=== PATIENT | female | born 1980 | race Caucasian/White ===

== ENCOUNTER 2019-07-17 08:57 | Outpatient (CLI) | payer MEDICAID, SELFPAY ==
--- NOTE | 2019-07-17 08:16 | FL_ITS ---
WS: [id number] ESOPHAGRAM TECHNIQUE: Double contrast examination was performed with thin and thick barium. Upright and LARA imag es were obtained. CLINICAL INFORMATION: DYSPHAGIA COMPARISON: None. FINDINGS: Swallowing: Normal. No evidence of aspiration penetration. No difficulties with barium tablet. Esophagus: Mild to moderate esophageal dysmotility with delayed emptying. Overall decreased contracti lity. No evidence of high-grade stricture or obstructing mass. Gastroesophageal reflux: Present in the supine position to the midesophagus. Fluoroscopy time: 4.1 minutes. FL/FL barium swallow [id number] IMPRESSION: 1. Mild to moderate esophageal dysmotility with delayed emptying and overall d ecreased contractility. 2. Active reflux to the midesophagus in the supine position. 3. No significant hiatal hernia. 4. No evidence of aspiration or penetration.
== END 2019-07-17 08:58 | disposition home or self-care (01) ==
PROVIDERS: Family Provider Family Medicine; PCP Family Medicine; Visit Provider Nurse Practitioner Family
DX: K21.9 Gastro-esophageal reflux disease without esophagitis (principal); R13.10 Dysphagia, unspecified
CPT/HCPCS: 74220

== ENCOUNTER → 2019-07-19 14:31 | Outpatient (BNVA) | payer MEDICAID, SELFPAY | PROVIDERS: Family Provider Family Medicine; PCP Nurse Practitioner Family; Visit Provider Specialist | DX: G43.711 Chronic migraine without aura, intractable, with status migrainosus (principal); F17.210 Nicotine dependence, cigarettes, uncomplicated | CPT/HCPCS: 64615; 99212; J0585 ==

== ENCOUNTER 2019-07-20 17:32 | Emergency (ER) | payer MEDICAID, SELFPAY ==
[2019-07-20 17:34] VITALS: BMI 46.5
--- NOTE | 2019-07-20 17:47 | XRR_ITS ---
PROCEDURE INFORMATION: Exam: XR Lumbosacral Spine, 2 or 3 Views Exam date and time: 07/20/2019 6:13 PM Age: 39 years old Clinical indication: Injury or trauma; Fall; Initial encounter; Blunt trauma (contusions or hematomas) TECHNIQUE: Imaging protocol: XR of the lumbosacral spine, 2 or 3 views. COMPARISON: CR Sacrum and Coccyx [id number] 03/27/2018 7:34 PM FINDINGS: Vertebrae: Normal. No acute fracture. Normal alignment. Soft tissues: Normal. XR/XR lumbar spine 2-3V* [id number] IMPRESSION: Unremarkable radiograph.
--- NOTE | 2019-07-20 17:47 | XRR_ITS ---
PROCEDURE INFORMATION: Exam: XR Sacrum and Coccyx, 2 or More Views Exam date and time: 07/20/2019 6:13 PM Age: 39 years old Clinical indication: Injury or trauma; Fall; Initial encounter; Blunt trauma (contusions or hematomas) TECHNIQUE: Imaging protocol: XR of the sacrum and coccyx, 2 or more views. COMPARISON: CR Sacrum and Coccyx [id number] 03/27/2018 7:34 PM FINDINGS: Bones/joints: Normal. No acute fracture. Soft tissues: Normal. XR/XR sacrum coccyx min 2V [id number] IMPRESSION: No acute findings.
--- NOTE | 2019-07-20 18:25 | ED_ITS ---
HPI - Fall General: Chief Complaint: Fall Stated Complaint: fall/side pain Time Seen by Provider: 07/20/19 17:47 History of Present Illness: HPI Narrative: Patient states that she fell at home twice today going down the stairs once earlier splint was icy then later safstevein complains about pain in her right buttock area now complaint: fall Onset (ago): hour(s) Fall from: standing Fall witnessed: no Place fall occurred: home Loss of consciousness: None Prolonged down time: no Symptoms prior to fall: none Context: tripped/slipped Location of injury: buttocks Associated symptoms-after fall: Denies abdominal pain, chest pain or headache(s) Review of Systems Const: Denies: fever, chills or body aches Eyes: Denies: change in vision or blurry vision ENMT: Denies: throat pain or nasal congestion Card: Denies: chest pain or shortness of breath on exertion Resp: Denies: shortness of breath, productive cough or non-productive cough GI: Denies: abdominal pain, nausea or vomiting Musc: Reports: back pain; Denies: extremity pain Skin/Breast: Denies: rash Neuro: Denies: headache Psych: Denies: anxiety or depression Rick/Lymph: Denies: easy bruising PFSH ED PFSH: Statuses (acute, chronic, etc) shown below reflect problem list status as previously entered and may not be historically accurate Social History Smoking and tobacco status: current every day smoker Physical Exam Const: COMMON NORMALS: no apparent distress, average body habitus and oriented x3 HENMT: COMMON NORMALS: normocephalic HEAD & SCALP: normal to inspection and normocephalic FACE & SINUS: normal facial exam Eye: COMMON NORMALS: conjunctivae normal GENERAL EYE: normal appearance of both eyes CONJUNCTIVA: Yes conjunctivae normal Neck/C-Spine: COMMON NORMALS: no JVD Chest: COMMONS NORMALS: inspection of chest normal Resp: COMMON NORMALS: normal respiratory effort and clear to auscultation bilaterally AUSCULTATION: clear to auscultation bilaterally Cardio: COMMON NORMALS: no JVD, regular rate and regular rhythm RATE: regular rate RHYTHM: regular rhythm GI: COMMON NORMALS: normal to inspection, nondistended, normoactive bowel sounds Back/Pelvis: COMMON NORMALS: thoracic and lumbar spine normal to inspection and no thoracic nor lumbar tenderness LUMBAR SPINE/LOWER BACK: Yes normal to inspection, Yes lumbar ROM normal and No lumbar spinal tenderness PELVIS: Yes other (Pain over the right buttock no bruising swelling or abrasion noted) COCCYX: other (Pain over the right buttock no bruising swelling or abrasion noted) BACK IMAGE (FEMALE): 1. Extremity: COMMON NORMALS: normal to inspection and full ROM Neuro: COMMON NORMALS: oriented x3 Discharge Plan Discharge Patient Disposition: Home, Self-Care Clinical Impression: Contusion of sacrum Qualifiers: Encounter type: initial encounter Qualified Code(s): S30.0XXA - Contusion of lower back and pelvis, initial encounter Condition: Stable Prescriptions: No Action venlafaxine [Effexor XR] 150 mg capsule,extended release 24hr 150 mg PO QAM RF: 0 topiramate [Topamax] 100 mg tablet 100 mg PO QDAY RF: 0 carbamazepine [Tegretol XR] 400 mg tablet extended release 12 hr 400 mg PO BID RF: 0 Bydureon 2 mg/0.65 mL pen injector 2 mg SUBCUT Q7D RF: 0 isosorbide mononitrate 60 mg tablet extended release 24 hr 60 mg PO QAM RF: 0 metoprolol succinate 50 mg tablet extended release 24 hr 50 mg PO BID RF: 0 loratadine 10 mg tablet 10 mg PO QDAY RF: 0 albuterol sulfate 90 mcg/actuation aerosol powdr breath activated 2 inh INHALATION Q6H PRNRF: 0 levothyroxine 75 mcg capsule 75 mcg PO QDAY RF: 0 methocarbamol 750 mg tablet 750 mg PO BID RF: 0 Discharge Orders: Discharge Order (Routine); Ordered 07/20/19 Ordered By: Aashish Hutchinson Referrals: Joseline Thompson MD [Family Provider] - Penny,LI Roberto [Primary Care Provider] - Discharge Diet: Usual diet Discharge Activity: Increase activity as tolerated Patient Instructions: Contusion in Adults (ED) Activity Restrictions/Additional Instructions: Follow-up with medical provider as directed. Return to the ER or your medical provider if condition worsens. Read and understand discharge instructions. 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
[2019-07-20 18:27] VITALS: BP 109/72; PULSE 79; RESP 14; TEMP 36.8; O2SAT 96
== END 2019-07-20 18:28 | disposition home or self-care (01) ==
PROVIDERS: Emergency Provider Nurse Practitioner Family; Family Provider Family Medicine; PCP Nurse Practitioner Family
DX: S30.0XXA Contusion of lower back and pelvis, initial encounter (principal); W00.0XXA Fall on same level due to ice and snow, initial encounter; Y92.009 Unspecified place in unspecified non-institutional (private) residence as the place of occurrence of the external cause; F17.210 Nicotine dependence, cigarettes, uncomplicated
CPT/HCPCS: 72100; 72220; 99281

== ENCOUNTER 2019-09-25 15:15 | Outpatient (CLI) | payer MEDICAID, SELFPAY ==
--- NOTE | 2019-09-25 15:21 | XR_ITS ---
WS: [id number] Left hip, AP and frog leg views, 09/25/2019. Clinical Data: PAIN IN LEFT HIP Comparison: Sacrum and coccyx, 07/20/2019 Findings: No fractures or dislocations are seen. The hip joint is intact. The soft tissues are not remarkable. The adjacent pelvis is normal. XR/XR hip LT 2-3V wo/w pel* [id number] Impression: Negative left hip.
== END 2019-09-25 15:16 | disposition home or self-care (01) ==
LOC: RAD 15:17
PROVIDERS: Family Provider Family Medicine; PCP Nurse Practitioner Family; Visit Provider Family Medicine
DX: M25.552 Pain in left hip (principal)
CPT/HCPCS: 73502

== ENCOUNTER 2019-10-05 17:54 | Emergency (ER) | payer MEDICAID, SELFPAY ==
[2019-10-05 18:23] VITALS: BP 119/79; PULSE 91; RESP 17; TEMP 37; O2SAT 96; BMI 46.0
--- NOTE | 2019-10-05 18:37 | CTR_ITS ---
PROCEDURE INFORMATION: Exam: CT Head Without Contrast Exam date and time: 10/05/2019 6:45 PM Age: 39 years old Clinical indication: Syncope and collapse; Patient HX: Syncope episode last night - backwards fall in bathtub; Additional info: Falls TECHNIQUE: Imaging protocol: Computed tomography of the head without contrast. Total DLP: 761.57 mGy-cm Radiation optimization: All CT scans at this facility use at least one of these dose optimization techniques: automated exposure control; mA and/or kV adjustment per patient size (includes targeted exams where dose is matched to clinical indication); or iterative reconstruction. COMPARISON: CT head wo con* [id number] 03/27/2018 6:00 PM FINDINGS: Brain: No visible evidence for active or acute intracranial pathologic process. Stable benign cavernoma left frontal operculum, averaging 12 mm in diameter, since prior studies dating back to 11/02/2017. Ventricles: Normal. No ventriculomegaly. Bones/joints: Unremarkable. No acute fracture. Sinuses: Visualized sinuses are unremarkable. No fluid levels. Mastoid air cells: Visualized mastoid air cells are well aerated. Soft tissues: Unremarkable. CT/CT head wo con* [id number] IMPRESSION: No visible evidence for active or acute intracranial pathologic process. Radiation Dose CTDIVOL = (mGy): DLP = 761.57 (mGy-cm)
[2019-10-05 18:59] LABS: Basophils # 0.1 10^3/uL (0.0-0.1); Eosinophils # 0.2 10^3/uL (0.0-0.8); Eosinophils % 3.5 %; Hematocrit 43.5 % (37.0-47.0); Hemoglobin 14.2 g/dL (11.5-15.3); Lymphocytes # 1.7 10^3/uL (0.8-4.8); Lymphocytes % 33.7 %; Mean Corpuscular HGB Conc 32.6 g/dL (30.0-36.0); Mean Corpuscular Hemoglobin 30.1 pg (28.0-34.0); Mean Corpuscular Volume 92.4 fL (81-99); Mean Platelet Volume 11.9 fL (7.4-10.4); Monocytes # 0.4 10^3/uL (0.2-0.9); Neutrophils # 2.8 10^3/uL (1.8-7.7); Neutrophils % 54.6 %; Nucleated Red Blood Cells % 0 %; Platelet Count 143 10^3/cmm (130-400); Red Blood Count 4.71 10^6/uL (4.1-5.3); Red Cell Distribution Width 13.2 % (12.1-15.1); White Blood Count 5.2 10^3/uL (4.0-10.0)
--- NOTE | 2019-10-05 19:03 | ECG_ITS ---
Measurements Intervals [place] Rate: 76 P: 18 RI: 175 QRS: 49 QRSD: 97 T: 29 QT: 376 QTc: 425 SINUS RHYTHM NONSPECIFIC T-WAVE ABNORMALITY Compared to ECG 10/29/2018 21:37:20 T-wave abnormality now present Sinus bradycardia no longer present Electronically Signed On 10-06-2019 20:22:13 CDT by Nikolas Ken M.D. [id number]
--- NOTE | 2019-10-05 19:06 | W.ED.FALL ---
HPI - Fall General: Chief Complaint: Fall Stated Complaint: fall Time Seen by Provider: 10/05/19 18:35 Source: patient Mode of arrival: ambulatory Limitations: no limitations History of Present Illness: HPI Narrative: pt states that she has been falling and episodes of incontinence during these episodes; she has hx of seizures but none for 2 years complaint: fall Fall from: standing Fall witnessed: no Place fall occurred: home Loss of consciousness: Unsure Associated symptoms-after fall: Reports chest pain, difficulty walking and headache(s) Review of Systems General: Reports: 10 or more systems reviewed and unremarkable except in HPI and below Const: Denies: fever, chills or body aches Eyes: Denies: change in vision ENMT: Denies: throat pain Card: Reports: chest pain and syncope Resp: Denies: shortness of breath or productive cough : Reports: urinary incontinence; Denies: flank pain Neuro: Reports: headache, difficulty walking and frequent falls PFSH ED PFSH: Social History Smoking and tobacco status: current every day smoker Physical Exam Const: COMMON NORMALS: no apparent distress, oriented x3, no limitations and alert GENERAL APPEARANCE: cooperative and comfortable ORIENTATION/CONSCIOUSNESS: Yes awake, Yes oriented to person, Yes oriented to place and Yes oriented to time HENMT: COMMON NORMALS: normocephalic, head/scalp atraumatic, external ears normal, EAC's normal, TM's normal bilaterally and external nose normal HEAD & SCALP: normal to inspection, normocephalic and atraumatic FACE & SINUS: normal facial exam, sinuses nontender and face symmetric NOSE: external nose normal, nares normal and no nasal discharge EXTERNAL EAR: Yes external ears normal EXTERNAL AUDITORY CANAL: EAC's normal TYMPANIC MEMBRANE: TM's normal bilaterally MOUTH: oral and palatal mucosa normal, lip normal and tongue normal THROAT: posterior oropharynx normal, tonsils normal and uvula midline Eye: COMMON NORMALS: PERRL, EOMs intact bilaterally and conjunctivae normal GENERAL EYE: normal appearance of both eyes and normal light reflex EYELID: eyelids normal CONJUNCTIVA: Yes conjunctivae normal PUPIL: Yes PERRL EOM: Yes EOM abnormal DIRECT OPHTHALMOSCOPY: Yes normal light reflex Neck/C-Spine: COMMON NORMALS: full ROM, no lymphadenopathy, supple, no meningeal signs, no JVD and thyroid normal GENERAL: Yes normal visual inspection THYROID: thyroid normal CERVICAL SPINE: Yes cervical ROM normal and Yes normal cervical lordosis Lymph: LYMPHATIC: no lymphadenopathy noted Chest: COMMONS NORMALS: inspection of chest normal and palpation of chest normal Resp: COMMON NORMALS: normal respiratory effort, no retractions and clear to auscultation bilaterally AUSCULTATION: clear to auscultation bilaterally Cardio: COMMON NORMALS: no JVD, regular rate, regular rhythm, S1 normal heart sound, S2 normal heart sound, no gallops, no clicks, no murmurs, no rub and peripheral pulses 2+ throughout RATE: regular rate RHYTHM: regular rhythm HEART SOUNDS: S1 normal and S2 normal PERIPHERAL PULSES: pulses 2+ throughout GI: COMMON NORMALS: normal to inspection, nondistended, normoactive bowel sounds, soft to palpation, non-tender and no masses PALPATION: Yes soft : COMMON NORMALS: Yes no CVA tenderness and Yes external appearance normal BLADDER/KIDNEY EXAM: Yes no CVA tenderness Back/Pelvis: COMMON NORMALS: no CVA tenderness, thoracic and lumbar spine normal to inspection, no thoracic nor lumbar tenderness and thoraco-lumbar ROM normal Extremity: COMMON NORMALS: normal to inspection, full ROM, normal capillary refill, no joint enlargement, no clubbing, cyanosis or edema, no calf tenderness and no pedal edema GENERAL: Yes normal exam except as noted Neuro: COMMON NORMALS: oriented x3, moves all extremities, no focal motor deficits, no sensory deficits noted and gait normal SENSORIUM/ORIENTATION: Yes alert, Yes oriented to person, Yes oriented to place and Yes oriented to time MENINGEAL SIGNS: Yes no meningeal signs Psych: COMMON NORMALS: mental status grossly normal, thought process normal, cooperative, affect normal, speech normal and activity/motor behavior normal SPEECH: Yes normal speech THOUGHT PROCESS: normal thought process Skin: COMMON NORMALS: no rashes or lesions noted, no wounds and skin turgor normal GENERAL SKIN EXAM: no rashes or lesions noted and turgor normal Course ED course: pt has had numerous syncopal episodes per her history over the past few days; she took a nitro SL prior to her arrival which helped with her ongoing CP with some relief. CT head and further cardiology work up ordered. Denies SOB or CP presently Reevaluation(s): Reevaluation #1: EKG subacute; normal SR. Time: 19:19 Reevaluation #2: Labs show no acute infection; negative for alcohol and UDS is negative. With pt hx of seizures will treat with iv ativan before DC and have her follow up with her neurologist next week for possible medication adjustment. Time: 20:41 Vital Signs: Vital signs: Vital Signs Temperature 98.6 F 10/05/19 18:23 Pulse Rate 84 10/05/19 20:12 Respiratory Rate 17 10/05/19 18:23 Blood Pressure 108/68 10/05/19 20:12 Pulse Oximetry 96 10/05/19 18:23 MDM - Fall Lab Data: Labs: Lab Results 10/05/19 10/05/19 10/05/19 Range/Units 18:45 18:45 18:45 WBC 5.2 (4.0-10.0) 10^3/ uL RBC 4.71 (4.1-5.3) 10^6/u L Hgb 14.2 (11.5-15.3) g/dL Hct 43.5 (37.0-47.0) % MCV 92.4 (81-99) fL MCH 30.1 (28.0-34.0) pg MCHC 32.6 (30.0-36.0) g/dL RDW 13.2 (12.1-15.1) % Plt Count 143 (130-400) 10^3/c mm MPV 11.9 H (7.4-10.4) fL Neut % (Auto) 54.6 % Lymph % (Auto) 33.7 % [place] % (Auto) 7.0 % Eos % (Auto) 3.5 % Baso % (Auto) 1.0 % Neut # (Auto) 2.8 (1.8-7.7) 10^3/u L Lymph # (Auto) 1.7 (0.8-4.8) 10^3/u L [place] # (Auto) 0.4 (0.2-0.9) 10^3/u L Eos # (Auto) 0.2 (0.0-0.8) 10^3/u L Baso # (Auto) 0.1 (0.0-0.1) 10^3/u L Nucleated RBC % (a uto) 0 % Nucleated RBCs # 0.0 /100WBC Sodium 141 (136-145) mmol/L Potassium 4.2 (3.5-5.1) mmol/L Chloride 107 (98-107) mmol/L Carbon Dioxide 23 (22-29) mmol/L Anion Gap 15.2 (5-19) BUN 12 (6-20) mg/dL Creatinine 0.6 (0.5-0.9) mg/dL GFR Calculation 110.2 (90-130) mL/min Glucose 104 (65-115) mg/dL Calculated Osmolal ity 288 (285-295) mOsm/k g Calcium 9.8 (8.5-10.5) mg/dL Total Bilirubin 0.3 (0.15-1.2) mg/dL AST 9 (0-32) U/L ALT 7 (0-33) U/L Alkaline Phosphata se 129 H (35-105) IU/L Troponin T Gen 5 n g/L 8 (0-10) ng/mL Total Protein 7.1 (6.6-8.7) g/dL Albumin 4.5 (3.5-5.2) g/dL Globulin 2.6 (1.3-4.6) g/dL Urine Color (Yellow) Urine Appearance (CLEAR) Urine pH (5-7) Ur Specific Gravit y (1.005-1.030) Urine Protein (Negative) Urine Glucose (UA) (Normal) Urine Ketones (Negative) Urine Blood (Negative) Urine Nitrate (Negative) Urine Bilirubin (NEGATIVE) Urine Urobilinogen (Negative) mg/dL Ur Leukocyte Corinne ase (Negative) Urine Opiates Scre en (Negative) ng/mL Ur Barbiturates Sc reen (Negative) ng/mL Ur Phencyclidine S crn (Negative) ng/mL Ur Amphetamines Sc reen (Negative) ng/mL U Benzodiazepines Scrn (Negative) ng/mL Urine Cocaine Scre en (Negative) ng/mL U Marijuana (THC) Screen (Negative) ng/mL Ethyl Alcohol < 10 (0-10) mg/dL 10/05/19 10/05/19 Range/Units 19:15 19:15 WBC (4.0-10.0) 10^3/ uL RBC (4.1-5.3) 10^6/u L Hgb (11.5-15.3) g/dL Hct (37.0-47.0) % MCV (81-99) fL MCH (28.0-34.0) pg MCHC (30.0-36.0) g/dL RDW (12.1-15.1) % Plt Count (130-400) 10^3/c mm MPV (7.4-10.4) fL Neut % (Auto) % Lymph % (Auto) % [place] % (Auto) % Eos % (Auto) % Baso % (Auto) % Neut # (Auto) (1.8-7.7) 10^3/u L Lymph # (Auto) (0.8-4.8) 10^3/u L [place] # (Auto) (0.2-0.9) 10^3/u L Eos # (Auto) (0.0-0.8) 10^3/u L Baso # (Auto) (0.0-0.1) 10^3/u L Nucleated RBC % (a uto) % Nucleated RBCs # /100WBC Sodium (136-145) mmol/L Potassium (3.5-5.1) mmol/L Chloride (98-107) mmol/L Carbon Dioxide (22-29) mmol/L Anion Gap (5-19) BUN (6-20) mg/dL Creatinine (0.5-0.9) mg/dL GFR Calculation (90-130) mL/min Glucose (65-115) mg/dL Calculated Osmolal ity (285-295) mOsm/k g Calcium (8.5-10.5) mg/dL Total Bilirubin (0.15-1.2) mg/dL AST (0-32) U/L ALT (0-33) U/L Alkaline Phosphata se (35-105) IU/L Troponin T Gen 5 n g/L (0-10) ng/mL Total Protein (6.6-8.7) g/dL Albumin (3.5-5.2) g/dL Globulin (1.3-4.6) g/dL Urine Color Yellow (Yellow) Urine Appearance Clear (CLEAR) Urine pH 5 (5-7) Ur Specific Gravit y 1.015 (1.005-1.030) Urine Protein Neg (Negative) Urine Glucose (UA) Norm (Normal) Urine Ketones Negative (Negative) Urine Blood Neg (Negative) Urine Nitrate Negative (Negative) Urine Bilirubin Neg (NEGATIVE) Urine Urobilinogen Norm (Negative) mg/dL Ur Leukocyte Corinne ase Negative (Negative) Urine Opiates Scre en Negative (Negative) ng/mL Ur Barbiturates Sc reen Negative (Negative) ng/mL Ur Phencyclidine S crn Negative (Negative) ng/mL Ur Amphetamines Sc reen Negative (Negative) ng/mL U Benzodiazepines Scrn Negative (Negative) ng/mL Urine Cocaine Scre en Negative (Negative) ng/mL U Marijuana (THC) Screen Negative (Negative) ng/mL Ethyl Alcohol (0-10) mg/dL Imaging Data^: CT Head: Radiologist's impression: [facility] [address] [place] [address] CT Scan Report Signed Patient: Marry Whatley Unit #: [id number] : 1980 Age/Sex: 39 / F ADM Date: 10/05/19 Loc: ER Room/Bed: Attending Dr: Ordering Provider/Ordering MD: Kayla Boyle NP Date of Service: 10/05/19 Procedure(s): CT head wo con* [id number] Accession Number(s): [id number] Report Number: [id number] PROCEDURE INFORMATION: Exam: CT Head Without Contrast Exam date and time: 10/05/2019 6:45 PM Age: 39 years old Clinical indication: Syncope and collapse; Patient HX: Syncope episode last night - backwards fall in bathtub; Additional info: Falls TECHNIQUE: Imaging protocol: Computed tomography of the head without contrast. Total DLP: 761.57 mGy-cm Radiation optimization: All CT scans at this facility use at least one of these dose optimization techniques: automated exposure control; mA and/or kV adjustment per patient size (includes targeted exams where dose is matched to clinical indication); or iterative reconstruction. COMPARISON: CT head wo con* [id number] 03/27/2018 6:00 PM FINDINGS: Brain: No visible evidence for active or acute intracranial pathologic process. Stable benign cavernoma left frontal operculum, averaging 12 mm in diameter, since prior studies dating back to 11/02/2017. Ventricles: Normal. No ventriculomegaly. Bones/joints: Unremarkable. No acute fracture. Sinuses: Visualized sinuses are unremarkable. No fluid levels. Mastoid air cells: Visualized mastoid air cells are well aerated. Soft tissues: Unremarkable. CT/CT head wo con* [id number] IMPRESSION: No visible evidence for active or acute intracranial pathologic process. Radiation Dose CTDIVOL = (mGy): DLP = 761.57 (mGy-cm) Dictated By: Ronen Nguyễn Signed By: Ronen Nguyễn Signed Date/Time: 10/05/191936 DD/ 33 Discharge Plan Discharge Patient Disposition: Home, Self-Care Clinical Impression: Syncope Condition: Stable Prescriptions: No Action venlafaxine [Effexor XR] 150 mg capsule,extended release 24hr 150 mg PO QAM RF: 0 carbamazepine [Tegretol XR] 400 mg tablet extended release 12 hr 400 mg PO BID RF: 0 Bydureon 2 mg/0.65 mL pen injector 2 mg SUBCUT Q7D RF: 0 isosorbide mononitrate 60 mg tablet extended release 24 hr 60 mg PO QAM RF: 0 metoprolol succinate 50 mg tablet extended release 24 hr 50 mg PO BID RF: 0 loratadine 10 mg tablet 10 mg PO QDAY RF: 0 albuterol sulfate 90 mcg/actuation aerosol powdr breath activated 2 inh INHALATION Q6H PRNRF: 0 levothyroxine 75 mcg capsule 75 mcg PO QDAY RF: 0 methocarbamol 750 mg tablet 750 mg PO BID RF: 0 topiramate [Topamax] 100 mg tablet 100 mg PO QDAY Qty: 30 RF: 4 Referrals: Joseline Thompson MD [Family Provider] - PennyFelisa FNP [Primary Care Provider] - Discharge Diet: Usual diet Discharge Activity: Limit activity as instructed Activity Restrictions/Additional Instructions: please follow up with Dr. Weston to see if your topiramate needs adjusted. If CP returns or worsens or episodes of syncope return; possible that you will need a follow up with cardiology for halter monitor to ensure you are not having an arryhthmia that is causing you to pass out. Please return as needed. No driving until cleared. Coding Level of Care Code ED Paper Mill Manager for Chg Fwd Exam Comprehensive
[2019-10-05 19:17] LABS: Alanine Aminotransferase 7 U/L (0-33); Albumin Level 4.5 g/dL (3.5-5.2); Alkaline Phosphatase 129 IU/L (35-105); Anion Gap 15.2 (5-19); Aspartate Amino Transferase 9 U/L (0-32); Blood Urea Nitrogen 12 mg/dL (6-20); Calcium 9.8 mg/dL (8.5-10.5); Carbon Dioxide 23 mmol/L (22-29); Chloride 107 mmol/L (98-107); Globulin 2.6 g/dL (1.3-4.6); Glomerular Filtration Rate 110.2 mL/min (90-130); Glucose 104 mg/dL (65-115); Osmolality Calculated 288 mOsm/kg (285-295); Potassium 4.2 mmol/L (3.5-5.1); Sodium 141 mmol/L (136-145); Total Bilirubin 0.3 mg/dL (0.15-1.2); Total Protein 7.1 g/dL (6.6-8.7)
[2019-10-05 19:21] LABS: Alcohol Level < 10 mg/dL (0-10)
[2019-10-05 19:24] LABS: Add Urine Microscopic? NO
[2019-10-05] MEDS: sodium chloride 0.9% 500 ML IV (19:28)
[2019-10-05 19:32] LABS: Bilirubin Urine Neg (NEGATIVE); Blood Urine Neg (Negative); Glucose Urine UA Norm (Normal); Ketones Urine Negative (Negative); Leukocyte Esterase Urine Negative (Negative); Nitrate Urine Negative (Negative); Protein Urine Neg (Negative); Specific Gravity, Urine 1.015 (1.005-1.030); Urine Appearance Clear (CLEAR); Urine Color Yellow (Yellow); Urobilinogen Urine Norm (Negative); pH Urine 5 (5-7)
[2019-10-05 19:33] LABS: Troponin T (5th) Once 8 ng/mL (0-10)
[2019-10-05 19:37] LABS: Amphetamines Screen Urine Negative (Negative); Barbiturates Screen Urine Negative (Negative); Benzodiazepines Screen Urine Negative (Negative); Cocaine Screen Urine Negative (Negative); Opiate Screen Urine Negative (Negative); PCP Screen Urine Negative (Negative); THC Screen Urine Negative (Negative)
[2019-10-05 20:00] VITALS: BP 102/62; PULSE 76
[2019-10-05 20:11] VITALS: BP 104/71; PULSE 82
[2019-10-05 20:12] VITALS: BP 108/68; PULSE 84
[2019-10-05] MEDS: LORazepam 2 mg/mL INJ 1 mL IVP (20:51)
[2019-10-05] MEDS: HYDROcodone-acetaminophen 5-325 mg Tablet 2 TAB PO (21:13)
[2019-10-05 21:17] VITALS: BP 108/66; PULSE 80; RESP 16; O2SAT 98
--- NOTE | 2019-10-05 21:45 | PC.NURSE ---
After patient left, found 2 hydrocodones that i had given to patient to take home on the floor and returned them to [facility].
--- NOTE | 2019-10-08 10:40 | DCPLANNER ---
application services manager had message to schedule a follow up appointment for patient with Dr. Weston. application services manager called the office of Dr. Weston, spoke with María Elena. A follow up appointment is scheduled for October at 3:[address] Weston. Clinic will contact patient with appointment information.
--- NOTE | 2019-12-20 15:20 | DCPLANNER ---
Patient did attend appointment scheduled for 10.25.[address] Weston.
== END 2019-10-05 21:19 | disposition home or self-care (01) ==
PROVIDERS: Emergency Provider Nurse Practitioner Family; Family Provider Family Medicine; PCP Nurse Practitioner Family
DX: R55 Syncope and collapse (principal); F17.200 Nicotine dependence, unspecified, uncomplicated; G43.711 Chronic migraine without aura, intractable, with status migrainosus
CPT/HCPCS: 12345; 70450; 80053; 80306; 80307; 81003; 84484; 85025; 93005; 96360; 96361; 96374; 99284; A9270; J2060; J7040

== ENCOUNTER 2019-10-17 23:04 | Emergency (ER) | payer MEDICAID, SELFPAY ==
[2019-10-17 23:10] VITALS: BP 132/73; PULSE 83; RESP 18; TEMP 36.6; O2SAT 94; BMI 45.9
--- NOTE | 2019-10-17 23:13 | ED_ITS ---
HPI - General Adult General: Chief complaint: Chest Pain Stated complaint: cp, left side back pain Time Seen by Provider: 10/17/19 23:08 Source: patient Mode of arrival: ambulatory Limitations: no limitations History of Present Illness: HPI narrative: Patient comes in tonight for concerns of having pain in her back with sudden onset of left arm, left leg, and left side face numbness. Patient reports then having some chest pain which she took nitro for. At this time patient reports continued back pain but otherwise no other abnormality. Patient reports resolution of numbness in the face and leg but continues to have some left arm numbness. Patient reports that earlier today she was helping her sister move something and she stepped in a hole feeling sudden pop in her back and then started having the discomfort she has described. Patient appears well. Patient appears in no pain at rest. Associated symptoms: Reports chest pain Review of Systems General: Reports: 10 or more systems reviewed and unremarkable except in HPI and below Card: Reports: chest pain Musc: Reports: back pain Neuro: Reports: numbness in extremities PFSH ED PFSH: Social History Smoking and tobacco status: current every day smoker Physical Exam Const: COMMON NORMALS: no apparent distress and oriented x3 GENERAL APPEARANCE: cooperative HENMT: COMMON NORMALS: normocephalic, TM's normal bilaterally and external nose normal HEAD & SCALP: normal to inspection and normocephalic NOSE: external nose normal TYMPANIC MEMBRANE: TM's normal bilaterally MOUTH: oral and palatal mucosa normal THROAT: posterior oropharynx normal Eye: GENERAL EYE: normal appearance of both eyes Neck/C-Spine: COMMON NORMALS: full ROM Lymph: LYMPHATIC: no lymphadenopathy noted Chest: COMMONS NORMALS: inspection of chest normal Resp: COMMON NORMALS: normal respiratory effort EFFORT & INSPECTION: Yes able to speak in complete sentences Cardio: COMMON NORMALS: regular rate and regular rhythm RATE: regular rate RHYTHM: regular rhythm GI: COMMON NORMALS: non-tender : COMMON NORMALS: Yes no CVA tenderness BLADDER/KIDNEY EXAM: Yes no CVA tenderness Back/Pelvis: COMMON NORMALS: no CVA tenderness and thoracic and lumbar spine normal to inspection Extremity: COMMON NORMALS: normal to inspection Neuro: COMMON NORMALS: oriented x3 and moves all extremities Psych: COMMON NORMALS: mental status grossly normal and cooperative Skin: COMMON NORMALS: no rashes or lesions noted GENERAL SKIN EXAM: no rashes or lesions noted Course Vital Signs: Vital signs: Vital Signs Temperature 97.8 F 10/17/19 23:10 Pulse Rate 77 10/18/19 00:08 Respiratory Rate 18 10/18/19 00:08 Blood Pressure 107/83 10/18/19 00:08 Pulse Oximetry 97 10/18/19 00:08 MDM - General Adult MDM Narrative: Medical decision making narrative: Patient comes in today with complaints of back pain then started having some chest pain and some numbness and tingling in her extremities. Patient appears well. Exam notes no focal neural deficits, low back has some tenderness on palpation but no vertebral tenderness. Vital signs are normal. Abdomen is soft nontender. Skin is warm dry and color is pink. EKG was sinus rhythm and no changes from previous exams. Laboratory values were normal. Chest x-ray was normal. Reviewed exam with patient feel the patient probably has some musculoskeletal strain that has caused patient anxiety and distress. Patient was medicated with 30 mg of Toradol and 1 mg Ativan. Patient was recommended to go home and rest and follow-up with primary care for other medications if she needs something else for pain. Differential diagnosis includes but not limited to muscle strain, arrhythmia, intervertebral disc disease, facet arthropathy, acute anxiety, and substance abuse. Lab Data: Labs: Lab Results 10/17/19 10/17/19 10/17/19 Range/Units 23:40 23:40 23:40 WBC 6.2 (4.0-10.0) 10^3/ uL RBC 4.27 (4.1-5.3) 10^6/u L Hgb 13.0 (11.5-15.3) g/dL Hct 39.9 (37.0-47.0) % MCV 93.4 (81-99) fL MCH 30.4 (28.0-34.0) pg MCHC 32.6 (30.0-36.0) g/dL RDW 13.2 (12.1-15.1) % Plt Count 116 L (130-400) 10^3/c mm MPV 12.2 H (7.4-10.4) fL Neut % (Auto) 61.9 % Lymph % (Auto) 28.6 % [place] % (Auto) 6.2 % Eos % (Auto) 2.4 % Baso % (Auto) 0.7 % Neut # (Auto) 3.8 (1.8-7.7) 10^3/u L Lymph # (Auto) 1.8 (0.8-4.8) 10^3/u L [place] # (Auto) 0.4 (0.2-0.9) 10^3/u L Eos # (Auto) 0.2 (0.0-0.8) 10^3/u L Baso # (Auto) 0.0 (0.0-0.1) 10^3/u L Nucleated RBC % (a uto) 0 % Nucleated RBCs # 0.0 /100WBC Sodium 141 (136-145) mmol/L Potassium 3.5 (3.5-5.1) mmol/L Chloride 104 (98-107) mmol/L Carbon Dioxide 26 (22-29) mmol/L Anion Gap 14.5 (5-19) BUN 13 (6-20) mg/dL Creatinine 0.7 (0.5-0.9) mg/dL GFR Calculation 92.2 (90-130) mL/min Glucose 106 (65-115) mg/dL Calculated Osmolal ity 289 (285-295) mOsm/k g Calcium 9.4 (8.5-10.5) mg/dL Total Bilirubin 0.2 (0.15-1.2) mg/dL AST 12 (0-32) U/L ALT 10 (0-33) U/L Alkaline Phosphata se 113 H (35-105) IU/L Total Protein 6.3 L (6.6-8.7) g/dL Albumin 4.5 (3.5-5.2) g/dL Globulin 1.8 (1.3-4.6) g/dL Urine Color Yellow (Yellow) Urine Appearance Clear (CLEAR) Urine pH 5 (5-7) Ur Specific Gravit y 1.020 (1.005-1.030) Urine Protein Neg (Negative) Urine Glucose (UA) Norm (Normal) Urine Ketones Negative (Negative) Urine Blood Neg (Negative) Urine Nitrate Negative (Negative) Urine Bilirubin Neg (NEGATIVE) Urine Urobilinogen 1 H (Negative) mg/dL Ur Leukocyte Corinne ase Negative (Negative) Urine Opiates Scre en (Negative) ng/mL Ur Barbiturates Sc reen (Negative) ng/mL Ur Phencyclidine S crn (Negative) ng/mL Ur Amphetamines Sc reen (Negative) ng/mL U Benzodiazepines Scrn (Negative) ng/mL Urine Cocaine Scre en (Negative) ng/mL U Marijuana (THC) Screen (Negative) ng/mL 10/17/19 Range/Units 23:40 WBC (4.0-10.0) 10^3/ uL RBC (4.1-5.3) 10^6/u L Hgb (11.5-15.3) g/dL Hct (37.0-47.0) % MCV (81-99) fL MCH (28.0-34.0) pg MCHC (30.0-36.0) g/dL RDW (12.1-15.1) % Plt Count (130-400) 10^3/c mm MPV (7.4-10.4) fL Neut % (Auto) % Lymph % (Auto) % [place] % (Auto) % Eos % (Auto) % Baso % (Auto) % Neut # (Auto) (1.8-7.7) 10^3/u L Lymph # (Auto) (0.8-4.8) 10^3/u L [place] # (Auto) (0.2-0.9) 10^3/u L Eos # (Auto) (0.0-0.8) 10^3/u L Baso # (Auto) (0.0-0.1) 10^3/u L Nucleated RBC % (a uto) % Nucleated RBCs # /100WBC Sodium (136-145) mmol/L Potassium (3.5-5.1) mmol/L Chloride (98-107) mmol/L Carbon Dioxide (22-29) mmol/L Anion Gap (5-19) BUN (6-20) mg/dL Creatinine (0.5-0.9) mg/dL GFR Calculation (90-130) mL/min Glucose (65-115) mg/dL Calculated Osmolal ity (285-295) mOsm/k g Calcium (8.5-10.5) mg/dL Total Bilirubin (0.15-1.2) mg/dL AST (0-32) U/L ALT (0-33) U/L Alkaline Phosphata se (35-105) IU/L Total Protein (6.6-8.7) g/dL Albumin (3.5-5.2) g/dL Globulin (1.3-4.6) g/dL Urine Color (Yellow) Urine Appearance (CLEAR) Urine pH (5-7) Ur Specific Gravit y (1.005-1.030) Urine Protein (Negative) Urine Glucose (UA) (Normal) Urine Ketones (Negative) Urine Blood (Negative) Urine Nitrate (Negative) Urine Bilirubin (NEGATIVE) Urine Urobilinogen (Negative) mg/dL Ur Leukocyte Corinne ase (Negative) Urine Opiates Scre en Negative (Negative) ng/mL Ur Barbiturates Sc reen Negative (Negative) ng/mL Ur Phencyclidine S crn Positive H (Negative) ng/mL Ur Amphetamines Sc reen Negative (Negative) ng/mL U Benzodiazepines Scrn Negative (Negative) ng/mL Urine Cocaine Scre en Negative (Negative) ng/mL U Marijuana (THC) Screen Negative (Negative) ng/mL EKG Data^: EKG 1: Attestation: I personally reviewed and interpreted this EKG as follows: (2335, sinus rhythm, regular rate at 71 bpm, no ST elevation, no ectopy, no change from prior EKG) Discharge Plan Discharge Patient Disposition: Home, Self-Care Clinical Impression: Anxiety Back pain Qualifiers: Back pain location: low back pain Chronicity: acute Back pain laterality: left Sciatica presence: without sciatica Qualified Code(s): M54.5 - Low back pain Condition: Stable Prescriptions: No Action venlafaxine [Effexor XR] 150 mg capsule,extended release 24hr 150 mg PO QAM RF: 0 carbamazepine [Tegretol XR] 400 mg tablet extended release 12 hr 400 mg PO BID RF: 0 Bydureon 2 mg/0.65 mL pen injector 2 mg SUBCUT Q7D RF: 0 isosorbide mononitrate 60 mg tablet extended release 24 hr 60 mg PO QAM RF: 0 metoprolol succinate 50 mg tablet extended release 24 hr 50 mg PO BID RF: 0 loratadine 10 mg tablet 10 mg PO QDAY RF: 0 albuterol sulfate 90 mcg/actuation aerosol powdr breath activated 2 inh INHALATION Q6H PRNRF: 0 levothyroxine 75 mcg capsule 75 mcg PO QDAY RF: 0 methocarbamol 750 mg tablet 750 mg PO BID RF: 0 topiramate [Topamax] 100 mg tablet 100 mg PO QDAY Qty: 30 RF: 4 Referrals: Joseline Thompson MD [Family Provider] - PennyFelisa FNP [Primary Care Provider] - Discharge Diet: Usual diet Discharge Activity: Increase activity as tolerated Patient Instructions: Acute Low Back Pain (ED) Activity Restrictions/Additional Instructions: Drink plenty of fluids Activity as tolerated Gentle stretching and range of motion exercise Follow-up with primary care in one week Return to ER for worsening symptoms or new concerns Coding Level of Care Code ED Composing Machine Operator for Stewartg Fwd Exam Comprehensive
--- NOTE | 2019-10-17 23:14 | ECG_ITS ---
Measurements Intervals [place] Rate: 71 P: 20 SD: 179 QRS: 38 QRSD: 108 T: 40 QT: 390 QTc: 425 SINUS RHYTHM NONSPECIFIC T-WAVE ABNORMALITY Compared to ECG 10/05/2019 19:20:48 No significant changes Electronically Signed On 10-18-2019 11:06:21 CDT by Kimmy Whitman M.D. [email or web address]
--- NOTE | 2019-10-17 23:15 | PC.NURSE ---
Patient states her chest started hurting centrally around 2130 tonight while she was laying down and her left arm, left side of face, and left leg felt tingly. Patient states that is just her arm tingling now. Patient took two nitro at home before coming in to the ED. Patient states she stepping a hole earlier today and felt a pop in her back.
[2019-10-17 23:19] VITALS: BP 115/70; PULSE 73; RESP 15; O2SAT 95
--- NOTE | 2019-10-17 23:21 | XR_ITS ---
WS: [id number] PORTABLE CHEST HISTORY: chf, cp COMPARISON: 03/25/2019 Lungs are clear and well expanded. No pleural effusion or pneumothorax. Cardiac size: Normal. Mediastinum/Aorta: Normal mediastinum. No osseous abnormality seen. XR/XR chest 1V portable [id number] IMPRESSION: Unremarkable portable chest.
[2019-10-17 23:50] LABS: Add Urine Microscopic? NO
[2019-10-17 23:53] LABS: Bilirubin Urine Neg (NEGATIVE); Blood Urine Neg (Negative); Glucose Urine UA Norm (Normal); Ketones Urine Negative (Negative); Nitrate Urine Negative (Negative); Protein Urine Neg (Negative); Urine Appearance Clear (CLEAR); Urine Color Yellow (Yellow); Urobilinogen Urine 1 mg/dL (Negative); pH Urine 5 (5-7)
[2019-10-17 23:54] LABS: Leukocyte Esterase Urine Negative (Negative)
[2019-10-17 23:55] LABS: Basophils % 0.7 %; Eosinophils # 0.2 10^3/uL (0.0-0.8); Eosinophils % 2.4 %; Hematocrit 39.9 % (37.0-47.0); Lymphocytes # 1.8 10^3/uL (0.8-4.8); Lymphocytes % 28.6 %; Mean Corpuscular HGB Conc 32.6 g/dL (30.0-36.0); Mean Corpuscular Hemoglobin 30.4 pg (28.0-34.0); Mean Corpuscular Volume 93.4 fL (81-99); Mean Platelet Volume 12.2 fL (7.4-10.4); Monocytes # 0.4 10^3/uL (0.2-0.9); Monocytes % 6.2 %; Neutrophils # 3.8 10^3/uL (1.8-7.7); Neutrophils % 61.9 %; Nucleated Red Blood Cells % 0 %; Platelet Count 116 10^3/cmm (130-400); Red Blood Count 4.27 10^6/uL (4.1-5.3); Red Cell Distribution Width 13.2 % (12.1-15.1); White Blood Count 6.2 10^3/uL (4.0-10.0)
[2019-10-18 00:02] LABS: Amphetamines Screen Urine Negative (Negative); Barbiturates Screen Urine Negative (Negative); Benzodiazepines Screen Urine Negative (Negative); Cocaine Screen Urine Negative (Negative); Opiate Screen Urine Negative (Negative); PCP Screen Urine Positive (Negative); THC Screen Urine Negative (Negative)
[2019-10-18 00:06] LABS: Alanine Aminotransferase 10 U/L (0-33); Albumin Level 4.5 g/dL (3.5-5.2); Alkaline Phosphatase 113 IU/L (35-105); Anion Gap 14.5 (5-19); Aspartate Amino Transferase 12 U/L (0-32); Blood Urea Nitrogen 13 mg/dL (6-20); Calcium 9.4 mg/dL (8.5-10.5); Carbon Dioxide 26 mmol/L (22-29); Chloride 104 mmol/L (98-107); Globulin 1.8 g/dL (1.3-4.6); Glomerular Filtration Rate 92.2 mL/min (90-130); Glucose 106 mg/dL (65-115); Osmolality Calculated 289 mOsm/kg (285-295); Potassium 3.5 mmol/L (3.5-5.1); Sodium 141 mmol/L (136-145); Total Bilirubin 0.2 mg/dL (0.15-1.2); Total Protein 6.3 g/dL (6.6-8.7)
[2019-10-18 00:08] VITALS: BP 107/83; PULSE 77; RESP 18; O2SAT 97
[2019-10-18] MEDS: ketorolac 30 mg/mL INJ IM (00:18)
[2019-10-18] MEDS: LORazepam 1 mg Tablet PO (00:19)
[2019-10-18 00:37] VITALS: BP 126/79; PULSE 74; RESP 17; O2SAT 98
== END 2019-10-18 00:38 | disposition home or self-care (01) ==
PROVIDERS: Emergency Provider Nurse Practitioner Family; Family Provider Family Medicine; PCP Nurse Practitioner Family
DX: F41.9 Anxiety disorder, unspecified (principal); M54.5 Low back pain; F17.210 Nicotine dependence, cigarettes, uncomplicated
CPT/HCPCS: 12345; 36415; 71045; 80053; 80306; 81003; 85025; 93005; 96372; 99282; J1885

== ENCOUNTER → 2019-10-25 15:03 | Outpatient (BNVA) | payer MEDICAID, SELFPAY | PROVIDERS: Family Provider Family Medicine; PCP Nurse Practitioner Family; Visit Provider Specialist | DX: G43.711 Chronic migraine without aura, intractable, with status migrainosus (principal); R55 Syncope and collapse | CPT/HCPCS: 64615; 99213; J0585 ==

== ENCOUNTER → 2020-01-17 14:12 | Outpatient (BNVA) | payer MEDICAID, SELFPAY | PROVIDERS: Family Provider Family Medicine; PCP Nurse Practitioner Family; Visit Provider Specialist | DX: G43.711 Chronic migraine without aura, intractable, with status migrainosus (principal); F17.210 Nicotine dependence, cigarettes, uncomplicated | CPT/HCPCS: 64615; J0585 ==

== ENCOUNTER 2020-01-24 16:28 | Emergency (ER) | payer MEDICAID, SELFPAY ==
[2020-01-24 16:52] VITALS: BP 96/63; PULSE 77; RESP 14; TEMP 36; O2SAT 95; BMI 43.7
--- NOTE | 2020-01-24 17:53 | XRR_ITS ---
PROCEDURE INFORMATION: Exam: XR Left Ankle Exam date and time: 01/24/2020 6:28 PM Age: 39 years old Clinical indication: Injury or trauma; Injury history: Twisted ankle; Initial encounter; Sprain or strain; Foot; Left; Injury date: 01/23/20; Additional info: Pain/trauma TECHNIQUE: Imaging protocol: XR Left ankle. Views: 3 or more views. COMPARISON: CR Ankle 3 views, LEFT* [id number] 12/02/2018 4:13 AM FINDINGS: Bones/joints: Medial and lateral malleoli are normal. Ankle mortise is symmetrical. No fracture. Hindfoot is unremarkable. Tibiotalar joint and the subtalar joint appears normal. Small corticated ossific density adjacent to the medial malleolus likely related to prior trauma. Previously noted Soft tissues: Normal. XR/XR ankle LT min 3V* [id number] IMPRESSION: No acute process. No fracture.
--- NOTE | 2020-01-24 17:53 | XRR_ITS ---
PROCEDURE INFORMATION: Exam: XR Left Foot Complete Exam date and time: 01/24/2020 6:30 PM Age: 39 years old Clinical indication: Injury or trauma; Injury history: Twisted ankle; Initial encounter; Sprain or strain; Foot; Left; Injury date: 01/23/20; Additional info: Pain/trauma TECHNIQUE: Imaging protocol: XR Left foot. Views: 3 or more views. COMPARISON: CR Foot 3 views, LEFT* [id number] 12/31/2014 6:36 PM FINDINGS: Bones/joints: Hindfoot -midfoot and midfoot-forefoot articulations normal. Metatarsals and phalanges without an acute process. Subtalar and tibiotalar joint normal. Mild degenerative changes at the first metatarsal phalangeal joint. Soft tissues: Normal. XR/XR foot LT min 3V* [id number] IMPRESSION: Unremarkable foot .
--- NOTE | 2020-01-24 18:02 | W.ED.EXTPRO ---
HPI - Extremity Problem General: Chief complaint: Extremity Problem,Nontraumatic Stated complaint: L LEG & FOOT SWELLING Time Seen by Provider: 01/24/20 17:47 History of Present Illness: HPI Narrative: Patient complains about left foot pain says she has a history of ankle surgery and she felt some popping there the other day now it hurts Complaint: extremity pain and joint pain Onset (ago): day(s) Pain Consistency: constant Location: left and lower extremity Severity scale (1-10): 5 Quality: aching Radiation: proximal Relieving factors: rest Exacerbating factors: weight bearing Associated symptoms: Reports no associated symptoms; Deny chest pain, fever(s) or rash Review of Systems Const: Denies: fever(s), chills or body aches Eyes: Denies: change in vision or blurry vision ENMT: Denies: throat pain or nasal congestion Card: Denies: chest pain or dyspnea on exertion Resp: Denies: dyspnea, productive cough or non-productive cough GI: Denies: abdominal pain, nausea or vomiting Musc: Reports: extremity pain (Left foot and ankle with pain radiating up to mid liao area said she felt a pop when she is walking other day related to the past surgery) Skin/Breast: Denies: rash Neuro: Denies: headache(s) Psych: Denies: anxiety or depression Rick/Lymph: Denies: easy bruising PFSH ED PFSH: Social History Smoking and tobacco status: current every day smoker History of recent travel: No Physical Exam Const: COMMON NORMALS: no acute distress, average body habitus and patient oriented x3 HENMT: COMMON NORMALS: normocephalic HEAD & SCALP: normal to inspection and normocephalic FACE & SINUS: normal facial exam Eye: COMMON NORMALS: conjunctivae normal GENERAL EYE: appearance normal, both eyes and all related structures CONJUNCTIVA: Yes conjunctivae normal Neck/C-Spine: COMMON NORMALS: no JVD Chest: COMMONS NORMALS: normal inspection of the chest Resp: COMMON NORMALS: normal respiratory effort and clear to auscultation bilaterally AUSCULTATION: clear to auscultation bilaterally Cardio: COMMON NORMALS: no JVD, regular rate and regular rhythm RATE: regular rate RHYTHM: regular rhythm GI: COMMON NORMALS: Normal to inspection, nondistended, normoactive bowel sounds present Extremity: COMMON NORMALS: normal to inspection NARRATIVE EXTREMITY EXAM: Pain with palpation to midfoot left foot and left ankle area to the medial aspect no swelling noted patient will not move due to pain neurovascular status intact Neuro: COMMON NORMALS: patient oriented x3 Course Vital Signs: Vital signs: Vital Signs Temperature 96.8 F L 01/24/20 16:52 Pulse Rate 77 01/24/20 16:52 Respiratory Rate 14 01/24/20 16:52 Blood Pressure 96/63 01/24/20 16:52 Pulse Oximetry 95 01/24/20 16:52 Discharge Plan Discharge Condition: Good Prescriptions: No Action Bydureon 2 mg/0.65 mL pen injector 2 mg SUBCUT Q7D RF: 0 isosorbide mononitrate 60 mg tablet extended release 24 hr 60 mg PO QAM RF: 0 metoprolol succinate 50 mg tablet extended release 24 hr 50 mg PO BID RF: 0 loratadine 10 mg tablet 10 mg PO QDAY RF: 0 albuterol sulfate 90 mcg/actuation aerosol powdr breath activated 2 inh INHALATION Q6H PRNRF: 0 levothyroxine 75 mcg capsule 75 mcg PO QDAY RF: 0 methocarbamol 750 mg tablet 750 mg PO BID RF: 0 topiramate [Topamax] 100 mg tablet 100 mg PO QDAY Qty: 30 RF: 4 venlafaxine [Effexor XR] 150 mg capsule,extended release 24hr 150 mg PO QAM Qty: 30 RF: 5 carbamazepine [Tegretol XR] 400 mg tablet extended release 12 hr 400 mg PO BID Qty: 60 RF: 4 Coding Level of Care Code ED Assistant Food Service 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
== END 2020-01-24 18:40 | disposition home or self-care (01) ==
PROVIDERS: Emergency Provider Nurse Practitioner Family; PCP Nurse Practitioner Family
DX: M79.89 Other specified soft tissue disorders (principal); F17.210 Nicotine dependence, cigarettes, uncomplicated
CPT/HCPCS: 12345; 73610; 73630; 99282

== ENCOUNTER 2020-01-25 13:17 | Outpatient (CLI) | payer MEDICAID, SELFPAY ==
--- NOTE | 2020-01-25 13:21 | MR_ITS ---
WS: [id number] MRI BRAIN WITH HIGH-RESOLUTION IMAGING THROUGH THE INTERNAL AUDITORY CANALS WITHOUT AND WITH CONTRAST HISTORY: MIX CNDCT/SNRL HEAR LOSS,UNI R EAR, COMPARISON: 07/19/2016 TECHNIQUE: Multiplanar, multisequence imaging is performed through the brain. Additional 3 mm imaging performed in multiple planes through the internal auditory canal. Postcontrast imaging with 17 ml's of Prohance. No acute intracranial hemorrhage, midline shift, edema or mass effect. Mixed signal intensity in the posterior LEFT frontal subcortical white matter with hemosiderin measur es 10 mm. Consistent with a vascular malformation which has been previously described. There is an ad ditional area of hemosiderin and minimal signal abnormality in the posterior LEFT parietal region whi ch may be a smaller cavernous malformation. These areas have been previously identified with no incre ase in size or acute hemorrhage. No significant atrophy. No midline shift. Ventricles and extra-axial spaces are normal. No inferior displacement of cerebellar tonsils. Clivus and pituitary gland are normal. Internal and external auditory canals: Unremarkable. Cranial nerves VII and VIII complexes: Unremarkable. No enhancement or mass. Cerebellopontine angles: Normal. Paranasal sinuses: Normal. Mastoid air cells: Normal. Calvarium and scalp: Normal. Visualized [place] of [place] and dural venous sinuses demonstrate no abnormality. MR/MR iac's wo/w con* [id number] IMPRESSION: Normal MRI IACs. 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 Possibl e smaller additional posterior RIGHT parietal venous malformation. No acute hem orrhage or interval change.
== END 2020-01-25 13:18 | disposition home or self-care (01) ==
LOC: RADSHAW 13:20
PROVIDERS: PCP Nurse Practitioner Family; Visit Provider Specialist
DX: H90.71 Mixed conductive and sensorineural hearing loss, unilateral, right ear, with unrestricted hearing on the contralateral side (principal)
CPT/HCPCS: 70553; A9579

== ENCOUNTER → 2020-01-31 11:56 | Outpatient (BNVA) | payer MEDICAID, SELFPAY | PROVIDERS: PCP Nurse Practitioner Family; Visit Provider Podiatrist Foot & Ankle Surgery | DX: M25.572 Pain in left ankle and joints of left foot (principal) | CPT/HCPCS: 73630 ==

== ENCOUNTER → 2020-03-17 11:32 | Outpatient (BNVA) | payer MEDICAID, SELFPAY | PROVIDERS: PCP Nurse Practitioner Family; Visit Provider Podiatrist Foot & Ankle Surgery | DX: M79.672 Pain in left foot (principal) | CPT/HCPCS: 73630 ==

== ENCOUNTER 2020-03-21 20:00 | Outpatient (CLI) | payer MEDICAID, SELFPAY | END 2020-03-21 20:01 | disposition home or self-care (01) | LOC: SLEEP 03-24 09:25 | PROVIDERS: PCP Nurse Practitioner Family; Visit Provider Family Medicine | DX: G47.33 Obstructive sleep apnea (adult) (pediatric) (principal) | CPT/HCPCS: 95810 ==

== ENCOUNTER 2020-04-07 20:00 | Outpatient (CLI) | payer MEDICAID, SELFPAY | END 2020-04-07 20:01 | disposition home or self-care (01) | LOC: SLEEP 04-08 08:54 | PROVIDERS: PCP Nurse Practitioner Family; Visit Provider Family Medicine | DX: G47.33 Obstructive sleep apnea (adult) (pediatric) (principal) | CPT/HCPCS: 95811 ==

== ENCOUNTER → 2020-04-10 13:09 | Outpatient (BNVA) | payer MEDICAID, SELFPAY | PROVIDERS: PCP Nurse Practitioner Family; Visit Provider Specialist | DX: G43.711 Chronic migraine without aura, intractable, with status migrainosus (principal); F44.5 Conversion disorder with seizures or convulsions; F17.210 Nicotine dependence, cigarettes, uncomplicated | CPT/HCPCS: 64615; J0585 ==

== ENCOUNTER 2020-04-17 13:14 | Emergency (ER) | payer MEDICAID, SELFPAY ==
[2020-04-17 13:22] VITALS: BP 94/57; PULSE 72; RESP 16; TEMP 36.8; O2SAT 95; BMI 43.4
[2020-04-17 13:34] VITALS: O2SAT 95
[2020-04-17 13:38] LABS: Basophils % 0.5 %; Eosinophils # 0.3 10^3/uL (0.0-0.8); Eosinophils % 4.1 %; Hematocrit 38.8 % (37.0-47.0); Hemoglobin 12.3 g/dL (11.5-15.3); Lymphocytes # 1.6 10^3/uL (0.8-4.8); Lymphocytes % 26.5 %; Mean Corpuscular HGB Conc 31.7 g/dL (30.0-36.0); Mean Corpuscular Hemoglobin 30.6 pg (28.0-34.0); Mean Corpuscular Volume 96.5 fL (81-99); Mean Platelet Volume 12.1 fL (7.4-10.4); Monocytes # 0.4 10^3/uL (0.2-0.9); Monocytes % 6.1 %; Neutrophils % 62.6 %; Nucleated Red Blood Cells % 0 %; Platelet Count 113 10^3/cmm (130-400); Red Blood Count 4.02 10^6/uL (4.1-5.3); Red Cell Distribution Width 13.2 % (12.1-15.1); White Blood Count 6.1 10^3/uL (4.0-10.0)
--- NOTE | 2020-04-17 13:49 | ED_ITS ---
HPI - Female Genitourinary General: Chief complaint: Urogenital-Female Stated complaint: ABDOMINAL PAIN/ HEMATURIA Time Seen by Provider: 04/17/20 13:18 History of Present Illness: HPI Narrative: 40-year-old female comes in complaining of rectal bleeding is been going on for last 3 days continuously now she feels like she started to have hematuria as well. She is previously had a hysterectomy. She previously had a colonoscopy in 2017 for rectal bleeding she states that was done at [facility] in [place] with Dr. Morley. There is no definitive findings she denies any history of ulcerative colitis or Crohn's Onset (ago): day(s) (3) Location of symptoms: other (Rectum) Severity: moderate Quality of pain: cramping Consistency: constant and progressively worsening Exacerbating factors: none Relieving factors: none Associated symptoms: Reports abdominal pain; Deny short of breath, fevers/chills, headache(s), nausea, rash, seizures, syncope, vaginal discharge or weakness Treatment prior to arrival: none Review of Systems Const: Denies: fever(s), chills, body aches, change in appetite, fatigue or malaise ENMT: Denies: throat pain, ear or mastoid pain, nasal discharge or nasal congestion Card: Denies: syncope Resp: Denies: dyspnea, productive cough or non-productive cough GI: Reports: abdominal pain; Denies: nausea : Denies: vaginal discharge Skin/Breast: Denies: rash or pruritus Neuro: Denies: headache(s) PFSH ED PFSH: Medical History Functional neurological symptom disorder with attacks or seizures Social History Smoking and tobacco status: current every day smoker History of recent travel: No Physical Exam Const: COMMON NORMALS: no acute distress GENERAL APPEARANCE: cooperative and comfortable ORIENTATION/CONSCIOUSNESS: Yes awake, Yes oriented to person, Yes oriented to place and Yes oriented to time HENMT: COMMON NORMALS: normocephalic, atraumatic and hearing grossly normal bilaterally HEAD & SCALP: normocephalic and atraumatic Neck/C-Spine: COMMON NORMALS: no JVD Resp: COMMON NORMALS: normal respiratory effort, No retractions, No use of accessory muscles and clear to auscultation bilaterally AUSCULTATION: clear to auscultation bilaterally Cardio: COMMON NORMALS: no JVD, regular rate, regular rhythm and No murmurs present (Cardio) RATE: regular rate RHYTHM: regular rhythm GI: COMMON NORMALS: Soft to palpation and No hepatosplenomegaly present AUSCULTATION: Yes normoactive bowel sounds PALPATION: Yes Soft to palpation, No Tenderness to palpation present (GI), No Guarding due to palpation present (GI) and Yes No hepatosplenomegaly present OTHER: Irritated hemorrhoids nonthrombosed scant amount of bleeding Extremity: COMMON NORMALS: normal to inspection, capillary refill normal, no clubbing, cyanosis or edema, no calf tenderness and no pedal edema Neuro: SENSORIUM/ORIENTATION: Yes oriented to person, Yes oriented to place and Yes oriented to time Skin: COMMON NORMALS: no rashes or lesions noted GENERAL SKIN EXAM: no rashes or lesions noted Course Vital Signs: Vital signs: Vital Signs Temperature 98.2 F 04/17/20 13:22 Pulse Rate 71 04/17/20 15:02 Respiratory Rate 18 04/17/20 15:02 Blood Pressure 99/65 04/17/20 15:02 Pulse Oximetry 96 04/17/20 15:02 MDM - Female MDM Narrative: Medical decision making narrative: Hemoglobin stable no significant red blood cells in the urine she does have some small bleeding from a irritated hemorrhoid but no blood in the stool on rectal exam. Will discharge home use topical Anusol HC asked her to follow-up with her primary care doctor early next week for repeat hemoglobin if he has worsening symptoms return. Lab Data: Labs: Lab Results 04/17/20 04/17/20 04/17/20 Range/Units 13:31 13:31 13:31 WBC 6.1 (4.0-10.0) 10^3/ uL RBC 4.02 L (4.1-5.3) 10^6/u L Hgb 12.3 (11.5-15.3) g/dL Hct 38.8 (37.0-47.0) % MCV 96.5 (81-99) fL MCH 30.6 (28.0-34.0) pg MCHC 31.7 (30.0-36.0) g/dL RDW 13.2 (12.1-15.1) % Plt Count 113 L (130-400) 10^3/c mm MPV 12.1 H (7.4-10.4) fL Neut % (Auto) 62.6 % Lymph % (Auto) 26.5 % [place] % (Auto) 6.1 % Eos % (Auto) 4.1 % Baso % (Auto) 0.5 % Neut # (Auto) 3.80 (1.8-7.7) 10^3/u L Lymph # (Auto) 1.6 (0.8-4.8) 10^3/u L [place] # (Auto) 0.4 (0.2-0.9) 10^3/u L Eos # (Auto) 0.3 (0.0-0.8) 10^3/u L Baso # (Auto) 0.0 (0.0-0.1) 10^3/u L Nucleated RBC % (a uto) 0 % Nucleated RBCs # 0.0 /100WBC PT 13.00 (12.1-14.9) SECO NDS INR 0.95 (0.8-1.2) APTT 31.2 (23.9-36.7) SECO NDS Sodium 136 (136-145) mmol/L Potassium 4.2 (3.5-5.1) mmol/L Chloride 101 (98-107) mmol/L Carbon Dioxide 25 (22-29) mmol/L Anion Gap 14.2 (5-19) BUN 13 (6-20) mg/dL Creatinine 0.6 (0.5-0.9) mg/dL GFR Calculation 109.6 (90-130) mL/min Glucose 105 (65-115) mg/dL Calculated Osmolal ity 282 L (285-295) mOsm/k g Calcium 8.7 (8.5-10.5) mg/dL Total Bilirubin 0.2 (0.15-1.2) mg/dL AST 42 H (0-32) U/L ALT 131 H (0-33) U/L Alkaline Phosphata se 197 H (35-105) IU/L Total Protein 5.7 L (6.6-8.7) g/dL Albumin 4.2 (3.5-5.2) g/dL Globulin 1.5 (1.3-4.6) g/dL Urine Color (Yellow) Urine Appearance (CLEAR) Urine pH (5-7) Ur Specific Gravit y (1.005-1.030) Urine Protein (Negative) Urine Glucose (UA) (Normal) Urine Ketones (Negative) Urine Blood (Negative) Urine Nitrate (Negative) Urine Bilirubin (Negative) Urine Urobilinogen (Negative) mg/dL Ur Leukocyte Corinne ase (Negative) Urine RBC (0-2) /hpf Urine WBC (0-5) /hpf Ur Squamous Epith Cells (0-5) /hpf Amorphous Sediment Urine Bacteria (NONE) /hpf 04/17/20 Range/Units 14:22 WBC (4.0-10.0) 10^3/ uL RBC (4.1-5.3) 10^6/u L Hgb (11.5-15.3) g/dL Hct (37.0-47.0) % MCV (81-99) fL MCH (28.0-34.0) pg MCHC (30.0-36.0) g/dL RDW (12.1-15.1) % Plt Count (130-400) 10^3/c mm MPV (7.4-10.4) fL Neut % (Auto) % Lymph % (Auto) % [place] % (Auto) % Eos % (Auto) % Baso % (Auto) % Neut # (Auto) (1.8-7.7) 10^3/u L Lymph # (Auto) (0.8-4.8) 10^3/u L [place] # (Auto) (0.2-0.9) 10^3/u L Eos # (Auto) (0.0-0.8) 10^3/u L Baso # (Auto) (0.0-0.1) 10^3/u L Nucleated RBC % (a uto) % Nucleated RBCs # /100WBC PT (12.1-14.9) SECO NDS INR (0.8-1.2) APTT (23.9-36.7) SECO NDS Sodium (136-145) mmol/L Potassium (3.5-5.1) mmol/L Chloride (98-107) mmol/L Carbon Dioxide (22-29) mmol/L Anion Gap (5-19) BUN (6-20) mg/dL Creatinine (0.5-0.9) mg/dL GFR Calculation (90-130) mL/min Glucose (65-115) mg/dL Calculated Osmolal ity (285-295) mOsm/k g Calcium (8.5-10.5) mg/dL Total Bilirubin (0.15-1.2) mg/dL AST (0-32) U/L ALT (0-33) U/L Alkaline Phosphata se (35-105) IU/L Total Protein (6.6-8.7) g/dL Albumin (3.5-5.2) g/dL Globulin (1.3-4.6) g/dL Urine Color Yellow (Yellow) Urine Appearance Clear (CLEAR) Urine pH 5.0 (5-7) Ur Specific Gravit y 1.020 (1.005-1.030) Urine Protein Neg (Negative) Urine Glucose (UA) Norm (Normal) Urine Ketones Negative (Negative) Urine Blood 2+ H (Negative) Urine Nitrate Negative (Negative) Urine Bilirubin Neg (Negative) Urine Urobilinogen Norm (Negative) mg/dL Ur Leukocyte Corinne ase Negative (Negative) Urine RBC 0-4 H (0-2) /hpf Urine WBC None (0-5) /hpf Ur Squamous Epith Cells 0-4 H (0-5) /hpf Amorphous Sediment Not Reportable Urine Bacteria Trace (NONE) /hpf Discharge Plan Discharge Patient Disposition: Home Clinical Impression: Bleeding hemorrhoids Condition: Stable Prescriptions: New Anusol-HC 2.5 % cream with perineal applicator 1 applic MO Q6H 7 Days Qty: 30 RF: 0 Ducodyl (bisacodyl) 5 mg tablet,delayed release (DR/EC) 5 mg PO BID Qty: 60 RF: 0 No Action Bydureon 2 mg/0.65 mL pen injector 2 mg SUBCUT Q7D RF: 0 isosorbide mononitrate 60 mg tablet extended release 24 hr 120 mg PO QAM RF: 0 metoprolol succinate 50 mg tablet extended release 24 hr 50 mg PO BID RF: 0 loratadine 10 mg tablet 10 mg PO DAILY RF: 0 albuterol sulfate 90 mcg/actuation aerosol powdr breath activated 2 inh INHALATION Q6H PRN (Reason: Shortness Of Breath) RF: 0 levothyroxine 75 mcg capsule 75 mcg PO DAILY RF: 0 methocarbamol 750 mg tablet 750 mg PO BID RF: 0 diclofenac sodium [Voltaren] 1 % gel 2 gm TOPICAL QID Qty: 100 RF: 0 venlafaxine [Effexor XR] 150 mg capsule,extended release 24hr 150 mg PO QAM Qty: 30 RF: 5 carbamazepine 400 mg tablet extended release 12 hr See Rx Instructions .ROUTE .COMPLEX Qty: 60 RF: 0 Lasix 40 mg Tablet 40 mg PO DAILY RF: 0 pantoprazole 40 mg Tablet,Delayed Release (Dr/Ec) 40 mg PO BID RF: 0 buspirone 10 mg Tablet 10 mg PO TID RF: 0 Abilify 2 mg Tablet 2 mg PO BEDTIME RF: 0 Suboxone 8-2 mg Film 1 film BUCCAL DAILY RF: 0 potassium chloride 20 mEq Tablet Extended Release 40 meq PO BID RF: 0 Topamax 100 mg tablet 100 mg PO DAILY RF: 0 Discharge Orders: Discharge Order (Routine); Ordered 04/17/20 Ordered By: Santy Edwards Referrals: Felisa Penny FNP [Primary Care Provider] - Discharge Date/Time: 04/17/20 15:02 Coding Level of Care Code ED 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
[2020-04-17 13:50] LABS: INR 0.95 (0.8-1.2)
[2020-04-17 13:51] LABS: Partial Thromboplastin Time 31.2 SECONDS (23.9-36.7)
[2020-04-17 14:02] LABS: Alanine Aminotransferase 131 U/L (0-33); Albumin Level 4.2 g/dL (3.5-5.2); Alkaline Phosphatase 197 IU/L (35-105); Anion Gap 14.2 (5-19); Aspartate Amino Transferase 42 U/L (0-32); Blood Urea Nitrogen 13 mg/dL (6-20); Calcium 8.7 mg/dL (8.5-10.5); Carbon Dioxide 25 mmol/L (22-29); Chloride 101 mmol/L (98-107); Globulin 1.5 g/dL (1.3-4.6); Glomerular Filtration Rate 109.6 mL/min (90-130); Glucose 105 mg/dL (65-115); Osmolality Calculated 282 mOsm/kg (285-295); Potassium 4.2 mmol/L (3.5-5.1); Sodium 136 mmol/L (136-145); Total Bilirubin 0.2 mg/dL (0.15-1.2); Total Protein 5.7 g/dL (6.6-8.7)
[2020-04-17 14:34] LABS: Bilirubin Urine Neg (Negative); Glucose Urine UA Norm (Normal); Ketones Urine Negative (Negative); Leukocyte Esterase Urine Negative (Negative); Nitrate Urine Negative (Negative); Protein Urine Neg (Negative); Urine Appearance Clear (CLEAR); Urine Color Yellow (Yellow); Urobilinogen Urine Norm (Negative)
--- NOTE | 2020-04-17 14:43 | PC.NURSE ---
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
[2020-04-17 15:02] VITALS: BP 99/65; PULSE 71; RESP 18; O2SAT 96
[2020-04-17 15:22] LABS: Add Urine Microscopic? YES; Blood Urine 2+ (Negative)
[2020-04-17 15:24] LABS: RBC Urine 0-4 /hpf (0-2)
[2020-04-17 15:25] LABS: Add Urine Culture? No; Bacteria Urine TRACE /hpf; Squamous Epithelial Cell Urine 0-4 /hpf (0-5)
== END 2020-04-17 15:02 | disposition home or self-care (01) ==
PROVIDERS: Emergency Provider Family Medicine; PCP Nurse Practitioner Family
DX: K64.9 Unspecified hemorrhoids (principal); F17.210 Nicotine dependence, cigarettes, uncomplicated
CPT/HCPCS: 12345; 80053; 81001; 85025; 85610; 85730; 99283

== ENCOUNTER 2020-06-11 08:51 | Emergency (ER) | payer MEDICAID, SELFPAY ==
[2020-06-11] VITALS (8 sets, daily range): BP systolic 90–104; BP diastolic 47–79; PULSE 56–79; RESP 16–20; TEMP 36.4–36.6; O2SAT 95–98; BMI 41.0
[2020-06-11 09:10] LABS: Glucose Point of Care 95 mg/dL (70-110)
--- NOTE | 2020-06-11 09:11 | W.ED.WEAKNES ---
HPI - Weakness General: Chief complaint: Weakness Stated complaint: HYPOGLYCEMIA, HYPOTENSION Time Seen by Provider: 06/11/20 08:58 Source: patient Mode of arrival: ambulatory Limitations: no limitations History of Present Illness: HPI Narrative: 40-year-old female states this morning her blood sugar was in the 90s and her blood pressure was in the 90s as well and felt lightheaded. Patient called EMS. He has history of diabetes and has been taking her diabetic medication. She denies any vomiting or diarrhea. She denies any fever. She denies any pain anywhere. States she just feels weak.. Associated symptoms: Denies chest pain, chills, dysuria, easy bruising, fever(s), headache(s), nausea or vomiting Review of Systems Const: Denies: fever(s), chills, body aches or change in appetite Eyes: Denies: blurry vision or eye discomfort ENMT: Denies: throat pain or dental pain Card: Denies: chest pain Resp: Denies: dyspnea GI: Denies: abdominal pain, nausea, vomiting or diarrhea : Denies: dysuria Musc: Denies: neck pain or back pain Skin/Breast: Denies: rash Neuro: Denies: headache(s) Psych: Denies: depression Rick/Lymph: Denies: easy bruising All/Imm: Denies: urticaria PFS ED PFSH: Medical History (Updated 06/11/20 @ 13:10 by Red Moyer MD) Functional neurological symptom disorder with attacks or seizures Social History Smoking and tobacco status: current every day smoker History of recent travel: No Physical Exam Const: COMMON NORMALS: no acute distress, patient oriented x3 and healthy appearing HENMT: COMMON NORMALS: normocephalic and atraumatic HEAD & SCALP: normocephalic and atraumatic Eye: COMMON NORMALS: Equal, round and reactive pupils present and EOMs intact bilaterally PUPIL: Yes Equal, round and reactive pupils present Neck/C-Spine: COMMON NORMALS: full ROM and supple Chest: COMMONS NORMALS: normal inspection of the chest and normal palpation of entire chest wall Resp: COMMON NORMALS: normal respiratory effort, No retractions, No use of accessory muscles and clear to auscultation bilaterally AUSCULTATION: clear to auscultation bilaterally Cardio: COMMON NORMALS: regular rate, regular rhythm and No murmurs present (Cardio) RATE: regular rate RHYTHM: regular rhythm GI: COMMON NORMALS: Normal to inspection, nondistended, normoactive bowel sounds present, Soft to palpation, non-tender and no masses PALPATION: Yes Soft to palpation Extremity: COMMON NORMALS: normal to inspection and full ROM Neuro: COMMON NORMALS: patient oriented x3, moves all extremities and no focal motor deficits Psych: COMMON NORMALS: mental status grossly normal, Normal thought process present and cooperative THOUGHT PROCESS: Normal thought process present Skin: COMMON NORMALS: no rashes or lesions noted and no wounds GENERAL SKIN EXAM: no rashes or lesions noted Course Vital Signs: Vital signs: Vital Signs Temperature 97.9 F 06/11/20 13:45 Pulse Rate 73 06/11/20 13:45 Respiratory Rate 18 06/11/20 13:45 Blood Pressure 103/79 06/11/20 13:45 Pulse Oximetry 98 06/11/20 13:45 MDM - Weakness MDM Narrative: Medical decision making narrative: Patient presents here with generalized weakness along with a low blood pressure. I believe she is taken too much of her pain medication. After Narcan she was much more alert and blood pressure improved. Her lab work and imaging here is all normal. She has no signs of sepsis. Patient is stable for discharge and is to follow-up with PCP and return if worsening. Lab Data: Labs: Lab Results 06/11/20 06/11/20 06/11/20 Range/Units 09:06 09:19 09:19 WBC 5.5 (4.0-10.0) 10^3/ uL RBC 4.30 (4.1-5.3) 10^6/u L Hgb 13.2 (11.5-15.3) g/dL Hct 39.8 (37.0-47.0) % MCV 92.6 (81-99) fL MCH 30.7 (28.0-34.0) pg MCHC 33.2 (30.0-36.0) g/dL RDW 12.8 (12.1-15.1) % Plt Count 111 L (130-400) 10^3/c mm MPV 11.6 H (7.4-10.4) fL Neut % (Auto) 62.5 % Lymph % (Auto) 23.2 % Storey % (Auto) 7.6 % Eos % (Auto) 6.0 % Baso % (Auto) 0.7 % Neut # (Auto) 3.45 (1.8-7.7) 10^3/u L Lymph # (Auto) 1.3 (0.8-4.8) 10^3/u L Storey # (Auto) 0.4 (0.2-0.9) 10^3/u L Eos # (Auto) 0.3 (0.0-0.8) 10^3/u L Baso # (Auto) 0.0 (0.0-0.1) 10^3/u L Nucleated RBC % (a uto) 0 % Nucleated RBCs # 0.0 /100WBC Sodium 138 (136-145) mmol/L Potassium 3.5 (3.5-5.1) mmol/L Chloride 103 (98-107) mmol/L Carbon Dioxide 28 (22-29) mmol/L Anion Gap 10.5 (5-19) BUN 12 (6-20) mg/dL Creatinine 0.7 (0.5-0.9) mg/dL GFR Calculation 91.8 (90-130) mL/min Glucose 84 (65-115) mg/dL POC Glucose 95 (70-110) mg/dL Calculated Osmolal ity 285 (285-295) mOsm/k g Lactate (0.5-2.2) mmol/L Calcium 8.7 (8.5-10.5) mg/dL Total Bilirubin 0.3 (0.15-1.2) mg/dL AST 7 (0-32) U/L ALT 6 (0-33) U/L Alkaline Phosphata se 121 H (35-105) IU/L Total Protein 5.7 L (6.6-8.7) g/dL Albumin 3.9 (3.5-5.2) g/dL Globulin 1.8 (1.3-4.6) g/dL TSH (0.27-4.20) uIU/ mL Urine Color (Yellow) Urine Appearance (CLEAR) Urine pH (5-7) Ur Specific Gravit y (1.005-1.030) Urine Protein (Negative) Urine Glucose (UA) (Normal) Urine Ketones (Negative) Urine Blood (Negative) Urine Nitrate (Negative) Urine Bilirubin (Negative) Urine Urobilinogen (Negative) mg/dL Ur Leukocyte Corinne ase (Negative) 06/11/20 06/11/20 06/11/20 Range/Units 09:19 09:28 09:50 WBC (4.0-10.0) 10^3/ uL RBC (4.1-5.3) 10^6/u L Hgb (11.5-15.3) g/dL Hct (37.0-47.0) % MCV (81-99) fL MCH (28.0-34.0) pg MCHC (30.0-36.0) g/dL RDW (12.1-15.1) % Plt Count (130-400) 10^3/c mm MPV (7.4-10.4) fL Neut % (Auto) % Lymph % (Auto) % Storey % (Auto) % Eos % (Auto) % Baso % (Auto) % Neut # (Auto) (1.8-7.7) 10^3/u L Lymph # (Auto) (0.8-4.8) 10^3/u L Storey # (Auto) (0.2-0.9) 10^3/u L Eos # (Auto) (0.0-0.8) 10^3/u L Baso # (Auto) (0.0-0.1) 10^3/u L Nucleated RBC % (a uto) % Nucleated RBCs # /100WBC Sodium (136-145) mmol/L Potassium (3.5-5.1) mmol/L Chloride (98-107) mmol/L Carbon Dioxide (22-29) mmol/L Anion Gap (5-19) BUN (6-20) mg/dL Creatinine (0.5-0.9) mg/dL GFR Calculation (90-130) mL/min Glucose (65-115) mg/dL POC Glucose 105 (70-110) mg/dL Calculated Osmolal ity (285-295) mOsm/k g Lactate 0.7 (0.5-2.2) mmol/L Calcium (8.5-10.5) mg/dL Total Bilirubin (0.15-1.2) mg/dL AST (0-32) U/L ALT (0-33) U/L Alkaline Phosphata se (35-105) IU/L Total Protein (6.6-8.7) g/dL Albumin (3.5-5.2) g/dL Globulin (1.3-4.6) g/dL TSH 0.76 (0.27-4.20) uIU/ mL Urine Color (Yellow) Urine Appearance (CLEAR) Urine pH (5-7) Ur Specific Gravit y (1.005-1.030) Urine Protein (Negative) Urine Glucose (UA) (Normal) Urine Ketones (Negative) Urine Blood (Negative) Urine Nitrate (Negative) Urine Bilirubin (Negative) Urine Urobilinogen (Negative) mg/dL Ur Leukocyte Corinne ase (Negative) 06/11/20 06/11/20 Range/Units 10:00 10:23 WBC (4.0-10.0) 10^3/ uL RBC (4.1-5.3) 10^6/u L Hgb (11.5-15.3) g/dL Hct (37.0-47.0) % MCV (81-99) fL MCH (28.0-34.0) pg MCHC (30.0-36.0) g/dL RDW (12.1-15.1) % Plt Count (130-400) 10^3/c mm MPV (7.4-10.4) fL Neut % (Auto) % Lymph % (Auto) % Storey % (Auto) % Eos % (Auto) % Baso % (Auto) % Neut # (Auto) (1.8-7.7) 10^3/u L Lymph # (Auto) (0.8-4.8) 10^3/u L Storey # (Auto) (0.2-0.9) 10^3/u L Eos # (Auto) (0.0-0.8) 10^3/u L Baso # (Auto) (0.0-0.1) 10^3/u L Nucleated RBC % (a uto) % Nucleated RBCs # /100WBC Sodium (136-145) mmol/L Potassium (3.5-5.1) mmol/L Chloride (98-107) mmol/L Carbon Dioxide (22-29) mmol/L Anion Gap (5-19) BUN (6-20) mg/dL Creatinine (0.5-0.9) mg/dL GFR Calculation (90-130) mL/min Glucose (65-115) mg/dL POC Glucose 105 (70-110) mg/dL Calculated Osmolal ity (285-295) mOsm/k g Lactate (0.5-2.2) mmol/L Calcium (8.5-10.5) mg/dL Total Bilirubin (0.15-1.2) mg/dL AST (0-32) U/L ALT (0-33) U/L Alkaline Phosphata se (35-105) IU/L Total Protein (6.6-8.7) g/dL Albumin (3.5-5.2) g/dL Globulin (1.3-4.6) g/dL TSH (0.27-4.20) uIU/ mL Urine Color Dark yellow (Yellow) Urine Appearance Clear (CLEAR) Urine pH 5 (5-7) Ur Specific Gravit y 1.025 (1.005-1.030) Urine Protein Neg (Negative) Urine Glucose (UA) Norm (Normal) Urine Ketones 1+ H (Negative) Urine Blood Neg (Negative) Urine Nitrate Negative (Negative) Urine Bilirubin 1+ H (Negative) Urine Urobilinogen 4 H (Negative) mg/dL Ur Leukocyte Corinne ase Negative (Negative) Imaging Data^: CXR: Radiologist's impression: [address] [address] XRay Report Signed Patient: Marry Whatley Unit #: [id number] : 1980 Age/Sex: 40 / F ADM Date: 06/11/20 Loc: ER Room/Bed: Attending Dr: Ordering Provider/Ordering MD: Red Moyer MD Date of Service: 06/11/20 Procedure(s): XR chest 1V portable [id number] Accession Number(s): [id number] Report Number: [id number] WS: [id number] XR chest 1V portable [id number] REASON FOR EXAM: weakness FINDINGS: The chest is unchanged compared to previous examination of 10/17/2019. The heart and mediastinum are within normal limits. No active pulmonary parenchymal or pleural disease is noted. Calcified granulomatous changes are noted in both hemithoraces. No significant abnormality of the bony thorax. XR/XR chest 1V portable [id number] IMPRESSION: No acute chest abnormality. CT Head: Radiologist's impression: [address] [place] [address] CT Scan Report Signed Patient: Marry Whatley Unit #: [id number] : 1980 Age/Sex: 40 / F ADM Date: 06/11/20 Loc: ER Room/Bed: Attending Dr: Ordering Provider/Ordering MD: Red Moyer MD Date of Service: 06/11/20 Procedure(s): CT head wo con* [id number] Accession Number(s): [id number] Report Number: [id number] WS: [id number] CT HEAD NONCONTRAST HISTORY: weakness TECHNIQUE: Contiguous axial imaging performed through the brain in 2.5 mm imaging. Bone and soft tissue windows. Sagittal and coronal reformats reviewed. All CT scans at [facility] use at least one of these dose optimization techniques: automated exposure control; mA and/or kV adjustment per patient size (includes targeted exams where dose is matched to clinical indication); or iterative reconstruction. DLP: 776.74 mGy.cm COMPARISON: 10/05/2019 No acute intracranial hemorrhage, midline shift or mass effect. No significant atrophy. Hyperdense nodule measuring 12 mm in the posterior LEFT frontal lobe, just anterior to the sylvian fissure. This hyperdense nodule has been present on multiple prior exa minations consistent with a cavernous malformation. No acute hemorrhage or blood product. Ventricles: Normal size with no hydrocephalus. Paranasal sinuses: As visualized are clear. Mastoid air cells: Well pneumatized. Calvarium and scalp: Skull is intact with no soft tissue edema or swelling. CT/CT head wo con* [id number] IMPRESSION: 1. Stable noncontrast head CT with no acute hemorrhage. 2. Stable LEFT frontal hyperdense 12 mm nodule consistent with stable venous malformation. EKG Data^: EKG 1: Attestation: I personally reviewed and interpreted this EKG as follows: EKG interpretation date: 06/11/20 EKG interpretation time: 09:09 Interpretation: nsr hr [address] or t wave abnormalities qrs 122 qtc 422 Discharge Plan Discharge Patient Disposition: Home Clinical Impression: Hypoglycemia, Hypotension Condition: Stable Prescriptions: New ondansetron 4 mg tablet,disintegrating 4 mg PO Q6H PRN (Reason: nausea and vomiting) Qty: 14 RF: 0 No Action Bydureon 2 mg/0.65 mL pen injector 2 mg SUBCUT Q7D@06 RF: 0 isosorbide mononitrate 60 mg tablet extended release 24 hr 120 mg PO QAM@599 RF: 0 metoprolol succinate 50 mg tablet extended release 24 hr 50 mg PO BID@599,2199 RF: 0 loratadine 10 mg tablet 10 mg PO DAILY@599 RF: 0 albuterol sulfate 90 mcg/actuation aerosol powdr breath activated 2 inh INHALATION Q6H PRN (Reason: Shortness Of Breath) RF: 0 levothyroxine 75 mcg capsule 75 mcg PO DAILY@599 RF: 0 methocarbamol 750 mg tablet 750 mg PO BID@599,2199 RF: 0 furosemide [Lasix] 40 mg Tablet 40 mg PO DAILY@599 RF: 0 pantoprazole 40 mg Tablet,Delayed Release (Dr/Ec) 40 mg PO BID@599,2199 RF: 0 buspirone 10 mg Tablet 10 mg PO TID@ RF: 0 aripiprazole [Abilify] 2 mg Tablet 2 mg PO BEDTIME@2199 RF: 0 buprenorphine-naloxone [Suboxone] 8-2 mg Film 1 film BUCCAL DAILY@599 RF: 0 potassium chloride 20 mEq Tablet Extended Release 40 meq PO BID@599,2199 RF: 0 topiramate [Topamax] 100 mg tablet 100 mg PO DAILY@599 RF: 0 venlafaxine 75 mg capsule,extended release 24hr 75 mg PO DAILY@599 RF: 0 Effexor XR 150 mg capsule,extended release 24hr 150 mg PO QAM@599 RF: 0 carbamazepine 400 mg tablet extended release 12 hr 400 mg PO BID@ RF: 0 omeprazole 40 mg capsule,delayed release(DR/EC) 40 mg PO DAILY@599 RF: 0 acetaminophen 500 mg tablet 500 mg PO BID@599,2199 RF: 0 azelastine 137 mcg (0.1 %) aerosol,spray 2 spray INTRANASAL BID@0600,2200 RF: 0 fluticasone propionate 50 mcg/actuation spray,suspension 2 spray INTRANASAL BID@0600,2200 RF: 0 Linzess 145 mcg capsule 145 mcg PO DAILY@0600 RF: 0 Discharge Orders: Discharge ED (Routine); Ordered 06/11/20 Ordered By: Red Moyer Referrals: Penny,LYNDSEY RobertoP [Primary Care Provider] - 1-3 days Discharge Diet: Advance as tolerated Discharge Activity: Resume usual activity Patient Instructions: Weakness (ED) Coding Level of Care Code ED Director Of Event Management for Chg Fwd Exam Comprehensive
[2020-06-11] MEDS: sodium chloride 0.9% 1,000 ML 999 ML IV ×2 (09:14→11:29)
[2020-06-11 09:29] LABS: Basophils % 0.7 %; Eosinophils # 0.3 10^3/uL (0.0-0.8); Hematocrit 39.8 % (37.0-47.0); Hemoglobin 13.2 g/dL (11.5-15.3); Lymphocytes # 1.3 10^3/uL (0.8-4.8); Lymphocytes % 23.2 %; Mean Corpuscular HGB Conc 33.2 g/dL (30.0-36.0); Mean Corpuscular Hemoglobin 30.7 pg (28.0-34.0); Mean Corpuscular Volume 92.6 fL (81-99); Mean Platelet Volume 11.6 fL (7.4-10.4); Monocytes # 0.4 10^3/uL (0.2-0.9); Monocytes % 7.6 %; Neutrophils # 3.45 10^3/uL (1.8-7.7); Neutrophils % 62.5 %; Nucleated Red Blood Cells % 0 %; Platelet Count 111 10^3/cmm (130-400); Red Cell Distribution Width 12.8 % (12.1-15.1); White Blood Count 5.5 10^3/uL (4.0-10.0)
[2020-06-11 09:49] LABS: Alanine Aminotransferase 6 U/L (0-33); Albumin Level 3.9 g/dL (3.5-5.2); Alkaline Phosphatase 121 IU/L (35-105); Anion Gap 10.5 (5-19); Aspartate Amino Transferase 7 U/L (0-32); Blood Urea Nitrogen 12 mg/dL (6-20); Calcium 8.7 mg/dL (8.5-10.5); Carbon Dioxide 28 mmol/L (22-29); Chloride 103 mmol/L (98-107); Globulin 1.8 g/dL (1.3-4.6); Glomerular Filtration Rate 91.8 mL/min (90-130); Glucose 84 mg/dL (65-115); Osmolality Calculated 285 mOsm/kg (285-295); Potassium 3.5 mmol/L (3.5-5.1); Sodium 138 mmol/L (136-145); Total Bilirubin 0.3 mg/dL (0.15-1.2); Total Protein 5.7 g/dL (6.6-8.7)
[2020-06-11 09:51] LABS: Glucose Point of Care 105 mg/dL (70-110)
[2020-06-11 10:12] LABS: Slide Review Slide Review Perform
[2020-06-11 10:24] LABS: Add Urine Microscopic? NO
[2020-06-11 10:25] LABS: Lactate (Lactic Acid level) 0.7 mmol/L (0.5-2.2)
[2020-06-11 10:26] LABS: Glucose Point of Care 105 mg/dL (70-110)
[2020-06-11 10:45] LABS: Bilirubin Urine 1+ (Negative); Blood Urine Neg (Negative); Glucose Urine UA Norm (Normal); Ketones Urine 1+ (Negative); Leukocyte Esterase Urine Negative (Negative); Nitrate Urine Negative (Negative); Protein Urine Neg (Negative); Specific Gravity, Urine 1.025 (1.005-1.030); Urine Appearance Clear (CLEAR); Urine Color Dark Yellow (Yellow); Urobilinogen Urine 4 mg/dL (Negative); pH Urine 5 (5-7)
--- NOTE | 2020-06-11 11:01 | XR_ITS ---
WS: [id number] XR chest 1V portable [id number] REASON FOR EXAM: weakness FINDINGS: The chest is unchanged compared to previous examination of 10/17/2019. The heart and mediastinum are within normal limits. No active pulmonary parenchymal or pleural disease is noted. Calcified granulomatous changes are note d in both hemithoraces. No significant abnormality of the bony thorax. XR/XR chest 1V portable [id number] IMPRESSION: No acute chest abnormality.
--- NOTE | 2020-06-11 11:01 | ECG_ITS ---
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 Measurements Intervals Dexter Rate: 60 P: 51 IL: 187 QRS: 79 QRSD: 122 T: 84 QT: 422 QTc: 423 Interpretive Statements SINUS RHYTHM MODERATE INTRAVENTRICULAR CONDUCTION DELAY [110+ ms QRS DURATION] NONSPECIFIC T-WAVE ABNORMALITY Compared to ECG 10/17/2019 23:33:49 Intraventricular conduction delay now present T-wave abnormality still present Electronically Signed On 06-11-2020 19:40:43 [employer]OOK [employer]A by Hermelinda Alcantar M.D. [id number] f
--- NOTE | 2020-06-11 11:05 | CT_ITS ---
WS: [id number] CT HEAD NONCONTRAST HISTORY: weakness TECHNIQUE: Contiguous axial imaging performed through the brain in 2.5 mm imaging. Bone and soft tiss ue windows. Sagittal and coronal reformats reviewed. All CT scans at [facility] use at ast one of these dose optimization techniques: automated exposure control; mA and/or kV adjustment pe r patient size (includes targeted exams where dose is matched to clinical indication); or iterative r econstruction. DLP: 776.74 mGy.cm COMPARISON: 10/05/2019 No acute intracranial hemorrhage, midline shift or mass effect. No significant atrophy. Hyperdense nodule measuring 12 mm in the posterior LEFT frontal lobe, just an terior to the sylvian fissure. This hyperdense nodule has been present on multiple prior examinations consistent with a cavernous malformation. No acute hemorrhage or blood product. Ventricles: Normal size with no hydrocephalus. Paranasal sinuses: As visualized are clear. Mastoid air cells: Well pneumatized. Calvarium and scalp: Skull is intact with no soft tissue edema or swelling. CT/CT head wo con* [id number] IMPRESSION: 1. Stable noncontrast head CT with no acute hemorrhage. 2. Stable LEFT frontal hyperdense 12 mm nodule consistent with stable venous m alformation.
[2020-06-11] MEDS: naloxone 0.4 mg/ml SDV IVP (12:45)
[2020-06-11 13:59] LABS: Thyroid Stimulating Hormone 0.76 uIU/mL (0.27-4.20)
== END 2020-06-11 14:05 | disposition home or self-care (01) ==
PROVIDERS: Emergency Provider Emergency Medicine; PCP Nurse Practitioner Family
DX: E16.2 Hypoglycemia, unspecified (principal); I95.9 Hypotension, unspecified; F17.210 Nicotine dependence, cigarettes, uncomplicated
CPT/HCPCS: 12345; 36416; 70450; 71045; 80053; 81003; 82962; 83605; 84443; 85025; 93005; 96361; 96374; 96375; 99283; J2310; J7030

== ENCOUNTER → 2020-07-10 13:23 | Outpatient (BNVA) | payer MEDICAID, SELFPAY | PROVIDERS: PCP Nurse Practitioner Family; Visit Provider Specialist | DX: G43.711 Chronic migraine without aura, intractable, with status migrainosus (principal); F44.5 Conversion disorder with seizures or convulsions; F17.210 Nicotine dependence, cigarettes, uncomplicated | CPT/HCPCS: 64615; 99212; J0585 ==

== ENCOUNTER → 2020-09-29 13:57 | Outpatient (BNVA) | payer MEDICAID, SELFPAY | PROVIDERS: PCP Nurse Practitioner Family; Referring Provider Nurse Practitioner Family; Visit Provider Orthopaedic Surgery | DX: M25.569 Pain in unspecified knee (principal); M22.41 Chondromalacia patellae, right knee | CPT/HCPCS: 73560; 73565 ==

== ENCOUNTER → 2020-10-02 11:07 | Outpatient (BNVA) | payer MEDICAID, SELFPAY | PROVIDERS: PCP Nurse Practitioner Family; Visit Provider Specialist | DX: G43.709 Chronic migraine without aura, not intractable, without status migrainosus (principal); F44.5 Conversion disorder with seizures or convulsions; F17.210 Nicotine dependence, cigarettes, uncomplicated | CPT/HCPCS: 64615; J0585 ==

== ENCOUNTER → 2021-02-05 10:16 | Outpatient (BNVA) | payer MEDICAID, SELFPAY | PROVIDERS: PCP Nurse Practitioner Family; Visit Provider Specialist | DX: G43.711 Chronic migraine without aura, intractable, with status migrainosus (principal); F44.5 Conversion disorder with seizures or convulsions; F17.200 Nicotine dependence, unspecified, uncomplicated | CPT/HCPCS: 64615; J0585 ==

== ENCOUNTER 2021-02-05 11:18 | Outpatient (CLI) | payer MEDICAID, SELFPAY ==
--- NOTE | 2021-02-05 11:25 | XRR_ITS ---
PROCEDURE INFORMATION: Exam: XR Chest Exam date and time: 02/05/2021 11:25 AM Age: 40 years old Clinical indication: Other: Abnormal weight loss, anorexia; Patient HX: PT states she bruises easily. Goes to bed with no bruising wakes up covered in bruises and has no idea how they are happening. PT states she is also experiencing weight loss for unknown reason. HX of cervical and ovarian cancer; Additional info: Abnormal weight loss/anorexia TECHNIQUE: Imaging protocol: XR of the chest. Views: 2 views. COMPARISON: CR XR chest 1V portable [id number] 06/11/2020 11:07 AM FINDINGS: Lungs: Unremarkable. No consolidation. Pleural spaces: Unremarkable. No pleural effusion. No pneumothorax. Heart/Mediastinum: Unremarkable. No cardiomegaly. Bones/joints: Unremarkable. XR/XR chest 2V* [id number] IMPRESSION: No acute findings.
== END 2021-02-05 11:19 | disposition home or self-care (01) ==
LOC: RAD 11:22
PROVIDERS: PCP Nurse Practitioner Family; Visit Provider Nurse Practitioner Family
DX: R63.4 Abnormal weight loss (principal); R63.0 Anorexia; R23.8 Other skin changes
CPT/HCPCS: 71046; 81003; 87086; 88112

== ENCOUNTER 2021-02-20 08:43 | Outpatient (CLI) | payer MEDICAID, SELFPAY ==
--- NOTE | 2021-02-20 08:45 | CT_ITS ---
WS: [id number] CT ABDOMEN PELVIS TECHNIQUE: Noncontrast CT of the abdomen and contrast-enhanced CT of the abdomen and pelvis with candi nal and sagittal reformatted images. CLINICAL INFORMATION: GROSS HEMATURIA COMPARISON: CT 3 27,017 DLP: 3257.[address] scans at [facility] use at least one of these dose optimization techniques: automat ed exposure control; mA and/or kV adjustment per patient size (includes targeted exams where dose is matched to clinical indication); or iterative reconstruction. FINDINGS: Prior hysterectomy. No hydronephrosis in either kidney. No obstructing renal or ureteral calculi. Nor mal adrenal glands. Normal renal parenchymal enhancement. Tiny left adrenal adenoma measuring 7 mm. N ormal emptying on the delayed images. Normal bladder filling. Lung bases are well aerated. Mild hepatomegaly. Normal portal vein and splenic vein. Normal gallbladd er. Mild splenomegaly measuring 13.0 cm. Normal GE junction. Normal pancreatic parenchymal enhancement. Normal caliber abdominal aorta. No abdominal lymphadenopat hy. Normal sigmoid colon. A few diverticuli. No evidence of small or large bowel obstruction. Disc sp ann marie narrowing L5-S1. CT/CT abdomen pelvis wo/w [id number] IMPRESSION: 1. No hydronephrosis in either kidney. No obstructing renal or ureteral calcul i. 2. Normal bilateral renal parenchymal enhancement. Normal excretion on the del ayed images. No ureteral filling defects. 3. Bladder is decompressed. 4. Mild hepatomegaly and mild splenomegaly. 5. Tiny left adrenal adenoma measuring 7 mm. 6. No other significant findings.
[2021-02-20] MEDS: iohexol 300 mg/mL 100 mL Btl IV (09:31)
== END 2021-02-20 08:44 | disposition home or self-care (01) ==
LOC: RAD 08:45
PROVIDERS: PCP Nurse Practitioner Family; Visit Provider Urology
DX: R31.0 Gross hematuria (principal); R16.0 Hepatomegaly, not elsewhere classified; R16.1 Splenomegaly, not elsewhere classified; D35.02 Benign neoplasm of left adrenal gland
CPT/HCPCS: 74178; 81003

== ENCOUNTER 2021-03-21 16:40 | Emergency (ER) | payer MEDICAID, SELFPAY ==
[2021-03-21 17:03] VITALS: BP 103/68; PULSE 83; RESP 16; TEMP 37; O2SAT 98; BMI 38.2
--- NOTE | 2021-03-21 17:19 | ED_ITS ---
Documented by User: Omer Parisi MD 03/22/21 07:32 HPI - Headache General: Chief Complaint: Headache Stated Complaint: H/A Time Seen by Provider: 03/21/21 17:18 History of Present Illness: HPI Narrative: Ms. Whatley is a 41-year-old lady with significant past medical history of migraines who presents emerged department due to headache. She has a longstanding history of migraine headaches and follows with neurology. She currently has been fairly well controlled with Botox injections however she missed a few months when [place] was [place]. She most recently had Botox on 02/05 which controlled her headache until 3 days ago. She describes subacute onset of feeling like [her] head is going to explode. She has associated photo and phono sensitivity. She has associated nausea and generalized malaise. Overall the course of symptoms has persisted despite medications. The intensity is severe. She denies new focal neurologic deficits. What is different and atypical about this headache is that she typically gets relief by [id number] medications when she is not in this case. Additionally she has neck pain associated with this. No history of trauma. No other new changes in health including denying infectious symptoms, no other specific exacerbating or alleviating factors identified. Further complicating history patient ordered reports history of arteriovenous malformations. Review of Systems General: Reports: 10 or more systems reviewed and unremarkable except in HPI and below PFSH ED PFSH: Medical History Functional neurological symptom disorder with attacks or seizures Gross hematuria Stress incontinence Urinary hesitancy Surgical History History of hysterectomy Social History Alcohol intake: never Marital status: Current occupational status: unemployed and disabled History of recent travel: No Physical Exam Narrative: EXAM NARRATIVE: GENERAL/CONSTITUTIONAL -uncomfortable-appearing. Distress due to pain Eyes - PERRL, no conjunctival injection ENMT - Atraumatic external nose and ears. NECK - trachea midline CARDIOVASCULAR - regular rate and rhythm. Peripheral pulses 2+ and equal RESPIRATORY -clear to auscultation bilaterally. No retractions or accessory muscle use. ABDOMEN/GI - Nontender/Nondistended. No tenderness to percussion or evidence of peritonitis MSK - Extremities without obvious deformity or tenderness to palpation SKIN - Warm, Dry NEURO - alert and appropriately oriented. Moves all extremities equally. Course ED course: - Patient was seen and evaluated by me at bedside - Patient placed on cardiac monitors, IV access obtained - Initial evaluation notable for uncomfortable appearance, nontoxic. - Migraine cocktail ordered - Laboratory studies and imaging ordered. Imaging warranted given change in characteristic of headache. - Patient care handed off to Dr. Moyer pending reevaluation of patient and completion of studies. Plan to discharge if improved and negative head CT. Vital Signs: Vital signs: Vital Signs Temperature 98.6 F 03/21/21 19:51 Pulse Rate 68 03/21/21 19:51 Respiratory Rate 16 03/21/21 19:51 Blood Pressure 104/63 03/21/21 19:51 Pulse Oximetry 98 03/21/21 19:51 MDM - Headache Medical Records: Attestation: I reviewed the patient's medical records. Lab Data: Attestation: I reviewed the patient's lab results. Labs: Lab Results 03/21/21 03/21/21 03/21/21 Range/Units 17:42 17:42 17:42 WBC 6.1 (4.0-10.0) 10^3/ uL RBC 4.47 (4.1-5.3) 10^6/u L Hgb 13.2 (11.5-15.3) g/dL Hct 40.5 (37.0-47.0) % MCV 90.6 (81-99) fl MCH 29.5 (28.0-34.0) pg MCHC 32.6 (30.0-36.0) g/dL RDW 13.2 (12.1-15.1) % Plt Count 121 L (130-400) 10^3/c mm MPV 12.7 H (7.4-10.4) fL Neut % (Auto) 60.3 % Lymph % (Auto) 28.9 % Thurston % (Auto) 5.7 % Eos % (Auto) 4.4 % Baso % (Auto) 0.5 % Neut # (Auto) 3.69 (1.8-7.7) 10^3/u L Lymph # (Auto) 1.8 (0.8-4.8) 10^3/u L Thurston # (Auto) 0.4 (0.2-0.9) 10^3/u L Eos # (Auto) 0.3 (0.0-0.8) 10^3/u L Baso # (Auto) 0.0 (0.0-0.1) 10^3/u L Nucleated RBC % (a uto) 0 % Nucleated RBCs # 0.0 /100WBC Sodium 142 (136-145) mmol/L Potassium 3.5 (3.5-5.1) mmol/L Chloride 107 (98-107) mmol/L Carbon Dioxide 24 (22-29) mmol/L Anion Gap 14.5 (5-19) BUN 10 (6-20) mg/dL Creatinine 0.5 (0.5-0.9) mg/dL GFR Calculation 134.7 H (90-130) mL/min Glucose 81 (65-115) mg/dL Calculated Osmolal ity 292 (285-295) mOsm/k g Calcium 9.1 (8.5-10.5) mg/dL Total Bilirubin 0.2 (0.15-1.2) mg/dL AST 9 (0-32) U/L ALT 10 (0-33) U/L Alkaline Phosphata se 93 (35-105) IU/L Total Protein 6.1 L (6.6-8.7) g/dL Albumin 4.2 (3.5-5.2) g/dL Globulin 1.9 (1.3-4.6) g/dL HCG, Qual Negative (Negative) Discharge Plan Discharge Patient Disposition: Home Clinical Impression: Migraine Qualifiers: Migraine type: unspecified Status migrainosus presence: without status migrainosus Intractability: not intractable Qualified Code(s): G43.909 - Migraine, unspecified, not intractable, without status migrainosus Condition: Stable Prescriptions: No Action Bydureon 2 mg/0.65 mL pen injector 2 mg SUBCUT Q7D@0600 RF: 0 isosorbide mononitrate 60 mg tablet extended release 24 hr 120 mg PO QAM@0600 RF: 0 metoprolol succinate 50 mg tablet extended release 24 hr 50 mg PO BID@0600,2200 RF: 0 loratadine 10 mg tablet 10 mg PO DAILY@0600 RF: 0 albuterol sulfate 90 mcg/actuation aerosol powdr breath activated 2 inh INHALATION Q6H PRN (Reason: Shortness Of Breath) RF: 0 levothyroxine 75 mcg capsule 75 mcg PO DAILY@0600 RF: 0 methocarbamol 750 mg tablet 750 mg PO BID@599,2199 RF: 0 tamsulosin 0.4 mg capsule 0.4 mg PO QDAY Qty: 30 RF: 12 cefuroxime axetil 500 mg tablet 500 mg PO BID 7 Days Qty: 14 RF: 0 topiramate 100 mg tablet See Rx Instructions .ROUTE .COMPLEX Qty: 30 RF: 0 carbamazepine 400 mg tablet extended release 12 hr See Rx Instructions .ROUTE .COMPLEX Qty: 60 RF: 0 venlafaxine 150 mg capsule,extended release 24hr See Rx Instructions .ROUTE .COMPLEX Qty: 30 RF: 0 furosemide [Lasix] 40 mg Tablet 40 mg PO DAILY@06 RF: 0 pantoprazole 40 mg Tablet,Delayed Release (Dr/Ec) 40 mg PO BID@599,2199 RF: 0 buspirone 10 mg Tablet 10 mg PO TID@,, RF: 0 aripiprazole [Abilify] 2 mg Tablet 2 mg PO BEDTIME@2199 RF: 0 buprenorphine-naloxone [Suboxone] 8-2 mg Film 1 film BUCCAL DAILY@599 RF: 0 potassium chloride 20 mEq Tablet Extended Release 40 meq PO BID@599,2199 RF: 0 ondansetron 4 mg tablet,disintegrating 4 mg PO Q6H PRN (Reason: nausea and vomiting) Qty: 14 RF: 0 venlafaxine 75 mg capsule,extended release 24hr 75 mg PO DAILY@06 RF: 0 omeprazole 40 mg capsule,delayed release(DR/EC) 40 mg PO DAILY@06 RF: 0 acetaminophen 500 mg tablet 500 mg PO BID@599,2199 RF: 0 azelastine 137 mcg (0.1 %) aerosol,spray 2 spray INTRANASAL BID@599,2199 RF: 0 fluticasone propionate 50 mcg/actuation spray,suspension 2 spray INTRANASAL BID@599,2199 RF: 0 Linzess 145 mcg capsule 145 mcg PO DAILY@0600 RF: 0 Discharge Orders: Discharge ED (Routine); Ordered 03/21/21 Ordered By: Red Moyer Referrals: Felisa Penny FNP [Primary Care Provider] - 1-3 days Discharge Diet: Advance as tolerated Discharge Activity: Resume usual activity Patient Instructions: Migraine Headache (ED) Coding Level of Care Code ED [facility] for [facility] Documented by User: Red Moyer MD 03/21/21 19:33 HPI - Headache General: Chief Complaint: Headache Stated Complaint: H/A Time Seen by Provider: 03/21/21 17:18 PFS ED PFSH: Medical History Functional neurological symptom disorder with attacks or seizures Gross hematuria Stress incontinence Urinary hesitancy Surgical History History of hysterectomy Social History Alcohol intake: never Marital status: Current occupational status: unemployed and disabled History of recent travel: No Course Vital Signs: Vital signs: Vital Signs Temperature 98.6 F 03/21/21 19:51 Pulse Rate 68 03/21/21 19:51 Respiratory Rate 16 03/21/21 19:51 Blood Pressure 104/63 03/21/21 19:51 Pulse Oximetry 98 03/21/21 19:51 MDM - Headache MDM Narrative: Medical decision making narrative: Patient presents here with headache is likely migraine headache. When spoke to her discharge and her headaches resolved and she states she feels much improved. CT scan of her head showed no acute abnormalities. Blood work here is all normal as well. She is to follow-up with PCP and return if worsening. Lab Data: Labs: Lab Results 03/21/21 03/21/21 03/21/21 Range/Units 17:42 17:42 17:42 WBC 6.1 (4.0-10.0) 10^3/ uL RBC 4.47 (4.1-5.3) 10^6/u L Hgb 13.2 (11.5-15.3) g/dL Hct 40.5 (37.0-47.0) % MCV 90.6 (81-99) fl MCH 29.5 (28.0-34.0) pg MCHC 32.6 (30.0-36.0) g/dL RDW 13.2 (12.1-15.1) % Plt Count 121 L (130-400) 10^3/c mm MPV 12.7 H (7.4-10.4) fL Neut % (Auto) 60.3 % Lymph % (Auto) 28.9 % Thurston % (Auto) 5.7 % Eos % (Auto) 4.4 % Baso % (Auto) 0.5 % Neut # (Auto) 3.69 (1.8-7.7) 10^3/u L Lymph # (Auto) 1.8 (0.8-4.8) 10^3/u L Thurston # (Auto) 0.4 (0.2-0.9) 10^3/u L Eos # (Auto) 0.3 (0.0-0.8) 10^3/u L Baso # (Auto) 0.0 (0.0-0.1) 10^3/u L Nucleated RBC % (a uto) 0 % Nucleated RBCs # 0.0 /100WBC Sodium 142 (136-145) mmol/L Potassium 3.5 (3.5-5.1) mmol/L Chloride 107 (98-107) mmol/L Carbon Dioxide 24 (22-29) mmol/L Anion Gap 14.5 (5-19) BUN 10 (6-20) mg/dL Creatinine 0.5 (0.5-0.9) mg/dL GFR Calculation 134.7 H (90-130) mL/min Glucose 81 (65-115) mg/dL Calculated Osmolal ity 292 (285-295) mOsm/k g Calcium 9.1 (8.5-10.5) mg/dL Total Bilirubin 0.2 (0.15-1.2) mg/dL AST 9 (0-32) U/L ALT 10 (0-33) U/L Alkaline Phosphata se 93 (35-105) IU/L Total Protein 6.1 L (6.6-8.7) g/dL Albumin 4.2 (3.5-5.2) g/dL Globulin 1.9 (1.3-4.6) g/dL HCG, Qual Negative (Negative) Imaging Data^: CXR: Attestation: I personally reviewed and interpreted this imaging study as follows: My impression: no acute abnormality CT Head: Attestation: I personally reviewed and interpreted this imaging study as follows: Radiologist's impression: [address] [address] [address] Scan Report Signed Patient: Marry Whatley Unit #: [id number] : 1980 Age/Sex: 41 / F ADM Date: 03/21/21 Loc: ER Room/Bed: Attending Dr: Ordering Provider/Ordering MD: Oemr Parisi MD Date of Service: 03/21/21 Procedure(s): CT head wo con* [id number] Accession Number(s): [id number] Report Number: [id number] PROCEDURE INFORMATION: Exam: CT Head Without Contrast Exam date and time: 03/21/2021 5:33 PM Age: 41 years old Clinical indication: Pain; Headache; Aura effect not specified; Does not respond to medication; Severity not specified; Patient HX: HX of migraines C/O MORELAND that's different; Additional info: Headache different from baseline TECHNIQUE: Imaging protocol: Computed tomography of the head without contrast. Radiation optimization: All CT scans at this facility use at least one of these dose optimization techniques: automated exposure control; mA and/or kV adjustment per patient size (includes targeted exams where dose is matched to clinical indication); or iterative reconstruction. COMPARISON: CT head wo con* [id number] 06/11/2020 11:16 AM RADIATION DOSE METRICS: Total DLP (mGy-cm): 827.21 FINDINGS: Brain: Small 11 mm hyperdense focus is again seen in the anterolateral left frontal lobe which appear stable and is likely benign (cavernoma). No hemorrhage or evidence of acute infarction is seen. Cerebral ventricles: No ventriculomegaly. Paranasal sinuses: Visualized sinuses are unremarkable. No fluid levels. Mastoid air cells: Visualized mastoid air cells are well aerated. Bones/joints: Unremarkable. No acute fracture. Soft tissues: Unremarkable. CT/CT head wo con* [id number] IMPRESSION: No acute intracranial abnormality. Stable left frontal lobe hyperdense lesion which is likely a cavernoma. Is Radiation Dose CTDIVOL = (mGy): DLP = 827.21 (mGy-cm) Dictated By: Jeff White MD Signed By: Jeff White MD Signed Date/Time: 03/21/211924 DD/ 23 Discharge Plan Discharge Patient Disposition: Home Clinical Impression: Migraine Qualifiers: Migraine type: unspecified Status migrainosus presence: without status migrainosus Intractability: not intractable Qualified Code(s): G43.909 - Migraine, unspecified, not intractable, without status migrainosus Condition: Stable Prescriptions: No Action Bydureon 2 mg/0.65 mL pen injector 2 mg SUBCUT Q7D@0600 RF: 0 isosorbide mononitrate 60 mg tablet extended release 24 hr 120 mg PO QAM@06 RF: 0 metoprolol succinate 50 mg tablet extended release 24 hr 50 mg PO BID@599,2199 RF: 0 loratadine 10 mg tablet 10 mg PO DAILY@06 RF: 0 albuterol sulfate 90 mcg/actuation aerosol powdr breath activated 2 inh INHALATION Q6H PRN (Reason: Shortness Of Breath) RF: 0 levothyroxine 75 mcg capsule 75 mcg PO DAILY@0600 RF: 0 methocarbamol 750 mg tablet 750 mg PO BID@00,2199 RF: 0 tamsulosin 0.4 mg capsule 0.4 mg PO QDAY Qty: 30 RF: 12 cefuroxime axetil 500 mg tablet 500 mg PO BID 7 Days Qty: 14 RF: 0 topiramate 100 mg tablet See Rx Instructions .ROUTE .COMPLEX Qty: 30 RF: 0 carbamazepine 400 mg tablet extended release 12 hr See Rx Instructions .ROUTE .COMPLEX Qty: 60 RF: 0 venlafaxine 150 mg capsule,extended release 24hr See Rx Instructions .ROUTE .COMPLEX Qty: 30 RF: 0 furosemide [Lasix] 40 mg Tablet 40 mg PO DAILY@0600 RF: 0 pantoprazole 40 mg Tablet,Delayed Release (Dr/Ec) 40 mg PO BID@00,2200 RF: 0 buspirone 10 mg Tablet 10 mg PO TID@06,, RF: 0 aripiprazole [Abilify] 2 mg Tablet 2 mg PO BEDTIME@2199 RF: 0 buprenorphine-naloxone [Suboxone] 8-2 mg Film 1 film BUCCAL DAILY@06 RF: 0 potassium chloride 20 mEq Tablet Extended Release 40 meq PO BID@599,2199 RF: 0 ondansetron 4 mg tablet,disintegrating 4 mg PO Q6H PRN (Reason: nausea and vomiting) Qty: 14 RF: 0 venlafaxine 75 mg capsule,extended release 24hr 75 mg PO DAILY@06 RF: 0 omeprazole 40 mg capsule,delayed release(DR/EC) 40 mg PO DAILY@06 RF: 0 acetaminophen 500 mg tablet 500 mg PO BID@599,2199 RF: 0 azelastine 137 mcg (0.1 %) aerosol,spray 2 spray INTRANASAL BID@599,2199 RF: 0 fluticasone propionate 50 mcg/actuation spray,suspension 2 spray INTRANASAL BID@599,2199 RF: 0 Linzess 145 mcg capsule 145 mcg PO DAILY@0600 RF: 0 Discharge Orders: Discharge ED (Routine); Ordered 03/21/21 Ordered By: Red Moyer Referrals: Zohaib,Felisa, [facility] [facility] SETTER [Primary Care Provider] - 1-3 days Discharge Diet: Advance as tolerated Discharge Activity: Resume usual activity Patient Instructions: Migraine Headache (ED) Coding Level of Care Code ED [facility] for Anju Stinson
--- NOTE | 2021-03-21 17:33 | CTR_ITS ---
PROCEDURE INFORMATION: Exam: CT Head Without Contrast Exam date and time: 03/21/2021 5:33 PM Age: 41 years old Clinical indication: Pain; Headache; Aura effect not specified; Does not respond to medication; Severity not specified; Patient HX: HX of migraines C/O MORELAND that's different; Additional info: Headache different from baseline TECHNIQUE: Imaging protocol: Computed tomography of the head without contrast. Radiation optimization: All CT scans at this facility use at least one of these dose optimization techniques: automated exposure control; mA and/or kV adjustment per patient size (includes targeted exams where dose is matched to clinical indication); or iterative reconstruction. COMPARISON: CT head wo con* [id number] 06/11/2020 11:16 AM RADIATION DOSE METRICS: Total DLP (mGy-cm): 827.21 FINDINGS: Brain: Small 11 mm hyperdense focus is again seen in the anterolateral left frontal lobe which appear stable and is likely benign (cavernoma). No hemorrhage or evidence of acute infarction is seen. Cerebral ventricles: No ventriculomegaly. Paranasal sinuses: Visualized sinuses are unremarkable. No fluid levels. Mastoid air cells: Visualized mastoid air cells are well aerated. Bones/joints: Unremarkable. No acute fracture. Soft tissues: Unremarkable. CT/CT head wo con* [id number] IMPRESSION: No acute intracranial abnormality. Stable left frontal lobe hyperdense lesion which is likely a cavernoma. Is Radiation Dose CTDIVOL = (mGy): DLP = 827.21 (mGy-cm)
[2021-03-21 17:52] VITALS: BP 92/54; PULSE 77; RESP 18; O2SAT 97
[2021-03-21] MEDS: acetaminophen 500 mg Tablet 1000 MG PO (17:54)
[2021-03-21] MEDS: metoclopramide 5 mg/mL SDV 2 mL 10 MG IVP (17:54)
[2021-03-21] MEDS: magnesium sulfate premix 2 GM/50 ML PIGGYBACK IV (17:54)
[2021-03-21] MEDS: diphenhydrAMINE 50 mg/mL SDV 1mL 25 MG IVP (17:55)
[2021-03-21] MEDS: sodium chloride 0.9% 1,000 ML 999 ML IV (17:55)
[2021-03-21 17:56] LABS: Basophils % 0.5 %; Eosinophils # 0.3 10^3/uL (0.0-0.8); Eosinophils % 4.4 %; Hematocrit 40.5 % (37.0-47.0); Hemoglobin 13.2 g/dL (11.5-15.3); Lymphocytes # 1.8 10^3/uL (0.8-4.8); Lymphocytes % 28.9 %; Mean Corpuscular HGB Conc 32.6 g/dL (30.0-36.0); Mean Corpuscular Hemoglobin 29.5 pg (28.0-34.0); Mean Corpuscular Volume 90.6 fl (81-99); Mean Platelet Volume 12.7 fL (7.4-10.4); Monocytes # 0.4 10^3/uL (0.2-0.9); Monocytes % 5.7 %; Neutrophils # 3.69 10^3/uL (1.8-7.7); Neutrophils % 60.3 %; Nucleated Red Blood Cells % 0 %; Platelet Count 121 10^3/cmm (130-400); Red Blood Count 4.47 10^6/uL (4.1-5.3); Red Cell Distribution Width 13.2 % (12.1-15.1); White Blood Count 6.1 10^3/uL (4.0-10.0)
[2021-03-21 18:05] VITALS: BP 83/51; RESP 17; O2SAT 96
[2021-03-21 18:12] LABS: HCG, Serum Qual Negative (Negative)
[2021-03-21 18:20] LABS: Alanine Aminotransferase 10 U/L (0-33); Albumin Level 4.2 g/dL (3.5-5.2); Alkaline Phosphatase 93 IU/L (35-105); Anion Gap 14.5 (5-19); Aspartate Amino Transferase 9 U/L (0-32); Blood Urea Nitrogen 10 mg/dL (6-20); Calcium 9.1 mg/dL (8.5-10.5); Carbon Dioxide 24 mmol/L (22-29); Chloride 107 mmol/L (98-107); Globulin 1.9 g/dL (1.3-4.6); Glomerular Filtration Rate 134.7 mL/min (90-130); Glucose 81 mg/dL (65-115); Osmolality Calculated 292 mOsm/kg (285-295); Potassium 3.5 mmol/L (3.5-5.1); Sodium 142 mmol/L (136-145); Total Bilirubin 0.2 mg/dL (0.15-1.2); Total Protein 6.1 g/dL (6.6-8.7)
--- NOTE | 2021-03-21 18:33 | PC.NURSE ---
Lights off , partner at bedside
[2021-03-21 18:34] VITALS: BP 83/51; PULSE 68; RESP 17; O2SAT 96
--- NOTE | 2021-03-21 18:35 | PC.NURSE ---
Fluids infusing , lights off
[2021-03-21 19:28] VITALS: BP 104/63; PULSE 68; RESP 16; O2SAT 98
[2021-03-21 19:51] VITALS: BP 104/63; PULSE 68; RESP 16; TEMP 37; O2SAT 98
== END 2021-03-21 19:51 | disposition home or self-care (01) ==
PROVIDERS: Emergency Medicine; Emergency Provider Emergency Medicine; PCP Nurse Practitioner Family
DX: G43.909 Migraine, unspecified, not intractable, without status migrainosus (principal)
CPT/HCPCS: 70450; 80053; 84703; 85025; 96365; 96375; 99284; J1200; J2765; J3475; J7030

== ENCOUNTER → 2021-04-30 10:07 | Outpatient (BNVA) | payer MEDICAID, SELFPAY | PROVIDERS: PCP Nurse Practitioner Family; Visit Provider Specialist | DX: G43.711 Chronic migraine without aura, intractable, with status migrainosus (principal); F44.5 Conversion disorder with seizures or convulsions; F17.200 Nicotine dependence, unspecified, uncomplicated | CPT/HCPCS: 64615; J0585 ==

== ENCOUNTER 2021-05-14 15:43 | Emergency (ER) | payer MEDICAID, SELFPAY ==
[2021-05-14 16:02] VITALS: BP 102/71; PULSE 68; RESP 16; TEMP 36.9; O2SAT 96; BMI 31.3
--- NOTE | 2021-05-14 17:03 | CTR_ITS ---
PROCEDURE INFORMATION: Exam: CT Head Without Contrast Exam date and time: 05/14/2021 5:03 PM Age: 41 years old Clinical indication: Numbness / parasthesia and other: Fatigue; Left; Additional info: Seizure TECHNIQUE: Imaging protocol: Computed tomography of the head without contrast. Radiation optimization: All CT scans at this facility use at least one of these dose optimization techniques: automated exposure control; mA and/or kV adjustment per patient size (includes targeted exams where dose is matched to clinical indication); or iterative reconstruction. COMPARISON: CT head wo con* [id number] 03/21/2021 6:48 PM, 06/11/2020, 10/05/2019 RADIATION DOSE METRICS: Total DLP (mGy-cm): 866.54 FINDINGS: Brain: Series 2, image 23 demonstrates a left frontal hyperdense mass measuring 11 mm. No surrounding edema. No mass effect. No change from multiple previous scans dating to 10/05/2019. No acute hemorrhage. No infarct. No extra-axial collection. Cerebral ventricles: There is no hydrocephalus. Paranasal sinuses: Visualized sinuses are unremarkable. No fluid levels. Mastoid air cells: Visualized mastoid air cells are well aerated. Bones/joints: Unremarkable. No acute fracture. Soft tissues: Unremarkable. CT/CT head wo con* [id number] IMPRESSION: 1. Stable 11 mm left frontal hyperdense mass unchanged from earliest available examination dated 10/05/2019 . This is most consistent with a benign cavernous malformation. 2. No acute intracranial lesion or injury and no change from prior scan Radiation Dose CTDIVOL = (mGy): DLP = 866.54 (mGy-cm)
== END 2021-05-14 19:07 | disposition left against medical advice (07) ==
PROVIDERS: Emergency Provider Emergency Medicine; PCP Nurse Practitioner Family
DX: Z53.21 Procedure and treatment not carried out due to patient leaving prior to being seen by health care provider (principal)
CPT/HCPCS: 70450

== ENCOUNTER 2021-06-22 16:31 | Emergency (ER) | payer MEDICAID, SELFPAY ==
--- NOTE | 2021-06-22 16:33 | XRR_ITS ---
PROCEDURE INFORMATION: Exam: XR Chest Exam date and time: 06/22/2021 4:33 PM Age: 41 years old Clinical indication: Pain; Angina pectoris; Additional info: Chest pain TECHNIQUE: Imaging protocol: XR of the chest. Views: 1 view. COMPARISON: CR XR chest 2V* [id number] 02/05/2021 11:33 AM FINDINGS: Lungs: Unremarkable. No consolidation. Pleural spaces: Unremarkable. No pleural effusion. No pneumothorax. Heart/Mediastinum: Unremarkable. No cardiomegaly. Bones/joints: Unremarkable. XR/XR chest 1V portable [id number] IMPRESSION: No acute findings.
[2021-06-22 16:52] VITALS: BP 102/63; PULSE 88; RESP 18; TEMP 37.2; O2SAT 97; BMI 40.0
--- NOTE | 2021-06-22 22:34 | ECG_ITS ---
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
== END 2021-06-22 17:49 | disposition left against medical advice (07) ==
LOC: ER 17:53
PROVIDERS: Emergency Provider Family Medicine; PCP Nurse Practitioner Family
DX: Z53.21 Procedure and treatment not carried out due to patient leaving prior to being seen by health care provider (principal); K02.9 Dental caries, unspecified; K06.1 Gingival enlargement; F17.210 Nicotine dependence, cigarettes, uncomplicated
CPT/HCPCS: 71045; 93005; 99283

== ENCOUNTER 2021-07-07 21:08 | Emergency (ER) | payer MEDICAID, SELFPAY ==
[2021-07-07 21:21] VITALS: BP 127/73; PULSE 89; RESP 16; TEMP 37; O2SAT 98
[2021-07-07 22:37] LABS: HCG Qualitative Urine. Negative (Negative)
[2021-07-07 23:16] LABS: Bilirubin Urine Neg (Negative); Blood Urine Neg (Negative); Glucose Urine UA Norm (Normal); Ketones Urine 1+ (Negative); Nitrate Urine Negative (Negative); Protein Urine 1+ (Negative); Specific Gravity, Urine 1.025 (1.005-1.030); Urine Appearance Clear (CLEAR); Urine Color Yellow (Yellow); Urobilinogen Urine 1 mg/dL (Negative); pH Urine 5 (5-7)
[2021-07-07 23:17] LABS: Leukocyte Esterase Urine Negative (Negative)
[2021-07-07 23:19] LABS: Add Urine Microscopic? YES
[2021-07-07 23:20] LABS: Calcium Oxalate Crystals Urine 2 /hpf; Mucus Urine 1+ /hpf; RBC Urine 0-4 /hpf (0-2); Squamous Epithelial Cell Urine RARE /hpf (0-5); WBC Urine 0-4 /hpf (0-5)
--- NOTE | 2021-07-08 01:01 | W.ED.ABDPA2 ---
HPI - Abdominal Pain General: Chief Complaint: Abdominal Pain Stated Complaint: lower ABD PAIN Time Seen by Provider: 07/08/21 01:01 History of Present Illness: HPI narrative: Ms. Whatley is a 41-year-old lady with history of urinary symptoms who presents to the emergency department due to abdominal pain. Symptom onset was subacute approximately 2 days ago. She endorses left lower quadrant pain that radiates towards the groin. Initially this started out as moderate however is now become severe. She describes it as sharp and worse with movement. Additionally she has had difficulty urinating. She denies signs of systemic illness. Has not had similar episodes in the past. No other specific changes in health, exacerbating, relieving factors identified. Review of Systems General: Reports: 10 or more systems reviewed and unremarkable except in HPI and below PFSH ED PFSH: Medical History Functional neurological symptom disorder with attacks or seizures Gross hematuria Stress incontinence Urinary hesitancy Surgical History History of hysterectomy Social History Smoking and tobacco status: current every day smoker Alcohol intake: never Marital status: Current occupational status: unemployed and disabled History of recent travel: No Physical Exam Narrative: EXAM NARRATIVE: GENERAL/CONSTITUTIONAL -mildly ill-appearing. Distress due to pain. Eyes - PERRL, no conjunctival injection ENMT - Atraumatic external nose and ears. Moist mucous membranes NECK - supple. trachea midline CARDIOVASCULAR - regular rate and rhythm. Normal peripheral perfusion RESPIRATORY -clear to auscultation bilaterally. ABDOMEN/GI -left-sided abdominal tenderness palpation. No evidence of remote peritonitis. MSK - Extremities without obvious deformity or tenderness to palpation SKIN - Warm, Dry NEURO - alert and appropriately oriented. Moves all extremities equally. Course ED course: - Patient was seen and evaluated by me at bedside - Patient placed on cardiac monitors, IV access obtained - Initial evaluation notable for exam as above -Symptom treatment ordered - Labs notable for no leukocytosis. Metabolic panel without acute derangement. Urinalysis without evidence of urinary tract infection. - Imaging notable for diverticulitis versus colitis versus epiploic appendagitis - Upon serial reexamination after treatment the patient was improved. She was able to tolerate p.o. intake - Based on patient history, evaluation, labs, and imaging as interpreted the most likely cause of the patient's condition is likely diverticulitis or colitis - The results of ED evaluation were discussed with the patient including prescriptions and/or symptomatic cares (if applicable) including appropriate and responsible use, followup plan, and return precautions. The patient verbalized understanding and felt safe for discharge. - Patient discharged in satisfactory condition. Vital Signs: Vital signs: Vital Signs Temperature 98.6 F 07/07/21 21:21 Pulse Rate 71 07/08/21 04:59 Respiratory Rate 16 07/08/21 04:59 Blood Pressure 131/89 07/08/21 04:59 Pulse Oximetry 97 07/08/21 04:59 MDM - Abdominal Pain MDM Narrative: Medical decision making narrative: 41-year-old lady who presents to the emergency department due to urinary symptoms and abdominal pain. Uncomfortable and tender abdominal exam. Found to have likely colitis or diverticulitis which will be treated outpatient as the patient tolerates p.o. intake and appears clinically improved. Satisfactory for discharge. Medical Records: Attestation: I reviewed the patient's medical records. Lab Data: Attestation: I reviewed the patient's lab results. Labs: Lab Results 07/07/21 07/07/21 07/08/21 22:15 22:15 01:50 WBC 6.2 10^3/uL 10^3/ uL (4.0-10.0) RBC 4.17 10^6/uL 10^6 /uL (4.1-5.3) Hgb 12.7 g/dL g/dL (11.5-15.3) Hct 38.2 % % (37.0-47.0) MCV 91.6 fl fl (81-99) MCH 30.5 pg pg (28.0-34.0) MCHC 33.2 g/dL g/dL (30.0-36.0) RDW 13.7 % % (12.1-15.1) Plt Count 141 10^3/cmm 10^3 /cmm (130-400) MPV 11.3 fL H fL (7.4-10.4) Neut % (Auto) 58.4 % % Lymph % (Auto) 30.0 % % [place] % (Auto) 6.1 % % Eos % (Auto) 4.7 % % Baso % (Auto) 0.6 % % Neut # (Auto) 3.61 10^3/uL 10^3 /uL (1.8-7.7) Lymph # (Auto) 1.9 10^3/uL 10^3/ uL (0.8-4.8) [place] # (Auto) 0.4 10^3/uL 10^3/ uL (0.2-0.9) Eos # (Auto) 0.3 10^3/uL 10^3/ uL (0.0-0.8) Baso # (Auto) 0.0 10^3/uL 10^3/ uL (0.0-0.1) Nucleated RBC % (a uto) 0 % % Nucleated RBCs # 0.0 /100WBC /100W BC Sodium Potassium Chloride Carbon Dioxide Anion Gap BUN Creatinine GFR Calculation Glucose Calculated Osmolal ity Calcium Total Bilirubin AST ALT Alkaline Phosphata se Total Protein Albumin Globulin Lipase HCG, Qual Negative (Negative) Urine Color Yellow (Yellow) Urine Appearance Clear (CLEAR) Urine pH 5 (5-7) Ur Specific Gravit y 1.025 (1.005-1.030) Urine Protein 1+ H (Negative) Urine Glucose (UA) Norm (Normal) Urine Ketones 1+ H (Negative) Urine Blood Neg (Negative) Urine Nitrate Negative (Negative) Urine Bilirubin Neg (Negative) Urine Urobilinogen 1 mg/dL H mg/dL (Negative) Ur Leukocyte Corinne ase Negative (Negative) Urine RBC 0-4 /hpf H /hpf (0-2) Urine WBC 0-4 /hpf H /hpf (0-5) Ur Squamous Epith Cells Rare /hpf /hpf (0-5) Calcium Oxalate Cr ystal 2 /hpf /hpf Amorphous Sediment Not Reportable Urine Bacteria None /hpf /hpf (NONE) Urine Mucus 1+ /hpf /hpf 07/08/21 01:50 WBC RBC Hgb Hct MCV MCH MCHC RDW Plt Count MPV Neut % (Auto) Lymph % (Auto) [place] % (Auto) Eos % (Auto) Baso % (Auto) Neut # (Auto) Lymph # (Auto) [place] # (Auto) Eos # (Auto) Baso # (Auto) Nucleated RBC % (a uto) Nucleated RBCs # Sodium 143 mmol/L mmol/L (136-145) Potassium 4.0 mmol/L mmol/L (3.5-5.1) Chloride 107 mmol/L mmol/L (98-107) Carbon Dioxide 27 mmol/L mmol/L (22-29) Anion Gap 13.0 (5-19) BUN 10 mg/dL mg/dL (6-20) Creatinine 0.5 mg/dL mg/dL (0.5-0.9) GFR Calculation 134.7 mL/min H mL /min (90-130) Glucose 92 mg/dL mg/dL (65-115) Calculated Osmolal ity 295 mOsm/kg mOsm/ kg (285-295) Calcium 8.5 mg/dL mg/dL (8.5-10.5) Total Bilirubin 0.2 mg/dL mg/dL (0.15-1.2) AST 9 U/L U/L (0-32) ALT 8 U/L U/L (0-33) Alkaline Phosphata se 101 IU/L IU/L (35-105) Total Protein 5.6 g/dL L g/dL (6.6-8.7) Albumin 4.0 g/dL g/dL (3.5-5.2) Globulin 1.6 g/dL g/dL (1.3-4.6) Lipase 28 U/L U/L (13-60) HCG, Qual Urine Color Urine Appearance Urine pH Ur Specific Gravit y Urine Protein Urine Glucose (UA) Urine Ketones Urine Blood Urine Nitrate Urine Bilirubin Urine Urobilinogen Ur Leukocyte Corinne ase Urine RBC Urine WBC Ur Squamous Epith Cells Calcium Oxalate Cr ystal Amorphous Sediment Urine Bacteria Urine Mucus Discharge Plan Discharge Patient Disposition: Home Clinical Impression: Diverticulitis, Abdominal pain Condition: Stable Prescriptions: New Flagyl 500 mg tablet 500 mg PO TID 10 Days Qty: 30 RF: 0 Cipro 500 mg tablet 500 mg PO BID 10 Days Qty: 20 RF: 0 ondansetron 4 mg tablet,disintegrating 4 mg PO Q8H PRN (Reason: nausea and vomiting) 5 Days Qty: 15 RF: 0 oxycodone 5 mg tablet 5 mg PO Q4H PRN (Reason: pain) Qty: 10 RF: 0 No Action Bydureon 2 mg/0.65 mL pen injector 2 mg SUBCUT Q7D@0600 RF: 0 isosorbide mononitrate 60 mg tablet extended release 24 hr 120 mg PO QAM@0600 RF: 0 metoprolol succinate 50 mg tablet extended release 24 hr 50 mg PO BID@00,2199 RF: 0 loratadine 10 mg tablet 10 mg PO DAILY@0600 RF: 0 albuterol sulfate 90 mcg/actuation aerosol powdr breath activated 2 inh INHALATION Q6H PRN (Reason: Shortness Of Breath) RF: 0 levothyroxine 75 mcg capsule 75 mcg PO DAILY@06 RF: 0 methocarbamol 750 mg tablet 750 mg PO BID@00,2199 RF: 0 Byetta 5 mcg/dose (250 mcg/mL) 1.2 mL pen injector 5 mcg SUBCUT BID RF: 0 tamsulosin 0.4 mg capsule 0.4 mg PO QDAY Qty: 30 RF: 12 cefuroxime axetil 500 mg tablet 500 mg PO BID 7 Days Qty: 14 RF: 0 carbamazepine 400 mg tablet extended release 12 hr See Rx Instructions .ROUTE .COMPLEX Qty: 60 RF: 0 topiramate 100 mg tablet See Rx Instructions .ROUTE .COMPLEX Qty: 30 RF: 0 venlafaxine 150 mg capsule,extended release 24hr See Rx Instructions .ROUTE .COMPLEX Qty: 30 RF: 0 furosemide [Lasix] 40 mg Tablet 40 mg PO DAILY@0600 RF: 0 pantoprazole 40 mg Tablet,Delayed Release (Dr/Ec) 40 mg PO BID@599,2199 RF: 0 buspirone 10 mg Tablet 10 mg PO TID@06,12,22 RF: 0 aripiprazole [Abilify] 2 mg Tablet 2 mg PO BEDTIME@2199 RF: 0 buprenorphine-naloxone [Suboxone] 8-2 mg Film 1 film BUCCAL DAILY@06 RF: 0 potassium chloride 20 mEq Tablet Extended Release 40 meq PO BID@00,2199 RF: 0 ondansetron 4 mg tablet,disintegrating 4 mg PO Q6H PRN (Reason: nausea and vomiting) Qty: 14 RF: 0 venlafaxine 75 mg capsule,extended release 24hr 75 mg PO DAILY@0600 RF: 0 omeprazole 40 mg capsule,delayed release(DR/EC) 40 mg PO DAILY@0600 RF: 0 acetaminophen 500 mg tablet 500 mg PO BID@00,2199 RF: 0 azelastine 137 mcg (0.1 %) aerosol,spray 2 spray INTRANASAL BID@0600,2200 RF: 0 fluticasone propionate 50 mcg/actuation spray,suspension 2 spray INTRANASAL BID@0600,2200 RF: 0 Linzess 145 mcg capsule 145 mcg PO DAILY@0600 RF: 0 Discharge Orders: Discharge ED (Routine); Ordered 07/08/21 Ordered By: Omer Parisi Referrals: Felisa Penny FNP [Primary Care Provider] - Discharge Diet: Advance as tolerated and Clear Liquid Discharge Activity: Increase activity as tolerated Patient Instructions: Diverticulitis (ED), Diverticulitis Diet (ED), Abdominal Pain (ED), Opioid Safety Activity Restrictions/Additional Instructions: Thank you for visiting the emergency department. You were seen and evaluated for abdominal pain. You were found to have either localized inflammation of the mesenteric fat or diverticulitis with extension of inflammation of the colon. This will be treated with antibiotics, pain control, and antinausea medication. Please follow-up with your primary care provider. Return to the emergency department for worsening symptoms, inability to tolerate oral intake, uncontrolled pain, or anything else that you are concerned about and feel needs emergency department evaluation. Coding Level of Care Code ED Hand Collator for Anju Stinson
--- NOTE | 2021-07-08 01:30 | CTR_ITS ---
PROCEDURE INFORMATION: Exam: CT Abdomen And Pelvis With Contrast Exam date and time: 07/08/2021 1:30 AM Age: 41 years old Clinical indication: Abdominal pain; Localized; Left lower quadrant (llq); Prior surgery; Surgery type: Hysterectomy; Patient HX: Llq pain with nausea. History of cervical/ovarian cancer. ; Additional info: Llq abdominal pain TECHNIQUE: Imaging protocol: Computed tomography of the abdomen and pelvis with contrast. Radiation optimization: All CT scans at this facility use at least one of these dose optimization techniques: automated exposure control; mA and/or kV adjustment per patient size (includes targeted exams where dose is matched to clinical indication); or iterative reconstruction. Contrast material: OMNI 300; Contrast volume: 95 ml; Contrast route: INTRAVENOUS (IV); COMPARISON: CT abdomen pelvis wo/w [id number] 02/20/2021 9:26 AM RADIATION DOSE METRICS: Total DLP (mGy-cm): 1708.95 FINDINGS: Liver: Liver is enlarged, measuring 20.2 cm. Gallbladder and bile ducts: Normal. No calcified stones. No ductal dilation. Pancreas: Normal. No ductal dilation. Spleen: Normal. No splenomegaly. Adrenal glands: There is a 1.6 cm adenoma in the left adrenal gland. Kidneys and ureters: Normal. No hydronephrosis. Stomach and bowel: There is focal inflammatory stranding and mesenteric irregularity along the sigmoid colon, series 2 images 69 through 74 and series 602 images 26 through 33, which may be epiploic appendagitis or possible inflammation relating to a diverticulum. There is also moderate colonic wall thickening in this region. Appendix: The appendix is normal. Intraperitoneal space: There is a small amount of free fluid in the pelvis. Vasculature: Unremarkable. No abdominal aortic aneurysm. Lymph nodes: Unremarkable. No enlarged lymph nodes. Urinary bladder: Unremarkable as visualized. Reproductive: The patient has had a hysterectomy. Bones/joints: Unremarkable. No acute fracture. Soft tissues: Unremarkable. CT/CT abdomen pelvis w con* [id number] IMPRESSION: Possible epiploic appendagitis versus diverticulitis along the sigmoid colon with inflammation and irregularity of the fatty mesentery and associated colonic wall thickening and pelvic fluid. Hepatomegaly. Left adrenal adenoma. Status post hysterectomy.
[2021-07-08 01:57] VITALS: RESP 18
[2021-07-08] MEDS: sodium chloride 0.9% 1,000 ML 999 ML IV (01:57)
[2021-07-08] MEDS: morphine 4 mg/mL SDV 1 mL IVP ×2 (01:57→04:26)
[2021-07-08] MEDS: ondansetron 2 mg/ML SDV 2 mL 4 MG IVP (01:57)
[2021-07-08 02:06] LABS: Basophils % 0.6 %; Eosinophils # 0.3 10^3/uL (0.0-0.8); Eosinophils % 4.7 %; Hematocrit 38.2 % (37.0-47.0); Hemoglobin 12.7 g/dL (11.5-15.3); Lymphocytes # 1.9 10^3/uL (0.8-4.8); Mean Corpuscular HGB Conc 33.2 g/dL (30.0-36.0); Mean Corpuscular Hemoglobin 30.5 pg (28.0-34.0); Mean Corpuscular Volume 91.6 fl (81-99); Mean Platelet Volume 11.3 fL (7.4-10.4); Monocytes # 0.4 10^3/uL (0.2-0.9); Monocytes % 6.1 %; Neutrophils # 3.61 10^3/uL (1.8-7.7); Neutrophils % 58.4 %; Nucleated Red Blood Cells % 0 %; Platelet Count 141 10^3/cmm (130-400); Red Blood Count 4.17 10^6/uL (4.1-5.3); Red Cell Distribution Width 13.7 % (12.1-15.1); White Blood Count 6.2 10^3/uL (4.0-10.0)
[2021-07-08] MEDS: iohexol 300 mg/mL 100 mL Btl IV (02:22)
[2021-07-08 02:28] LABS: Alanine Aminotransferase 8 U/L (0-33); Alkaline Phosphatase 101 IU/L (35-105); Aspartate Amino Transferase 9 U/L (0-32); Blood Urea Nitrogen 10 mg/dL (6-20); Calcium 8.5 mg/dL (8.5-10.5); Carbon Dioxide 27 mmol/L (22-29); Chloride 107 mmol/L (98-107); Globulin 1.6 g/dL (1.3-4.6); Glomerular Filtration Rate 134.7 mL/min (90-130); Glucose 92 mg/dL (65-115); Lipase 28 U/L (13-60); Osmolality Calculated 295 mOsm/kg (285-295); Sodium 143 mmol/L (136-145); Total Bilirubin 0.2 mg/dL (0.15-1.2); Total Protein 5.6 g/dL (6.6-8.7)
[2021-07-08 02:56] VITALS: BP 129/73; PULSE 66; RESP 16; O2SAT 95
[2021-07-08 04:26] VITALS: RESP 16
[2021-07-08 04:59] VITALS: BP 131/89; PULSE 71; RESP 16; O2SAT 97
== END 2021-07-08 05:00 | disposition home or self-care (01) ==
PROVIDERS: Emergency Provider Emergency Medicine; PCP Nurse Practitioner Family
DX: K57.92 Diverticulitis of intestine, part unspecified, without perforation or abscess without bleeding (principal)
CPT/HCPCS: 74177; 80053; 81001; 81025; 83690; 85025; 96361; 96374; 96375; 96376; 99284; J2270; J2405; J7030; Q9967

== ENCOUNTER → 2021-07-23 10:36 | Outpatient (BNVA) | payer MEDICAID, SELFPAY | PROVIDERS: PCP Nurse Practitioner Family; Visit Provider Specialist | DX: G43.711 Chronic migraine without aura, intractable, with status migrainosus (principal) | CPT/HCPCS: 64615; J0585 ==

== ENCOUNTER → 2021-08-04 13:48 | Outpatient (BNVA) | payer MEDICAID, SELFPAY | PROVIDERS: PCP Nurse Practitioner Family; Visit Provider Urology | DX: N39.3 Stress incontinence (female) (male) (principal); R39.11 Hesitancy of micturition; R31.0 Gross hematuria | CPT/HCPCS: 81003 ==

== ENCOUNTER → 2021-10-29 13:02 | Outpatient (BNVA) | payer MEDICAID, SELFPAY | PROVIDERS: PCP Nurse Practitioner Family; Visit Provider Specialist | DX: G43.711 Chronic migraine without aura, intractable, with status migrainosus (principal); D18.09 Hemangioma of other sites; F44.5 Conversion disorder with seizures or convulsions | CPT/HCPCS: 64615; 99214; J0585 ==

== ENCOUNTER → 2021-12-24 17:26 | Outpatient (BNVA) | payer MEDICAID, SELFPAY | PROVIDERS: PCP Nurse Practitioner Family; Visit Provider Registered Nurse Neonatal Intensive Care | DX: M25.571 Pain in right ankle and joints of right foot (principal); S99.911A Unspecified injury of right ankle, initial encounter; X58.XXXA Exposure to other specified factors, initial encounter | CPT/HCPCS: 73610 ==

== ENCOUNTER → 2021-12-28 09:44 | Outpatient (BNVA) | payer MEDICAID, SELFPAY | PROVIDERS: PCP Nurse Practitioner Family; Visit Provider Podiatrist Foot & Ankle Surgery | DX: M76.71 Peroneal tendinitis, right leg (principal); S93.491A Sprain of other ligament of right ankle, initial encounter; W13.4XXA Fall from, out of or through window, initial encounter | CPT/HCPCS: 99213 ==

== ENCOUNTER 2021-12-28 10:40 | Outpatient (CLI) | payer MEDICAID, SELFPAY | END 2021-12-28 10:41 | disposition home or self-care (01) | LOC: SPT 10:40 | PROVIDERS: PCP Nurse Practitioner Family; Visit Provider Podiatrist Foot & Ankle Surgery | DX: Z46.89 Encounter for fitting and adjustment of other specified devices (principal); S93.401D Sprain of unspecified ligament of right ankle, subsequent encounter; X58.XXXD Exposure to other specified factors, subsequent encounter | CPT/HCPCS: 97760; L1902 ==

== ENCOUNTER → 2022-01-21 13:43 | Outpatient (BNVA) | payer MEDICAID, SELFPAY | PROVIDERS: PCP Nurse Practitioner Family; Visit Provider Specialist | DX: G43.711 Chronic migraine without aura, intractable, with status migrainosus (principal) | CPT/HCPCS: 64615; J0585 ==

== ENCOUNTER → 2022-01-26 14:31 | Outpatient (BNVA) | payer MEDICAID, SELFPAY | PROVIDERS: PCP Nurse Practitioner Family; Visit Provider Podiatrist Foot & Ankle Surgery | DX: M25.571 Pain in right ankle and joints of right foot (principal); M76.71 Peroneal tendinitis, right leg; S93.401A Sprain of unspecified ligament of right ankle, initial encounter; X58.XXXA Exposure to other specified factors, initial encounter | CPT/HCPCS: 99213; 99214 ==

== ENCOUNTER 2022-02-01 23:25 | Emergency (ER) | payer MEDICAID, SELFPAY ==
[2022-02-01 23:38] VITALS: BP 128/90; PULSE 100; RESP 18; TEMP 36.6; O2SAT 99; BMI 39.1
--- NOTE | 2022-02-01 23:46 | W.ED.GENADLT ---
HPI - General Adult General: Chief complaint: General Medical Stated complaint: pain/packing coming out post nasal surgery Time Seen by Provider: 02/01/22 23:46 History of Present Illness: 41-year-old female comes in today for complaints of sinus pain and discomfort and movement of nasal packing from surgery. Patient had her nasal passages dilated due to chronic allergic rhinitis. Patient reports pain has been unbearable today. Patient denies any fever, bleeding, or other abnormalities. Associated symptoms: Deny chest pain Review of Systems General: Reports: 10 or more systems reviewed and unremarkable except in HPI and below ENMT: Reports: nasal congestion and other (Dislodgment of nasal tampon) Card: Denies: chest pain PFS ED PFSH: Medical History Functional neurological symptom disorder with attacks or seizures Gross hematuria Stress incontinence Urinary hesitancy Surgical History History of hysterectomy Social History Smoking and tobacco status: current every day smoker Alcohol intake: never Marital status: Current occupational status: unemployed and disabled History of recent travel: No Physical Exam Const: COMMON NORMALS: no acute distress HENMT: COMMON NORMALS: normocephalic HEAD & SCALP: normocephalic NOSE: Abnormal external nose present (Nasal bridge swelling no redness or warmth) nasal tenderness and Other nasal findings present (Nasal stent remains intact in left nare, nasal tampon is out) Neck/C-Spine: COMMON NORMALS: full ROM Resp: COMMON NORMALS: normal respiratory effort and clear to auscultation bilaterally AUSCULTATION: clear to auscultation bilaterally Cardio: COMMON NORMALS: regular rate RATE: regular rate Extremity: COMMON NORMALS: normal to inspection Skin: COMMON NORMALS: no rashes or lesions noted GENERAL SKIN EXAM: no rashes or lesions noted Course Vital Signs: Vital signs: Vital Signs Temperature 97.9 F 02/01/22 23:38 Pulse Rate 100 02/01/22 23:38 Respiratory Rate 18 02/01/22 23:38 Blood Pressure 128/90 02/01/22 23:38 Pulse Oximetry 99 02/01/22 23:38 Oxygen Delivery Me thod 02/01/22 23:38 MDM - General Adult Medical Decision Making 41-year-old female comes in today with nasal pain and discomfort. Patient reports that one of her tampons from her nasal surgery has come out. Patient also reports that the other 1 seems to be loose. On exam we note a nasal stent in place of the left nares with no other packing. The nasal packing is intact to the lower right naris. Vital signs are normal. Differential diagnosis includes but not limited to postop pain, dislodgment of nasal packing, malingering. Patient was given Toradol and morphine for her pain and discomfort. Patient was recommended to follow-up with her surgeon in the morning for further treatment and evaluation. No bleeding or signs of serious illness was noted. Discharge Plan Discharge Patient Disposition: Home Clinical Impression: Post-op pain Condition: Stable Prescriptions: New diclofenac potassium 50 mg tablet 50 mg PO Q8H PRN (Reason: pain) Qty: 10 0RF No Action Bydureon 2 mg/0.65 mL pen injector 2 mg SUBCUT Q7D@0600 Rx Instructions: (on wednesdays) isosorbide mononitrate 60 mg tablet extended release 24 hr 120 mg PO QAM@0600 metoprolol succinate 50 mg tablet extended release 24 hr 50 mg PO BID@0600,2200 loratadine 10 mg tablet 10 mg PO DAILY@0600 albuterol sulfate 90 mcg/actuation aerosol powdr breath activated 2 inh INHALATION Q6H PRN (Reason: Shortness Of Breath) levothyroxine 75 mcg capsule 75 mcg PO DAILY@0600 methocarbamol 750 mg tablet 750 mg PO BID@0600,2200 tamsulosin 0.4 mg capsule 0.4 mg PO QDAY Qty: 30 12RF docusate sodium 50 mg capsule 50 mg PO DAILY PRN sumatriptan succinate [Imitrex] 100 mg tablet See Rx Instructions PO .COMPLEX Qty: 10 2RF Rx Instructions: Take 1 stat as needed headache up to twice in an hour, maximum 2 (DME) ASO to right ankle See Rx Instructions .Route .MEDSUPPLY Qty: 1 0RF Rx Instructions: As directed venlafaxine 150 mg capsule,extended release 24hr See Rx Instructions .ROUTE .COMPLEX Qty: 30 0RF Dose Instruction: TAKE ONE CAPSULE BY MOUTH EVERY MORNING. Rx Instructions: TAKE ONE CAPSULE BY MOUTH EVERY MORNING. topiramate 100 mg tablet See Rx Instructions .ROUTE .COMPLEX Qty: 30 0RF Dose Instruction: TAKE 1 TABLET BY MOUTH DAILY AT 6 AM Rx Instructions: TAKE 1 TABLET BY MOUTH DAILY AT 6 AM carbamazepine 400 mg tablet extended release 12 hr See Rx Instructions .ROUTE .COMPLEX Qty: 60 0RF Dose Instruction: TAKE 1 TABLET BY MOUTH TWICE DAILY AT 6 AM AND AT 10 PM Rx Instructions: TAKE 1 TABLET BY MOUTH TWICE DAILY AT 6 AM AND AT 10 PM furosemide [Lasix] 40 mg Tablet 40 mg PO DAILY@0600 pantoprazole 40 mg Tablet,Delayed Release (Dr/Ec) 40 mg PO BID@0600,2200 buspirone 10 mg Tablet 10 mg PO TID@,, aripiprazole [Abilify] 2 mg Tablet 2 mg PO BEDTIME@220 buprenorphine-naloxone [Suboxone] 8-2 mg Film 1 film BUCCAL DAILY@0600 potassium chloride 20 mEq Tablet Extended Release 40 meq PO BID@0600,2200 ondansetron 4 mg tablet,disintegrating 4 mg PO Q6H PRN (Reason: nausea and vomiting) Qty: 14 0RF omeprazole 40 mg capsule,delayed release(DR/EC) 40 mg PO DAILY@0600 acetaminophen 500 mg tablet 500 mg PO BID@0600,2200 azelastine 137 mcg (0.1 %) aerosol,spray 2 spray INTRANASAL BID@0600,2200 fluticasone propionate 50 mcg/actuation spray,suspension 2 spray INTRANASAL BID@0600,2200 Linzess 145 mcg capsule 145 mcg PO DAILY@0600 Discharge Orders: Discharge ED (Routine); Ordered 02/01/22 Ordered By: Nato Mendoza Referrals: Felisa Penny FNP [Primary Care Provider] - Discharge Diet: Usual diet Discharge Activity: Increase activity as tolerated Patient Instructions: Post Operative Pain Activity Restrictions/Additional Instructions: Drink plenty of fluids. Continue with acetaminophen to control pain. Use diclofenac for severe pain. Follow-up with surgeon in the morning for further evaluation and treatment. Return to ER for new concerns, or worsening symptoms such as elevated temperature greater than 100.4, or bleeding from nose. Coding Level of Care Code ED Vice President Of Tal[employer]quisition for Anju Stinson
[2022-02-02] MEDS: ketorolac 30 mg/mL INJ IM
[2022-02-02 00:02] VITALS: RESP 20
[2022-02-02] MEDS: morphine 4 mg/mL SDV 1 mL IM (00:02)
[2022-02-02 00:07] VITALS: BP 113/85; PULSE 91; RESP 18; O2SAT 99
== END 2022-02-02 00:08 | disposition home or self-care (01) ==
PROVIDERS: Emergency Provider Nurse Practitioner Family; PCP Nurse Practitioner Family
DX: G89.18 Other acute postprocedural pain (principal); F17.210 Nicotine dependence, cigarettes, uncomplicated
CPT/HCPCS: 96372; 99284; J1885; J2270

== ENCOUNTER → 2022-02-09 13:40 | Outpatient (BNVA) | payer MEDICAID, SELFPAY | PROVIDERS: PCP Nurse Practitioner Family; Visit Provider Orthopaedic Surgery | DX: M25.561 Pain in right knee (principal); M17.11 Unilateral primary osteoarthritis, right knee | CPT/HCPCS: 73560; 73565; 99203 ==

== ENCOUNTER → 2022-04-15 13:29 | Outpatient (BNVA) | payer MEDICAID, SELFPAY | PROVIDERS: PCP Family Medicine; Visit Provider Specialist | DX: G43.711 Chronic migraine without aura, intractable, with status migrainosus (principal) | CPT/HCPCS: 64615; J0585 ==

== ENCOUNTER 2022-05-13 14:50 | Outpatient (CLI) | payer MEDICAID, SELFPAY | END 2022-05-13 14:51 | disposition home or self-care (01) | LOC: SPT 14:51 | PROVIDERS: PCP Family Medicine; Visit Provider Podiatrist Foot & Ankle Surgery | DX: Z46.89 Encounter for fitting and adjustment of other specified devices (principal); M25.371 Other instability, right ankle; M25.372 Other instability, left ankle | CPT/HCPCS: 97760; 99213; L1902 ==

== ENCOUNTER → 2022-07-08 11:04 | Outpatient (BNVA) | payer MEDICAID, SELFPAY | PROVIDERS: PCP Family Medicine; Visit Provider Specialist | DX: G43.711 Chronic migraine without aura, intractable, with status migrainosus (principal) | CPT/HCPCS: 64615; J0585 ==

== ENCOUNTER 2022-08-05 20:35 | Emergency (ER) | payer MEDICAID, SELFPAY ==
[2022-08-05 21:00] VITALS: BP 125/85; PULSE 104; RESP 20; TEMP 36.4; O2SAT 96; BMI 38.7
[2022-08-05 21:18] LABS: Basophils # 0.1 10^3/uL (0.0-0.1); Eosinophils # 0.3 10^3/uL (0.0-0.8); Eosinophils % 4.3 %; Hematocrit 45.1 % (37.0-47.0); Hemoglobin 14.9 g/dL (11.5-15.3); Lymphocytes # 2.1 10^3/uL (0.8-4.8); Mean Corpuscular Hemoglobin 29.9 pg (28.0-34.0); Mean Corpuscular Volume 90.4 fl (81-99); Mean Platelet Volume 11.2 fL (7.4-10.4); Monocytes # 0.4 10^3/uL (0.2-0.9); Monocytes % 5.5 %; Neutrophils # 4.66 10^3/uL (1.8-7.7); Neutrophils % 60.9 %; Nucleated Red Blood Cells % 0 %; Platelet Count 171 10^3/cmm (130-400); Red Blood Count 4.99 10^6/uL (4.1-5.3); Red Cell Distribution Width 13.2 % (12.1-15.1); White Blood Count 7.7 10^3/uL (4.0-10.0)
[2022-08-05 21:35] LABS: HCG, Serum Qual Negative (Negative)
--- NOTE | 2022-08-05 21:38 | ED_ITS ---
HPI - Nausea/Vomiting/Diarrhea General: Chief complaint: Abdominal Pain Stated complaint: abd pain Time Seen by Provider: 08/05/22 21:31 Source: patient Mode of arrival: ambulatory Limitations: no limitations History of Present Illness: Patient is a 42-year-old female presents to ED today with a complaint of abdominal pain, nausea, and vomiting, diarrhea. Patient states she was given a Trulicity injection on Tuesday and began developing symptoms that evening. She has been on Trulicity for 8 years and never had this reaction. Patient's blood glucose has been running normal. Patient is not having any blood in her emesis. She is not having any urinary complaints. No fevers. MD elicited complaint: nausea, vomiting and abdominal pain Onset (ago): day(s) Description of diarrhea: watery Associated nausea: Yes Associated abdominal pain: Yes Location of pain: Diffuse Pain consistency: constant Severity: mild Quality: cramping Exacerbating factors: eating Relieving factors: none Associated symtoms: Reports nausea; Denies chest pain, dizziness, dysuria, fatigue, headache(s) or malaise Review of Systems Const: Denies: fever(s), chills, body aches, fatigue or malaise Card: Denies: chest pain Resp: Denies: dyspnea GI: Reports: abdominal pain, nausea and vomiting; Denies: hematemesis or change in bowel habits : Denies: flank pain, dysuria or hematuria Musc: Denies: neck pain, back pain, extremity pain or joint pain Skin/Breast: Denies: rash Neuro: Denies: headache(s) or dizziness PFS ED PFSH: Medical History Functional neurological symptom disorder with attacks or seizures Gross hematuria Stress incontinence Urinary hesitancy Surgical History History of hysterectomy Social History Smoking and tobacco status: current every day smoker Alcohol intake: never Marital status: Current occupational status: unemployed and disabled History of recent travel: No Physical Exam Const: COMMON NORMALS: no acute distress, patient oriented x3, no limitations, alert and well nourished GENERAL APPEARANCE: cooperative NUTRITIONAL APPEARANCE: overweight ORIENTATION/CONSCIOUSNESS: Yes awake, Yes oriented to person, Yes oriented to place and Yes oriented to time HENMT: COMMON NORMALS: normocephalic and atraumatic HEAD & SCALP: normal to inspection, normocephalic and atraumatic Resp: COMMON NORMALS: normal respiratory effort and clear to auscultation bilaterally AUSCULTATION: clear to auscultation bilaterally Cardio: COMMON NORMALS: regular rate and regular rhythm RATE: regular rate RHYTHM: regular rhythm GI: COMMON NORMALS: Normal to inspection, nondistended, normoactive bowel sounds present, Soft to palpation, No hepatosplenomegaly present and no masses INSPECTION: Yes normal to inspection AUSCULTATION: Yes normoactive bowel sounds PALPATION: Yes Soft to palpation, Yes Tenderness to palpation present (GI) (mild to epigastric, LUQ, LLQ; non-surgical exam ), No Guarding due to palpation present (GI), No Rigid due to palpation and Yes No hepatosplenomegaly present : COMMON NORMALS: Yes no CVA tenderness BLADDER/KIDNEY EXAM: Yes no CVA tenderness Back/Pelvis: COMMON NORMALS: no CVA tenderness Extremity: COMMON NORMALS: normal to inspection GENERAL: Yes normal exam except as noted Neuro: THUY COMA SCALE: document GCS findings Thuy coma scale eye opening: Spontaneous Thuy coma scale verbal response: Orientated Wittman coma scale motor response: Obey commands Wittman coma scale total score: 15 COMMON NORMALS: patient oriented x3, moves all extremities, no focal motor deficits, no sensory deficits noted and gait normal SENSORIUM/ORIENTATION: Yes alert, Yes oriented to person, Yes oriented to place and Yes oriented to time Skin: COMMON NORMALS: no rashes or lesions noted GENERAL SKIN EXAM: no rashes or lesions noted Course Vital Signs: Vital signs: Vital Signs Temperature 97.6 F 08/05/22 21:00 Pulse Rate 104 H 08/05/22 21:00 Respiratory Rate 20 H 08/05/22 21:00 Blood Pressure 125/85 08/05/22 21:00 Pulse Oximetry 96 08/05/22 21:00 Oxygen Delivery Me thod 08/05/22 21:00 MDM - Nausea/Vomiting/Diarrhea Medical Decision Making Patient clinically appears in no acute distress. Her vital signs are stable. Blood work is unremarkable. Patient was given p.o. Zofran and states her symptoms vastly improved. She was able to hold down food and drink here. She is requesting a prescription to go home with. Abdomen is soft and nontender and nonsurgical. CT imaging not indicated. Strict return ED precautions given. Lab Data 08/05/22 21:07 08/05/22 21:07 Laboratory Results WBC 7.7 10^3/uL (4.0-10.0) 08/05/22 21:07 RBC 4.99 10^6/uL (4.1-5.3) 08/05/22 21:07 Hgb 14.9 g/dL (11.5-15.3) 08/05/22 21:07 Hct 45.1 % (37.0-47.0) 08/05/22 21:07 MCV 90.4 fl (81-99) 08/05/22 21:07 MCH 29.9 pg (28.0-34.0) 08/05/22 21:07 MCHC 33.0 g/dL (30.0-36.0) 08/05/22 21:07 RDW 13.2 % (12.1-15.1) 08/05/22 21:07 Plt Count 171 10^3/cmm (130-400) 08/05/22 21:07 MPV 11.2 fL (7.4-10.4) H 08/05/22 21:07 Neut % (Auto) 60.9 % 08/05/22 21:07 Lymph % (Auto) 28.0 % 08/05/22 21:07 [place] % (Auto) 5.5 % 08/05/22 21:07 Eos % (Auto) 4.3 % 08/05/22 21:07 Baso % (Auto) 1.0 % 08/05/22 21:07 Neut # (Auto) 4.66 10^3/uL (1.8-7.7) 08/05/22 21:07 Lymph # (Auto) 2.1 10^3/uL (0.8-4.8) 08/05/22 21:07 [place] # (Auto) 0.4 10^3/uL (0.2-0.9) 08/05/22 21:07 Eos # (Auto) 0.3 10^3/uL (0.0-0.8) 08/05/22 21:07 Baso # (Auto) 0.1 10^3/uL (0.0-0.1) 08/05/22 21:07 Nucleated RBC % (auto) 0 % 08/05/22 21:07 Nucleated RBCs # 0.0 /100WBC 08/05/22 21:07 Sodium 140 mmol/L (136-145) 08/05/22 21:07 Potassium 3.8 mmol/L (3.5-5.1) 08/05/22 21:07 Chloride 99 mmol/L (98-107) 08/05/22 21:07 Carbon Dioxide 29 mmol/L (22-29) 08/05/22 21:07 Anion Gap 15.8 (5-19) 08/05/22 21:07 BUN 9 mg/dL (6-20) 08/05/22 21:07 Creatinine 0.6 mg/dL (0.5-0.9) 08/05/22 21:07 GFR Calculation 108.6 mL/min (90-130) 08/05/22 21:07 Glucose 98 mg/dL (65-115) 08/05/22 21:07 Calculated Osmolality 289 mOsm/kg (285-295) 08/05/22 21:07 Calcium 9.6 mg/dL (8.5-10.5) 08/05/22 21:07 Total Bilirubin 0.2 mg/dL (0.15-1.2) 08/05/22 21:07 AST 14 U/L (0-32) 08/05/22 21:07 ALT 16 U/L (0-33) 08/05/22 21:07 Alkaline Phosphatase 118 U/L (35-105) H 08/05/22 21:07 Total Protein 7.3 g/dL (6.6-8.7) 08/05/22 21:07 Albumin 4.7 g/dL (3.5-5.2) 08/05/22 21:07 Globulin 2.6 g/dL (1.3-4.6) 08/05/22 21:07 Lipase 34 U/L (13-60) 08/05/22 21:07 HCG, Qual Negative (Negative) 08/05/22 21:07 Urine Color Colorless (Yellow) 08/05/22 22:00 Urine Appearance Clear (CLEAR) 08/05/22 22:00 Urine pH 5 (5-7) 08/05/22 22:00 Ur Specific [place] 1.020 (1.005-1.030) 08/05/22 22:00 Urine Protein Neg (Negative) 08/05/22 22:00 Urine Glucose (UA) Norm (Normal) 08/05/22 22:00 Urine Ketones Negative (Negative) 08/05/22 22:00 Urine Blood 2+ (Negative) H 08/05/22 22:00 Urine Nitrate Negative (Negative) 08/05/22 22:00 Urine Bilirubin Neg (Negative) 08/05/22 22:00 Urine Urobilinogen Norm mg/dL (Negative) 08/05/22 22:00 Ur Leukocyte Esterase Negative (Negative) 08/05/22 22:00 Urine RBC 5-10 /hpf (0-2) H 08/05/22 22:00 Urine WBC 0-4 /hpf (0-5) H 08/05/22 22:00 Ur Squamous Epith Cells 0-4 /hpf (0-5) H 08/05/22 22:00 Amorphous Sediment Not Reportable 08/05/22 22:00 Urine Bacteria None /hpf (NONE) 08/05/22 22:00 Discharge Plan Discharge Patient Disposition: Home Clinical Impression: Nausea and vomiting Qualifiers: Vomiting type: unspecified Qualified Code(s): R11.2 - Nausea with vomiting, unspecified Condition: Stable Prescriptions: New ondansetron 4 mg tablet,disintegrating 4 mg PO Q8H PRN (Reason: nausea and vomiting) Qty: 14 0RF No Action Bydureon 2 mg/0.65 mL pen injector 2 mg SUBCUT Q7D@0600 Rx Instructions: (on wednesdays) isosorbide mononitrate 60 mg tablet extended release 24 hr 120 mg PO QAM@0600 metoprolol succinate 50 mg tablet extended release 24 hr 50 mg PO BID@0600,2200 loratadine 10 mg tablet 10 mg PO DAILY@0600 albuterol sulfate 90 mcg/actuation aerosol powdr breath activated 2 inh INHALATION Q6H PRN (Reason: Shortness Of Breath) levothyroxine 75 mcg capsule 75 mcg PO DAILY@0600 methocarbamol 750 mg tablet 750 mg PO BID@0600,2200 tamsulosin 0.4 mg capsule 0.4 mg PO QDAY Qty: 30 12RF docusate sodium 50 mg capsule 50 mg PO DAILY PRN diclofenac sodium [Voltaren Arthritis Pain] 1 % gel 2 g topical QID Qty: 100 0RF Rx Instructions: apply to single elbow, wrist or hand; for hand includes palm/fingers/back of hand (DME) ASO to left and right See Rx Instructions .Route .MEDSUPPLY Qty: 2 0RF Rx Instructions: As directed sumatriptan succinate [Imitrex] 100 mg tablet See Rx Instructions PO .COMPLEX Qty: 10 2RF Rx Instructions: Take 1 stat as needed headache up to twice in an hour, maximum 2 (DME) ASO to right ankle See Rx Instructions .Route .MEDSUPPLY Qty: 1 0RF Rx Instructions: As directed amoxicillin 500 mg capsule 500 mg PO Q8H 7 Days Qty: 21 0RF venlafaxine 150 mg capsule,extended release 24hr See Rx Instructions .ROUTE .COMPLEX Qty: 30 0RF Dose Instruction: TAKE ONE CAPSULE BY MOUTH EVERY MORNING. Rx Instructions: TAKE ONE CAPSULE BY MOUTH EVERY MORNING. topiramate 100 mg tablet See Rx Instructions .ROUTE .COMPLEX Qty: 30 0RF Dose Instruction: TAKE 1 TABLET BY MOUTH DAILY AT 6 AM Rx Instructions: TAKE 1 TABLET BY MOUTH DAILY AT 6 AM carbamazepine 400 mg tablet extended release 12 hr See Rx Instructions .ROUTE .COMPLEX Qty: 60 0RF Dose Instruction: TAKE 1 TABLET BY MOUTH TWICE DAILY AT 6 AM AND AT 10 PM Rx Instructions: TAKE 1 TABLET BY MOUTH TWICE DAILY AT 6 AM AND AT 10 PM furosemide [Lasix] 40 mg Tablet 40 mg PO DAILY@0600 pantoprazole 40 mg Tablet,Delayed Release (Dr/Ec) 40 mg PO BID@0600,2200 buspirone 10 mg Tablet 10 mg PO TID@06,, aripiprazole [Abilify] 2 mg Tablet 2 mg PO BEDTIME@2199 buprenorphine-naloxone [Suboxone] 8-2 mg Film 1 film BUCCAL DAILY@0600 potassium chloride 20 mEq Tablet Extended Release 40 meq PO BID@0600,2200 ondansetron 4 mg tablet,disintegrating 4 mg PO Q6H PRN (Reason: nausea and vomiting) Qty: 14 0RF omeprazole 40 mg capsule,delayed release(DR/EC) 40 mg PO DAILY@0600 acetaminophen 500 mg tablet 500 mg PO BID@0600,2200 azelastine 137 mcg (0.1 %) aerosol,spray 2 spray INTRANASAL BID@0600,2200 fluticasone propionate 50 mcg/actuation spray,suspension 2 spray INTRANASAL BID@0600,2200 Linzess 145 mcg capsule 145 mcg PO DAILY@0600 diclofenac potassium 50 mg tablet 50 mg PO Q8H PRN (Reason: pain) Qty: 10 0RF Discharge Orders: Discharge ED (Routine); Ordered 08/05/22 Ordered By: Roberta Rahman Referrals: Joseline Thompson MD [Primary Care Provider] - Coding Level of Care Code ED R[facility] Backer for Chg Shantell
[2022-08-05 21:42] LABS: Alanine Aminotransferase 16 U/L (0-33); Albumin Level 4.7 g/dL (3.5-5.2); Alkaline Phosphatase 118 U/L (35-105); Anion Gap 15.8 (5-19); Aspartate Amino Transferase 14 U/L (0-32); Blood Urea Nitrogen 9 mg/dL (6-20); Calcium 9.6 mg/dL (8.5-10.5); Carbon Dioxide 29 mmol/L (22-29); Chloride 99 mmol/L (98-107); Globulin 2.6 g/dL (1.3-4.6); Glomerular Filtration Rate 108.6 mL/min (90-130); Glucose 98 mg/dL (65-115); Lipase 34 U/L (13-60); Osmolality Calculated 289 mOsm/kg (285-295); Potassium 3.8 mmol/L (3.5-5.1); Sodium 140 mmol/L (136-145); Total Bilirubin 0.2 mg/dL (0.15-1.2); Total Protein 7.3 g/dL (6.6-8.7)
[2022-08-05] MEDS: sodium chloride 0.9% 1,000 ML 999 ML IV (22:02)
[2022-08-05] MEDS: ondansetron 2 mg/ML SDV 2 mL 4 MG IVP (22:02)
[2022-08-05 22:25] LABS: Add Urine Microscopic? YES; Bilirubin Urine Neg (Negative); Blood Urine 2+ (Negative); Glucose Urine UA Norm (Normal); Ketones Urine Negative (Negative); Leukocyte Esterase Urine Negative (Negative); Nitrate Urine Negative (Negative); Protein Urine Neg (Negative); Urine Appearance Clear (CLEAR); Urine Color Colorless (Yellow); Urobilinogen Urine Norm (Negative); pH Urine 5 (5-7)
[2022-08-05 22:26] LABS: Add Urine Culture? No; Squamous Epithelial Cell Urine 0-4 /hpf (0-5); WBC Urine 0-4 /hpf (0-5)
[2022-08-05] MEDS: ondansetron 4 MG Tablet PO (22:57)
== END 2022-08-05 23:02 | disposition home or self-care (01) ==
PROVIDERS: Emergency Medicine; Emergency Provider Physician Assistant; PCP Family Medicine
DX: R11.2 Nausea with vomiting, unspecified (principal)
CPT/HCPCS: 36415; 80053; 81001; 83690; 84703; 85025; 96361; 96374; 96376; J2405; J7030; Q0162

== ENCOUNTER → 2022-08-06 14:47 | Outpatient (BNVA) | payer MEDICAID, SELFPAY | PROVIDERS: PCP Family Medicine; Visit Provider Podiatrist Foot & Ankle Surgery | DX: M25.371 Other instability, right ankle (principal); M25.372 Other instability, left ankle | CPT/HCPCS: 99214 ==

== ENCOUNTER → 2022-08-30 15:53 | Outpatient (BNVA) | payer MEDICAID, SELFPAY | PROVIDERS: PCP Family Medicine; Visit Provider Urology | DX: R39.11 Hesitancy of micturition (principal); R31.0 Gross hematuria | CPT/HCPCS: 51798; 81003; 99213 ==

== ENCOUNTER → 2022-09-30 11:38 | Outpatient (BNVA) | payer MEDICAID, SELFPAY | PROVIDERS: PCP Family Medicine; Visit Provider Specialist | DX: G43.711 Chronic migraine without aura, intractable, with status migrainosus (principal) | CPT/HCPCS: 64615 ==

== ENCOUNTER → 2022-11-02 15:31 | Outpatient (BNVA) | payer MEDICAID, SELFPAY | PROVIDERS: PCP Family Medicine; Visit Provider Podiatrist Foot & Ankle Surgery | DX: M25.371 Other instability, right ankle (principal); M25.372 Other instability, left ankle | CPT/HCPCS: 99213 ==

== ENCOUNTER → 2022-11-16 13:31 | Outpatient (BNVA) | payer MEDICAID, SELFPAY | PROVIDERS: PCP Family Medicine; Visit Provider Orthopaedic Surgery | DX: M17.11 Unilateral primary osteoarthritis, right knee (principal) | CPT/HCPCS: 99213 ==

== ENCOUNTER 2022-11-22 10:50 | Outpatient (CLI) | payer MEDICAID, SELFPAY ==
--- NOTE | 2022-11-22 11:06 | MM_ITS ---
WS: [id number] BILATERAL 3D TOMOSYNTHESIS DIGITAL SCREENING MAMMOGRAPHY WITH CAD CLINICAL INFORMATION: SCREENING HISTORY: Screening mammogram. No current complaints. COMPARISON: Baseline TECHNIQUE: Bilateral CC and MLO views. FINDINGS: Scattered fibroglandular densities bilaterally. No suspicious focal mass, asymmetry, calcifications, or architectural distortion. No evidence of malignancy. MM/[place] [id number] IMPRESSION: BI-RADS: 1-Negative FOLLOW UP: 1 Year Follow-up Recommend return to annual screening mammography.
== END 2022-11-22 10:51 | disposition home or self-care (01) ==
LOC: RAD 10:52
PROVIDERS: PCP Family Medicine; Visit Provider Family Medicine
DX: Z12.31 Encounter for screening mammogram for malignant neoplasm of breast (principal)
CPT/HCPCS: 77063; 77067

== ENCOUNTER → 2022-11-30 14:39 | Outpatient (BNVA) | payer MEDICAID, SELFPAY | PROVIDERS: PCP Family Medicine; Visit Provider Orthopaedic Surgery | DX: M25.532 Pain in left wrist (principal); R20.0 Anesthesia of skin; R20.2 Paresthesia of skin | CPT/HCPCS: 20526; 73110; 99213; J0702; J3490 ==

== ENCOUNTER → 2022-12-30 13:22 | Outpatient (BNVA) | payer MEDICAID, SELFPAY | PROVIDERS: PCP Family Medicine; Visit Provider Specialist | DX: G43.711 Chronic migraine without aura, intractable, with status migrainosus (principal) | CPT/HCPCS: 64615; J0585 ==

== ENCOUNTER → 2023-01-14 15:17 | Outpatient (BNVA) | payer MEDICAID, SELFPAY | PROVIDERS: PCP Family Medicine; Visit Provider Podiatrist Foot & Ankle Surgery | DX: S82.832A Other fracture of upper and lower end of left fibula, initial encounter for closed fracture (principal); W10.8XXA Fall (on) (from) other stairs and steps, initial encounter | CPT/HCPCS: 73600; 73630; 99213 ==

== ENCOUNTER → 2023-01-27 13:24 | Outpatient (BNVA) | payer MEDICAID, SELFPAY | PROVIDERS: PCP Family Medicine; Visit Provider Podiatrist Foot & Ankle Surgery | DX: S82.832A Other fracture of upper and lower end of left fibula, initial encounter for closed fracture (principal); X58.XXXA Exposure to other specified factors, initial encounter | CPT/HCPCS: 73610; 99213 ==

== ENCOUNTER 2023-03-19 11:01 | Emergency (ER) | payer MEDICAID, SELFPAY ==
[2023-03-19 11:10] VITALS: BP 172/138; PULSE 102; RESP 18; TEMP 36.6; O2SAT 97; BMI 37.6
--- NOTE | 2023-03-19 11:14 | CTR_ITS ---
PROCEDURE INFORMATION: Exam: CT Head Without Contrast Exam date and time: 03/19/2023 12:18 PM Age: 43 years old Clinical indication: Pain; Headache; Additional info: History of avm, worst headache TECHNIQUE: Imaging protocol: Computed tomography of the head without contrast. Radiation optimization: All CT scans at this facility use at least one of these dose optimization techniques: automated exposure control; mA and/or kV adjustment per patient size (includes targeted exams where dose is matched to clinical indication); or iterative reconstruction. REPORTING DATA: Count of CT and Cardiac NM exams in prior 12 months: This patient has received 0 known CTs and 0 known cardiac nuclear medicine studies in the 12 months prior to the current study. 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 No surrounding cerebral edema. No acute intracranial hemorrhage. No midline shift. Normal differentiation of hassan-white matter. Cerebral ventricles: Ventricles are normal in caliber. Paranasal sinuses: Visualized paranasal sinuses are clear. Mastoid air cells: Mastoid air cells are clear. Bones/joints: No acute osseous findings. Soft tissues: Superficial soft tissues are within normal limits. CT/CT head wo con* [id number] IMPRESSION: 1. No acute intracranial findings. 2. Stable appearance of 1.1 cm hyperdense mass in the left frontal region, unchanged from at least 05/14/2021, previously favored to represent a benign cavernous malformation.
--- NOTE | 2023-03-19 11:23 | ED_ITS ---
HPI - Headache General: Chief Complaint: Headache Stated Complaint: headache Time Seen by Provider: 03/19/23 11:03 History of Present Illness: Marry Whatley is a 43-year-old female who presents to the emergency department with complaints of migraine. Patient reports history of chronic migraines for which she is treated by Dr. Weston. She is on numerous medications and receives Botox injections. Next scheduled Botox injection is March 31. Patient has been using Tylenol at home. Patient denies fever, chills, chest pain, shortness of breath, cough, congestion. Denies abdominal pain. Does report nausea and vomiting associated with her migraines. Reports sensitivity to light. These are unchanged from baseline. Patient does have concerns as she has a seizure history and cavernoma angioma. Associated symptoms: Reports nausea and vomiting; Deny chest pain, confusion, fever(s), malaise or rash Review of Systems General: Reports: 10 or more systems reviewed and unremarkable except in HPI and below Const: Denies: fever(s), chills, change in appetite, change in weight, fatigue or malaise Eyes: Denies: change in vision, eye discomfort, eye discharge or eye redness ENMT: Denies: throat pain, enlarged tonsils, odynophagia, hoarseness, ear or mastoid pain, ear discharge, change in hearing, tinnitus, nasal discharge, nasal congestion, post nasal drip or sinus pain Card: Denies: chest pain, palpitations, irregular heart rhythm, edema, dyspnea on exertion, orthopnea or leg pain with exertion Resp: Denies: dyspnea, productive cough, non-productive cough, wheezing, stridor or chest congestion GI: Reports: nausea and vomiting; Denies: abdominal pain, dysphagia, diarrhea, constipation, bloating, GI cramping or hematochezia : Denies: flank pain, difficulty voiding, dysuria, urinary frequency, urinary urgency, urinary hesitancy, oliguria or hematuria Musc: Denies: neck pain, back pain, extremity pain, joint pain, joint swelling, joint redness, joint warmth or muscle weakness Skin/Breast: Denies: rash, pruritus, erythema, photosensitivity or new lesions Neuro: Reports: headache(s); Denies: numbness in extremities, weakness in extremities, sensory changes, lack of coordination, difficulty walking, frequent falls, dizziness, confusion, Slu rred speech present, difficulty communicating thoughts, seizure-like activity or involuntary movements Endo: Denies: polyuria, polydipsia or tired all the time Rick/Lymph: Denies: easy bruising or easy bleeding PFSH ED PFSH: Medical History Functional neurological symptom disorder with attacks or seizures Gross hematuria Stress incontinence Urinary hesitancy Surgical History History of hysterectomy Social History Smoking and tobacco status: current every day smoker Alcohol intake: never Substance/Drug Use: never Marital status: Current occupational status: unemployed and disabled Physical Exam Const: COMMON NORMALS: no acute distress, patient oriented x3 and alert GENERAL APPEARANCE: cooperative ORIENTATION/CONSCIOUSNESS: Yes awake, Yes oriented to person, Yes oriented to place and Yes oriented to time HENMT: COMMON NORMALS: normocephalic and atraumatic HEAD & SCALP: normocephalic and atraumatic FACE & SINUS: normal facial exam MOUTH: Normal oral and palatal mucosa present Eye: COMMON NORMALS: Equal, round and reactive pupils present, EOMs intact bilaterally, conjunctivae normal and no scleral icterus GENERAL EYE: appearance normal, both eyes and all related structures ALIGNMENT: Yes alignment normal PERIORBITAL: periorbital findings normal CONJUNCTIVA: Yes conjunctivae normal PUPIL: Yes Equal, round and reactive pupils present Neck/C-Spine: COMMON NORMALS: full ROM GENERAL: Yes normal visual inspection Lymph: LYMPHATIC: no lymphadenopathy noted Chest: COMMONS NORMALS: normal inspection of the chest Breast/axilla inspection: Yes no chest deformity, asymmetry, normal contours, no nodules, masses, tenderness Resp: COMMON NORMALS: normal respiratory effort, No retractions and No use of accessory muscles EFFORT & INSPECTION: Yes able to speak in complete sentences and Yes symmetric chest movement Cardio: COMMON NORMALS: regular rate and Peripheral pulses 2+ throughout RATE: regular rate PERIPHERAL PULSES: Peripheral pulses 2+ throughout GI: COMMON NORMALS: Normal to inspection, nondistended, normoactive bowel sounds present, Soft to palpation and non-tender INSPECTION: Yes normal to inspection PALPATION: Yes Soft to palpation RECTAL EXAM: deferred Extremity: COMMON NORMALS: normal to inspection GENERAL: Yes normal exam except as noted Neuro: COMMON NORMALS: patient oriented x3 SENSORIUM/ORIENTATION: Yes alert, Yes oriented to person, Yes oriented to place and Yes oriented to time CRANIAL NERVES: Yes CN normal except as noted Psych: COMMON NORMALS: mental status grossly normal, Normal thought process present, cooperative, activity/motor behavior normal, denies homicidal ideation and denies suicidal ideation THOUGHT PROCESS: Normal thought process present Skin: COMMON NORMALS: no rashes or lesions noted, no wounds and turgor normal GENERAL SKIN EXAM: no rashes or lesions noted and turgor normal Course Vital Signs: Vital signs: Vital Signs Temperature 97.9 F 03/19/23 11:10 Pulse Rate 68 03/19/23 12:34 Respiratory Rate 16 03/19/23 12:34 Blood Pressure 121/70 03/19/23 12:34 Pulse Oximetry 99 03/19/23 12:34 Oxygen Delivery Me thod Room Air 03/19/23 12:34 MDM - Headache Medical Decision Making Patient was evaluated in the emergency department due to complaints of migraine. Patient has a long history of chronic migraine. Currently under the management of Dr. Weston. Has a follow-up appointment scheduled on March 31. Patient underwent CT imaging of the head due to her description of AVM but ultimately is cavernous angioma. Patient was also acting very erratic and had spastic movement of her extremities. I reviewed her history which revealed history of phencyclidine (belkys dust) use. Her urinalysis revealed amphetamine use. Denies use and states she was around people using it. She was given 1 L fluids, Decadron, Norflex for her migraine. CT head reveals no acute intracranial findings. There is a stable appearance of a hypertensive mass in the left frontal lobe that has previously seen in 2020. This is favored to represent a benign cavernous malformation. Patient did respond well to the medications provided. She has follow-up with Dr. Weston in a week and a half. Patient is going to discharge home and may return to the emergency department for new concerning or worsening symptom Lab Data Radiology Impressions Head CT 03/19/23 11:14 IMPRESSION: 1. No acute intracranial findings. 2. Stable appearance of 1.1 cm hyperdense mass in the left frontal region, unchanged from at least 05/14/2021, previously favored to represent a benign cavernous malformation. Laboratory Results Urine Color Straw (Yellow) 03/19/23 11:30 Urine Appearance Clear (CLEAR) 03/19/23 11:30 Urine pH 5 (5-7) 03/19/23 11:30 Ur Specific [place] 1.005 (1.005-1.030) 03/19/23 11:30 Urine Protein Neg (Negative) 03/19/23 11:30 Urine Glucose (UA) Norm (Normal) 03/19/23 11:30 Urine Ketones Negative (Negative) 03/19/23 11:30 Urine Blood Neg (Negative) 03/19/23 11:30 Urine Nitrate Negative (Negative) 03/19/23 11:30 Urine Bilirubin Neg (Negative) 03/19/23 11:30 Urine Urobilinogen Norm mg/dL (Negative) 03/19/23 11:30 Ur Leukocyte Esterase Negative (Negative) 03/19/23 11:30 Urine RBC None /hpf (0-2) 03/19/23 11:30 Urine WBC None /hpf (0-5) 03/19/23 11:30 Ur Squamous Epith Cells 0-4 /hpf (0-5) H 03/19/23 11:30 Amorphous Sediment Not Reportable 03/19/23 11:30 Urine Bacteria Trace /hpf (NONE) 03/19/23 11:30 Urine Opiates Screen Negative ng/mL (Negative) 03/19/23 11:30 Ur Barbiturates Screen Negative ng/mL (Negative) 03/19/23 11:30 Ur Phencyclidine Scrn Negative ng/mL (Negative) 03/19/23 11:30 Ur Amphetamines Screen Positive ng/mL (Negative) H 03/19/23 11:30 U Benzodiazepines Scrn Negative ng/mL (Negative) 03/19/23 11:30 Urine Cocaine Screen Negative ng/mL (Negative) 03/19/23 11:30 U Marijuana (THC) Screen Negative ng/mL (Negative) 03/19/23 11:30 All radiology interpretation(s) finalized by discharge Discharge Plan Discharge Patient Disposition: Home Clinical Impression: Migraine, Amphetamine use Condition: Stable Prescriptions: New tizanidine 4 mg capsule 4 mg PO Q8H PRN (Reason: muscle spasticity) Qty: 20 0RF No Action isosorbide mononitrate 60 mg tablet extended release 24 hr 120 mg PO QAM@0600 loratadine 10 mg tablet 10 mg PO DAILY@0600 albuterol sulfate 90 mcg/actuation aerosol powdr breath activated 2 inh INHALATION Q6H PRN (Reason: Shortness Of Breath) methocarbamol 750 mg tablet 750 mg PO BID@0600,2200 docusate sodium 50 mg capsule 50 - 100 mg PO DAILY PRN (Reason: Constipation) (DME) AFO to right See Rx Instructions .Route .MEDSUPPLY Qty: 1 0RF Rx Instructions: As directed JOANN&O (KATIE) ASO to right ankle See Rx Instructions .Route .MEDSUPPLY Qty: 1 0RF Rx Instructions: As directed (DME) Spectrum AFO to the left See Rx Instructions .Route .MEDSUPPLY Qty: 1 0RF Rx Instructions: As directed by JOANN&Midny (KATIE) ASO to left See Rx Instructions .Route .MEDSUPPLY Qty: 2 0RF Rx Instructions: As directed (DME) [place] to the Right See Rx Instructions .Route .MEDSUPPLY Qty: 1 0RF Rx Instructions: As directed pantoprazole 40 mg Tablet,Delayed Release (Dr/Ec) 40 mg PO BID@0600,0 buspirone 10 mg Tablet 10 mg PO TID@06,, aripiprazole [Abilify] 2 mg Tablet 4 mg PO BEDTIME@2199 potassium chloride 20 mEq Tablet Extended Release 40 meq PO BID@00,0 omeprazole 40 mg capsule,delayed release(DR/EC) 40 mg PO DAILY@0600 acetaminophen 500 mg tablet 500 mg PO BID PRN (Reason: Pain) fluticasone propionate 50 mcg/actuation spray,suspension 2 spray INTRANASAL BID@0600,2199 venlafaxine 75 mg capsule,extended release 24hr 75 mg PO QAM atorvastatin 20 mg tablet 20 mg PO QPM trazodone 50 mg tablet 50 mg PO BEDTIME Nitrostat 0.4 mg Tablet, Sublingual 0.4 mg SUBLINGUAL Q5M PRN (Reason: Chest Pain) Rx Instructions: do not exceed 3 doses per episode metoprolol succinate 25 mg tablet extended release 24 hr 25 mg PO DAILY epinephrine 0.3 mg/0.3 mL auto-injector See Rx Instructions .ROUTE .COMPLEX Rx Instructions: INJECT 0.3MG IN THE MUSCLE 1 TIME DIRECTED topiramate 100 mg tablet 100 mg PO DAILY@06 levothyroxine 75 mcg tablet 75 mcg PO DAILY carbamazepine 400 mg tablet extended release 12 hr 400 mg PO BID Voltaren Arthritis Pain 1 % gel 4 g topical QID PRN (Reason: Pain) Rx Instructions: apply to single knee, ankle, foot; for foot includes sole/toes/top of foot Botox 100 unit recon soln 155 unit SUBCUT .EVERY 3 MONTHS venlafaxine 150 mg capsule,extended release 24hr 150 mg PO QAM Discharge Orders: Discharge ED (Routine); Ordered 03/19/23 Ordered By: Coy Bledsoe Referrals: Joseline Thompson MD [Primary Care Provider] - Discharge Diet: Advance as tolerated Discharge Activity: Resume usual activity Patient Instructions: Migraine Headache (ED), Pain Management Coding Level of Care Code ED Machine Bobbin Winder for Anju Stinson
[2023-03-19 12:05] LABS: Bilirubin Urine Neg (Negative); Blood Urine Neg (Negative); Glucose Urine UA Norm (Normal); Ketones Urine Negative (Negative); Leukocyte Esterase Urine Negative (Negative); Nitrate Urine Negative (Negative); Protein Urine Neg (Negative); Specific Gravity, Urine 1.005 (1.005-1.030); Urine Appearance Clear (CLEAR); Urine Color Straw (Yellow); Urobilinogen Urine Norm (Negative); pH Urine 5 (5-7)
[2023-03-19 12:06] LABS: Add Urine Culture? No; Bacteria Urine TRACE /hpf; Squamous Epithelial Cell Urine 0-4 /hpf (0-5)
[2023-03-19 12:13] LABS: Amphetamines Screen Urine Positive (Negative); Barbiturates Screen Urine Negative (Negative); Benzodiazepines Screen Urine Negative (Negative); Cocaine Screen Urine Negative (Negative); Opiate Screen Urine Negative (Negative); PCP Screen Urine Negative (Negative); THC Screen Urine Negative (Negative)
[2023-03-19] MEDS: dexamethasone 10 mg/mL INJ IVP (12:13)
[2023-03-19] MEDS: orphenadrine 30 mg/mL Inj 2 mL 60 MG IVP (12:13)
[2023-03-19] MEDS: ondansetron 2 mg/ML SDV 2 mL 4 MG IVP (12:14)
[2023-03-19 12:28] VITALS: BP 107/83; PULSE 72; RESP 16; O2SAT 93
[2023-03-19] MEDS: sodium chloride 0.9% 1,000 ML 999 ML IV (12:32)
[2023-03-19 12:34] VITALS: BP 121/70; PULSE 68; RESP 16; O2SAT 99
--- NOTE | 2023-03-19 13:24 | PC.PHAR ---
pt states she takes care of her own medications-pt states she is taking the medications entered-pt states some meds may not be showing that they have been filled recently because she was getting them at [facility] and states they have closed down-pt states she is taking efferxor er 150mg (ext doesnt show when filled) and 75mg daily (ext shows last filled 07/27/22 30d/s)-pt states she is still taking topamax 100mg daily ext shows last filled 06/15/22 30d/s-pt states she is taking kcl 20meq 2 tabs (40meq)bid ext shows last filled 07/27/22 30d/s 20meq daily-pt states still taking levothyroxine 75mcg daily ext shows last filled 07/27/22 30d/s-pt states still taking methocarbamol 750mg bid ext doesnt show when last filled-pt states takes prilosec 40mg daily (ext doesnt show when filled) and protonix 40mg bid -pt states still takes carbamazepine er 400mg bid ext shows last filled 07/30/22 30d/s-pt states takes abilify 2mg 2 tabs (4mg)daily ext shows last filled 07/27/22 30d/s-pt states no longer takes suboxone-pt states no longer using bydureon-notes are made in the pharmacy comments
[2023-03-19 14:27] VITALS: BP 154/108; PULSE 88; RESP 16; O2SAT 98
== END 2023-03-19 14:29 | disposition home or self-care (01) ==
PROVIDERS: Emergency Provider Nurse Practitioner; PCP Family Medicine
DX: G43.909 Migraine, unspecified, not intractable, without status migrainosus (principal); F15.90 Other stimulant use, unspecified, uncomplicated; F17.210 Nicotine dependence, cigarettes, uncomplicated
CPT/HCPCS: 70450; 80306; 81001; 96374; 96375; 99285; J1100; J2360; J2405; J7030

== ENCOUNTER → 2023-03-31 15:10 | Outpatient (BNVA) | payer MEDICAID, SELFPAY | PROVIDERS: PCP Family Medicine; Visit Provider Specialist | DX: G43.711 Chronic migraine without aura, intractable, with status migrainosus (principal) | CPT/HCPCS: 64615; J0585 ==

== ENCOUNTER → 2023-04-13 08:06 | Outpatient (BNVA) | payer MEDICAID, SELFPAY | PROVIDERS: PCP Family Medicine; Visit Provider Podiatrist Foot & Ankle Surgery | DX: S82.832D Other fracture of upper and lower end of left fibula, subsequent encounter for closed fracture with routine healing (principal); X58.XXXD Exposure to other specified factors, subsequent encounter | CPT/HCPCS: 99213 ==

== ENCOUNTER → 2023-05-03 12:29 | Outpatient (BNVA) | payer MEDICAID, SELFPAY | PROVIDERS: PCP Family Medicine; Visit Provider Specialist | DX: R20.0 Anesthesia of skin (principal) | CPT/HCPCS: 95908; 95909 ==

== ENCOUNTER → 2023-06-09 12:51 | Outpatient (BNVA) | payer MEDICAID, SELFPAY | PROVIDERS: PCP Family Medicine | DX: S69.92XA Unspecified injury of left wrist, hand and finger(s), initial encounter (principal); X58.XXXA Exposure to other specified factors, initial encounter | CPT/HCPCS: 73110 ==

== ENCOUNTER 2023-06-23 11:48 | Emergency (ER) | payer MEDICAID, SELFPAY ==
[2023-06-23 12:04] VITALS: BP 113/73; PULSE 88; RESP 16; TEMP 36.4; O2SAT 98; BMI 45.1
--- NOTE | 2023-06-23 12:36 | XRR_ITS ---
PROCEDURE INFORMATION: Exam: XR Right Knee Exam date and time: 06/23/2023 2:15 PM Age: 43 years old Clinical indication: Injury or trauma; Other: Not specified; Blunt trauma; Knee; Right TECHNIQUE: Imaging protocol: Radiologic exam of the right knee. Views: 3 views. COMPARISON: CR XR knees AP WB w RT lmt ORTH 02/09/2022 1:41 PM FINDINGS: Bones/joints: No fracture or dislocation. Small joint effusion without significant change. Severe degenerative change with large osteophytes and narrowing of the lateral tibiofemoral compartment. Soft tissues: Normal. XR/XR knee RT 3V* [id number] IMPRESSION: No acute pathology or significant change. Marked degenerative changes small effusion again noted.
--- NOTE | 2023-06-23 13:03 | ED_ITS ---
HPI - Extremity Problem General: Chief complaint: Extremity Problem,Nontraumatic Stated complaint: right knee numb, leg pain Time Seen by Provider: 06/23/23 13:02 History of Present Illness: 43-year-old female comes in today with c omplaints of right knee pain and swelling starting this morning. Patient reports no fall or injury. Patient has had problems with her knee since early 1999' after accident. Today patient reports just turning over and had excruciating pain in her knee. Since then she has been and unable to completely straighten her knee due to pain and discomfort. No redness or inflammation is noted to the knee. Patient denies any fever nausea or vomiting. Patient appears in moderate to severe pain. Associated symptoms: Deny chest pain or fever(s) Review of Systems General: Reports: 10 or more systems reviewed and unremarkable except in HPI and below Const: Denies: fever(s) Card: Denies: chest pain Resp: Denies: dyspnea GI: Denies: nausea : Denies: difficulty voiding Musc: Reports: joint pain (Right knee pain) PFSH ED PFSH: Medical History Urinary hesitancy Stress incontinence Gross hematuria Functional neurological symptom disorder with attacks or seizures Surgical History History of hysterectomy Social History Smoking and tobacco/nicotine status: current every day tobacco/nicotine user Alcohol intake: never Substance/Drug Use: never Marital status: Current occupational status: unemployed and disabled Physical Exam Const: COMMON NORMALS: alert HENMT: HEAD & SCALP: normal to inspection Chest: COMMONS NORMALS: normal inspection of the chest Resp: COMMON NORMALS: normal respiratory effort Cardio: COMMON NORMALS: regular rate RATE: regular rate Extremity: RIGHT LOWER EXTREMITY: Yes knee joint (Mild swelling, no redness or inflammation) Right knee: Yes ROM (Decreased range of motion due to pain) Neuro: SENSORIUM/ORIENTATION: Yes alert Skin: COMMON NORMALS: turgor normal GENERAL SKIN EXAM: turgor normal Course Vital Signs: Vital signs: Vital Signs Temperature 97.5 F L 06/23/23 12:04 Pulse Rate 88 06/23/23 12:04 Respiratory Rate 16 06/23/23 12:04 Blood Pressure 113/73 06/23/23 12:04 Pulse Oximetry 98 06/23/23 12:04 Oxygen Delivery Me thod Room Air 06/23/23 12:04 MDM - Extremity (Nontraumatic) Medical Decision Making 43-year-old female with a history of knee problems comes in today for complaints of increased knee pain starting about 10:00 this morning. Patient reports that she never fell or injured it recently. Patient did injure it bad in 2002 and has been seen prior by Dr. Church and stated that she may need to have a knee replacement in 3 to 5 years. No redness or induration is noted to the joint. Patient does have some mild swelling. Decreased range of motion due to pain. Differential diagnosis includes but not limited to internal derangement of the knee, meniscal injury, ligament injury, osteoarthritis. Reviewed exam with patient with recommendations for treatment including ice and heat alternate for pain, compression for pain, nonweightbearing until improvement in pain and di scomfort, steroid to help with inflammation, NSAIDs and analgesics. Recommend follow-up with orthopedic surgeon for further evaluation and treatment. Case management was requested to help with the appointment. Patient reports understanding of care plan prescription sent to pharmacy. Patient reports understanding for need for return. XR interpretation done by ED provider, pending radiology final review Discharge Plan Discharge Patient Disposition: Home Clinical Impression: Knee pain, right Qualifiers: Chronicity: unspecified Qualified Code(s): M25.561 - Pain in right knee Condition: Stable Prescriptions: New prednisone 20 mg tablet 20 mg PO BID Qty: 10 0RF celecoxib 200 mg capsule 200 mg PO BID Qty: 20 0RF hydrocodone-acetaminophen 5-325 mg tablet 1 tab PO Q6H PRN (Reason: pain (scale score 7-10)) Qty: 10 0RF No Action isosorbide mononitrate 60 mg tablet extended release 24 hr 120 mg PO QAM@0600 loratadine 10 mg tablet 10 mg PO DAILY@0600 albuterol sulfate 90 mcg/actuation aerosol powdr breath activated 2 inh INHALATION Q6H PRN (Reason: Shortness Of Breath) methocarbamol 750 mg tablet 750 mg PO BID@0600,2200 docusate sodium 50 mg capsule 50 - 100 mg PO DAILY PRN (Reason: Constipation) (DME) AFO to right See Rx Instructions .Route .MEDSUPPLY Qty: 1 0RF Rx Instructions: As directed JOANN&O (KATIE) ASO to right ankle See Rx Instructions .Route .MEDSUPPLY Qty: 1 0RF Rx Instructions: As directed (DME) Spectrum AFO to the left See Rx Instructions .Route .MEDSUPPLY Qty: 1 0RF Rx Instructions: As directed by JOANN&O (KATIE) ASO to left See Rx Instructions .Route .MEDSUPPLY Qty: 2 0RF Rx Instructions: As directed ([facility] [place]) Cam Boot to the Right See Rx Instructions .Route .MEDSUPPLY Qty: 1 0RF Rx Instructions: As directed pantoprazole 40 mg Tablet,Delayed Release (Dr/Ec) 40 mg PO BID@0600,2200 buspirone 10 mg Tablet 10 mg PO TID@06,12, aripiprazole [Abilify] 2 mg Tablet 4 mg PO BEDTIME@2200 potassium chloride 20 mEq Tablet Extended Release 40 meq PO BID@0600,2200 omeprazole 40 mg capsule,delayed release(DR/EC) 40 mg PO DAILY@0600 acetaminophen 500 mg tablet 500 mg PO BID PRN (Reason: Pain) fluticasone propionate 50 mcg/actuation spray,suspension 2 spray INTRANASAL BID@0600,2200 venlafaxine 75 mg capsule,extended release 24hr 75 mg PO QAM atorvastatin 20 mg tablet 20 mg PO QPM trazodone 50 mg tablet 50 mg PO BEDTIME Nitrostat 0.4 mg Tablet, Sublingual 0.4 mg SUBLINGUAL Q5M PRN (Reason: Chest Pain) Rx Instructions: do not exceed 3 doses per episode metoprolol succinate 25 mg tablet extended release 24 hr 25 mg PO DAILY epinephrine 0.3 mg/0.3 mL auto-injector See Rx Instructions .ROUTE .COMPLEX Rx Instructions: INJECT 0.3MG IN THE MUSCLE 1 TIME DIRECTED topiramate 100 mg tablet 100 mg PO DAILY@06 levothyroxine 75 mcg tablet 75 mcg PO DAILY Voltaren Arthritis Pain 1 % gel 4 g topical QID PRN (Reason: Pain) Rx Instructions: apply to single knee, ankle, foot; for foot includes sole/toes/top of foot Botox 100 unit recon soln 155 unit SUBCUT .EVERY 3 MONTHS venlafaxine 150 mg capsule,extended release 24hr 150 mg PO QAM tizanidine 4 mg capsule 4 mg PO Q8H PRN (Reason: muscle spasticity) Qty: 20 0RF Discharge Orders: Discharge ED (Routine); Ordered 06/23/23 Ordered By: Nato Mendoza Referrals: Joseline Thompson MD [Primary Care Provider] - Discharge Diet: Usual diet Discharge Activity: Increase activity as tolerated Patient Instructions: Knee Pain (ED), Opioid Safety Activity Restrictions/Additional Instructions: Home and rest. Use ice and heat alternatively to help with knee pain. Use acetaminophen and celecoxib to help control pain. Use hydrocodone for severe pain. Increase activity and range of motion as tolerated. Take prednisone as prescribed. Follow-up with primary care as needed. Case management will contact you regarding follow-up appointment with orthopedic surgeon. Use crutches until he can bear weight comfortably. Use an elastic bandage for further comfort. Return to ED for new concerns. Coding Level of Care Code ED 3D Modeler for Anju Stinson
[2023-06-23] MEDS: ketorolac 30 mg/mL INJ IM (13:29)
[2023-06-23] MEDS: dexamethasone 10 mg/mL INJ IM (13:30)
[2023-06-23] MEDS: HYDROcodone-acetaminophen 10-325 mg Tablet 1 TAB PO (13:32)
--- NOTE | 2023-06-26 23:37 | SUR.EXTENDED ---
Message sent to Ortho for recurring RT knee pain.
== END 2023-06-23 13:41 | disposition home or self-care (01) ==
PROVIDERS: Emergency Provider Nurse Practitioner Family; PCP Family Medicine
DX: M25.561 Pain in right knee (principal); Z72.0 Tobacco use
CPT/HCPCS: 73562; 96372; 99284; E0114; J1100; J1885

== ENCOUNTER → 2023-07-07 15:33 | Outpatient (BNVA) | payer MEDICAID, SELFPAY | PROVIDERS: PCP Family Medicine; Visit Provider Specialist | DX: M46.1 Sacroiliitis, not elsewhere classified (principal); S30.0XXA Contusion of lower back and pelvis, initial encounter; G43.711 Chronic migraine without aura, intractable, with status migrainosus; X58.XXXA Exposure to other specified factors, initial encounter | CPT/HCPCS: 64615; 99214; J0585; J1030; J3490 ==

== ENCOUNTER 2023-07-07 20:36 | Emergency (ER) | payer MEDICAID, SELFPAY ==
[2023-07-07] VITALS (7 sets, daily range): BP systolic 111–139; BP diastolic 68–109; PULSE 68–99; RESP 14–18; TEMP 36.5; O2SAT 93–100; BMI 40.7
--- NOTE | 2023-07-07 20:57 | XRR_ITS ---
PROCEDURE INFORMATION: Exam: XR Lumbosacral Spine Exam date and time: 07/07/2023 9:03 PM Age: 43 years old Clinical indication: Low back pain TECHNIQUE: Imaging protocol: Radiologic exam of the lumbosacral spine. Views: 2 or 3 views. COMPARISON: CT abdomen pelvis w con* [id number] 07/08/2021 2:21 AM FINDINGS: Bones/joints: Mild L5-S1 degenerative disc disease and spondylosis. Minimal lower lumbar levoscoliosis. Soft tissues: Unremarkable. XR/XR lumbar spine 2-3V* [id number] IMPRESSION: 1. Mild L5-S1 degenerative disc disease and spondylosis. 2. Minimal lower lumbar levoscoliosis.
--- NOTE | 2023-07-07 21:00 | ED_ITS ---
HPI - Back Pain/Injury General: Chief Complaint: Back Pain/Injury Stated Complaint: lower back pain Time Seen by Provider: 07/07/23 20:46 History of Present Illness: Patient presents to the ER with complaints of low back pain. Patient also complains of bilateral leg numbness. Patient did see Dr. Weston today and got Botox in her head neck and shoulders for migraines, and got a bilateral SI injection for SI type pain. Patient said this did help a little bit in her legs but her legs are already numb before that. Patient states she has chronic low back pain off and on which was similar to this but has never been this severe. There is no known trigger or trauma. Review of Systems General: Reports: 10 or more systems reviewed and unremarkable except in HPI and below PFSH ED PFSH: Medical History Cavernous angioma Urinary hesitancy Stress incontinence Gross hematuria Functional neurological symptom disorder with attacks or seizures Surgical History History of hysterectomy Social History Smoking and tobacco/nicotine status: current every day tobacco/nicotine user Alcohol intake: never Substance/Drug Use: never Marital status: Current occupational status: unemployed and disabled Physical Exam Const: COMMON NORMALS: no acute distress, average body habitus, patient oriented x3, no limitations, healthy appearing, alert and well nourished HENMT: COMMON NORMALS: normocephalic, atraumatic, hearing grossly normal bilaterally, external ears normal, Normal external nose present, moist oral mucous membranes and oropharynx normal HEAD & SCALP: normocephalic and atraumatic NOSE: Normal external nose present EXTERNAL EAR: Yes external ears normal Neck/C-Spine: COMMON NORMALS: full ROM, no lymphadenopathy, supple, no meningeal signs, no JVD and Thyroid normal THYROID: Thyroid normal Chest: COMMONS NORMALS: normal inspection of the chest and normal palpation of entire chest wall Resp: COMMON NORMALS: normal respiratory effort, No retractions, No use of accessory muscles and clear to auscultation bilaterally AUSCULTATION: clear to auscultation bilaterally Cardio: COMMON NORMALS: no JVD, regular rate, regular rhythm, S1 normal heart sound present, S2 normal heart sound present, No gallops present (Cardio), No clicks present (Cardio), No murmurs present (Cardio) and No rub (Cardio) RATE: regular rate RHYTHM: regular rhythm HEART SOUNDS: S1 normal heart sound present and S2 normal heart sound present GI: COMMON NORMALS: Normal to inspection, nondistended, normoactive bowel sounds present, Soft to palpation, non-tender, No hepatosplenomegaly present and no masses PALPATION: Yes Soft to palpation and Yes No hepatosplenomegaly present Neuro: COMMON NORMALS: patient oriented x3 SENSORIUM/ORIENTATION: Yes alert MENINGEAL SIGNS: Yes no meningeal signs Course Vital Signs: Vital signs: Vital Signs Temperature 97.7 F 07/07/23 20:42 Pulse Rate 68 07/07/23 23:24 Respiratory Rate 18 07/07/23 23:24 Blood Pressure 136/109 07/07/23 23:24 Pulse Oximetry 96 07/07/23 23:24 Oxygen Delivery Me thod Room Air 07/07/23 20:42 MDM - Back Pain/Injury Medical Decision Making Patient presents to the ER with low back pain. No known trauma but patient was moving wood yesterday. Patient did see Dr. Weston today and was given bilateral SI injections. Patient had x-ray in ER which was read by radiology as negative. Patient was given 4 mg morphine, 4 mg Zofran and 60 mg Norflex. Pain is much improved. Differential Diagnosis Unlikely lumbar radiculopathy, sciatica, strain of lumbar region, renal colic, pyelonephritis, thoracic back pain, AAA or discitis Medical Records I reviewed the patient's medical records. Labs I reviewed the patient's lab results. Radiology Impressions Lumbar Spine X-Ray 07/07/23 20:57 IMPRESSION: 1. Mild L5-S1 degenerative disc disease and spondylosis. 2. Minimal lower lumbar levoscoliosis. All radiology interpretation(s) finalized by discharge Discharge Plan Discharge Patient Disposition: Home Clinical Impression: Low back pain Qualifiers: Chronicity: acute Back pain laterality: bilateral Sciatica presence: without sciatica Qualified Code(s): M54.50 - Low back pain, unspecified Condition: Stable Prescriptions: No Action isosorbide mononitrate 60 mg tablet extended release 24 hr 120 mg PO QAM@0600 loratadine 10 mg tablet 10 mg PO DAILY@0600 albuterol sulfate 90 mcg/actuation aerosol powdr breath activated 2 inh INHALATION Q6H PRN (Reason: Shortness Of Breath) methocarbamol 750 mg tablet 750 mg PO BID@0600,2200 docusate sodium 50 mg capsule 50 - 100 mg PO DAILY PRN (Reason: Constipation) (DME) AFO to right See Rx Instructions .Route .MEDSUPPLY Qty: 1 0RF Rx Instructions: As directed JOANN&O Nurtec ODT 75 mg tablet,disintegrating PO (DME) ASO to right ankle See Rx Instructions .Route .MEDSUPPLY Qty: 1 0RF Rx Instructions: As directed (DME) Spectrum AFO to the left See Rx Instructions .Route .MEDSUPPLY Qty: 1 0RF Rx Instructions: As directed by JOANN&O (DME) ASO to left See Rx Instructions .Route .MEDSUPPLY Qty: 2 0RF Rx Instructions: As directed (DME) Cam Boot to the Right See Rx Instructions .Route .MEDSUPPLY Qty: 1 0RF Rx Instructions: As directed pantoprazole 40 mg Tablet,Delayed Release (Dr/Ec) 40 mg PO BID@0600,2200 buspirone 10 mg Tablet 10 mg PO TID@06,, aripiprazole [Abilify] 2 mg Tablet 4 mg PO BEDTIME@2199 potassium chloride 20 mEq Tablet Extended Release 40 meq PO BID@0600,0 omeprazole 40 mg capsule,delayed release(DR/EC) 40 mg PO DAILY@0600 acetaminophen 500 mg tablet 500 mg PO BID PRN (Reason: Pain) fluticasone propionate 50 mcg/actuation spray,suspension 2 spray INTRANASAL BID@0600,2200 venlafaxine 75 mg capsule,extended release 24hr 75 mg PO QAM atorvastatin 20 mg tablet 20 mg PO QPM trazodone 50 mg tablet 50 mg PO BEDTIME Nitrostat 0.4 mg Tablet, Sublingual 0.4 mg SUBLINGUAL Q5M PRN (Reason: Chest Pain) Rx Instructions: do not exceed 3 doses per episode metoprolol succinate 25 mg tablet extended release 24 hr 25 mg PO DAILY epinephrine 0.3 mg/0.3 mL auto-injector See Rx Instructions .ROUTE .COMPLEX Rx Instructions: INJECT 0.3MG IN THE MUSCLE 1 TIME DIRECTED topiramate 100 mg tablet 100 mg PO DAILY@06 levothyroxine 75 mcg tablet 75 mcg PO DAILY Voltaren Arthritis Pain 1 % gel 4 g topical QID PRN (Reason: Pain) Rx Instructions: apply to single knee, ankle, foot; for foot includes sole/toes/top of foot Botox 100 unit recon soln 155 unit SUBCUT .EVERY 3 MONTHS venlafaxine 150 mg capsule,extended release 24hr 150 mg PO QAM tizanidine 4 mg capsule 4 mg PO Q8H PRN (Reason: muscle spasticity) Qty: 20 0RF prednisone 20 mg tablet 20 mg PO BID Qty: 10 0RF celecoxib 200 mg capsule 200 mg PO BID Qty: 20 0RF hydrocodone-acetaminophen 5-325 mg tablet 1 tab PO Q6H PRN (Reason: pain (scale score 7-10)) Qty: 10 0RF Discharge Orders: Discharge ED (Routine); Ordered 07/07/23 Ordered By: Vamshi Jeffrey Referrals: Joseline Thompson MD [Primary Care Provider] - 1 week Patient Instructions: Back Pain (ED) Activity Restrictions/Additional Instructions: Continue to use your muscle relaxers and pain medicine you already have at home as directed. The x-rays were negative for acute changes. Please follow-up with your family practice doctor within the next 7 to 10 days for further evaluation and treatment. Coding Level of Care Code ED Occupational Therapist Per [employer] for Anju Stinson
[2023-07-07] MEDS: ondansetron 4 MG Tablet PO (21:01)
[2023-07-07] MEDS: morphine 4 mg/mL SDV 1 mL IM (21:02)
[2023-07-07] MEDS: orphenadrine 30 mg/mL Inj 2 mL 60 MG IM (21:03)
[2023-07-07] MEDS: dexamethasone 10 mg/mL INJ IM (23:56)
== END 2023-07-08 00:16 | disposition home or self-care (01) ==
PROVIDERS: Emergency Provider Emergency Medicine; PCP Family Medicine
DX: M54.50 Low back pain, unspecified (principal); M51.37 Other intervertebral disc degeneration, lumbosacral region; Z72.0 Tobacco use
CPT/HCPCS: 72100; 96372; 99284; J1100; J2270; J2360; Q0162

== ENCOUNTER → 2023-08-02 15:26 | Outpatient (BNVA) | payer MEDICAID, SELFPAY | PROVIDERS: PCP Family Medicine; Visit Provider Student in an Organized Health Care Education/Training Program | DX: M22.41 Chondromalacia patellae, right knee (principal); M17.11 Unilateral primary osteoarthritis, right knee | CPT/HCPCS: 20610; 73560; 73565; 99214 ==

== ENCOUNTER 2023-08-04 15:42 | Outpatient (CLI) | payer MEDICAID, SELFPAY ==
--- NOTE | 2023-08-04 16:00 | MR_ITS ---
WS: [id number] MRI LUMBAR SPINE NONCONTRAST TECHNIQUE: Sagittal T1, T2 and STIR imaging. Axial T1 and T2 imaging. CLINICAL INFORMATION: M54.50 - Low back pain, unspecified COMPARISON: MRI 04/25/2019 FINDINGS: 5 lumbar vertebral bodies are assumed in keeping with the prior numbering convention for co mparison purposes. (Note only 4 lumbar vertebral bodies with L5 sacralized if numbering performed fr om the craniocervical junction.) Mild lumbar curve. No acute compression. Disc space narrowing worse at L5-S1. No high-grade central c anal stenosis. 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 L1-L2: Mild facet arthropathy. Spinal canal and foramen are patent. L2-L3: No significant disc bulging. Moderate facet arthropathy. Spinal canal and foramen are patent. L3-L4: Minimal annular bulging. Moderate facet arthropathy. Small LEFT foraminal protrusion slightly impinges the exiting LEFT L3 nerve root slightly progressed compared to previous. Recommend correlati on LEFT L3 nerve root symptoms. RIGHT foramen is patent. Moderate facet arthropathy. L4-L5: Mild annular bulging with mild central canal stenosis. Moderate facet arthropathy and ligament um flavum hypertrophy. Slight impingement subarticular recess bilaterally. Central canal stenosis rubén ears slightly progressed. Mild LEFT greater than RIGHT foraminal narrowing. L5-S1: Mild disc bulging with mild central canal stenosis and slight impingement traversing S1 nerve roots bilaterally. Moderate facet arthropathy. Small LEFT foraminal protrusion with mild LEFT foramin al narrowing similar to previous. Moderate facet arthropathy. Visualized pelvic bony structures: Normal. Paravertebral soft tissues: Normal. Moderate facet arthropathy L4-5 with a small amount of facet edema compatible with mild degenerative or inflammatory synovitis. No periarticular edema. IMPRESSION:5 lumbar vertebral bodies are assumed in keeping with the prior numbering convention for c omparison purpose 1. Mild lumbar curve. No acute compression. No high-grade central canal stenosis. 2. Mild central canal stenosis L4-L5 and L5-S1 due to disc bulging with facet arthropathy and ligame ntum flavum hypertrophy. Slight impingement on the subarticular recess at these levels. This is sligh tly progressed compared to previous. 3. Small LEFT foraminal protrusion L3-4 impinges the exiting LEFT L3 nerve root progressed compared to previous. Recommend correlation LEFT L3 nerve root symptoms. 4. Mild LEFT L4-5 and LEFT L5-S1 foraminal narrowing. 5. Moderate facet arthropathy L3-L5. 6. Small facet effusions L4-5 compatible with mild degenerative or inflammatory synovitis. No periar ticular edema.
== END 2023-08-04 15:43 | disposition home or self-care (01) ==
LOC: RAD 15:42
PROVIDERS: PCP Family Medicine; Visit Provider Specialist
DX: M47.27 Other spondylosis with radiculopathy, lumbosacral region (principal); M48.07 Spinal stenosis, lumbosacral region; M51.17 Intervertebral disc disorders with radiculopathy, lumbosacral region; M54.50 Low back pain, unspecified
CPT/HCPCS: 72148

== ENCOUNTER → 2023-09-21 09:38 | Outpatient (BNVA) | payer MEDICAID, SELFPAY | PROVIDERS: PCP Family Medicine; Visit Provider Anesthesiology Pain Medicine | DX: M51.16 Intervertebral disc disorders with radiculopathy, lumbar region | CPT/HCPCS: 99204 ==

== ENCOUNTER → 2023-09-29 09:35 | Outpatient (BNVA) | payer MEDICAID, SELFPAY | PROVIDERS: PCP Family Medicine; Visit Provider Physician Assistant | DX: M25.561 Pain in right knee (principal); M25.562 Pain in left knee; M23.307 Other meniscus derangements, unspecified meniscus, left knee | CPT/HCPCS: 20610; 73560; 73565; 99213; J3301 ==

== ENCOUNTER 2023-10-06 11:34 | Emergency (ER) | payer MEDICAID, SELFPAY ==
--- NOTE | 2023-10-06 11:37 | XR_ITS ---
WS: [id number] Examination: XR knee LT 3V* [id number] Reason for Exam: injury Date: October 06, 2023 Comparison: September 29, 2023 Findings: The bone density is maintained. There is no destruction. No large effusion is appreciated. There is no displaced fracture or dislocation. Minimal degenerative changes are noted with small oste ophytes Impression: No displaced fracture or dislocation is identified.
[2023-10-06 11:57] VITALS: BP 120/72; PULSE 80; RESP 17; TEMP 36.4; O2SAT 98; BMI 42.7
[2023-10-06 12:25] VITALS: BP 121/90; PULSE 105; RESP 16; O2SAT 95
--- NOTE | 2023-10-06 12:34 | ED_ITS ---
HPI - Extremity Problem General: Chief complaint: Extremity Injury, Lower Stated complaint: L knee pain Time Seen by Provider: 10/06/23 12:20 Source: patient Mode of arrival: ambulatory Limitations: no limitations History of Present Illness: 43-year-old female states she has had le ft knee pain for some time she is followed up with orthopedics Dr. Edwards she states that he is planning to get MRI as he is worried about a meniscus tear states over last 2 days she has had worsening pain specially with walking she denies any fevers denies any new injuries. Associated symptoms: Deny chest pain, fever(s) or rash Review of Systems Const: Denies: fever(s), chills, body aches or change in appetite ENMT: Denies: throat pain or dental pain Card: Denies: chest pain Resp: Denies: dyspnea GI: Denies: abdominal pain, nausea, vomiting or diarrhea Musc: Reports: extremity pain; Denies: neck pain or back pain Skin/Breast: Denies: rash Neuro: Denies: headache(s) PFSH ED PFSH: Medical History Cavernous angioma Urinary hesitancy Stress incontinence Gross hematuria Functional neurological symptom disorder with attacks or seizures Surgical History History of hysterectomy Social History Smoking and tobacco/nicotine status: current every day tobacco/nicotine user Alcohol intake: never Substance/Drug Use: never Marital status: Current occupational status: unemployed and disabled Physical Exam Const: COMMON NORMALS: no acute distress, patient oriented x3 and healthy appearing HENMT: COMMON NORMALS: normocephalic and atraumatic HEAD & SCALP: normocephalic and atraumatic Neck/C-Spine: COMMON NORMALS: full ROM and supple Chest: COMMONS NORMALS: normal inspection of the chest Resp: COMMON NORMALS: normal respiratory effort Cardio: COMMON NORMALS: regular rate RATE: regular rate Extremity: COMMON NORMALS: full ROM NARRATIVE EXTREMITY EXAM: Tenderness noted to left knee no swelling no redness no obvious deformity distal pulses sensation intact. Neuro: COMMON NORMALS: patient oriented x3, moves all extremities and no focal motor deficits Psych: COMMON NORMALS: mental status grossly normal, Normal thought process p resent and cooperative THOUGHT PROCESS: Normal thought process present Skin: COMMON NORMALS: no rashes or lesions noted and no wounds GENERAL SKIN EXAM: no rashes or lesions noted Course Vital Signs: Vital signs: Vital Signs Temperature 97.5 F L 10/06/23 11:57 Pulse Rate 105 H 10/06/23 12:25 Respiratory Rate 16 10/06/23 12:25 Blood Pressure 121/90 10/06/23 12:25 Pulse Oximetry 95 10/06/23 12:25 Oxygen Delivery Me thod Room Air 10/06/23 12:25 MDM - Extremity (Nontraumatic) Medical Decision Making Patient presents with knee pain she has no signs of septic joint x-ray here is negative we will get her crutches she is weight-bear as tolerated we will place her on Naprosyn she is to follow-up with her orthopedist return if worsening. All radiology interpretation(s) finalized by discharge Discharge Plan Discharge Patient Disposition: Home Clinical Impression: Knee pain, left Condition: Stable Prescriptions: New Naprosyn 500 mg tablet 500 mg PO BID PRN (Reason: pain) Qty: 20 0RF No Action isosorbide mononitrate 60 mg tablet extended release 24 hr 120 mg PO QAM@0600 loratadine 10 mg tablet 10 mg PO DAILY@0600 albuterol sulfate 90 mcg/actuation aerosol powdr breath activated 2 inh INHALATION Q6H PRN (Reason: Shortness Of Breath) methocarbamol 750 mg tablet 750 mg PO BID@0600,2200 docusate sodium 50 mg capsule 50 - 100 mg PO DAILY PRN (Reason: Constipation) (DME) AFO to right See Rx Instructions .Route .MEDSUPPLY Qty: 1 0RF Rx Instructions: As directed JOANN&O Nurtec ODT 75 mg tablet,disintegrating PO (DME) ASO to right ankle See Rx Instructions .Route .MEDSUPPLY Qty: 1 0RF Rx Instructions: As directed (DME) Spectrum AFO to the left See Rx Instructions .Route .MEDSUPPLY Qty: 1 0RF Rx Instructions: As directed by JOANN&O (DME) ASO to left See Rx Instructions .Route .MEDSUPPLY Qty: 2 0RF Rx Instructions: As directed (DME) Cam Boot to the Right See Rx Instructions .Route .MEDSUPPLY Qty: 1 0RF Rx Instructions: As directed pantoprazole 40 mg Tablet,Delayed Release (Dr/Ec) 40 mg PO BID@0600,2200 buspirone 10 mg Tablet 10 mg PO TID@06,12, aripiprazole [Abilify] 2 mg Tablet 4 mg PO BEDTIME@2200 potassium chloride 20 mEq Tablet Extended Release 40 meq PO BID@0600,2200 omeprazole 40 mg capsule,delayed release(DR/EC) 40 mg PO DAILY@0600 acetaminophen 500 mg tablet 500 mg PO BID PRN (Reason: Pain) fluticasone propionate 50 mcg/actuation spray,suspension 2 spray INTRANASAL BID@0600,2200 venlafaxine 75 mg capsule,extended release 24hr 75 mg PO QAM atorvastatin 20 mg tablet 20 mg PO QPM trazodone 50 mg tablet 50 mg PO BEDTIME Nitrostat 0.4 mg Tablet, Sublingual 0.4 mg SUBLINGUAL Q5M PRN (Reason: Chest Pain) Rx Instructions: do not exceed 3 doses per episode metoprolol succinate 25 mg tablet extended release 24 hr 25 mg PO DAILY epinephrine 0.3 mg/0.3 mL auto-injector See Rx Instructions .ROUTE .COMPLEX Rx Instructions: INJECT 0.3MG IN THE MUSCLE 1 TIME DIRECTED topiramate 100 mg tablet 100 mg PO DAILY@06 levothyroxine 75 mcg tablet 75 mcg PO DAILY Voltaren Arthritis Pain 1 % gel 4 g topical QID PRN (Reason: Pain) Rx Instructions: apply to single knee, ankle, foot; for foot includes sole/toes/top of foot Botox 100 unit recon soln 155 unit SUBCUT .EVERY 3 MONTHS venlafaxine 150 mg capsule,extended release 24hr 150 mg PO QAM tizanidine 4 mg capsule 4 mg PO Q8H PRN (Reason: muscle spasticity) Qty: 20 0RF cyclobenzaprine 5 mg tablet 5 mg PO Q8H PRN (Reason: muscle spasm/PAIN ) Qty: 10 0RF prednisone 20 mg tablet 20 mg PO BID Qty: 10 0RF celecoxib 200 mg capsule 200 mg PO BID Qty: 20 0RF hydrocodone-acetaminophen 5-325 mg tablet 1 tab PO Q6H PRN (Reason: pain (scale score 7-10)) Qty: 10 0RF Discharge Orders: Discharge ED (Routine); Ordered 10/06/23 Ordered By: Red Moyer Referrals: Joseline Thompson MD [Primary Care Provider] - Moody Edwards DO [Physician] - 1-3 days Discharge Diet: Advance as tolerated Discharge Activity: Resume usual activity Patient Instructions: Knee Pain (ED) Coding Level of Care Code ED 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
[2023-10-06] MEDS: HYDROcodone-acetaminophen 7.5-325 mg Tablet 1 TAB PO (12:39)
[2023-10-06 13:00] VITALS: BP 125/90; PULSE 93; O2SAT 98
== END 2023-10-06 13:04 | disposition home or self-care (01) ==
PROVIDERS: Emergency Provider Emergency Medicine; PCP Family Medicine
DX: M25.562 Pain in left knee (principal); Z72.0 Tobacco use; G43.711 Chronic migraine without aura, intractable, with status migrainosus; F44.5 Conversion disorder with seizures or convulsions; D18.00 Hemangioma unspecified site
CPT/HCPCS: 64615; 73562; 99212; 99283; E0114; J0585

== ENCOUNTER → 2023-10-17 12:35 | Outpatient (BNVA) | payer MEDICAID, SELFPAY | PROVIDERS: PCP Family Medicine; Visit Provider Anesthesiology Pain Medicine | DX: M54.16 Radiculopathy, lumbar region (principal) | CPT/HCPCS: 64483; 64484; J1100; J3490 ==

== ENCOUNTER 2023-10-21 01:42 | Emergency (ER) | payer MEDICAID, SELFPAY ==
[2023-10-21 01:58] VITALS: BP 113/76; PULSE 93; RESP 20; TEMP 36.6; O2SAT 98; BMI 51.0
--- NOTE | 2023-10-21 02:07 | XRR_ITS ---
PROCEDURE INFORMATION: Exam: XR Left Knee Exam date and time: 10/21/2023 2:14 AM Age: 43 years old Clinical indication: Pain; Knee; Left TECHNIQUE: Imaging protocol: Radiologic exam of the left knee. Views: 3 views. COMPARISON: CR XR knee LT 3V* [id number] 10/06/2023 11:45 AM FINDINGS: Bones/joints: Normal. Soft tissues: Normal. XR/XR knee LT 3V* [id number] IMPRESSION: No acute findings.
[2023-10-21] MEDS: acetaminophen 500 mg Tablet 1000 MG PO (02:54)
[2023-10-21 02:58] VITALS: BP 129/82; PULSE 93; O2SAT 98
--- NOTE | 2023-10-21 03:40 | ED_ITS ---
HPI - Extremity Problem General: Chief complaint: Extremity Injury, Lower Stated complaint: Left Knee Injury Time Seen by Provider: 10/21/23 02:07 History of Present Illness: Left knee pain Review of Systems General: Reports: 10 or more systems reviewed and unremarkable except in HPI and below Musc: Reports: extremity pain and joint pain [facility] ED PFSH: Medical History Cavernous angioma Urinary hesitancy Stress incontinence Gross hematuria Functional neurological symptom disorder with attacks or seizures Surgical History History of hysterectomy Social History Smoking and tobacco/nicotine status: current every day tobacco/nicotine user Alcohol intake: never Substance/Drug Use: never Marital status: Current occupational status: unemployed and disabled Physical Exam Narrative: EXAM NARRATIVE: General: Alert, no acute distress. Skin: Warm, dry, Intact. Head: Normocephalic, atraumatic. Neck: Supple, trachea midline. Eye: Extraocular movements are intact. PERRLA Ears, nose, mouth and throat: mucosa moist. Cardiovascular: Regular, Normal peripheral perfusion. Respiratory: Lungs are clear to auscultation, respirations are non-labored, breath sounds are equal, Symmetrical chest wall expansion. Gastrointestinal: Soft, Nontender, Non distended, Normal bowel sounds. Musculoskeletal: Normal ROM, no deformity. Tender to palpation to the medial aspect of the left knee, mild edema noted. Neurological: Alert and oriented, No focal neurological deficit observed. Psychiatric: Cooperative, appropriate mood & affect. Course Vital Signs: Vital signs: Vital Signs Temperature 98 F 10/21/23 01:58 Pulse Rate 93 10/21/23 02:58 Respiratory Rate 20 H 10/21/23 01:58 Blood Pressure 129/82 10/21/23 02:58 Pulse Oximetry 98 10/21/23 02:58 MDM - Extremity (Nontraumatic) Medical Decision Making Physical exam completed and documented, I did provide an x-ray which demonstrated osteoarthritis of the left knee no obvious bony injury. The patient was placed in a knee immobilizer and offered crutches patient states she has crutches at home with follow-up with primary care provider. She was provided Tylenol while here in the emergency department and reevaluation demonstrated improvement in control of her pain. Supportive care and treatment as well as recommended follow-up was discussed with the patient the patient was discharged home in stable condition and in no acute distress. Medical Records I reviewed the patient's medical records. All radiology interpretation(s) finalized by discharge Discharge Plan Discharge Patient Disposition: Home Clinical Impression: Knee pain, left, Osteoarthritis of left knee Condition: Stable Prescriptions: No Action isosorbide mononitrate 60 mg tablet extended release 24 hr 120 mg PO QAM@0600 loratadine 10 mg tablet 10 mg PO DAILY@0600 albuterol sulfate 90 mcg/actuation aerosol powdr breath activated 2 inh INHALATION Q6H PRN (Reason: Shortness Of Breath) methocarbamol 750 mg tablet 750 mg PO BID@0600,2200 docusate sodium 50 mg capsule 50 - 100 mg PO DAILY PRN (Reason: Constipation) (DME) AFO to right See Rx Instructions .Route .MEDSUPPLY Qty: 1 0RF Rx Instructions: As directed JOANN&O Nurtec ODT 75 mg tablet,disintegrating PO (DME) ASO to right ankle See Rx Instructions .Route .MEDSUPPLY Qty: 1 0RF Rx Instructions: As directed (DME) Spectrum AFO to the left See Rx Instructions .Route .MEDSUPPLY Qty: 1 0RF Rx Instructions: As directed by JOANN&O (DME) ASO to left See Rx Instructions .Route .MEDSUPPLY Qty: 2 0RF Rx Instructions: As directed (DME) Cam Boot to the Right See Rx Instructions .Route .MEDSUPPLY Qty: 1 0RF Rx Instructions: As directed pantoprazole 40 mg Tablet,Delayed Release (Dr/Ec) 40 mg PO BID@0600,2200 buspirone 10 mg Tablet 10 mg PO TID@06,12,22 aripiprazole [Abilify] 2 mg Tablet 4 mg PO BEDTIME@0 potassium chloride 20 mEq Tablet Extended Release 40 meq PO BID@0600,2200 omeprazole 40 mg capsule,delayed release(DR/EC) 40 mg PO DAILY@0600 acetaminophen 500 mg tablet 500 mg PO BID PRN (Reason: Pain) fluticasone propionate 50 mcg/actuation spray,suspension 2 spray INTRANASAL BID@0600,2200 venlafaxine 75 mg capsule,extended release 24hr 75 mg PO QAM atorvastatin 20 mg tablet 20 mg PO QPM trazodone 50 mg tablet 50 mg PO BEDTIME Nitrostat 0.4 mg Tablet, Sublingual 0.4 mg SUBLINGUAL Q5M PRN (Reason: Chest Pain) Rx Instructions: do not exceed 3 doses per episode metoprolol succinate 25 mg tablet extended release 24 hr 25 mg PO DAILY epinephrine 0.3 mg/0.3 mL auto-injector See Rx Instructions .ROUTE .COMPLEX Rx Instructions: INJECT 0.3MG IN THE MUSCLE 1 TIME DIRECTED topiramate 100 mg tablet 100 mg PO DAILY@06 levothyroxine 75 mcg tablet 75 mcg PO DAILY Voltaren Arthritis Pain 1 % gel 4 g topical QID PRN (Reason: Pain) Rx Instructions: apply to single knee, ankle, foot; for foot includes sole/toes/top of foot Botox 100 unit recon soln 155 unit SUBCUT .EVERY 3 MONTHS venlafaxine 150 mg capsule,extended release 24hr 150 mg PO QAM tizanidine 4 mg capsule 4 mg PO Q8H PRN (Reason: muscle spasticity) Qty: 20 0RF cyclobenzaprine 5 mg tablet 5 mg PO Q8H PRN (Reason: muscle spasm/PAIN ) Qty: 10 0RF prednisone 20 mg tablet 20 mg PO BID Qty: 10 0RF celecoxib 200 mg capsule 200 mg PO BID Qty: 20 0RF hydrocodone-acetaminophen 5-325 mg tablet 1 tab PO Q6H PRN (Reason: pain (scale score 7-10)) Qty: 10 0RF Naprosyn 500 mg tablet 500 mg PO BID PRN (Reason: pain) Qty: 20 0RF Discharge Orders: Discharge ED (Routine); Ordered 10/21/23 Ordered By: Bryce Escobar Referrals: Joseline Thompson MD [Primary Care Provider] - Discharge Diet: Usual diet Discharge Activity: Limit activity as instructed Patient Instructions: Opioid Safety, Pain Management Activity Restrictions/Additional Instructions: Activity Restrictions/Additional Instructions: Thank you for choosing [facility] for your healthcare needs today. Please realize that you were seen in the Emergency Department and that we are providing you with an emergency medical screening exam and this may not be a complete and all inclusive of all the testing and or medical work-up that you may need to determine your ailment or severity of your illness. It is very important that you follow-up as instructed with your Primary care provider or Specialist for additional evaluation and to discuss your medical treatment plan. 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
[2023-10-21 03:54] VITALS: BP 135/91; PULSE 101; RESP 18; O2SAT 100
== END 2023-10-21 03:44 | disposition home or self-care (01) ==
PROVIDERS: Emergency Provider Internal Medicine; PCP Family Medicine
DX: M17.12 Unilateral primary osteoarthritis, left knee (principal); Z72.0 Tobacco use
CPT/HCPCS: 73562; 99283

== ENCOUNTER → 2023-10-31 09:27 | Outpatient (BNVA) | payer MEDICAID, SELFPAY | PROVIDERS: PCP Family Medicine; Visit Provider Anesthesiology Pain Medicine | DX: M51.16 Intervertebral disc disorders with radiculopathy, lumbar region (principal) | CPT/HCPCS: 99214 ==

== ENCOUNTER → 2023-11-15 08:31 | Outpatient (BNVA) | payer MEDICAID, SELFPAY | PROVIDERS: PCP Family Medicine; Visit Provider Physician Assistant | DX: M23.307 Other meniscus derangements, unspecified meniscus, left knee (principal) | CPT/HCPCS: 99213 ==

== ENCOUNTER → 2023-11-17 10:37 | Outpatient (BNVA) | payer MEDICAID, SELFPAY | PROVIDERS: PCP Family Medicine; Referring Provider Anesthesiology Pain Medicine; Visit Provider Orthopaedic Surgery | DX: M48.062 Spinal stenosis, lumbar region with neurogenic claudication (principal); M51.16 Intervertebral disc disorders with radiculopathy, lumbar region; E11.10 Type 2 diabetes mellitus with ketoacidosis without coma; M54.9 Dorsalgia, unspecified | CPT/HCPCS: 72110; 80053; 81003; 83036; 85025; 99204 ==

== ENCOUNTER 2023-11-23 08:26 | Outpatient (CLI) | payer MEDICAID, SELFPAY ==
--- NOTE | 2023-11-23 08:31 | MR_ITS ---
WS: [id number] MRI LEFT KNEE NONCONTRAST TECHNIQUE: Axial PD, coronal PD fat sat, coronal PD, sagittal PD, and sagittal PD fat-sat images obta ined. CLINICAL INFORMATION: PAIN IN LEFT KNEE COMPARISON: None. FINDINGS: Distal quadriceps and patellar tendons are intact. Small suprapatellar effusion. Normal ACL and PCL. Normal medial and lateral collateral ligaments. Moderate to advanced chondromalacia patella. No subchondral edema. Normal medial and lateral patellar retinaculum. Medial and lateral collateral ligaments are intact. Normal popliteus. Small lobulated p opliteal cyst. Popliteal cyst measures 4.1 x 1.1 cm. Mild chronic thinning of the medial and lateral meniscus. No acute appearing meniscal tears. Normal bone marrow signal in the femoral condyles and ti bial plateau. Normal fibula head. MR/MR knee LT wo con* [id number] IMPRESSION: 1. Mild tricompartmental arthritis with grade 2 chondromalacia in the medial j oint compartment. 2. Grade 3 chondromalacia patella. No subchondral edema. 3. Small suprapatellar effusion. 4. Normal ACL and PCL. 5. Small lobulated popliteal cyst with some internal debris. Popliteal cyst me asures 4.1 x 1.1 cm. 6. No other acute findings. Outbridge grading: grade III: partial-thickness cartilage loss with focal ulcer ation
== END 2023-11-23 08:27 | disposition home or self-care (01) ==
LOC: RAD 08:26
PROVIDERS: PCP Family Medicine; Visit Provider Family Medicine
DX: M94.262 Chondromalacia, left knee (principal); M71.22 Synovial cyst of popliteal space [Baker], left knee; M17.12 Unilateral primary osteoarthritis, left knee
CPT/HCPCS: 73721

== ENCOUNTER → 2023-11-25 10:07 | Outpatient (BNVA) | payer MEDICAID, SELFPAY | PROVIDERS: PCP Family Medicine; Visit Provider Family Medicine | DX: Z01.818 Encounter for other preprocedural examination (principal) | CPT/HCPCS: 85025 ==

== ENCOUNTER → 2023-12-06 07:35 | Outpatient (BNVA) | payer MEDICAID, SELFPAY | PROVIDERS: PCP Family Medicine; Visit Provider Student in an Organized Health Care Education/Training Program | DX: M23.307 Other meniscus derangements, unspecified meniscus, left knee (principal); M17.11 Unilateral primary osteoarthritis, right knee | CPT/HCPCS: 20610; 99214; J3301 ==

== ENCOUNTER 2023-12-26 13:39 | Observation (INO) | payer MEDICAID, SELFPAY ==
[2023-12-26] VITALS (20 sets, daily range): BP systolic 97–132; BP diastolic 56–79; PULSE 56–75; RESP 15–19; TEMP 36.5–37.3; O2SAT 91–100
--- NOTE | 2023-12-26 | XR_ITS ---
WS: [id number] Exam: XR lumbar spine 2-3V* [id number] Date/Time of Exam: 12/26/2023 12:00 AM Reason For Exam: VIRGIL PICS AP and lateral intraoperative images of the lower lumbar spine are submitted. Images were obtained for intraoperative visualization and localization purposes.
--- NOTE | 2023-12-26 06:30 | W.PM.OPSFHP ---
Same Day Surgery H&P Indication for Procedure/HPI DATE OF PROCEDURE: December 26, 2023 CHIEF COMPLAINT/INDICATIONFOR SURGICAL PROCEDURE: back and leg pain PREOP DIAGNOSIS: Lumbar stenosis neurogenic claudication PLANNED PROCEDURE: Operation Date: 12/26/23 07:00 Proposed Procedures p Spinal Fusion Posterior Spinal Fusion(Not Applicable) - Quentin Wynn DO s Posterior Lumbar Interbody Fusion PLIF(Not Applicable) - Quentin Wynn DO Medications/Allergies* Home Medications Medication Instructions Recorded Confirmed Type albuterol sulfate 90 mcg/actuation 2 inh inhalation Q6H PRN Shortness 07/19/19 12/22/23 History breath activated powder inhaler Of Breath isosorbide mononitrate 60 mg 120 mg PO QAM@0600 07/19/19 12/22/23 History tablet,extended release 24 hr loratadine 10 mg tablet 10 mg PO DAILY@0600 07/19/19 12/22/23 History methocarbamol 750 mg tablet 750 mg PO BID@0600,2200 07/19/19 12/22/23 History aripiprazole 2 mg tablet (Abilify) 4 mg PO BEDTIME@219904/17/20 12/22/23 History buspirone 10 mg tablet 10 mg PO TID@,,04/17/20 12/22/23 History pantoprazole 40 mg tablet,delayed 40 mg PO BID@0600,0 04/17/20 12/22/23 History release potassium chloride 20 mEq 40 meq PO BID@0600,2200 04/17/20 12/22/23 History tablet,extended release acetaminophen 500 mg tablet 500 mg PO BID PRN Pain 06/11/20 12/22/23 History fluticasone propionate 50 2 spray intranasal BID@0600,2200 06/11/20 12/22/23 History mcg/actuation nasal spray,suspension omeprazole 40 mg capsule,delayed 40 mg PO DAILY@0600 06/11/20 12/22/23 History release docusate sodium 50 mg capsule 50 - 100 mg PO DAILY PRN 08/04/21 12/22/23 History Constipation atorvastatin 20 mg tablet 20 mg PO QPM 03/19/23 12/22/23 History diclofenac sodium 1 % topical gel 4 g topical QID PRN Pain 03/19/23 12/22/23 History (Voltaren Arthritis Pain) epinephrine 0.3 mg/0.3 mL See Rx Instructions .Route .COMPLEX 03/19/23 12/22/23 History injection, auto-injector levothyroxine 75 mcg tablet 75 mcg PO DAILY 03/19/23 12/22/23 History metoprolol succinate 25 mg 25 mg PO DAILY 03/19/23 12/22/23 History tablet,extended release 24 hr nitroglycerin 0.4 mg sublingual 0.4 mg sublingual Q5M PRN Chest 03/19/23 12/22/23 History tablet (Nitrostat) Pain onabotulinumtoxinA 100 unit 155 unit SUBCUT .EVERY 3 MONTHS 03/19/23 12/22/23 History solution for injection (Botox) topiramate 100 mg tablet 100 mg PO DAILY@06 03/19/23 12/22/23 History trazodone 50 mg tablet 50 mg PO BEDTIME 03/19/23 12/22/23 History venlafaxine 150 mg 150 mg PO QAM 03/19/23 12/22/23 History capsule,extended release 24 hr venlafaxine 75 mg capsule,extended 75 mg PO QAM 03/19/23 12/22/23 History release 24 hr rimegepant 75 mg disintegrating 75 mg PO PRN PRN Migraine Headache 07/07/23 12/22/23 History tablet (Nurtec ODT) dulaglutide 3 mg/0.5 mL 3 mg SUBCUT Q7D 11/25/23 12/22/23 History subcutaneous pen injector (Trulicity) Allergies/Adverse Reactions Allergy/AdvReac Type Severity Reaction Status Date / Time adhesive tape Allergy ALGY-Rash Verified 12/06/23 07:43 aspirin Allergy ALGY-Anaphy Verified 12/06/23 07:43 laxis carbamazepine Allergy ADR-Dizzine Verified 12/06/23 07:43 ss gabapentin Allergy ALGY-Hives Verified 12/06/23 07:43 ibuprofen Allergy Unknown Verified 12/22/23 15:00 linaclotide [From Linzess] Allergy Unknown Verified 12/06/23 07:43 metformin Allergy Verified 12/06/23 07:43 naproxen Allergy Verified 12/06/23 07:43 Pertinent History/Comorbid Conditions* Medical History (Updated 11/17/23 @ 11:16 by Quentin Wynn DO) Cavernous angioma Urinary hesitancy Stress incontinence Gross hematuria Functional neurological symptom disorder with attacks or seizures Surgical History (Updated 02/06/21 @ 13:26 by Ruthann Barrow APRN) History of hysterectomy Social History Smoking and tobacco/nicotine status: current every day tobacco/nicotine user Alcohol intake: never Substance/Drug Use: never Marital status: Current occupational status: unemployed and disabled Pertinent Exam Findings alert, oriented x 3 and procedure specific exam findings Recommendations Surgery/Procedure today Coding Level of Care Code Acute Code for Chg Fwd
[2023-12-26 06:51] LABS: Glucose Point of Care 105 mg/dL (70-110)
--- NOTE | 2023-12-26 06:54 | ANES.PREANE2 ---
Pre-Anesthetic Assessment Height/Weight: Height 1.55 m Weight 102.058 kg O2 Del Method Room Air 12/26/23 06:32 Preop Diagnosis: Lumbar stenosis neurogenic claudication Operation Date: 12/26/23 07:00 Proposed Procedures p Spinal Fusion Posterior Spinal Fusion(Not Applicable) - Quentin Wynn DO s Posterior Lumbar Interbody Fusion PLIF(Not Applicable) - Quentin Wynn DO Familial anesthetic complications: None Was Beta Gina taken within 24 hours: N/A Was Clonidine taken within 24 hours: N/A Last intake: Intake Last Liquid Date 12/25/23 Last Liquid Time 22:30 Last Solid Date 12/25/23 Last Solid Time 22:30 Social No alcohol and No tobacco Exam alert, oriented x 3, clear to auscultation bilaterally and regular rate & rhythm Airway Mallampati: Class II Dentition: chipped Pulmonary Asthma CV/HEM Hypertension able to achieve 4 METS without symptoms states she had something that starts with an A and P. She mentions a prosthetic. Inquired about printzmetal's angina. She said it might've been, but she GI Gastroesophageal Reflux Disease Metabolic Diabetes Mellitus, Morbid Obesity and Thyroid Disease Neuropsych seizures - last one two weeks ago Anesthetic Plan ASA status: 3 Anesthesia: General Risk of > 500 ml blood loss (7ml/kg in children): Yes, adequate IV access and fluids planned Medications/Allergies Home Medications Medication Instructions Recorded Confirmed Last Taken Type albuterol sulfate 90 mcg/actuation 2 inh inhalation Q6H PRN Shortness 07/19/19 12/22/23 06/11/20 History breath activated powder inhaler Of Breath isosorbide mononitrate 60 mg 120 mg PO QAM@0607/19/19 12/22/23 12/22/23 History tablet,extended release 24 hr loratadine 10 mg tablet 10 mg PO DAILY@0607/19/19 12/22/23 12/22/23 History methocarbamol 750 mg tablet 750 mg PO BID@599,219907/19/19 12/22/23 12/22/23 History aripiprazole 2 mg tablet (Abilify) 4 mg PO BEDTIME@219904/17/20 12/22/23 12/21/23 History buspirone 10 mg tablet 10 mg PO TID@06,12,04/17/20 12/22/23 12/22/23 History pantoprazole 40 mg tablet,delayed 40 mg PO BID@0600,2200 04/17/20 12/22/23 12/22/23 History release potassium chloride 20 mEq 40 meq PO BID@0600,2200 04/17/20 12/22/23 12/22/23 History tablet,extended release acetaminophen 500 mg tablet 500 mg PO BID PRN Pain 06/11/20 12/22/23 06/11/20 History fluticasone propionate 50 2 spray intranasal BID@0600,2200 06/11/20 12/22/23 12/21/23 History mcg/actuation nasal spray,suspension omeprazole 40 mg capsule,delayed 40 mg PO DAILY@0600 06/11/20 12/22/23 12/22/23 History release docusate sodium 50 mg capsule 50 - 100 mg PO DAILY PRN 08/04/21 12/22/23 Unknown History Constipation ASO to right ankle #1 ea 12/28/21 12/06/23 Unknown Rx Spectrum AFO to the left #1 ea 08/06/22 12/06/23 Unknown Rx AFO to right #1 ea 11/02/22 12/06/23 Unknown Rx Cam Boot to the Right #1 ea 12/30/22 12/06/23 Unknown Rx ASO to left #2 ea 01/14/23 12/06/23 Unknown Rx atorvastatin 20 mg tablet 20 mg PO QPM 03/19/23 12/22/23 12/21/23 History diclofenac sodium 1 % topical gel 4 g topical QID PRN Pain 03/19/23 12/22/23 12/22/23 History (Voltaren Arthritis Pain) epinephrine 0.3 mg/0.3 mL See Rx Instructions .Route .COMPLEX 03/19/23 12/22/23 Unknown History injection, auto-injector levothyroxine 75 mcg tablet 75 mcg PO DAILY 03/19/23 12/22/23 12/22/23 History metoprolol succinate 25 mg 25 mg PO DAILY 03/19/23 12/22/23 12/22/23 History tablet,extended release 24 hr nitroglycerin 0.4 mg sublingual 0.4 mg sublingual Q5M PRN Chest 03/19/23 12/22/23 Unknown History tablet (Nitrostat) Pain onabotulinumtoxinA 100 unit 155 unit SUBCUT .EVERY 3 MONTHS 03/19/23 12/22/23 Unknown History solution for injection (Botox) topiramate 100 mg tablet 100 mg PO DAILY@06 03/19/23 12/22/23 12/21/23 History trazodone 50 mg tablet 50 mg PO BEDTIME 03/19/23 12/22/23 12/21/23 History venlafaxine 150 mg 150 mg PO QAM 03/19/23 12/22/23 12/22/23 History capsule,extended release 24 hr venlafaxine 75 mg capsule,extended 75 mg PO QAM 03/19/23 12/22/23 12/22/23 History release 24 hr rimegepant 75 mg disintegrating 75 mg PO PRN PRN Migraine Headache 07/07/23 12/22/23 Unknown History tablet (Nurtec ODT) cyclobenzaprine 5 mg tablet 5 mg PO Q8H PRN muscle spasm/PAIN 07/08/23 12/22/23 Unknown Rx #10 tabs dulaglutide 3 mg/0.5 mL 3 mg SUBCUT Q7D 11/25/23 12/22/23 12/14/23 History subcutaneous pen injector (Trulicity) Hinged Knee Brace #1 ea 12/06/23 12/06/23 Unknown Rx Bone Growth Stimulator #1 ea 12/09/23 Unknown Rx Allergies Allergy/AdvReac Type Severity Reaction Status Date / Time adhesive tape Allergy ALGY-Rash Verified 12/06/23 07:43 aspirin Allergy ALGY-Anaphy Verified 12/06/23 07:43 laxis carbamazepine Allergy ADR-Dizzine Verified 12/06/23 07:43 ss gabapentin Allergy ALGY-Hives Verified 12/06/23 07:43 ibuprofen Allergy Unknown Verified 12/22/23 15:00 linaclotide [From Linzess] Allergy Unknown Verified 12/06/23 07:43 metformin Allergy Verified 12/06/23 07:43 naproxen Allergy Verified 12/06/23 07:43 PFSH Anesthesia Medical History Cavernous angioma Urinary hesitancy Stress incontinence Gross hematuria Functional neurological symptom disorder with attacks or seizures Surgical History History of hysterectomy Social History Smoking and tobacco/nicotine status: current every day tobacco/nicotine user Alcohol intake: never Substance/Drug Use: never Marital status: Current occupational status: unemployed and disabled Data Anesthesia Cardiac Studies: No Data to Display
[2023-12-26] MEDS: sodium chloride 0.9% 1,000 ML 30 ML (07:14)
[2023-12-26] MEDS: heparin, porcine 1,000 unit/mL INJ 10 mL 10000 UNIT IRRIGATION (07:15)
[2023-12-26] MEDS: ceFAZolin 2,000 MG in sodium chloride 0.9% (plus) 50 ML 100 MG IV ×3 (07:24→23:44)
[2023-12-26 07:32] LABS: Anion Gap 15.9 (5-19); Blood Urea Nitrogen 9 mg/dL (6-20); Calcium 9.3 mg/dL (8.5-10.5); Carbon Dioxide 23 mmol/L (22-29); Chloride 107 mmol/L (98-107); Glomerular Filtration Rate 133.4 mL/min (90-130); Glucose 96 mg/dL (65-115); Osmolality Calculated 293 mOsm/kg (285-295); Potassium 3.9 mmol/L (3.5-5.1); Sodium 142 mmol/L (136-145)
[2023-12-26] MEDS: lidocaine-epi 2% PF 1:200,000 20 mL SDV XX (08:02)
[2023-12-26] MEDS: vancomycin 1,000 MG SDV 1000 MG XX (08:41)
--- NOTE | 2023-12-26 10:36 | P.OP_ITS ---
Operative Report Date of procedure: December 26, 2023 Pre-op diagnosis: Lumbar stenosis with neurogenic claudication Post-op diagnosis: same Procedure done: 1. L4/5 Interbody fusion with posterolateral fusion 2. Instrumentation L4-S1 3. Cage at L4/5 4. L4-5 laminectomy with facetectomies 5. L5-S1 laminectomy with facetectomies 6. use of autograft from same incision 7. allograft 8. Bone marrow aspirate from right iliac crest 9. Use of computer navigation stereotactic for spine Surgeon: Quentin Wynn DO Estimated blood loss (mL): 450 Procedure: 1. L4/5 Interbody fusion with posterolateral fusion 2. Instrumentation L4-S1 3. Cage at L4/5 4. L4-5 laminectomy with facetectomies 5. L5-S1 laminectomy with facetectomies 6. use of autograft from same incision 7. allograft 8. Bone marrow aspirate from right iliac crest 9. Use of computer navigation stereotactic for spine Patient is brought to the operative suite. After undergoing anesthesia, the patient had neuro monitoring attached. Patient was then placed in the prone position on the Kalpesh table. All areas of impingement were well-padded. Patient was then prepped and draped in the normal sterile fashion. Skin incision was then made over the L L4 down to S1 space. Subperiosteal dissection was made out to the transverse processes of L4 bilaterally, L5 bilaterally and sacral ala bilaterally. Next attention was brought to the [employer] bone marrow aspirate kit was used to aspirate bone marrow aspirate from the right iliac crest. This was done by using the sharp probe to open up the bone. Aspiration was performed and then the blunt probe was then used to dissect down to through the bone tunnel. An aspirating well drawn back a millimeter approximately 20 cc of bone marrow aspirate was used. Admixed with the allograft and autograft bone that will be used. Next tension was brought to placing the fiducials for the computer navigation. This was done by placing 2 pins in the right iliac crest. These pins were later removed. The fiducial taxis pins a centimeter was brought in and spun around the patient. Information from the C-arm was then later used for placement of pedicle screws The technique for placing the pedicle screws was to use a drill followed by the gearshift probe linked to computer navigation. Followed by the ball probe to feel the superior inferior medial lateral knowles of the pedicles. Then placement of the screws linked to computer navigation. Was done at each pedicle. Screws were placed at L4 bilaterally and L5 bilaterally and S1 bilaterally. Next tension was brought to performing the laminectomy and partial facetectomies of L5-S1. This was done by using high-speed bur was Kerrison rongeur. The lamina was taken down along with the ligamentum flavum was taken down from L5-S1 S1 nerve roots were identified and traced around the S1 pedicle. In the medial aspect of facet joints were taken down with again with high-speed bur and Kerrison rongeur. The L5 nerves were traced out the L5-S1 foramen. Next attention was brought to performing the laminectomy ofL4. This was done using the high-speed bur Kerrisons and curettes. Once the lamina was removed and then attention was brought to performing a partial facetectomy on the contralateral side. This was done again using the high-speed bur curettes and Kerrisons. The ligamentum flavum was taken down bilaterally from L4 to L5. Attention was then brought to the facet on the ipsilateral side. The facet was taken down. The L5 nerve was decompressed as it passed around the L5 pedicle. The laminectomy was done for purposes of decompressing the nerve as well as placement of the cage. The L4 nerve was identified as it traversed through the L4/5 foramen. The thecal sac was identified and retracted. The L4/5 disc base was identified. Using a knife the disc base was opened. And then sequential chente were placed. The first shaver was a 6 and the last shaver was a 9. Using a pituitary and down going curette the endplates were scraped and disc material was removed from the space. Once adequate decompression of the disc base was felt to be had. Osteoamp sponge was packed into the anterior aspect of the disc base. Then a size 10 cage from [employer] was placed after packing osteoamp into the cage. While placing the cage the thecal sac and L5 nerve was protected. C arm was used to ensure that the cages placed in the appropriate position. Attention was then brought to attaching the rods to the screws placed in the L4 bilaterally, L5 bilaterally and S1 bilaterally. Caps were torqued into position. Locking the construct in place. Wound was copiously irrigated and then attention was brought to decorticating the facets and transverse processes laterally. Bone that was taken down from the lamina was used along with osteoamp fibers and sponges were packed into the lateral gutters along the facet joints. This was done bilaterally. Wound was then closed in a layered fashion starting with the thoracolumbar fascia. 0-vicryl was used the sub cutaneous tissue was closed with 2-0 vicryl and skin with 4-0 monocryl. Glue was then used to seal the skin and a steril dressing was applied. Patient was then placed in the supine position. The endotracheal tube was removed and patient was transferred to the PACU in stable condition.
[2023-12-26] MEDS: fentaNYL 50 mcg/mL INJ 2mL IVP ×2 (10:54→11:32)
--- NOTE | 2023-12-26 11:15 | ANE.PACU2 ---
Inpatient post-anesthesia follow up: Airway intact: Yes Vital signs: Temperature 98.2 F Pulse Rate 60 Respiratory Rate 16 Blood Pressure 111/71 Pulse Oximetry 100 Oxygen Delivery Me thod Room Air Oxygen Flow Rate 6 Fraction of Inspir ed Oxygen Hydration adequate: Yes Nausea and vomiting: No Pain level: 1 Mental status: Baseline
[2023-12-26] MEDS: HYDROcodone-acetaminophen 5-325 mg Tablet PO ×3 (12:04→20:27)
[2023-12-26] MEDS: ketorolac 30 mg/mL INJ IVP ×2 (14:12→23:45)
[2023-12-26] MEDS: lactated ringers 1,000 ML 90 ML IV (14:15)
[2023-12-26 16:45] LABS: Glucose Point of Care 137 mg/dL (70-110)
[2023-12-26] MEDS: atorvastatin 40 mg Tablet 20 MG PO (17:20)
[2023-12-26] MEDS: docusate sodium 100 mg Capsule PO (17:20)
[2023-12-26] MEDS: cyclobenzaprine 10 mg Tablet 5 MG PO (17:32)
[2023-12-26 20:18] LABS: Glucose Point of Care 194 mg/dL (70-110)
[2023-12-26] MEDS: trazodone 50 mg Tablet PO (20:27)
[2023-12-26] MEDS: ARIPiprazole 2 mg Tablet 4 MG PO (21:14)
[2023-12-27] MEDS: HYDROcodone-acetaminophen 5-325 mg Tablet PO ×3 (00:37→11:02)
[2023-12-27] MEDS: lactated ringers 1,000 ML 90 ML IV (00:37)
[2023-12-27 04:00] VITALS: BP 105/66; PULSE 75; RESP 18; TEMP 37
[2023-12-27] MEDS: isosorbide mononitrate ER 60 mg Tablet 120 MG PO (05:05)
[2023-12-27] MEDS: fluticasone nasal spray 16gm Btl 2 SPRAY INTRANASAL (05:05)
[2023-12-27] MEDS: topiramate 100 mg Tablet PO (05:06)
[2023-12-27] MEDS: pantoprazole DR 40 mg Tablet PO (05:06)
[2023-12-27] MEDS: venlafaxine ER (24HR) 150 mg Capsule PO (05:06)
[2023-12-27] MEDS: loratadine 10 mg Tablet PO (05:06)
[2023-12-27] MEDS: venlafaxine ER (24HR) 75 mg Capsule PO (05:06)
[2023-12-27] MEDS: ceFAZolin 2,000 MG in sodium chloride 0.9% (plus) 50 ML 100 MG IV (06:06)
[2023-12-27 06:41] LABS: Glucose Point of Care 135 mg/dL (70-110)
[2023-12-27 07:14] VITALS: BP 102/63; PULSE 70; RESP 17; TEMP 36.8; O2SAT 93
[2023-12-27] MEDS: docusate sodium 100 mg Capsule PO (08:42)
[2023-12-27] MEDS: levothyroxine 75 mcg Tablet PO (08:42)
[2023-12-27] MEDS: metoprolol succinate ER (24 HR) 25 mg Tablet PO (08:42)
--- NOTE | 2023-12-27 09:34 | PC.CHAP ---
Pastoral Care Encounter/Spiritual Assessment Type of Contact [] Declined electrical tryout person visit [] Patient/Family/Request visit [] Outpatient visit [] Follow-up visit [] Physician referral [] Code/Alert [x] Routine visit [] Staff referral [] Actively dying [] Patient sleeping [] Family support [] [] Out of room [] Palliative care [] [] Receiving care in room [] Pre-surgical visit [] Trauma [] Long length of stay [] ICU visit [] Other: Relational/Emotional Strength [x] Patient feels connected with others/family/visitors/staff [] Distress [] Loneliness/isolation [] Abandonment Spirituality of Patient [x] Person of Nelly [] Attends Lutheran of their Nelly [x] Believes in Prayer [] Reads Bible or Church materials [] There are Spiritual issues to be addressed Energy Administrator Interventions [x] Prayer [x] Active listening [x] Non-anxious presence [x] Spiritual/emotional support [] Crisis/trauma care [] Spiritual counseling [] Bereavement support [] Provided bereavement packet [] Provided Bible/devotional materials [] Provided toy/stuffed animal, coloring book to patient or family member [] Provided Communion [] Anointing/[place] [] Salvation [x] Completed spiritual assessment [] Other: Impact on Illness or Injury [] Angry [] Fearful [] Anxious [] Often cries [] Exhaustion [] Unable to work [] Unable to attend bahai [] Unable to walk/stand [] Unable to read [] Unable to drive [] Unable to eat/drink [] Unable to sleep [] Unable to be with family [] Patient intubated [] Other: Summary Time spent with patient 5 vmin
--- NOTE | 2023-12-27 09:48 | PM.DCS ---
Discharge Providers Date of Admission: 12/26/23 13:39 Date of Discharge: December 27, 2023 Attending Provider at Admission: Quentin Wynn DO Attending Provider at Discharge: Quentin Wynn DO Primary Care Provider: Joseline Thompson MD Reason for Visit Reason for Visit: M48.062 Physical Exam Narrative: Patient doing well pain controlled. Able to ambulate. Urinary Catheter Management: Ordonez: Cath Placed During This Visit: yes, but has since been removed by the nurse Reason for Continuing Indwelling Catheter: Decision to DC Catheter Urinary Catheter Date of Insertion: 12/26/23 Urinary Catheter Time of Insertion: 07:30 Date Urinary Catheter Removed: 12/26/23 Time Urinary Catheter Discontinued: 16:45 Discharge Data Studies Completed and Pending Completed Studies During Hospitalization Category Date Time Status XR lumbar spine 2-3V* [id number] Routine Exams 12/26/23 00:00 Completed Laboratory Results Sodium 142 mmol/L (136-145) 12/26/23 06:43 Potassium 3.9 mmol/L (3.5-5.1) 12/26/23 06:43 Chloride 107 mmol/L (98-107) 12/26/23 06:43 Carbon Dioxide 23 mmol/L (22-29) 12/26/23 06:43 Anion Gap 15.9 (5-19) 12/26/23 06:43 BUN 9 mg/dL (6-20) 12/26/23 06:43 Creatinine 0.5 mg/dL (0.5-0.9) 12/26/23 06:43 GFR Calculation 133.4 mL/min (90-130) H 12/26/23 06:43 Glucose 96 mg/dL (65-115) 12/26/23 06:43 POC Glucose 135 mg/dL (70-110) H 12/27/23 06:18 Calculated Osmolality 293 mOsm/kg (285-295) 12/26/23 06:43 Calcium 9.3 mg/dL (8.5-10.5) 12/26/23 06:43 Blood Type AB Positive 12/26/23 06:43 Rho(D) Type Rh positive 12/26/23 06:43 Antibody Screen Negative 12/26/23 06:43 Vitals Last Vital Signs Temp 98.2 F 12/27/23 07:14 Pulse 70 06/25/24 07:14 Resp 17 12/27/23 07:14 BP 102/63 12/27/23 07:14 Pulse Ox 93 12/27/23 07:14 O2 Del Method Room Air 12/27/23 07:14 O2 Flow Rate 6 12/26/23 10:51 Discharge Plan Discharge Patient Disposition: Home Condition: Stable Prescriptions: New hydrocodone-acetaminophen 5-325 mg tablet 1 - 2 tab PO .Q4-6H Qty: 40 0RF Continued isosorbide mononitrate 60 mg tablet extended release 24 hr 120 mg PO QAM@0600 loratadine 10 mg tablet 10 mg PO DAILY@0600 albuterol sulfate 90 mcg/actuation aerosol powdr breath activated 2 inh INHALATION Q6H PRN (Reason: Shortness Of Breath) (DME) AFO to right See Rx Instructions .Route .MEDSUPPLY Qty: 1 0RF Rx Instructions: As directed JOANN&O Nurtec ODT 75 mg tablet,disintegrating 75 mg PO PRN PRN (Reason: Migraine Headache) (DME) Hinged Knee Brace See Rx Instructions .Route .MEDSUPPLY Qty: 1 0RF Rx Instructions: As directed (DME) ASO to right ankle See Rx Instructions .Route .MEDSUPPLY Qty: 1 0RF Rx Instructions: As directed (DME) Spectrum AFO to the left See Rx Instructions .Route .MEDSUPPLY Qty: 1 0RF Rx Instructions: As directed by JOANN&Mindy (DME) ASO to left See Rx Instructions .Route .MEDSUPPLY Qty: 2 0RF Rx Instructions: As directed Trulicity 3 mg/0.5 mL pen injector 3 mg SUBCUT Q7D (DME) Cam Boot to the Right See Rx Instructions .Route .MEDSUPPLY Qty: 1 0RF Rx Instructions: As directed (DME) Bone Growth Stimulator See Rx Instructions .Route .MEDSUPPLY Qty: 1 0RF Rx Instructions: As directed aripiprazole [Abilify] 2 mg Tablet 4 mg PO BEDTIME@2200 omeprazole 40 mg capsule,delayed release(DR/EC) 40 mg PO DAILY@0600 acetaminophen 500 mg tablet 500 mg PO BID PRN (Reason: Pain) fluticasone propionate 50 mcg/actuation spray,suspension 2 spray INTRANASAL BID@0600,2200 venlafaxine 75 mg capsule,extended release 24hr 75 mg PO QAM atorvastatin 20 mg tablet 20 mg PO QPM trazodone 50 mg tablet 50 mg PO BEDTIME nitroglycerin [Nitrostat] 0.4 mg Tablet, Sublingual 0.4 mg SUBLINGUAL Q5M PRN (Reason: Chest Pain) Rx Instructions: do not exceed 3 doses per episode metoprolol succinate 25 mg tablet extended release 24 hr 25 mg PO DAILY epinephrine 0.3 mg/0.3 mL auto-injector See Rx Instructions .ROUTE .COMPLEX Rx Instructions: INJECT 0.3MG IN THE MUSCLE 1 TIME DIRECTED topiramate 100 mg tablet 100 mg PO DAILY@06 levothyroxine 75 mcg tablet 75 mcg PO DAILY Botox 100 unit recon soln 155 unit SUBCUT .EVERY 3 MONTHS venlafaxine 150 mg capsule,extended release 24hr 150 mg PO QAM cyclobenzaprine 5 mg tablet 5 mg PO Q8H PRN (Reason: muscle spasm/PAIN ) Qty: 10 0RF Discharge Orders: Discharge Order (Routine); Ordered 12/27/23 Ordered By: Quentin Wynn Discharge Diet: Advance as tolerated Discharge Activity: Limit activity as instructed Patient Instructions: Acute Wound Care (DC), Opioid Safety, Post Anesthesia Care Activity Restrictions/Additional Instructions: Thank you for [facility] for your care! The following is a list of instructions, from your provider, to follow upon your discharge to ensure you have the optimal recovery from your recent injury orsurgery. Follow-up care is a lozano part of your treatment and safety. Be sure to make and go to all appointments, and call your doctor if you are having problems. If you do not already have a follow-up appointment made, call Dr. Wynn office in the next 1-3 days to make follow up appointment for 1 weeks at [phone]. It is also a good idea to know your test results and keep a list of the medicines you take. Medications will be prescribed for you at your provider's discretion. These medications are to be used as instructed; if they are taken more often that prescribed they will not be refilled early and in most cases will not be refilled at all. > When a refill is needed,you should contact geeta lópez 2-3 business days before your prescription runs out. Medications will NOT be refilled by executive search consultant providers after hours! > Many pain medications contain Tylenol (Acetaminophen). Do not consume more than 4,000 mg of Tylenol per day in total with any combination ofmedications. > Pain medications can cause constipation. Please use an over the counter stool softener as directed, while taking pain medications. Consulty our local pharmacist with questions or recommendations on stool softeners. If constipation persists, contact our office or your primary care provider. > While under our care,you are not to receive pain medications or other controlled substances from any other provider unless our office is notified and approves. Any attempts to do so will result in refusal to prescribe any further pain medications and possible dismissal from our practice. ? Y ? Showering is permitted, however we ask that you do not take a bath, sit in a whirlpool / Jacuzzi, or go swimming for 1 month. For only the first 2 days after surgery, lt wilt be necessary for you to cover your wound/dressing with plastic and tape to keep it dry. ? Walking is essential for the healing process after surgery. We would like you to slowly advance your walking. This should be done on relatively flat clear ground (inside or out) or can be done on a treadmill. Remember this goal does not have to happen all at once, slowly increase your distance and duration. This can be broken into more more than one walk per day as tolerated. Patients who walk as directed after surgery rarely require Physical Therapy. In the unlikely event this issue arises your provider will direct hospital staff to make the appropriate arrangements. ? No lifting over 5 pounds {a gallon of milk) or bending/twisting until further notice. Each of these activities places an unnecessary amount of stress onto the body and can impede the delicate healing process. > Instead of bending at the waist, keep your back straight and bend at the knees. > Instead of twisting your torso, keep your back straight and turn your entire body with your feet. ? You may sleep in any position which makes you comfortable. Many patients find comfort sleeping in a reclining chair. It is not abnormal to have difficulty sleeping for the first several weeks following your surgery. We recommend trying Benadry! or Tylenol PM as directed to help with your sleeping difficulties. Both medications are over the counter and available withoutprescription. ? NO SMOKING!!! Smoking dramatically increases the probability of developing postoperative wound infections. ? Common complaints after lumbar and/or thoracic spine surgery include, but are not limited to: numbness and/or tingling in the legs, pain around the incision and surrounding tissues, muscle spasms, or stiffness of the middle to low back. Contact our office if these symptoms persist or if an acute change occurs. ? No driving for the first 3-5days, and not while taking narcotics [] until seen at your follow-up appointment and cleared. There are no restrictions for riding on short trips, however if you take a longer trip, arrangements should be made to make regular stops to get out of the vehicle and stretch . ? Swelling is an unfortunate event that will take place with any surgery and is the primary source of your postoperative discomfort. While walking and regular approved activities helps control inflammation, there are additional steps you can take to minimizeswelling. > Place ice over the surgical site and surrounding tissue for twenty minutes, followed by applying a low/medium heat (heating pad) for an additional twenty minutes every 1-2 hours as needed for painrelief. > You may use of over the counter anti-inflammatory medications (Ibuprofen, Motrin, Aleve, Advil, etc) as directed on the package label. These types of medicines wm significantly reduce the amount of discomfort you experience after surgery from swelling. It should be noted that if you have and allergy to any of these medications, or a history of ulcers or kidney disease you should consult you primary care provider prior to starting these medications. Discharge Attestations Time Spent in Discharge Care*: less than 30 min Quality Metrics Clinical Quality Measures [ No reported AMI, CVA or VTE this stay] Coding Level of Care Code Acute Code for Chg Shantell
[2023-12-27 10:48] VITALS: BP 112/68; PULSE 64; RESP 17; TEMP 36.3; O2SAT 92
--- NOTE | 2023-12-27 11:10 | PC.NURSE ---
Hemovac was pulled by nurse at 1100.
[2023-12-27 11:44] VITALS: BP 112/68; PULSE 64; RESP 17; TEMP 36.3; O2SAT 92
== END 2023-12-27 11:45 | disposition home or self-care (01) ==
LOC: MEDSURG 13:40
PROVIDERS: Anesthesiology; Admitting Provider Orthopaedic Surgery; PCP Family Medicine; Visit Provider Orthopaedic Surgery
PROC: (CPT 20930; principal; 2023-12-26 07:00)
PROC: (CPT 22612; 2023-12-26 07:00)
DX: M48.062 Spinal stenosis, lumbar region with neurogenic claudication (principal); F17.200 Nicotine dependence, unspecified, uncomplicated; I10 Essential (primary) hypertension; K21.9 Gastro-esophageal reflux disease without esophagitis; E11.9 Type 2 diabetes mellitus without complications; E66.01 Morbid (severe) obesity due to excess calories; Z68.42 Body mass index [BMI] 45.0-49.9, adult
CPT/HCPCS: 20930; 20936; 20939; 22633; 22842; 22853; 61783; 63052; 63053; 36415; 36416; 51702; 72100; 76000; 80048; 82962; 86850; 86900; 97116; 97162; 97530; C1713; C9359; G0378; J0690; J1100; J1170; J1644; J1885; J2250; J2405; J2704; J2710; J3010; J3370; J3490; J7030; J7120; P9045

== ENCOUNTER 2024-01-01 21:37 | Emergency (ER) | payer MEDICAID, SELFPAY ==
[2024-01-01 22:01] LABS: Basophils % 0.3 %; Eosinophils # 0.6 10^3/uL (0.0-0.8); Eosinophils % 5.9 %; Hematocrit 29.9 % (36-47); Lymphocytes # 2.1 10^3/uL (0.8-4.8); Lymphocytes % 21.9 %; Mean Corpuscular HGB Conc 33.4 g/dL (30-55); Mean Corpuscular Hemoglobin 30.5 pg (27-33); Mean Corpuscular Volume 91.2 fl (85-98); Mean Platelet Volume 10.2 fL (7.4-10.4); Monocytes # 0.5 10^3/uL (0.2-0.9); Monocytes % 4.9 %; Neutrophils # 6.37 10^3/uL (1.8-7.7); Neutrophils % 66.6 %; Nucleated Red Blood Cells % 0 %; Platelet Count 204 10^3/cmm (157-399); Red Blood Count 3.28 10^6/uL (3.85-5.65); Red Cell Distribution Width 13.8 % (12.1-15.1); White Blood Count 9.57 10^3/uL (3.29-11.43)
[2024-01-01 22:02] VITALS: BP 124/76; PULSE 99; RESP 18; TEMP 36.9; O2SAT 97
--- NOTE | 2024-01-01 22:06 | ECG_ITS ---
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 Measurements Intervals [place] Rate: 88 P: 55 AL: 152 QRS: 73 QRSD: 108 T: 59 QT: 353 QTc: 428 Interpretive Statements SINUS RHYTHM MINIMAL ST DEPRESSION [0.025+ mV ST DEPRESSION] Compared to ECG 06/22/2021 17:01:23 ST (T wave) deviation now present T-wave abnormality no longer present Electronically Signed On 01-03-2024 21:32:17 CDT by Hermelinda Alcantar M.D. [email or web address]
[2024-01-01 22:22] LABS: Alanine Aminotransferase 19 U/L (0-33); Albumin Level 3.5 g/dL (3.5-5.2); Alkaline Phosphatase 133 U/L (35-105); Anion Gap 14.5 (5-19); Aspartate Amino Transferase 12 U/L (0-32); Blood Urea Nitrogen 11 mg/dL (6-20); Calcium 8.7 mg/dL (8.5-10.5); Carbon Dioxide 23 mmol/L (22-29); Chloride 106 mmol/L (98-107); Creatinine Clr Calc Pharmacy 194.8744; Globulin 2.3 g/dL (1.3-4.6); Glomerular Filtration Rate 172.6 mL/min (90-130); Glucose 171 mg/dL (65-115); Lipase 49 U/L (13-60); Osmolality Calculated 293 mOsm/kg (285-295); Potassium 3.5 mmol/L (3.5-5.1); Sodium 140 mmol/L (136-145); Total Bilirubin 0.2 mg/dL (0.15-1.2); Total Protein 5.8 g/dL (6.6-8.7)
--- NOTE | 2024-01-01 22:37 | XRR_ITS ---
PROCEDURE INFORMATION: Exam: XR Lumbosacral Spine Exam date and time: 01/01/2024 10:51 PM Age: 43 years old Clinical indication: Injury or trauma; Blunt trauma (contusions or hematomas); Prior surgery; Surgery date: 3-7 days post-operative; Surgery type: Lumbar fusion 12/26/2023. Hysterectomy; Patient HX: Patient had a fall at home yesterday. C/O low back pain with radiculopathy down both lower extremities. Lumbar fusion on 12/26/2023. ; Additional info: Post-op pain TECHNIQUE: Imaging protocol: Radiologic exam of the lumbosacral spine. Views: 2 or 3 views. COMPARISON: OT XR lumbar spine 2-3V* [id number] 12/26/2023 7:52 AM FINDINGS: Bones/joints: Normal lumbar lordosis. Alignment is intact. Posterior fusion from L4-S1. Interbody disc spacer at L4-L5. No evidence of acute fracture. Soft tissues: The soft tissues are within normal limits. XR/XR lumbar spine 2-3V* [id number] IMPRESSION: No evidence of acute fracture.
[2024-01-01 22:44] VITALS: BP 130/78; PULSE 86; RESP 16; O2SAT 98
--- NOTE | 2024-01-01 22:44 | ED_ITS ---
HPI - Back Pain/Injury 2 General: Chief Complaint: Back Pain/Injury Stated Complaint: Back and side paun Time Seen by Provider: 01/01/24 22:20 Source: patient Mode of arrival: ambulatory Limitations: no limitations History of Present Illness: Patient is a 43-year-old female who presents to the emergency department complaining of back pain worsening today. She had fusion surgery on 12/25 and has since ran out of pain meds. She also states she aggravated her pain when she fell onto a trash can, and since has been worse. Pain is noted to be the low back with radiation down both legs, making it difficult to walk. She states her follow-up appointment is not until the beginning of January. She is denying any bowel or bladder incontinence or saddle anesthesia. Pain is noted to be a 10/10 at this time. Made worse with movement, relieved with rest. MD elicited complaint: back pain Pertinent past history: back surgery Onset (ago): day(s) Timing: constant and progressively worsening Severity: severe Similar Symptoms Previously: Yes Quality: sharp Location: lumbar spine Radiation: left leg below the knee and right leg below the knee Exacerbating factors: movement Relieving factors: immobilization Associated symptoms: Deny abdominal pain, chills, fever(s), nausea or vomiting Treatments prior to arrival: prescription analgesics Review of Systems 2 General: Reports: 10 or more systems reviewed and unremarkable except in HPI and below Const: Denies: fever(s) or chills Card: Denies: chest pain Resp: Denies: dyspnea or productive cough GI: Denies: abdominal pain, nausea, vomiting or diarrhea : Denies: flank pain Musc: Reports: back pain and extremity pain; Denies: neck pain, extremity swelling, joint pain, joint swelling, joint redness, joint warmth, limited range of motion or muscle weakness Skin/Breast: Denies: rash Neuro: Denies: headache(s), numbness in extremities or weakness in extremities PFSH ED 2 PFSH: Medical History Cavernous angioma Urinary hesitancy Stress incontinence Gross hematuria Functional neurological symptom disorder with attacks or seizures Surgical History History of hysterectomy Social History Smoking and tobacco/nicotine status: current every day tobacco/nicotine user Alcohol intake: never Substance/Drug Use: never Marital status: Current occupational status: unemployed and disabled Physical Exam 2 Const: COMMON NORMALS: patient oriented x3, no limitations, alert and well nourished GENERAL APPEARANCE: in distress and anxious NUTRITIONAL APPEARANCE: obese morbidly obese HENMT: COMMON NORMALS: normocephalic and atraumatic HEAD & SCALP: n ormocephalic and atraumatic Neck/C-Spine: COMMON NORMALS: full ROM, supple and no meningeal signs Resp: COMMON NORMALS: normal respiratory effort, No use of accessory muscles and clear to auscultation bilaterally AUSCULTATION: clear to auscultation bilaterally Cardio: COMMON NORMALS: regular rate and regular rhythm RATE: regular rate RHYTHM: regular rhythm Back/Pelvis: OTHER: Healing surgical incision down patient's lumbar spine no active bleeding or drainage. No reproducible tenderness to palpation of the lower back. Moderate to severe pain with range of motion at the thoracic and lumbar back. Pain with flexion extension at the hips. Extremity: COMMON NORMALS: normal to inspection, full ROM, capillary refill normal, no joint enlargement and no clubbing, cyanosis or edema Neuro: COMMON NORMALS: patient oriented x3, moves all extremities, no focal motor deficits and no sensory deficits noted SENSORIUM/ORIENTATION: Yes alert MENINGEAL SIGNS: Yes no meningeal signs Skin: COMMON NORMALS: no rashes or lesions noted GENERAL SKIN EXAM: no rashes or lesions noted Course 2 Vital Signs: Vital signs: Vital Signs Temperature 98.5 F 01/01/24 22:02 Pulse Rate 99 01/01/24 22:02 Respiratory Rate 18 01/01/24 22:02 Blood Pressure 124/76 01/01/24 22:02 Pulse Oximetry 97 01/01/24 22:02 Oxygen Delivery Me thod Room Air 01/01/24 22:02 MDM - Back Pain/Injury Medical Decision Making Patient presented with initially multiple complaints, stating she had side pain and back pain. Also was reporting some chest pain. However upon further questioning she is few days postop from lumbar fusion surgery and her primary complaint is worsening back pain with radiation down her legs. An EKG was obtained due to her reported chest pain which not reveal any acute abnormalities. Lab work obtained was all unremarkable. X-ray of the lumbar spine did not demonstrate any acute fractures and did show proper alignment of hardware. Likely patient's pain due to postoperative physiologic etiology, and after recheck following administration of Dowling she states she feels much better. She was receiving Dowling after the surgery, has since ran out. Will give her 1 to go home with and she is to call Dr. Wynn's office tomorrow to schedule an appointment earlier than her current scheduled date. She is encouraged to avoid reinjury and return with any new or worsening. Labs 01/01/24 21:56 01/01/24 21:56 Radiology Impressions Lumbar Spine X-Ray 01/01/24 22:37 IMPRESSION: No evidence of acute fracture. Laboratory Results WBC 9.57 10^3/uL (3.29-11.43) 01/01/24 21:56 RBC 3.28 10^6/uL (3.85-5.65) L 01/01/24 21:56 Hgb 10.00 g/dL (11.27-16.99) L 01/01/24 21:56 Hct 29.9 % (36-47) L 01/01/24 21:56 MCV 91.2 fl (85-98) 01/01/24 21:56 MCH 30.5 pg (27-33) 01/01/24 21:56 MCHC 33.4 g/dL (30-55) 01/01/24 21:56 RDW 13.8 % (12.1-15.1) 01/01/24 21:56 Plt Count 204 10^3/cmm (157-399) 01/01/24 21:56 MPV 10.2 fL (7.4-10.4) 01/01/24 21:56 Neut % (Auto) 66.6 % 01/01/24 21:56 Lymph % (Auto) 21.9 % 01/01/24 21:56 Starr % (Auto) 4.9 % 01/01/24 21:56 Eos % (Auto) 5.9 % 01/01/24 21:56 Baso % (Auto) 0.3 % 01/01/24 21:56 Neut # (Auto) 6.37 10^3/uL (1.8-7.7) 01/01/24 21:56 Lymph # (Auto) 2.1 10^3/uL (0.8-4.8) 01/01/24 21:56 Starr # (Auto) 0.5 10^3/uL (0.2-0.9) 01/01/24 21:56 Eos # (Auto) 0.6 10^3/uL (0.0-0.8) 01/01/24 21:56 Baso # (Auto) 0.0 10^3/uL (0.0-0.1) 01/01/24 21:56 Nucleated RBC % (auto) 0 % 01/01/24 21:56 Nucleated RBCs # 0.0 /100WBC 01/01/24 21:56 Sodium 140 mmol/L (136-145) 01/01/24 21:56 Potassium 3.5 mmol/L (3.5-5.1) 01/01/24 21:56 Chloride 106 mmol/L (98-107) 01/01/24 21:56 Carbon Dioxide 23 mmol/L (22-29) 01/01/24 21:56 Anion Gap 14.5 (5-19) 01/01/24 21:56 BUN 11 mg/dL (6-20) 01/01/24 21:56 Creatinine 0.4 mg/dL (0.5-0.9) L 01/01/24 21:56 GFR Calculation 172.6 mL/min (90-130) H 01/01/24 21:56 Glucose 171 mg/dL (65-115) H 01/01/24 21:56 Calculated Osmolality 293 mOsm/kg (285-295) 01/01/24 21:56 Calcium 8.7 mg/dL (8.5-10.5) 01/01/24 21:56 Total Bilirubin 0.2 mg/dL (0.15-1.2) 01/01/24 21:56 AST 12 U/L (0-32) 01/01/24 21:56 ALT 19 U/L (0-33) 01/01/24 21:56 Alkaline Phosphatase 133 U/L (35-105) H 01/01/24 21:56 Total Protein 5.8 g/dL (6.6-8.7) L 01/01/24 21:56 Albumin 3.5 g/dL (3.5-5.2) 01/01/24 21:56 Globulin 2.3 g/dL (1.3-4.6) 01/01/24 21:56 Lipase 49 U/L (13-60) 01/01/24 21:56 Urine Color Yellow (Yellow) 01/01/24 22:53 Urine Appearance Cloudy (CLEAR) A 01/01/24 22:53 Urine pH 5 (5-7) 01/01/24 22:53 Ur Specific [place] 1.015 (1.005-1.030) 01/01/24 22:53 Urine Protein Trace (Negative) 01/01/24 22:53 Urine Glucose (UA) Norm (Normal) 01/01/24 22:53 Urine Ketones Negative (Negative) 01/01/24 22:53 Urine Blood Neg (Negative) 01/01/24 22:53 Urine Nitrate Negative (Negative) 01/01/24 22:53 Urine Bilirubin Neg (Negative) 01/01/24 22:53 Urine Urobilinogen 1 mg/dL (Negative) H 01/01/24 22:53 Ur Leukocyte Esterase 2+ (Negative) H 01/01/24 22:53 Urine RBC 0-4 /hpf (0-2) H 01/01/24 22:53 Urine WBC 5-10 /hpf (0-5) H 01/01/24 22:53 Ur Squamous Epith Cells 5-10 /hpf (0-5) H 01/01/24 22:53 Amorphous Sediment Not Reportable 01/01/24 22:53 Urine Bacteria 2+ /hpf (NONE) H 01/01/24 22:53 Urine Mucus Trace /hpf 01/01/24 22:53 All radiology interpretation(s) finalized by discharge Discharge Plan Discharge Patient Disposition: Home Clinical Impression: Postoperative back pain Condition: Stable Prescriptions: No Action isosorbide mononitrate 60 mg tablet extended release 24 hr 120 mg PO QAM@0600 loratadine 10 mg tablet 10 mg PO DAILY@0600 albuterol sulfate 90 mcg/actuation aerosol powdr breath activated 2 inh INHALATION Q6H PRN (Reason: Shortness Of Breath) (DME) AFO to right See Rx Instructions .Route .MEDSUPPLY Qty: 1 0RF Rx Instructions: As directed JOANN&O Nurtec ODT 75 mg tablet,disintegrating 75 mg PO PRN PRN (Reason: Migraine Headache) (DME) Hinged Knee Brace See Rx Instructions .Route .MEDSUPPLY Qty: 1 0RF Rx Inst[place]: [place] [facility] [place] to [place] ankle See Rx Instructions .Route .MEDSUPPLY Qty: 1 0RF Rx Instructions: [place] [place] [facility] [place] Spectrum AFO to the left See Rx Instructions .Route .MEDSUPPLY Qty: 1 0RF Rx Instructions: As [place] by JOANN&O [place] [place] [facility] [place]O to left See Rx Instructions .Route .MEDSUPPLY Qty: 2 0RF Rx Instructions: As directed Trulicity 3 mg/0.5 mL pen injector 3 mg SUBCUT Q7D (DME) Cam Boot to the Right See Rx Instructions .Route .MEDSUPPLY Qty: 1 0RF Rx Instructions: As [place] [place] Bone Growth Stimulator See Rx Instructions .Route .MEDSUPPLY Qty: 1 0RF Rx Instructions: As directed aripiprazole [Abilify] 2 mg Tablet 4 mg PO BEDTIME@2200 omeprazole 40 mg capsule,delayed release(DR/EC) 40 mg PO DAILY@0600 acetaminophen 500 mg tablet 500 mg PO BID PRN (Reason: Pain) fluticasone propionate 50 mcg/actuation spray,suspension 2 spray INTRANASAL BID@0600,2200 venlafaxine 75 mg capsule,extended release 24hr 75 mg PO QAM atorvastatin 20 mg tablet 20 mg PO QPM trazodone 50 mg tablet 50 mg PO BEDTIME nitroglycerin [Nitrostat] 0.4 mg Tablet, Sublingual 0.4 mg SUBLINGUAL Q5M PRN (Reason: Chest Pain) Rx Instructions: do not exceed 3 doses per episode metoprolol succinate 25 mg tablet extended release 24 hr 25 mg PO DAILY epinephrine 0.3 mg/0.3 mL auto-injector See Rx Instructions .ROUTE .COMPLEX Rx Instructions: INJECT 0.3MG IN THE MUSCLE 1 TIME DIRECTED topiramate 100 mg tablet 100 mg PO DAILY@06 levothyroxine 75 mcg tablet 75 mcg PO DAILY Botox 100 unit recon soln 155 unit SUBCUT .EVERY 3 MONTHS venlafaxine 150 mg capsule,extended release 24hr 150 mg PO QAM cyclobenzaprine 5 mg tablet 5 mg PO Q8H PRN (Reason: muscle spasm/PAIN ) Qty: 10 0RF hydrocodone-acetaminophen 5-325 mg tablet 1 - 2 tab PO .Q4-6H Qty: 40 0RF Discharge Orders: Discharge ED (Routine); Ordered 01/02/24 Ordered By: Raman Gonzalez Referrals: Joseline Thompson MD [Primary Care Provider] - Discharge Diet: Usual diet Discharge Activity: Increase activity as tolerated Patient Instructions: Opioid Safety, Pain Management Activity Restrictions/Additional Instructions: Please call Dr. Wynn's office tomorrow to schedule an earlier appointment. If you develop any new or concerning symptoms please return for reevaluation. Pain medication at home. Avoid any reinjury or strenuous lifting/exercise. 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
[2024-01-01] MEDS: HYDROcodone-acetaminophen 7.5-325 mg Tablet 1 TAB PO (22:47)
[2024-01-01 23:10] LABS: Add Urine Culture? Yes; Add Urine Microscopic? YES; Bacteria Urine 2+ /hpf; Bilirubin Urine Neg (Negative); Blood Urine Neg (Negative); Glucose Urine UA Norm (Normal); Ketones Urine Negative (Negative); Leukocyte Esterase Urine 2+ (Negative); Mucus Urine TRACE /hpf; Nitrate Urine Negative (Negative); Protein Urine Trace (Negative); RBC Urine 0-4 /hpf (0-2); Specific Gravity, Urine 1.015 (1.005-1.030); Urine Appearance Cloudy (CLEAR); Urine Color Yellow (Yellow); Urobilinogen Urine 1 mg/dL (Negative); pH Urine 5 (5-7)
[2024-01-01 23:30] VITALS: BP 120/72; PULSE 86; RESP 18; O2SAT 96
[2024-01-02] VITALS: BP 120/82; PULSE 91; RESP 16; O2SAT 97
[2024-01-02 00:30] VITALS: BP 125/77; PULSE 90; RESP 16; O2SAT 96
== END 2024-01-02 00:52 | disposition home or self-care (01) ==
PROVIDERS: Emergency Provider Physician Assistant; PCP Family Medicine
DX: G89.18 Other acute postprocedural pain (principal); M54.50 Low back pain, unspecified; Z79.85 Long-term (current) use of injectable non-insulin antidiabetic drugs
CPT/HCPCS: 36415; 72100; 80053; 81001; 83690; 85025; 87086; 93005; 99285

== ENCOUNTER → 2024-01-03 13:22 | Outpatient (BNVA) | payer MEDICAID, SELFPAY | PROVIDERS: PCP Family Medicine; Visit Provider Orthopaedic Surgery | DX: Z98.1 Arthrodesis status (principal) | CPT/HCPCS: 99024 ==

== ENCOUNTER → 2024-01-10 12:40 | Outpatient (BNVA) | payer MEDICAID, SELFPAY | PROVIDERS: PCP Family Medicine; Visit Provider Student in an Organized Health Care Education/Training Program | DX: M22.41 Chondromalacia patellae, right knee (principal); M17.0 Bilateral primary osteoarthritis of knee | CPT/HCPCS: 99213 ==

== ENCOUNTER → 2024-01-12 10:04 | Outpatient (BNVA) | payer MEDICAID, SELFPAY | PROVIDERS: PCP Family Medicine; Visit Provider Orthopaedic Surgery | DX: Z98.1 Arthrodesis status (principal); G43.711 Chronic migraine without aura, intractable, with status migrainosus; F44.5 Conversion disorder with seizures or convulsions; D18.00 Hemangioma unspecified site; R03.0 Elevated blood-pressure reading, without diagnosis of hypertension | CPT/HCPCS: 64615; 99024; J0585 ==

== ENCOUNTER → 2024-02-14 10:30 | Outpatient (BNVA) | payer MEDICAID, SELFPAY | PROVIDERS: PCP Family Medicine; Visit Provider Orthopaedic Surgery | DX: Z98.1 Arthrodesis status (principal) | CPT/HCPCS: 72100; 99024 ==

== ENCOUNTER 2024-03-01 08:58 | Outpatient (CLI) | payer MEDICAID, SELFPAY ==
--- NOTE | 2024-03-01 09:00 | MM_ITS ---
WS: [id number] VIEWS: MLO and CC views both breasts. 3D digital tomosynthesis is also included in this exam. Comparison made with prior exam of 11/22/2022.. Findings: Questionable new 4 mm irregular nodule seen at about the 12 o'clock position in the RIGHT breast at p osterior depth on the MLO view only. This may be a change since the prior study. This is difficult to identify on the cc view. The LEFT breast is unremarkable with no new finding. Compression spot image s of the RIGHT breast with exaggerated craniocaudal view and ML views would be recommended. Also mary anne onal ultrasound is suggested. There are scattered areas of fibroglandular density. MM/[place] [id number] Impression: BI-RADS: 0-Incomplete: Need additional imaging evaluation FOLLOW-UP: See Report This mammogram was also analyzed by the Computer Aided Detection System R2 Imag e [employer].
== END 2024-03-01 08:59 | disposition home or self-care (01) ==
LOC: MOBLMAM 09:01
PROVIDERS: PCP Family Medicine; Visit Provider Family Medicine
DX: Z12.31 Encounter for screening mammogram for malignant neoplasm of breast (principal); R92.323 Mammographic fibroglandular density, bilateral breasts; N63.12 Unspecified lump in the right breast, upper inner quadrant
CPT/HCPCS: 77063; 77067

== ENCOUNTER 2024-03-19 16:00 | Emergency (ER) | payer MEDICAID, SELFPAY ==
[2024-03-19 16:21] VITALS: BP 126/84; PULSE 101; TEMP 36.6; O2SAT 97; BMI 42.1
--- NOTE | 2024-03-19 17:12 | W.ED.BACK ---
HPI - Back Pain/Injury General: Chief Complaint: Back Pain/Injury Stated Complaint: fall - back pain Time Seen by Provider: 03/19/24 17:11 Source: patient Mode of arrival: ambulatory Limitations: no limitations History of Present Illness: Patient is a 44-year-old female presents the emergency department complaining of low back pain onset Tuesday. States that she fell against the wall while taking a shower, did not fall to the floor and has no other injuries to report. Pain is noted to be to the right paralumbar muscles, just lateral to incision from fusion surgery back in December. States that she has felt good since the surgery, has been taking hydrocodone, but ran out on Tuesday. She also took a muscle relaxer this morning. Has remained ambulatory, no bowel or bladder incontinence, no other red flag back symptoms to report. MD elicited complaint: back pain Pertinent past history: prior back pain and back surgery Onset (ago): day(s) (2) Timing: constant Severity: moderate Similar Symptoms Previously: Yes Location: right lower back Radiation: other (Right hip) Exacerbating factors: walking Relieving factors: immobilization Context: trauma (Fell against the wall while in the shower) Associated symptoms: Deny abdominal pain, chills, fecal incontinence, fever(s), nausea or vomiting Treatments prior to arrival: prescription analgesics and other medications Related Data Home Medications Medication Instructions Recorded Confirmed albuterol sulfate 90 mcg/actuation 2 inh inhalation Q6H PRN Shortness 07/19/19 02/14/24 breath activated powder inhaler Of Breath isosorbide mononitrate 60 mg 120 mg PO QAM@0600 07/19/19 02/14/24 tablet,extended release 24 hr loratadine 10 mg tablet 10 mg PO DAILY@0600 07/19/19 02/14/24 aripiprazole 2 mg tablet (Abilify) 4 mg PO BEDTIME@2200 04/17/20 02/14/24 acetaminophen 500 mg tablet 500 mg PO BID PRN Pain 06/11/20 02/14/24 fluticasone propionate 50 2 spray intranasal BID@0600,2200 06/11/20 02/14/24 mcg/actuation nasal spray,suspension omeprazole 40 mg capsule,delayed 40 mg PO DAILY@0600 06/11/20 02/14/24 release atorvastatin 20 mg tablet 20 mg PO QPM 03/19/23 02/14/24 epinephrine 0.3 mg/0.3 mL See Rx Instructions .Route .COMPLEX 03/19/23 02/14/24 injection, auto-injector levothyroxine 75 mcg tablet 75 mcg PO DAILY 03/19/23 02/14/24 metoprolol succinate 25 mg 25 mg PO DAILY 03/19/23 02/14/24 tablet,extended release 24 hr nitroglycerin 0.4 mg sublingual 0.4 mg sublingual Q5M PRN Chest 03/19/23 02/14/24 tablet (Nitrostat) Pain onabotulinumtoxinA 100 unit 155 unit SUBCUT .EVERY 3 MONTHS 03/19/23 02/14/24 solution for injection (Botox) topiramate 100 mg tablet 100 mg PO DAILY@06 03/19/23 02/14/24 trazodone 50 mg tablet 50 mg PO BEDTIME 03/19/23 02/14/24 venlafaxine 150 mg 150 mg PO QAM 03/19/23 02/14/24 capsule,extended release 24 hr venlafaxine 75 mg capsule,extended 75 mg PO QAM 03/19/23 02/14/24 release 24 hr rimegepant 75 mg disintegrating 75 mg PO PRN PRN Migraine Headache 07/07/23 02/14/24 tablet (Nurtec ODT) dulaglutide 3 mg/0.5 mL 3 mg SUBCUT Q7D 11/25/23 02/14/24 subcutaneous pen injector (Trulicity) Previous Rx's Medication Instructions Recorded ASO to right ankle #1 ea 12/28/21 Spectrum AFO to the left #1 ea 08/06/22 AFO to right #1 ea 11/02/22 Cam Boot to the Right #1 ea 12/30/22 ASO to left #2 ea 01/14/23 cyclobenzaprine 5 mg tablet 5 mg PO Q8H PRN muscle spasm/PAIN 07/08/23 #10 tabs Hinged Knee Brace #1 ea 12/06/23 Bone Growth Stimulator #1 ea 12/09/23 clarithromycin 500 mg tablet 500 mg PO BID 10 days #20 tabs 01/21/24 ondansetron 8 mg disintegrating 8 mg PO Q8H PRN nausea and 01/21/24 tablet vomiting 5 days #15 tabs cyclobenzaprine 10 mg tablet 10 mg PO TID PRN muscle spasm #90 03/07/24 tabs hydrocodone 5 mg-acetaminophen 325 1 - 2 tab PO .Q4-6H PRN pain 7 03/07/24 mg tablet days #40 tabs Allergies Allergy/AdvReac Type Severity Reaction Status Date / Time adhesive tape Allergy ALGY-Rash Verified 03/19/24 16:25 aspirin Allergy ALGY-Anaphy Verified 03/19/24 16:25 laxis carbamazepine Allergy ADR-Dizzine Verified 03/19/24 16:25 ss gabapentin Allergy ALGY-Hives Verified 03/19/24 16:25 ibuprofen Allergy Unknown Verified 03/19/24 16:25 linaclotide [From Linzess] Allergy Unknown Verified 03/19/24 16:25 metformin Allergy Verified 03/19/24 16:25 naproxen Allergy Verified 03/19/24 16:25 Review of Systems General: Reports: 10 or more systems reviewed and unremarkable except in HPI and below Const: Denies: fever(s) or chills Card: Denies: chest pain Resp: Denies: dyspnea or productive cough GI: Denies: abdominal pain, nausea, vomiting, diarrhea or fecal incontinence : Denies: flank pain or urinary incontinence Musc: Reports: back pain and joint pain (Right hip); Denies: neck pain, extremity pain, extremity swelling, joint swelling, joint redness, joint warmth, limited range of motion or muscle weakness Skin/Breast: Denies: rash Neuro: Denies: headache(s), numbness in extremities or weakness in extremities PFSH ED PFSH: Medical History Cavernous angioma Urinary hesitancy Stress incontinence Gross hematuria Functional neurological symptom disorder with attacks or seizures Surgical History History of hysterectomy Social History Smoking and tobacco/nicotine status: never used tobacco/nicotine Alcohol intake: never Substance/Drug Use: never Marital status: Current occupational status: unemployed and disabled Physical Exam Const: COMMON NORMALS: no acute distress, patient oriented x3, no limitations, healthy appearing, alert and well nourished HENMT: COMMON NORMALS: normocephalic and atraumatic HEAD & SCALP: normocephalic and atraumatic Neck/C-Spine: COMMON NORMALS: full ROM, supple and no meningeal signs Resp: COMMON NORMALS: normal respiratory effort, No use of accessory muscles and clear to auscultation bilaterally AUSCULTATION: clear to auscultation bilaterally Cardio: COMMON NORMALS: regular rate and regular rhythm RATE: regular rate RHYTHM: regular rhythm Back/Pelvis: OTHER: Well-healed surgical incision to the lumbar spine. Some reproducible tenderness to palpation of the right paralumbar muscles. No spinous process tenderness. Extremity: COMMON NORMALS: normal to inspection, full ROM, capillary refill normal, no joint enlargement and no clubbing, cyanosis or edema Neuro: COMMON NORMALS: patient oriented x3, moves all extremities, no focal motor deficits, no sensory deficits noted and deep tendon reflexes 2+ bilaterally SENSORIUM/ORIENTATION: Yes alert MENINGEAL SIGNS: Yes no meningeal signs Skin: COMMON NORMALS: no rashes or lesions noted GENERAL SKIN EXAM: no rashes or lesions noted Course Vital Signs: Vital signs: Vital Signs Temperature 97.9 F 03/19/24 16:21 Pulse Rate 101 H 03/19/24 16:21 Blood Pressure 126/84 03/19/24 16:21 Pulse Oximetry 97 03/19/24 16:21 Oxygen Delivery Me thod Room Air 03/19/24 16:21 MDM - Back Pain/Injury Medical Decision Making Patient has spinal fusion surgery in December, she injured her back when she fell against a wall in the shower on Tuesday. Has ran out of her pain medications. Physical examination showed some mild reproducible tenderness palpation of the right paralumbar muscles, however had no spinous process tenderness, scar was well-healed, and she had no red flag back symptoms to report. Her x-ray showed intact hardware, and on recheck she is noted to be walking around and moving. She did receive [place] and Norflex here, likely while her pain is improved. We discussed ice and heat as well as other conservative therapies and she is to call to have her medications refilled as needed. Return precautions also given. Patient discharged home at this time. Labs Radiology Impressions Lumbar Spine X-Ray 03/19/24 17:16 IMPRESSION: L4/5/S1 bilateral pedicle screws and posterior fixation hardware with an L4-L5 intervertebral disc spacer. All radiology interpretation(s) finalized by discharge Discharge Plan Discharge Patient Disposition: Home Clinical Impression: Low back strain Qualifiers: Encounter type: initial encounter Qualified Code(s): S39.012A - Strain of muscle, fascia and tendon of lower back, initial encounter Condition: Stable Prescriptions: No Action isosorbide mononitrate 60 mg tablet extended release 24 hr 120 mg PO QAM@0600 loratadine 10 mg tablet 10 mg PO DAILY@0600 albuterol sulfate 90 mcg/actuation aerosol powdr breath activated 2 inh INHALATION Q6H PRN (Reason: Shortness Of Breath) (DME) AFO to right See Rx Instructions .Route .MEDSUPPLY Qty: 1 0RF Rx Instructions: As directed JOANN&O Nurtec ODT 75 mg tablet,disintegrating 75 mg PO PRN PRN (Reason: Migraine Headache) (DME) Hinged Knee Brace See Rx Instructions .Route .MEDSUPPLY Qty: 1 0RF Rx Instructions: As directed clarithromycin 500 mg tablet 500 mg PO BID 10 Days Qty: 20 0RF ondansetron 8 mg tablet,disintegrating 8 mg PO Q8H PRN (Reason: nausea and vomiting) 5 Days Qty: 15 0RF (DME) ASO to right ankle See Rx Instructions .Route .MEDSUPPLY Qty: 1 0RF Rx Instructions: As directed (DME) Spectrum AFO to the left See Rx Instructions .Route .MEDSUPPLY Qty: 1 0RF Rx Instructions: As directed by JOANN&O (DME) ASO to left See Rx Instructions .Route .MEDSUPPLY Qty: 2 0RF Rx Instructions: As directed Trulicity 3 mg/0.5 mL pen injector 3 mg SUBCUT Q7D (DME) Cam Boot to the Right See Rx Instructions .Route .MEDSUPPLY Qty: 1 0RF Rx Instructions: As directed (DME) Bone Growth Stimulator See Rx Instructions .Route .MEDSUPPLY Qty: 1 0RF Rx Instructions: As directed cyclobenzaprine 10 mg tablet 10 mg PO TID PRN (Reason: muscle spasm) Qty: 90 0RF hydrocodone-acetaminophen 5-325 mg tablet 1 - 2 tab PO .Q4-6H PRN (Reason: pain) 7 Days Qty: 40 0RF aripiprazole [Abilify] 2 mg Tablet 4 mg PO BEDTIME@2200 omeprazole 40 mg capsule,delayed release(DR/EC) 40 mg PO DAILY@0600 acetaminophen 500 mg tablet 500 mg PO BID PRN (Reason: Pain) fluticasone propionate 50 mcg/actuation spray,suspension 2 spray INTRANASAL BID@0600,2200 venlafaxine 75 mg capsule,extended release 24hr 75 mg PO QAM atorvastatin 20 mg tablet 20 mg PO QPM trazodone 50 mg tablet 50 mg PO BEDTIME nitroglycerin [Nitrostat] 0.4 mg Tablet, Sublingual 0.4 mg SUBLINGUAL Q5M PRN (Reason: Chest Pain) Rx Instructions: do not exceed 3 doses per episode metoprolol succinate 25 mg tablet extended release 24 hr 25 mg PO DAILY epinephrine 0.3 mg/0.3 mL auto-injector See Rx Instructions .ROUTE .COMPLEX Rx Instructions: INJECT 0.3MG IN THE MUSCLE 1 TIME DIRECTED topiramate 100 mg tablet 100 mg PO DAILY@06 levothyroxine 75 mcg tablet 75 mcg PO DAILY Botox 100 unit recon soln 155 unit SUBCUT .EVERY 3 MONTHS venlafaxine 150 mg capsule,extended release 24hr 150 mg PO QAM cyclobenzaprine 5 mg tablet 5 mg PO Q8H PRN (Reason: muscle spasm/PAIN ) Qty: 10 0RF Discharge Orders: Discharge ED (Routine); Ordered 03/19/24 Ordered By: Raman Gonzalez Referrals: Joseline Thompson MD [Primary Care Provider] - Discharge Diet: Usual diet Discharge Activity: Increase activity as tolerated Patient Instructions: Opioid Safety, Pain Management Activity Restrictions/Additional Instructions: Call tomorrow to have medications refilled as discussed. Please call Dr. Wynn's office with any continued back pain. Continue taking muscle relaxer. Ice and heat. Avoid reinjury. May take Tylenol/ibuprofen for pain relief at this time. Gentle range of motion exercises as tolerated. Follow-up with primary care and return with any new or worsening. Coding Level of Care Code ED Director Of Graduate Admissions for Anju Stinson
--- NOTE | 2024-03-19 17:16 | XRR_ITS ---
PROCEDURE INFORMATION: Exam: XR Lumbosacral Spine Exam date and time: 03/19/2024 5:25 PM Age: 44 years old Clinical indication: Injury or trauma; Fall; Blunt trauma (contusions or hematomas); Prior surgery; Surgery date: 1-6 months; Surgery type: Lumbar; Additional info: Fall on sat/lumbar fusion in December TECHNIQUE: Imaging protocol: Radiologic exam of the lumbosacral spine. Views: 2 or 3 views. COMPARISON: CT abdomen pelvis w con* [id number] 07/08/2021 2:21 AM FINDINGS: Bones/joints: L4/5/S1 bilateral pedicle screws and posterior fixation hardware with an L4-L5 intervertebral disc spacer. Soft tissues: Unremarkable. XR/XR lumbar spine 2-3V* [id number] IMPRESSION: L4/5/S1 bilateral pedicle screws and posterior fixation hardware with an L4-L5 intervertebral disc spacer.
[2024-03-19] MEDS: orphenadrine 30 mg/mL Inj 2 mL 60 MG IM (17:21)
[2024-03-19] MEDS: HYDROcodone-acetaminophen 7.5-325 mg Tablet 1 TAB PO (17:21)
[2024-03-19 18:32] VITALS: BP 125/92; PULSE 102; RESP 16; O2SAT 98
== END 2024-03-19 18:33 | disposition home or self-care (01) ==
PROVIDERS: Emergency Provider Physician Assistant; PCP Family Medicine
DX: S39.012A Strain of muscle, fascia and tendon of lower back, initial encounter (principal); Z79.85 Long-term (current) use of injectable non-insulin antidiabetic drugs; W18.2XXA Fall in (into) shower or empty bathtub, initial encounter
CPT/HCPCS: 72100; 96372; 99284; J2360

== ENCOUNTER → 2024-04-03 10:45 | Outpatient (BNVA) | payer MEDICAID, SELFPAY | PROVIDERS: PCP Family Medicine; Visit Provider Orthopaedic Surgery | DX: Z98.1 Arthrodesis status (principal) | CPT/HCPCS: 99024 ==

== ENCOUNTER → 2024-04-05 12:00 | Outpatient (BNVA) | payer MEDICAID, SELFPAY | PROVIDERS: PCP Family Medicine; Visit Provider Specialist | DX: G43.711 Chronic migraine without aura, intractable, with status migrainosus (principal); F44.5 Conversion disorder with seizures or convulsions; D18.00 Hemangioma unspecified site; R03.0 Elevated blood-pressure reading, without diagnosis of hypertension | CPT/HCPCS: 64615; J0585 ==

== ENCOUNTER → 2024-04-19 12:47 | Outpatient (BNVA) | payer MEDICAID, SELFPAY | PROVIDERS: PCP Family Medicine; Visit Provider Orthopaedic Surgery | DX: Z98.1 Arthrodesis status | CPT/HCPCS: 72100; 99024 ==

== ENCOUNTER 2024-05-23 10:18 | Outpatient (CLI) | payer MEDICAID, SELFPAY ==
--- NOTE | 2024-05-23 10:25 | MM_ITS ---
WS: [id number] VIEWS: MLO, CC, and ML views RIGHT breast only. 3D digital tomosynthesis is also included in this ex am. Comparison made with prior exam of 03/01/2024. Findings: There are scattered areas of fibroglandular density. No sign of suspicious mass, tumor calcification or architectural distortion on additional views with tomograms. MM/MM diag RT tomosynthesis [id number] Impression: BI-RADS: 2 - Benign. FOLLOW-UP: 1 Year Follow-up with screening mammography. This mammogram was also analyzed by the Computer Aided Detection System R2 Imag e [employer].
== END 2024-05-23 10:19 | disposition home or self-care (01) ==
LOC: RAD 10:19
PROVIDERS: PCP Family Medicine; Visit Provider Family Medicine
DX: R92.8 Other abnormal and inconclusive findings on diagnostic imaging of breast (principal); R92.323 Mammographic fibroglandular density, bilateral breasts
CPT/HCPCS: 77061; G0279

== ENCOUNTER 2024-06-02 19:37 | Emergency (ER) | payer MEDICAID, SELFPAY ==
--- NOTE | 2024-06-02 19:41 | ECG_ITS ---
[facility] Test Date: 2024-06-02 Pat Name: Marry Whatley Department: Room: Gender: Female Radio Program Director: : 1980 Requested By: Carrillo Dexter Order Number: [id number] Anibal MD: Peyman Cruz M.D. Measurements Intervals [place] Rate: 88 P: 21 TX: 158 QRS: 29 QRSD: 97 T: 17 QT: 362 QTc: 440 Interpretive Statements SINUS RHYTHM POSSIBLE ANTERIOR MYOCARDIAL INFARCTION , PROBABLY OLD [30 ms Q WAVE IN V3/V4, OR R < 0.2 mV IN V4] Compared to ECG 01/01/2024 22:06:04 Myocardial infarct finding now present ST (T wave) deviation no longer present Electronically Signed On 06-03-2024 18:51:05 BUSINESS ADMINISTRATOR by Peyman Cruz M.D. [email or web address]
[2024-06-02 19:47] VITALS: BP 123/79; PULSE 89; RESP 17; TEMP 36.7; O2SAT 98; BMI 42.2
--- NOTE | 2024-06-02 19:59 | CTR_ITS ---
PROCEDURE INFORMATION: Exam: CT Head Without Contrast Exam date and time: 06/02/2024 8:10 PM Age: 44 years old Clinical indication: Stroke-like symptoms; Lt upper extremity weakness; Additional info: C/O sudden onset of lue weakness/numbness. Lkwt of 1915 hours. History of left cavernous angioma. TECHNIQUE: Imaging protocol: Computed tomography of the head without contrast. Radiation optimization: All CT scans at this facility use at least one of these dose optimization techniques: automated exposure control; mA and/or kV adjustment per patient size (includes targeted exams where dose is matched to clinical indication); or iterative reconstruction. Other technique: STROKE PROTOCOL was implemented. COMPARISON: CT head wo con* [id number] 03/19/2023 12:18 PM RADIATION DOSE METRICS: Total DLP (mGy-cm): 1294.04 FINDINGS: Brain: There is a hyperdense lesion in the left frontal opercular region without surrounding edema measuring 1.1 cm maximum size which is unchanged and consistent with patient's known cavernous malformation in this region as reported on MRI from 01/25/2020. No acute hemorrhage. No midline shift or mass effect. No acute ischemic infarct. Cerebral ventricles: No ventriculomegaly. Paranasal sinuses: No significant inflammation. No fluid levels. Mastoid air cells: No significant inflammation. Bones: No acute fracture. Soft tissues: Unremarkable. CT/CT head thrombolytic [id number] IMPRESSION: 1. No acute intracranial abnormality. 2. Hyperdense lesion left frontal lobe measuring 1.1 cm is unchanged consistent with known cavernoma. ASSESSMENT: ASPECTS ([facility] Stroke Program Early CT Score) is 10.
--- NOTE | 2024-06-02 20:04 | CTR_ITS ---
PROCEDURE INFORMATION: Exam: CTA Head With Contrast, Arteriography Exam date and time: 06/02/2024 8:14 PM Age: 44 years old Clinical indication: Stroke-like symptoms; Lt upper extremity weakness; Additional info: L sided weakness, left neck pain TECHNIQUE: Imaging protocol: Computed tomographic angiography of the head with contrast. Exam focused on the arteries. 3D rendering (Not supervised by radiologist): MIP and/or 3D reconstructed images were created by the technologist. Radiation optimization: All CT scans at this facility use at least one of these dose optimization techniques: automated exposure control; mA and/or kV adjustment per patient size (includes targeted exams where dose is matched to clinical indication); or iterative reconstruction. Contrast material: OMNI 350; Contrast volume: 100 ml; Contrast route: INTRAVENOUS (IV); COMPARISON: CT head thrombolytic [id number] 06/02/2024 8:10 PM RADIATION DOSE METRICS: Total DLP (mGy-cm): 457.82 FINDINGS: ANTERIOR CIRCULATION: Right internal carotid artery: Intracranial segment is patent with no significant stenosis. No aneurysm. Right middle cerebral artery: No occlusion or significant stenosis. No aneurysm. Right anterior cerebral artery: No occlusion or significant stenosis. No aneurysm. Left internal carotid artery: Intracranial segment is patent with no significant stenosis. No aneurysm. Left middle cerebral artery: No occlusion or significant stenosis. No aneurysm. Left anterior cerebral artery: No occlusion or significant stenosis. No aneurysm. POSTERIOR CIRCULATION: Right vertebral artery: No occlusion or significant stenosis. No aneurysm. Left vertebral artery: No occlusion or significant stenosis. No aneurysm. Basilar artery: No occlusion or significant stenosis. No aneurysm. Right posterior cerebral artery: No occlusion or significant stenosis. No aneurysm. Left posterior cerebral artery: No occlusion or significant stenosis. No aneurysm. Brain: No definite mass, mass effect, or midline shift. Cerebral ventricles: No ventriculomegaly. Bones/joints: No acute fracture. Soft tissues: Unremarkable. PROCEDURE INFORMATION: Exam: CTA Neck With Contrast Exam date and time: 06/02/2024 8:14 PM Age: 44 years old Clinical indication: Stroke-like symptoms; Lt upper extremity weakness; Additional info: L sided weakness, left neck pain TECHNIQUE: Imaging protocol: Computed tomographic angiography of the neck with contrast. Exam focused on the cervical segments of the vasculature. 3D rendering (Not supervised by radiologist): MIP and/or 3D reconstructed images were created by the technologist. Radiation optimization: All CT scans at this facility use at least one of these dose optimization techniques: automated exposure control; mA and/or kV adjustment per patient size (includes targeted exams where dose is matched to clinical indication); or iterative reconstruction. Contrast material: OMNI 350; Contrast volume: 100 ml; Contrast route: INTRAVENOUS (IV); COMPARISON: CT head thrombolytic [id number] 06/02/2024 8:10 PM RADIATION DOSE METRICS: Total DLP (mGy-cm): 457.82 FINDINGS: Right common carotid artery: No stenosis. No dissection or occlusion. Right internal carotid artery: No stenosis of the extracranial segment. No dissection or occlusion. Right external carotid artery: No visible occlusion. Left common carotid artery: No stenosis. No dissection or occlusion. Left internal carotid artery: No stenosis of the extracranial segment. No dissection or occlusion. Left external carotid artery: No visible occlusion. Right vertebral artery: No stenosis. No dissection or occlusion. Left vertebral artery: No stenosis. No dissection or occlusion. Soft tissues: No significant soft tissue swelling. Bones/joints: No acute fracture. CT/CT angio headneck* [id number] IMPRESSION: No acute large vessel occlusion identified. IMPRESSION: No occlusion or significant stenosis. REFERENCES: NASCET CRITERIA. The degree of stenosis in the cervical segment of the internal carotid artery is based on NASCET criteria. Normal is no stenosis. Mild is less than 50% stenosis. Moderate is 50-69% stenosis. Severe is 70% to 99% stenosis. Total occlusion is no detectable patent lumen.
--- NOTE | 2024-06-02 20:05 | W.ED.NEUROSD ---
HPI - Neuro Symptoms/Deficit General: Chief Complaint: Neuro Symptoms/Deficit Stated Complaint: CP left arm numb left leg going Time Seen by Provider: 06/02/24 19:59 History of Present Illness: 44-year-old female with history of complex migraine, functional neurologic disorder presents with chest discomfort on and off for the last 3 to 4 days or so. She has also had a headache, migrainous headache, for the last 3 to 4 days. Chest pain became worse while sitting watching TV earlier in the evening she experiences left-sided chest pain that is now constant. Some mild shortness of breath with it. Some nausea. No vomiting. She states that while her head ache feels improved, about 30 minutes prior to arrival, she began to get left-sided weakness with left-sided paresthesia to the upper greater than lower extremity. No language symptoms. No definite facial symptoms. No symptoms to her trunk. No seizure activity. Related Data Home Medications Medication Instructions Recorded Confirmed albuterol sulfate 90 mcg/actuation 2 inh inhalation Q6H PRN Shortness 07/19/19 04/19/24 breath activated powder inhaler Of Breath isosorbide mononitrate 60 mg 120 mg PO QAM@0600 07/19/19 04/19/24 tablet,extended release 24 hr loratadine 10 mg tablet 10 mg PO DAILY@0600 07/19/19 04/19/24 aripiprazole 2 mg tablet (Abilify) 4 mg PO BEDTIME@2200 04/17/20 04/19/24 acetaminophen 500 mg tablet 500 mg PO BID PRN Pain 06/11/20 04/19/24 fluticasone propionate 50 2 spray intranasal BID@0600,2200 06/11/20 04/19/24 mcg/actuation nasal spray,suspension omeprazole 40 mg capsule,delayed 40 mg PO DAILY@0600 06/11/20 04/19/24 release atorvastatin 20 mg tablet 20 mg PO QPM 03/19/23 04/19/24 epinephrine 0.3 mg/0.3 mL See Rx Instructions .Route .COMPLEX 03/19/23 04/19/24 injection, auto-injector levothyroxine 75 mcg tablet 75 mcg PO DAILY 03/19/23 04/19/24 metoprolol succinate 25 mg 25 mg PO DAILY 03/19/23 04/19/24 tablet,extended release 24 hr nitroglycerin 0.4 mg sublingual 0.4 mg sublingual Q5M PRN Chest 03/19/23 04/19/24 tablet (Nitrostat) Pain onabotulinumtoxinA 100 unit 155 unit SUBCUT .EVERY 3 MONTHS 03/19/23 04/19/24 solution for injection (Botox) topiramate 100 mg tablet 100 mg PO DAILY@06 03/19/23 04/19/24 trazodone 50 mg tablet 50 mg PO BEDTIME 03/19/23 04/19/24 venlafaxine 150 mg 150 mg PO QAM 03/19/23 04/19/24 capsule,extended release 24 hr venlafaxine 75 mg capsule,extended 75 mg PO QAM 03/19/23 04/19/24 release 24 hr rimegepant 75 mg disintegrating 75 mg PO PRN PRN Migraine Headache 07/07/23 04/19/24 tablet (Nurtec ODT) dulaglutide 3 mg/0.5 mL 3 mg SUBCUT Q7D 11/25/23 04/19/24 subcutaneous pen injector ([facility]) Previous Rx's Medication Instructions Recorded ASO to right ankle #1 ea 12/28/21 Spectrum AFO to the left #1 ea 08/06/22 AFO to right #1 ea 11/02/22 Cam Boot to the Right #1 ea 12/30/22 ASO to left #2 ea 01/14/23 Hinged Knee Brace #1 ea 12/06/23 Bone Growth Stimulator #1 ea 12/09/23 ondansetron 8 mg disintegrating 8 mg PO Q8H PRN nausea and 01/21/24 tablet vomiting 5 days #15 tabs tizanidine 4 mg capsule 4 mg PO TID PRN muscle spasticity 05/16/24 14 days #42 caps hydrocodone 5 mg-acetaminophen 325 1 - 2 tab PO .Q4-6H PRN pain 7 05/24/24 mg tablet days #40 tabs Allergies Allergy/AdvReac Type Severity Reaction Status Date / Time adhesive tape Allergy ALGY-Rash Verified 06/02/24 20:04 aspirin Allergy ALGY-Anaphy Verified 06/02/24 20:04 laxis carbamazepine Allergy ADR-Dizzine Verified 06/02/24 20:04 ss gabapentin Allergy ALGY-Hives Verified 06/02/24 20:04 ibuprofen Allergy Unknown Verified 06/02/24 20:04 linaclotide [From Linzess] Allergy Unknown Verified 06/02/24 20:04 metformin Allergy Verified 06/02/24 20:04 naproxen Allergy Verified 06/02/24 20:04 [facility] ED PFSH: Medical History Cavernous angioma Urinary hesitancy Stress incontinence Gross hematuria Functional neurological symptom disorder with attacks or seizures Surgical History History of hysterectomy Social History Smoking and tobacco/nicotine status: never used tobacco/nicotine Alcohol intake: never Substance/Drug Use: never Marital status: Current occupational status: unemployed and disabled NIH stroke score NIHSS: Level Of Consciousness - 1a: 0 Level Of Consciousness Questions - 1b: Both Correct Level Of Consciousness Commands - 1c: Both Correct Best Gaze - 2: Normal Visual Umrphy - 3: No Visual Loss Facial Palsy - 4: Normal Motor Arm Right - 5: No Drift Motor Arm Left - 5: No Effort Against [place] Motor Leg Right - 6: No Drift Motor Leg Left - 6: No Effort Against [place] Limb Ataxia - 7: Present In Two Limbs Sensory - 8: Severe To Total Loss Best Language - 9: No Aphasia Dysarthia - 10: Normal Extinction And Inattention - 11: 0 Score: Total Score: 10 Physical Exam Const: COMMON NORMALS: no acute distress GENERAL APPEARANCE: cooperative; not ill appearing and not frail appearing HENMT: COMMON NORMALS: normocephalic, atraumatic and Normal external nose present HEAD & SCALP: normocephalic and atraumatic FACE & SINUS: normal facial exam and face symmetric NOSE: Normal external nose present Eye: COMMON NORMALS: Equal, round and reactive pupils present and EOMs intact bilaterally PUPIL: Yes Equal, round and reactive pupils present Neck/C-Spine: GENERAL: Yes trachea midline Chest: CHEST: Yes Symmetrical chest wall rise Resp: COMMON NORMALS: normal respiratory effort, No retractions, No use of accessory muscles and clear to auscultation bilaterally AUSCULTATION: clear to auscultation bilaterally Cardio: COMMON NORMALS: regular rate and regular rhythm RATE: regular rate RHYTHM: regular rhythm GI: COMMON NORMALS: Normal to inspection, nondistended, normoactive bowel sounds present Extremity: COMMON NORMALS: no pedal edema Neuro: THUY COMA SCALE: document GCS findings [place] coma scale eye opening: Spontaneous Thuy coma scale verbal response: Orientated [place] coma scale motor response: Obey commands [place] coma scale total score: 15 SENSORY EXAM: Yes extremities (intact) Psych: COMMON NORMALS: speech normal SPEECH: Yes normal speech Skin: COMMON NORMALS: no rashes or lesions noted GENERAL SKIN EXAM: no rashes or lesions noted Course Vital Signs: Vital signs: Vital Signs Temperature 98.0 F 06/02/24 19:47 Pulse Rate 67 06/02/24 23:15 Respiratory Rate 20 H 06/02/24 21:13 Blood Pressure 139/87 06/02/24 23:15 Pulse Oximetry 98 06/02/24 23:15 Oxygen Delivery Me thod Room Air 06/02/24 21:13 MDM - Neuro Symptoms/Deficit Medical Decision Making Because of acute onset of symptoms, and nature of symptoms, stroke alert was called after my evaluation of the patient initially. She went to CAT scan, which showed no acute finding. CTA of the head and neck is pending. Neurology from [facility] was consulted via telestroke protocol. He evaluated the patient, and we both agree that while she does have significant and concerning neurological symptoms, she does not appear to be have any acute ischemic stroke at this point. He does not recommend thrombolytics. He does recommend further evaluation as indicated by neurological symptoms. Patient was given 500 mg of IV Depacon, morphine and Zofran for chest discomfort. Symptoms are resolved. She has walked to the bathroom. She has no residual left-sided weakness at all. No paresthesia. Her headache is improved. Suspect this is a complex migraine with neurological features. With resolution of her symptoms, the patient would like to go home. She was offered observation, but believes she will be fine going home. She knows to return for any return of her symptoms. Lab Data 06/02/24 20:05 06/02/24 20:[address] 06/02/24 19:59 IMPRESSION: 1. No acute intracranial abnormality. 2. Hyperdense lesion left frontal lobe measuring 1.1 cm is unchanged consistent with known cavernoma. ASSESSMENT: ASPECTS ([place] Stroke Program Early CT Score) is 10. Head/Neck CTA 06/02/24 20:04 IMPRESSION: No acute large vessel occlusion identified. IMPRESSION: No occlusion or significant stenosis. REFERENCES: NASCET CRITERIA. The degree of stenosis in the cervical segment of the internal carotid artery is based on NASCET criteria. Normal is no stenosis. Mild is less than 50% stenosis. Moderate is 50-69% stenosis. Severe is 70% to 99% stenosis. Total occlusion is no detectable patent lumen. Laboratory Results WBC 8.59 10^3/uL (3.29-11.43) 06/02/24 20:05 RBC 4.74 10^6/uL (3.85-5.65) 06/02/24 20:05 Hgb 13.50 g/dL (11.27-16.99) 06/02/24 20:05 Hct 41.6 % (36-47) 06/02/24 20:05 MCV 87.8 fl (85-98) 06/02/24 20:05 MCH 28.5 pg (27-33) 06/02/24 20:05 MCHC 32.5 g/dL (30-55) 06/02/24 20:05 RDW 15.6 % (12.1-15.1) H 06/02/24 20:05 Plt Count 175 10^3/cmm (157-399) 06/02/24 20:05 MPV 11.6 fL (7.4-10.4) H 06/02/24 20:05 Neut % (Auto) 62.4 % 06/02/24 20:05 Lymph % (Auto) 25.5 % 06/02/24 20:05 [place] % (Auto) 5.0 % 06/02/24 20:05 Eos % (Auto) 6.1 % 06/02/24 20:05 Baso % (Auto) 0.7 % 06/02/24 20:05 Neut # (Auto) 5.36 10^3/uL (1.8-7.7) 06/02/24 20:05 Lymph # (Auto) 2.2 10^3/uL (0.8-4.8) 06/02/24 20:05 [place] # (Auto) 0.4 10^3/uL (0.2-0.9) 06/02/24 20:05 Eos # (Auto) 0.5 10^3/uL (0.0-0.8) 06/02/24 20:05 Baso # (Auto) 0.1 10^3/uL (0.0-0.1) 06/02/24 20:05 Nucleated RBC % (auto) 0 % 06/02/24 20:05 Nucleated RBCs # 0.0 /100WBC 06/02/24 20:05 PT 11.80 SECONDS (12.1-14.9) L 06/02/24 20:05 INR 0.85 (0.8-1.2) 06/02/24 20:05 APTT 29.2 SECONDS (23.9-36.7) 06/02/24 20:05 Sodium 141 mmol/L (136-145) 06/02/24 20:05 Potassium 4.1 mmol/L (3.5-5.1) 06/02/24 20:05 Chloride 106 mmol/L (98-107) 06/02/24 20:05 Carbon Dioxide 24 mmol/L (22-29) 06/02/24 20:05 Anion Gap 15.1 (5-19) 06/02/24 20:05 BUN 10 mg/dL (6-20) 06/02/24 20:05 Creatinine 0.6 mg/dL (0.5-0.9) 06/02/24 20:05 GFR Calculation 107.6 mL/min (90-130) 06/02/24 20:05 Glucose 121 mg/dL (65-115) H 06/02/24 20:05 Calculated Osmolality 292 mOsm/kg (285-295) 06/02/24 20:05 Calcium 9.2 mg/dL (8.5-10.5) 06/02/24 20:05 Total Bilirubin 0.2 mg/dL (0.15-1.2) 06/02/24 20:05 AST 10 U/L (0-32) 06/02/24 20:05 ALT 9 U/L (0-33) 06/02/24 20:05 Alkaline Phosphatase 120 U/L (35-105) H 06/02/24 20:05 Troponin T Baseline 9 ng/L (0-10) 06/02/24 20:05 Troponin T 120 Minute 8.44 ng/L (0-10) 06/02/24 21:55 Delta Troponin T -0.56 ABS# (0-10) L 06/02/24 21:55 Total Protein 6.0 g/dL (6.6-8.7) L 06/02/24 20:05 Albumin 4.3 g/dL (3.5-5.2) 06/02/24 20:05 Globulin 1.7 g/dL (1.3-4.6) 06/02/24 20:05 All radiology interpretation(s) finalized by discharge Discharge Plan Discharge Patient Disposition: Home Clinical Impression: Complicated migraine Condition: Stable Prescriptions: No Action isosorbide mononitrate 60 mg tablet extended release 24 hr 120 mg PO QAM@0600 loratadine 10 mg tablet 10 mg PO DAILY@0600 albuterol sulfate 90 mcg/actuation aerosol powdr breath activated 2 inh INHALATION Q6H PRN (Reason: Shortness Of Breath) (DME) AFO to right See Rx Instructions .Route .MEDSUPPLY Qty: 1 0RF Rx Instructions: As directed JOANN&O Nurtec ODT 75 mg tablet,disintegrating 75 mg PO PRN PRN (Reason: Migraine Headache) (DME) Hinged Knee Brace See Rx Instructions .Route .MEDSUPPLY Qty: 1 0RF Rx Instructions: As directed ondansetron 8 mg tablet,disintegrating 8 mg PO Q8H PRN (Reason: nausea and vomiting) 5 Days Qty: 15 0RF (DME) ASO to right ankle See Rx Instructions .Route .MEDSUPPLY Qty: 1 0RF Rx Instructions: As directed (DME) Spectrum AFO to the left See Rx Instructions .Route .MEDSUPPLY Qty: 1 0RF Rx Instructions: As directed by JOANN&O (DME) ASO to left See Rx Instructions .Route .MEDSUPPLY Qty: 2 0RF Rx Instructions: As directed Trulicity 3 mg/0.5 mL pen injector 3 mg SUBCUT Q7D (DME) Cam Boot to the Right See Rx Instructions .Route .MEDSUPPLY Qty: 1 0RF Rx Instructions: As directed (DME) Bone Growth Stimulator See Rx Instructions .Route .MEDSUPPLY Qty: 1 0RF Rx Instructions: As directed tizanidine 4 mg capsule 4 mg PO TID MDD 3 PRN (Reason: muscle spasticity) 14 Days Qty: 42 0RF hydrocodone-acetaminophen 5-325 mg tablet 1 - 2 tab PO .Q4-6H PRN (Reason: pain) 7 Days Qty: 40 0RF aripiprazole [Abilify] 2 mg Tablet 4 mg PO BEDTIME@2200 omeprazole 40 mg capsule,delayed release(DR/EC) 40 mg PO DAILY@0600 acetaminophen 500 mg tablet 500 mg PO BID PRN (Reason: Pain) fluticasone propionate 50 mcg/actuation spray,suspension 2 spray INTRANASAL BID@0600,2200 venlafaxine 75 mg capsule,extended release 24hr 75 mg PO QAM atorvastatin 20 mg tablet 20 mg PO QPM trazodone 50 mg tablet 50 mg PO BEDTIME nitroglycerin [Nitrostat] 0.4 mg Tablet, Sublingual 0.4 mg SUBLINGUAL Q5M PRN (Reason: Chest Pain) Rx Instructions: do not exceed 3 doses per episode metoprolol succinate 25 mg tablet extended release 24 hr 25 mg PO DAILY epinephrine 0.3 mg/0.3 mL auto-injector See Rx Instructions .ROUTE .COMPLEX Rx Instructions: INJECT 0.3MG IN THE MUSCLE 1 TIME DIRECTED topiramate 100 mg tablet 100 mg PO DAILY@06 levothyroxine 75 mcg tablet 75 mcg PO DAILY Botox 100 unit recon soln 155 unit SUBCUT .EVERY 3 MONTHS venlafaxine 150 mg capsule,extended release 24hr 150 mg PO QAM Discharge Orders: Discharge ED (Routine); Ordered 06/02/24 Ordered By: Carrillo Plunkett Referrals: Joseline Thompson MD [Primary Care Provider] - 4-7 days Patient Instructions: Migraine Headache (ED), Weakness (ED), Opioid Safety, Pain Management Activity Restrictions/Additional Instructions: Return for any return of weakness, numbness or tingling, headache, chest discomfort, any other concerning symptoms. Call your doctor tomorrow for follow-up appointment. Coding Level of Care Code ED Airport Attendant for Anju Stinson
[2024-06-02] MEDS: iohexol 350 mg/mL 500 mL Btl (per mL) IV (20:15)
[2024-06-02 20:27] LABS: Basophils # 0.1 10^3/uL (0.0-0.1); Basophils % 0.7 %; Eosinophils # 0.5 10^3/uL (0.0-0.8); Eosinophils % 6.1 %; Hematocrit 41.6 % (36-47); Lymphocytes # 2.2 10^3/uL (0.8-4.8); Lymphocytes % 25.5 %; Mean Corpuscular HGB Conc 32.5 g/dL (30-55); Mean Corpuscular Hemoglobin 28.5 pg (27-33); Mean Corpuscular Volume 87.8 fl (85-98); Mean Platelet Volume 11.6 fL (7.4-10.4); Monocytes # 0.4 10^3/uL (0.2-0.9); Neutrophils # 5.36 10^3/uL (1.8-7.7); Neutrophils % 62.4 %; Nucleated Red Blood Cells % 0 %; Platelet Count 175 10^3/cmm (157-399); Red Blood Count 4.74 10^6/uL (3.85-5.65); Red Cell Distribution Width 15.6 % (12.1-15.1); White Blood Count 8.59 10^3/uL (3.29-11.43)
[2024-06-02 20:33] LABS: INR 0.85 (0.8-1.2)
[2024-06-02 20:34] LABS: Partial Thromboplastin Time 29.2 SECONDS (23.9-36.7)
[2024-06-02 20:39] LABS: Troponin(5th) Baseline 9 ng/L (0-10)
[2024-06-02 20:42] LABS: Alanine Aminotransferase 9 U/L (0-33); Albumin Level 4.3 g/dL (3.5-5.2); Alkaline Phosphatase 120 U/L (35-105); Anion Gap 15.1 (5-19); Aspartate Amino Transferase 10 U/L (0-32); Blood Urea Nitrogen 10 mg/dL (6-20); Calcium 9.2 mg/dL (8.5-10.5); Carbon Dioxide 24 mmol/L (22-29); Chloride 106 mmol/L (98-107); Creatinine Clr Calc Pharmacy 133.1149; Globulin 1.7 g/dL (1.3-4.6); Glomerular Filtration Rate 107.6 mL/min (90-130); Glucose 121 mg/dL (65-115); Osmolality Calculated 292 mOsm/kg (285-295); Potassium 4.1 mmol/L (3.5-5.1); Sodium 141 mmol/L (136-145); Total Bilirubin 0.2 mg/dL (0.15-1.2)
[2024-06-02] MEDS: ondansetron 2 mg/ML SDV 2 mL 4 MG IVP (21:07)
[2024-06-02] MEDS: morphine 4 mg/mL SDV 1 mL IVP (21:08)
[2024-06-02] MEDS: valproic acid inj 500 MG in sodium chloride 0.9% 50 ML 55 MG IV (21:08)
[2024-06-02 21:13] VITALS: BP 144/89; PULSE 82; RESP 20; O2SAT 93
--- NOTE | 2024-06-02 22:00 | ECG_ITS ---
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 Measurements Intervals [place] Rate: 69 P: 16 AK: 173 QRS: 20 QRSD: 97 T: 25 QT: 379 QTc: 407 Interpretive Statements SINUS RHYTHM POSSIBLE ANTERIOR MYOCARDIAL INFARCTION , PROBABLY OLD [30 ms Q WAVE IN V3/V4, OR R < 0.2 mV IN V4] Compared to ECG 06/02/2024 19:43:16 No significant changes Electronically Signed On 06-03-2024 19:02:44 [employer] by Peyman Cruz M.D. [email or web address]
[2024-06-02 22:17] LABS: Troponin 5 2HR 8.44 ng/L (0-10)
[2024-06-02 22:18] LABS: Troponin 5 2HR Delta -0.56 ABS# (0-10)
[2024-06-02 23:15] VITALS: BP 139/87; PULSE 67; O2SAT 98
== END 2024-06-02 23:16 | disposition home or self-care (01) ==
PROVIDERS: Emergency Provider Emergency Medicine; PCP Family Medicine
DX: G43.109 Migraine with aura, not intractable, without status migrainosus (principal)
CPT/HCPCS: 36415; 70450; 70496; 70498; 80053; 84484; 85025; 85610; 85730; 93005; 96374; 96375; 99285; J2270; J2405; J3490

== ENCOUNTER → 2024-06-05 09:16 | Outpatient (BNVA) | payer MEDICAID, SELFPAY | PROVIDERS: PCP Family Medicine; Visit Provider Physician Assistant | DX: M17.0 Bilateral primary osteoarthritis of knee (principal) | CPT/HCPCS: 73560; 73565 ==

== ENCOUNTER 2024-06-05 10:06 | Oncology outpatient (recurring) (ONCR) | payer MEDICAID, SELFPAY ==
[2024-06-05 10:32] VITALS: BP 110/63; PULSE 86; RESP 17; TEMP 37.1; O2SAT 96
[2024-06-05] MEDS: ondansetron 2 mg/ML SDV 2 mL 4 MG IVP (10:37)
[2024-06-05] MEDS: diphenhydrAMINE 50 mg/mL SDV 1mL 25 MG IVP (10:39)
[2024-06-05] MEDS: dihydroergotamine 1 mg/mL Inj 0.5 MG IVP (11:07)
--- NOTE | 2024-06-05 11:57 | PC.NURSE ---
Patient relates that her pain has gone from a 10 to 0 after one dose of DHE. Patient is requesting to be discharged.
[2024-06-05 12:03] VITALS: BP 122/80; PULSE 63; RESP 16; TEMP 36.4; O2SAT 99
== END 2024-07-03 23:59 | disposition home or self-care (01) ==
PROVIDERS: PCP Family Medicine; Visit Provider Specialist
DX: G43.711 Chronic migraine without aura, intractable, with status migrainosus (principal); Z79.899 Other long term (current) drug therapy
CPT/HCPCS: 20610; 96374; 96375; 99213; J1110; J1200; J2405; J3301

== ENCOUNTER 2024-06-09 13:20 | Emergency (ER) | payer MEDICAID, SELFPAY ==
[2024-06-09 13:26] VITALS: BP 177/108; PULSE 68; RESP 17; TEMP 37.2; O2SAT 99; BMI 40.7
--- NOTE | 2024-06-09 13:33 | CTR_ITS ---
PROCEDURE INFORMATION: Exam: CT Head Without Contrast Exam date and time: 06/09/2024 1:52 PM Age: 44 years old Clinical indication: Injury or trauma; Other: Table hit head; Blunt trauma (contusions or hematomas); Additional info: Head injury. History of left cavernous malformation. TECHNIQUE: Imaging protocol: Computed tomography of the head without contrast. Radiation optimization: All CT scans at this facility use at least one of these dose optimization techniques: automated exposure control; mA and/or kV adjustment per patient size (includes targeted exams where dose is matched to clinical indication); or iterative reconstruction. COMPARISON: CT angio headneck* [id number] 06/02/2024 8:14 PM RADIATION DOSE METRICS: Total DLP (mGy-cm): 1019.98 FINDINGS: Brain: Hyperdense lesion in the left frontal lobe measures 10 mm x 11 mm in the transverse/AP dimensions, unchanged from the prior CT scan. No evidence for large acute ischemic infarction. Please note acute ischemia can be occult by head CT. No evidence for acute intracranial hemorrhage. Cerebral ventricles: No ventriculomegaly. Paranasal sinuses: Visualized sinuses are unremarkable. No fluid levels. Mastoid air cells: Visualized mastoid air cells are well aerated. Bones: Unremarkable. No acute fracture. Soft tissues: Unremarkable. CT/CT head wo con* [id number] IMPRESSION: Stable 11 mm hyperdense lesion in the left frontal lobe consistent with this patient's history of known left cavernous malformation. No acute intracranial findings.
--- NOTE | 2024-06-09 13:41 | W.ED.HEATRA ---
HPI - Head Injury General: Chief complaint: Head Injury Stated complaint: Head injury, lupe Time Seen by Provider: 06/09/24 13:29 Source: patient Mode of arrival: ambulatory Limitations: no limitations History of Present Illness: 44-year-old female who states that a folding table set off the fridge and hit her in the left forehead roughly an hour ago. Has been states that she started having a shaking episode of possible seizure and has had a headache since then. States she has a headache over her forehead currently she rates a 5 out of 10 denies any vomiting denies any neck pain denies any other injuries Associated symptoms: Deny nausea, neck pain or vomiting Related Data Home Medications Medication Instructions Recorded Confirmed albuterol sulfate 90 mcg/actuation 2 inh inhalation Q6H PRN Shortness 07/19/19 06/05/24 breath activated powder inhaler Of Breath isosorbide mononitrate 60 mg 120 mg PO QAM@0600 07/19/19 06/05/24 tablet,extended release 24 hr loratadine 10 mg tablet 10 mg PO DAILY@0600 07/19/19 06/05/24 aripiprazole 2 mg tablet (Abilify) 4 mg PO BEDTIME@2200 04/17/20 06/05/24 acetaminophen 500 mg tablet 500 mg PO BID PRN Pain 06/11/20 06/05/24 fluticasone propionate 50 2 spray intranasal BID@0600,2200 06/11/20 06/05/24 mcg/actuation nasal spray,suspension omeprazole 40 mg capsule,delayed 40 mg PO DAILY@0600 06/11/20 06/05/24 release atorvastatin 20 mg tablet 20 mg PO QPM 03/19/23 06/05/24 epinephrine 0.3 mg/0.3 mL See Rx Instructions .Route .COMPLEX 03/19/23 06/05/24 injection, auto-injector levothyroxine 75 mcg tablet 75 mcg PO DAILY 03/19/23 06/05/24 metoprolol succinate 25 mg 25 mg PO DAILY 03/19/23 06/05/24 tablet,extended release 24 hr nitroglycerin 0.4 mg sublingual 0.4 mg sublingual Q5M PRN Chest 03/19/23 06/05/24 tablet (Nitrostat) Pain onabotulinumtoxinA 100 unit 155 unit SUBCUT .EVERY 3 MONTHS 03/19/23 06/05/24 solution for injection (Botox) topiramate 100 mg tablet 100 mg PO DAILY@06 03/19/23 06/05/24 trazodone 50 mg tablet 50 mg PO BEDTIME 03/19/23 06/05/24 venlafaxine 150 mg 150 mg PO QAM 03/19/23 06/05/24 capsule,extended release 24 hr venlafaxine 75 mg capsule,extended 75 mg PO QAM 03/19/23 06/05/24 release 24 hr rimegepant 75 mg disintegrating 75 mg PO PRN PRN Migraine Headache 07/07/23 06/05/24 [facility] dulaglutide 3 mg/0.5 mL 3 mg SUBCUT Q7D 11/25/23 06/05/24 subcutaneous pen injector ([facility]) Previous Rx's Medication Instructions Recorded ASO to right ankle #1 ea 12/28/21 Spectrum AFO to the left #1 ea 08/06/22 AFO to right #1 ea 11/02/22 Cam Boot to the Right #1 ea 12/30/22 ASO to left #2 ea 01/14/23 Hinged Knee Brace #1 ea 12/06/23 Bone Growth Stimulator #1 ea 12/09/23 ondansetron 8 mg disintegrating 8 mg PO Q8H PRN nausea and 01/21/24 tablet vomiting 5 days #15 tabs tizanidine 4 mg capsule 4 mg PO TID PRN muscle spasticity 05/16/24 14 days #42 caps hydrocodone 5 mg-acetaminophen 325 1 - 2 tab PO .Q4-6H PRN pain 7 06/04/24 mg tablet days #40 tabs Allergies Allergy/AdvReac Type Severity Reaction Status Date / Time adhesive tape Allergy ALGY-Rash Verified 06/05/24 09:23 aspirin Allergy ALGY-Anaphy Verified 06/05/24 09:23 laxis carbamazepine Allergy ADR-Dizzine Verified 06/05/24 09:23 ss gabapentin Allergy ALGY-Hives Verified 06/05/24 09:23 ibuprofen Allergy Unknown Verified 06/05/24 09:23 linaclotide [From Linzess] Allergy Unknown Verified 06/05/24 09:23 metformin Allergy Verified 06/05/24 09:23 naproxen Allergy Verified 06/05/24 09:23 Review of Systems Const: Denies: fever(s), chills, body aches or change in appetite Eyes: Denies: blurry vision or eye discomfort ENMT: Denies: throat pain or dental pain Card: Denies: chest pain Resp: Denies: dyspnea GI: Denies: abdominal pain, nausea, vomiting or diarrhea Musc: Denies: neck pain or back pain Skin/Breast: Denies: rash Neuro: Reports: headache(s) PFSH ED PFSH: Medical History Cavernous angioma Urinary hesitancy Stress incontinence Gross hematuria Functional neurological symptom disorder with attacks or seizures Surgical History History of hysterectomy Social History Smoking and tobacco/nicotine status: never used tobacco/nicotine Alcohol intake: never Substance/Drug Use: never Marital status: Current occupational status: unemployed and disabled Physical Exam Const: COMMON NORMALS: no acute distress, patient oriented x3 and healthy appearing HENMT: COMMON NORMALS: normocephalic HEAD & SCALP: normocephalic OTHER: Tenderness to left forehead Eye: COMMON NORMALS: Equal, round and reactive pupils present and EOMs intact bilaterally PUPIL: Yes Equal, round and reactive pupils present Neck/C-Spine: COMMON NORMALS: full ROM and supple Chest: COMMONS NORMALS: normal inspection of the chest Resp: COMMON NORMALS: normal respiratory effort Cardio: COMMON NORMALS: regular rate, regular rhythm and No murmurs present (Cardio) RATE: regular rate RHYTHM: regular rhythm Extremity: COMMON NORMALS: normal to inspection and full ROM Neuro: COMMON NORMALS: patient oriented x3, moves all extremities and no focal motor deficits Psych: COMMON NORMALS: mental status grossly normal, Normal thought process present and cooperative THOUGHT PROCESS: Normal thought process present Skin: COMMON NORMALS: no rashes or lesions noted and no wounds GENERAL SKIN EXAM: no rashes or lesions noted Course Vital Signs: Vital signs: Vital Signs Temperature 99.0 F 06/09/24 13:26 Pulse Rate 68 06/09/24 13:26 Respiratory Rate 17 06/09/24 13:26 Blood Pressure 177/108 06/09/24 13:26 Pulse Oximetry 99 06/09/24 13:26 Oxygen Delivery Me thod Room Air 06/09/24 13:26 MDM - Head Injury Medcial Decision Making Patient presents for closed head injury she is well-appearing here head CT is normal she stable for discharge follow-up with PCP return if worsening. Medical Records I reviewed the patient's medical records. Lab Data Radiology Impressions Head CT 06/09/24 13:33 IMPRESSION: Stable 11 mm hyperdense lesion in the left frontal lobe consistent with this patient's history of known left cavernous malformation. No acute intracranial findings. All radiology interpretation(s) finalized by discharge Discharge Plan Discharge Patient Disposition: Home Clinical Impression: Closed head injury Condition: Stable Prescriptions: No Action isosorbide mononitrate 60 mg tablet extended release 24 hr 120 mg PO QAM@0600 loratadine 10 mg tablet 10 mg PO DAILY@0600 albuterol sulfate 90 mcg/actuation aerosol powdr breath activated 2 inh INHALATION Q6H PRN (Reason: Shortness Of Breath) (DME) AFO to right See Rx Instructions .Route .MEDSUPPLY Qty: 1 0RF Rx Instructions: As directed JOANN&O Nurtec ODT 75 mg tablet,disintegrating 75 mg PO PRN PRN (Reason: Migraine Headache) (DME) Hinged Knee Brace See Rx Instructions .Route .MEDSUPPLY Qty: 1 0RF Rx Instructions: As directed ondansetron 8 mg tablet,disintegrating 8 mg PO Q8H PRN (Reason: nausea and vomiting) 5 Days Qty: 15 0RF (DME) ASO to right ankle See Rx Instructions .Route .MEDSUPPLY Qty: 1 0RF Rx Instructions: As directed (DME) Spectrum AFO to the left See Rx Instructions .Route .MEDSUPPLY Qty: 1 0RF Rx Instructions: As directed by JOANN&O (DME) ASO to left See Rx Instructions .Route .MEDSUPPLY Qty: 2 0RF Rx Instructions: As directed Trulicity 3 mg/0.5 mL pen injector 3 mg SUBCUT Q7D (DME) Cam Boot to the Right See Rx Instructions .Route .MEDSUPPLY Qty: 1 0RF Rx Instructions: As directed (DME) Bone Growth Stimulator See Rx Instructions .Route .MEDSUPPLY Qty: 1 0RF Rx Instructions: As directed tizanidine 4 mg capsule 4 mg PO TID MDD 3 PRN (Reason: muscle spasticity) 14 Days Qty: 42 0RF hydrocodone-acetaminophen 5-325 mg tablet 1 - 2 tab PO .Q4-6H PRN (Reason: pain) 7 Days Qty: 40 0RF aripiprazole [Abilify] 2 mg Tablet 4 mg PO BEDTIME@2200 omeprazole 40 mg capsule,delayed release(DR/EC) 40 mg PO DAILY@0600 acetaminophen 500 mg tablet 500 mg PO BID PRN (Reason: Pain) fluticasone propionate 50 mcg/actuation spray,suspension 2 spray INTRANASAL BID@0600,2200 venlafaxine 75 mg capsule,extended release 24hr 75 mg PO QAM atorvastatin 20 mg tablet 20 mg PO QPM trazodone 50 mg tablet 50 mg PO BEDTIME nitroglycerin [Nitrostat] 0.4 mg Tablet, Sublingual 0.4 mg SUBLINGUAL Q5M PRN (Reason: Chest Pain) Rx Instructions: do not exceed 3 doses per episode metoprolol succinate 25 mg tablet extended release 24 hr 25 mg PO DAILY epinephrine 0.3 mg/0.3 mL auto-injector See Rx Instructions .ROUTE .COMPLEX Rx Instructions: INJECT 0.3MG IN THE MUSCLE 1 TIME DIRECTED topiramate 100 mg tablet 100 mg PO DAILY@06 levothyroxine 75 mcg tablet 75 mcg PO DAILY Botox 100 unit recon soln 155 unit SUBCUT .EVERY 3 MONTHS venlafaxine 150 mg capsule,extended release 24hr 150 mg PO QAM Discharge Orders: Discharge ED (Routine); Ordered 06/09/24 Ordered By: Red Moyer Referrals: Joseline Thompson MD [Primary Care Provider] - 4-7 days Discharge Diet: Advance as tolerated Discharge Activity: Resume usual activity Patient Instructions: Head Injury (ED) Coding Level of Care Code ED Administrative Judge for Anju Stinson
[2024-06-09] MEDS: diphenhydrAMINE 50 mg/mL SDV 1mL IM (14:24)
[2024-06-09] MEDS: metoclopramide 5 mg/mL SDV 2 mL 10 MG IM (14:24)
[2024-06-09 14:51] VITALS: BP 140/92; PULSE 61; O2SAT 95
== END 2024-06-09 14:52 | disposition home or self-care (01) ==
PROVIDERS: Emergency Provider Emergency Medicine; PCP Family Medicine
DX: S09.8XXA Other specified injuries of head, initial encounter (principal); X58.XXXA Exposure to other specified factors, initial encounter
CPT/HCPCS: 70450; 96372; 99284; J1200; J2765

== ENCOUNTER → 2024-06-21 12:49 | Outpatient (BNVA) | payer MEDICAID, SELFPAY | PROVIDERS: PCP Family Medicine; Visit Provider Orthopaedic Surgery | DX: Z98.1 Arthrodesis status (principal) | CPT/HCPCS: 72100; 99213 ==

== ENCOUNTER → 2024-07-20 15:11 | Outpatient (BNVA) | payer MEDICAID, SELFPAY | PROVIDERS: PCP Family Medicine; Visit Provider Specialist | DX: G43.711 Chronic migraine without aura, intractable, with status migrainosus (principal) | CPT/HCPCS: 64615; J0585 ==

== ENCOUNTER 2024-08-10 23:32 | Emergency (ER) | payer MEDICAID, SELFPAY ==
[2024-08-10 23:38] VITALS: BP 119/80; PULSE 96; RESP 20; TEMP 36.4; O2SAT 96; BMI 43.4
[2024-08-11] VITALS (16 sets, daily range): BP systolic 105–129; BP diastolic 57–80; PULSE 72–106; RESP 13–22; O2SAT 94–99
--- NOTE | 2024-08-11 01:19 | XRR_ITS ---
PROCEDURE INFORMATION: Exam: XR Chest Exam date and time: 08/11/2024 1:27 AM Age: 44 years old Clinical indication: Cough and shortness of breath; C/O cough with SOB. ; Additional info: Dyspnea TECHNIQUE: Imaging protocol: Radiologic exam of the chest. Views: 1 view. COMPARISON: CR XR chest 1V portable [id number] 06/22/2021 4:47 PM FINDINGS: Lungs: Unremarkable. No consolidation. Pleural spaces: Unremarkable. No pleural effusion. No pneumothorax. Heart/Mediastinum: Unremarkable. No cardiomegaly. Bones/joints: Unremarkable. XR/XR chest 1V portable [id number] IMPRESSION: No acute findings.
--- NOTE | 2024-08-11 01:19 | W.ED.URI ---
HPI - URI/Sore Throat General: Chief Complaint: Upper Respiratory Infection Stated Complaint: SoB cold dizzy Time Seen by Provider: 08/11/24 01:16 History of Present Illness: Patient presents to the ER with complaints of sharp chest pain worse when she takes a big deep breath and upper abdominal pain cough congestion dizziness. Is been going on for about 4 days and getting worse. Patient denies any fever. Patient says she saw her PCP earlier today and was put on steroids which she is already taken 1 dose. She not getting any better. She says they swabbed her for flu and COVID and they were both negative. Related Data Home Medications ?Medication ?Instructions ?Recorded ?Confirmed albuterol sulfate 90 mcg/actuation 2 inh inhalation Q6H PRN Shortness 07/19/19 07/20/24 breath activated powder inhaler Of Breath isosorbide mononitrate 60 mg 120 mg PO QAM@0600 07/19/19 07/20/24 tablet,extended release 24 hr loratadine 10 mg tablet 10 mg PO DAILY@0600 07/19/19 07/20/24 aripiprazole 2 mg tablet (Abilify) 4 mg PO BEDTIME@2200 04/17/20 07/20/24 acetaminophen 500 mg tablet 500 mg PO BID PRN Pain 06/11/20 07/20/24 fluticasone propionate 50 2 spray intranasal BID@0600,2200 06/11/20 07/20/24 mcg/actuation nasal spray,suspension omeprazole 40 mg capsule,delayed 40 mg PO DAILY@0600 06/11/20 07/20/24 release atorvastatin 20 mg tablet 20 mg PO QPM 03/19/23 07/20/24 epinephrine 0.3 mg/0.3 mL See Rx Instructions .Route .COMPLEX 03/19/23 07/20/24 injection, auto-injector levothyroxine 75 mcg tablet 75 mcg PO DAILY 03/19/23 07/20/24 metoprolol succinate 25 mg 25 mg PO DAILY 03/19/23 07/20/24 tablet,extended release 24 hr nitroglycerin 0.4 mg sublingual 0.4 mg sublingual Q5M PRN Chest 03/19/23 07/20/24 tablet (Nitrostat) Pain onabotulinumtoxinA 100 unit 155 unit SUBCUT .EVERY 3 MONTHS 03/19/23 07/20/24 solution for injection (Botox) topiramate 100 mg tablet 100 mg PO DAILY@06 03/19/23 07/20/24 trazodone 50 mg tablet 50 mg PO BEDTIME 03/19/23 07/20/24 venlafaxine 150 mg 150 mg PO QAM 03/19/23 07/20/24 capsule,extended release 24 hr venlafaxine 75 mg capsule,extended 75 mg PO QAM 03/19/23 07/20/24 release 24 hr rimegepant 75 mg disintegrating 75 mg PO PRN PRN Migraine Headache 07/07/23 07/20/24 tablet (Nurtec ODT) dulaglutide 3 mg/0.5 mL 3 mg SUBCUT Q7D 11/25/23 07/20/24 subcutaneous pen injector ([facility]) Previous Rx's ?Medication ?Instructions ?Recorded ASO to right ankle #1 ea 12/28/21 Spectrum AFO to the left #1 ea 08/06/22 AFO to right #1 ea 11/02/22 Cam Boot to the Right #1 ea 12/30/22 ASO to left #2 ea 01/14/23 Hinged Knee Brace #1 ea 12/06/23 Bone Growth Stimulator #1 ea 12/09/23 ondansetron 8 mg disintegrating 8 mg PO Q8H PRN nausea and 01/21/24 tablet vomiting 5 days #15 tabs tizanidine 4 mg tablet 4 mg PO Q8H PRN muscle spasticity 06/12/24 14 days #42 tabs hydrocodone 5 mg-acetaminophen 325 1 tab PO Q4H PRN pain 30 days #180 07/17/24 mg tablet tabs Allergies Allergy/AdvReac Type Severity Reaction Status Date / Time adhesive tape Allergy ALGY-Rash Verified 08/10/24 23:44 aspirin Allergy ALGY-Anaphy Verified 08/10/24 23:44 laxis carbamazepine Allergy ADR-Dizzine Verified 08/10/24 23:44 ss gabapentin Allergy ALGY-Hives Verified 08/10/24 23:44 ibuprofen Allergy Unknown Verified 08/10/24 23:44 linaclotide (From Linzess) Allergy Unknown Verified 08/10/24 23:44 metformin Allergy Verified 08/10/24 23:44 naproxen Allergy Verified 08/10/24 23:44 Review of Systems General: Reports: 10 or more systems reviewed and unremarkable except in HPI and below PFSH ED PFSH: Medical History Cavernous angioma Urinary hesitancy Stress incontinence Gross hematuria Functional neurological symptom disorder with attacks or seizures Surgical History History of hysterectomy Social History Smoking and tobacco/nicotine status: current every day tobacco/nicotine user (1/2-1 pack a day) Alcohol intake: never Substance/Drug Use: never Marital status: Current occupational status: unemployed and disabled Physical Exam Const: COMMON NORMALS: no acute distress, average body habitus, patient oriented x3, no limitations, healthy appearing, alert and well nourished HENMT: COMMON NORMALS: normocephalic, atraumatic, hearing grossly normal bilaterally, external ears normal and Normal external nose present HEAD & SCALP: normocephalic and atraumatic NOSE: Normal external nose present EXTERNAL EAR: Yes external ears normal Neck/C-Spine: COMMON NORMALS: full ROM, no lymphadenopathy, supple, no meningeal signs and no JVD Chest: COMMONS NORMALS: normal inspection of the chest and normal palpation of entire chest wall Resp: COMMON NORMALS: normal respiratory effort, No retractions, No use of accessory muscles and clear to auscultation bilaterally AUSCULTATION: clear to auscultation bilaterally Cardio: COMMON NORMALS: no JVD, regular rate, regular rhythm, S1 normal heart sound present, S2 normal heart sound present, No gallops present (Cardio), No clicks present (Cardio), No murmurs present (Cardio) and No rub (Cardio) RATE: regular rate RHYTHM: regular rhythm HEART SOUNDS: S1 normal heart sound present and S2 normal heart sound present GI: COMMON NORMALS: Normal to inspection, nondistended, normoactive bowel sounds present, Soft to palpation, non-tender, No hepatosplenomegaly present and no masses PALPATION: Yes Soft to palpation and Yes No hepatosplenomegaly present Neuro: COMMON NORMALS: patient oriented x3 SENSORIUM/ORIENTATION: Yes alert MENINGEAL SIGNS: Yes no meningeal signs Course Vital Signs: Vital signs: Vital Signs Temperature 97.6 F 08/10/24 23:38 Pulse Rate 83 08/11/24 04:00 Respiratory Rate 18 08/11/24 04:00 Blood Pressure 117/75 08/11/24 04:00 Pulse Oximetry 95 08/11/24 04:00 Oxygen Delivery Me thod Room Air 08/10/24 23:38 MDM - URI/Sore Throat Medical Decision Making Chest x-ray showed no acute findings, lab work showed white count 7.6 hemoglobin 13.3 BUN/creatinine 8 and 0.6, COVID flu and RSV negative, patient was given 1 dose of Zofran and 1 dose of Collins. 2-hour troponin is being drawn. Patient does not want a wait till the results. We will call her if any positive results. Patient knows she may have to come back. Medical Records I reviewed the patient's medical records. Lab Data I reviewed the patient's lab results. 08/11/24 01:44 08/11/24 01:44 Radiology Impressions Chest X-Ray 08/11/24 01:19 IMPRESSION: No acute findings. Laboratory Results WBC 7.64 10^3/uL (3.29-11.43) 08/11/24 01:44 RBC 4.62 10^6/uL (3.85-5.65) 08/11/24 01:44 Hgb 13.30 g/dL (11.27-16.99) 08/11/24 01:44 Hct 40.8 % (36-47) 08/11/24 01:44 MCV 88.3 fl (85-98) 08/11/24 01:44 MCH 28.8 pg (27-33) 08/11/24 01:44 MCHC 32.6 g/dL (30-55) 08/11/24 01:44 RDW 14.1 % (12.1-15.1) 08/11/24 01:44 Plt Count 141 10^3/cmm (157-399) L 08/11/24 01:44 MPV 12.5 fL (7.4-10.4) H 08/11/24 01:44 Neut % (Auto) 82.6 % 08/11/24 01:44 Lymph % (Auto) 13.4 % 08/11/24 01:44 [place] % (Auto) 3.4 % 08/11/24 01:44 Eos % (Auto) 0.0 % 08/11/24 01:44 Baso % (Auto) 0.3 % 08/11/24 01:44 Neut # (Auto) 6.32 10^3/uL (1.8-7.7) 08/11/24 01:44 Lymph # (Auto) 1.0 10^3/uL (0.8-4.8) 08/11/24 01:44 [place] # (Auto) 0.3 10^3/uL (0.2-0.9) 08/11/24 01:44 Eos # (Auto) 0.0 10^3/uL (0.0-0.8) 08/11/24 01:44 Baso # (Auto) 0.0 10^3/uL (0.0-0.1) 08/11/24 01:44 Nucleated RBC % (auto) 0 % 08/11/24 01:44 Nucleated RBCs # 0.0 /100WBC 08/11/24 01:44 Sodium 141 mmol/L (136-145) 08/11/24 01:44 Potassium 3.6 mmol/L (3.5-5.1) 08/11/24 01:44 Chloride 104 mmol/L (98-107) 08/11/24 01:44 Carbon Dioxide 23 mmol/L (22-29) 08/11/24 01:44 Anion Gap 17.6 (5-19) 08/11/24 01:44 BUN 8 mg/dL (6-20) 08/11/24 01:44 Creatinine 0.6 mg/dL (0.5-0.9) 08/11/24 01:44 GFR Calculation 107.6 mL/min (90-130) 08/11/24 01:44 Glucose 165 mg/dL (65-115) H 08/11/24 01:44 Calculated Osmolality 294 mOsm/kg (285-295) 08/11/24 01:44 Calcium 9.2 mg/dL (8.5-10.5) 08/11/24 01:44 Total Bilirubin 0.2 mg/dL (0.15-1.2) 08/11/24 01:44 AST 16 U/L (0-32) 08/11/24 01:44 ALT 14 U/L (0-33) 08/11/24 01:44 Alkaline Phosphatase 114 U/L (35-105) H 08/11/24 01:44 Troponin T Baseline < 6 ng/L (0-10) 08/11/24 01:44 Total Protein 6.4 g/dL (6.6-8.7) L 08/11/24 01:44 Albumin 4.3 g/dL (3.5-5.2) 08/11/24 01:44 Globulin 2.1 g/dL (1.3-4.6) 08/11/24 01:44 Coronavirus (PCR) Negative (Negative) 08/11/24 01:12 Influenza A (PCR) Negative (Negative) 08/11/24 01:12 Influenza Type B (PCR) Negative (Negative) 08/11/24 01:12 RSV (PCR) Negative (Negative) 08/11/24 01:12 All radiology interpretation(s) finalized by discharge Discharge Plan Discharge Patient Disposition: Home Clinical Impression: Pleurisy Upper respiratory infection Qualifiers: URI type: unspecified viral URI Qualified Code(s): J06.9 - Acute upper respiratory infection, unspecified Condition: Stable Prescriptions: No Action isosorbide mononitrate 60 mg tablet extended release 24 hr 120 mg PO QAM@0600 loratadine 10 mg tablet 10 mg PO DAILY@0600 albuterol sulfate 90 mcg/actuation aerosol powdr breath activated 2 inh INHALATION Q6H PRN (Reason: Shortness Of Breath) (DME) AFO to right See Rx Instructions .Route .MEDSUPPLY Qty: 1 0RF Rx Instructions: As directed JOANN&Mindy Gilc ODT 75 mg tablet,disintegrating 75 mg PO PRN PRN (Reason: Migraine Headache) (DME) Hinged Knee Brace See Rx Instructions .Route .MEDSUPPLY Qty: 1 0RF Rx Instructions: As directed ondansetron 8 mg tablet,disintegrating 8 mg PO Q8H PRN (Reason: nausea and vomiting) 5 Days Qty: 15 0RF (DME) ASO to right ankle See Rx Instructions .Route .MEDSUPPLY Qty: 1 0RF Rx Instructions: As directed (DME) Spectrum AFO to the left See Rx Instructions .Route .MEDSUPPLY Qty: 1 0RF Rx Instructions: As directed by JOANN&O (DME) ASO to left See Rx Instructions .Route .MEDSUPPLY Qty: 2 0RF Rx Instructions: As directed Trulicity 3 mg/0.5 mL pen injector 3 mg SUBCUT Q7D (DME) Cam Boot to the Right See Rx Instructions .Route .MEDSUPPLY Qty: 1 0RF Rx Instructions: As directed (DME) Bone Growth Stimulator See Rx Instructions .Route .MEDSUPPLY Qty: 1 0RF Rx Instructions: As directed tizanidine 4 mg tablet 4 mg PO Q8H PRN (Reason: muscle spasticity) 14 Days Qty: 42 0RF hydrocodone-acetaminophen 5-325 mg tablet 1 tab PO Q4H MDD 6 PRN (Reason: pain) 30 Days Qty: 180 0RF aripiprazole [Abilify] 2 mg Tablet 4 mg PO BEDTIME@2200 omeprazole 40 mg capsule,delayed release(DR/EC) 40 mg PO DAILY@0600 acetaminophen 500 mg tablet 500 mg PO BID PRN (Reason: Pain) fluticasone propionate 50 mcg/actuation spray,suspension 2 spray INTRANASAL BID@0600,2200 venlafaxine 75 mg capsule,extended release 24hr 75 mg PO QAM atorvastatin 20 mg tablet 20 mg PO QPM trazodone 50 mg tablet 50 mg PO BEDTIME nitroglycerin [Nitrostat] 0.4 mg Tablet, Sublingual 0.4 mg SUBLINGUAL Q5M PRN (Reason: Chest Pain) Rx Instructions: do not exceed 3 doses per episode metoprolol succinate 25 mg tablet extended release 24 hr 25 mg PO DAILY epinephrine 0.3 mg/0.3 mL auto-injector See Rx Instructions .ROUTE .COMPLEX Rx Instructions: INJECT 0.3MG IN THE MUSCLE 1 TIME DIRECTED topiramate 100 mg tablet 100 mg PO DAILY@06 levothyroxine 75 mcg tablet 75 mcg PO DAILY Botox 100 unit recon soln 155 unit SUBCUT .EVERY 3 MONTHS venlafaxine 150 mg capsule,extended release 24hr 150 mg PO QAM Discharge Orders: Discharge ED (Routine); Ordered 08/11/24 Ordered By: Vamshi Jeffrey Referrals: Joseline Thompson MD [Primary Care Provider] - 1 week Patient Instructions: Pleurisy (ED), Viral Syndrome (ED) Activity Restrictions/Additional Instructions: Your chest x-ray was negative, lab work negative, COVID flu and RSV screens negative, it is thought you have a another viral infection causing you to be short of breath and having pleuritic type chest pains. Please continue take [id number] Tylenol and Motrin as needed for pain and fever. Get plenty of rest and push plenty of fluids. Follow-up with your family doctor within the next 7 days for further evaluation and treatment. Print Language: Monegasque Coding Level of Care Code ED 3D Animator for Anju Stinson
--- NOTE | 2024-08-11 01:38 | ECG_ITS ---
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
[2024-08-11 01:57] LABS: Basophils % 0.3 %; Hematocrit 40.8 % (36-47); Lymphocytes % 13.4 %; Mean Corpuscular HGB Conc 32.6 g/dL (30-55); Mean Corpuscular Hemoglobin 28.8 pg (27-33); Mean Corpuscular Volume 88.3 fl (85-98); Mean Platelet Volume 12.5 fL (7.4-10.4); Monocytes # 0.3 10^3/uL (0.2-0.9); Monocytes % 3.4 %; Neutrophils # 6.32 10^3/uL (1.8-7.7); Neutrophils % 82.6 %; Nucleated Red Blood Cells % 0 %; Platelet Count 141 10^3/cmm (157-399); Red Blood Count 4.62 10^6/uL (3.85-5.65); Red Cell Distribution Width 14.1 % (12.1-15.1); White Blood Count 7.64 10^3/uL (3.29-11.43)
[2024-08-11 02:14] LABS: Troponin(5th) Baseline < 6 ng/L (0-10)
[2024-08-11 02:17] LABS: Alanine Aminotransferase 14 U/L (0-33); Albumin Level 4.3 g/dL (3.5-5.2); Alkaline Phosphatase 114 U/L (35-105); Anion Gap 17.6 (5-19); Aspartate Amino Transferase 16 U/L (0-32); Blood Urea Nitrogen 8 mg/dL (6-20); Calcium 9.2 mg/dL (8.5-10.5); Carbon Dioxide 23 mmol/L (22-29); Chloride 104 mmol/L (98-107); Creatinine Clr Calc Pharmacy 130.2266; Globulin 2.1 g/dL (1.3-4.6); Glomerular Filtration Rate 107.6 mL/min (90-130); Glucose 165 mg/dL (65-115); Osmolality Calculated 294 mOsm/kg (285-295); Potassium 3.6 mmol/L (3.5-5.1); Sodium 141 mmol/L (136-145); Total Bilirubin 0.2 mg/dL (0.15-1.2); Total Protein 6.4 g/dL (6.6-8.7)
[2024-08-11 02:35] LABS: Covid PCR NEGATIVE (Negative); Influenza A NEGATIVE (Negative); Influenza B NEGATIVE (Negative); Respiratory Syncytial Virus Ce NEGATIVE (Negative)
[2024-08-11] MEDS: ondansetron 2 mg/ML SDV 2 mL 4 MG IVP (03:25)
[2024-08-11] MEDS: HYDROcodone-acetaminophen 5-325 mg Tablet 1 TAB PO (03:33)
[2024-08-11 05:14] LABS: Troponin 5 2HR 7.37 ng/L (0-10); Troponin 5 2HR Delta 1.37001 ABS# (0-10)
== END 2024-08-11 04:59 | disposition home or self-care (01) ==
PROVIDERS: Emergency Provider Emergency Medicine; PCP Family Medicine
DX: R09.1 Pleurisy (principal); J06.9 Acute upper respiratory infection, unspecified; Z11.52 Encounter for screening for COVID-19; F17.210 Nicotine dependence, cigarettes, uncomplicated
CPT/HCPCS: 71045; 80053; 84484; 85025; 87637; 93005; 96374; 99285; J2405

== ENCOUNTER 2024-08-14 11:05 | Emergency (ER) | payer MEDICAID, SELFPAY ==
[2024-08-14 11:31] VITALS: BP 137/100; PULSE 103; TEMP 36.6; O2SAT 96; BMI 43.4
--- NOTE | 2024-08-14 12:49 | W.ED.HA ---
HPI - Headache General: Chief Complaint: Headache Stated Complaint: headache, neck pain Time Seen by Provider: 08/14/24 11:23 Source: patient Mode of arrival: ambulatory Limitations: no limitations History of Present Illness: Patient is a 44-year-old female who presents to ED today with complaint of migraine headache. She states she has a longstanding history of migraine headaches and states her headache today is identical to previous migraines. She does see Dr. Weston. She does receive Botox injections. She also takes Nurtec and Sumatriptan. She is rating her pain currently 10/10. Headache started yesterday evening. MD elicited complaint: migraine Pertinent past history: migraines Onset (ago): day(s) Severity: severe Pain scale (0-10): 10 Exacerbating factors: light and noise Relieving factors: nothing Associated symptoms: Deny chest pain, fever(s) or malaise Treatments prior to arrival: acetaminophen Related Data Home Medications ?Medication ?Instructions ?Recorded ?Confirmed albuterol sulfate 90 mcg/actuation 2 inh inhalation Q6H PRN Shortness 07/19/19 07/20/24 breath activated powder inhaler Of Breath isosorbide mononitrate 60 mg 120 mg PO QAM@0600 07/19/19 07/20/24 tablet,extended release 24 hr loratadine 10 mg tablet 10 mg PO DAILY@0600 07/19/19 07/20/24 aripiprazole 2 mg tablet (Abilify) 4 mg PO BEDTIME@2200 04/17/20 07/20/24 acetaminophen 500 mg tablet 500 mg PO BID PRN Pain 06/11/20 07/20/24 fluticasone propionate 50 2 spray intranasal BID@0600,2200 06/11/20 07/20/24 mcg/actuation nasal spray,suspension omeprazole 40 mg capsule,delayed 40 mg PO DAILY@0600 06/11/20 07/20/24 release atorvastatin 20 mg tablet 20 mg PO QPM 03/19/23 07/20/24 epinephrine 0.3 mg/0.3 mL See Rx Instructions .Route .COMPLEX 03/19/23 07/20/24 injection, auto-injector levothyroxine 75 mcg tablet 75 mcg PO DAILY 03/19/23 07/20/24 metoprolol succinate 25 mg 25 mg PO DAILY 03/19/23 07/20/24 tablet,extended release 24 hr nitroglycerin 0.4 mg sublingual 0.4 mg sublingual Q5M PRN Chest 03/19/23 07/20/24 tablet (Nitrostat) Pain onabotulinumtoxinA 100 unit 155 unit SUBCUT .EVERY 3 MONTHS 03/19/23 07/20/24 solution for injection (Botox) topiramate 100 mg tablet 100 mg PO DAILY@06 03/19/23 07/20/24 trazodone 50 mg tablet 50 mg PO BEDTIME 03/19/23 07/20/24 venlafaxine 150 mg 150 mg PO QAM 03/19/23 07/20/24 capsule,extended release 24 hr venlafaxine 75 mg capsule,extended 75 mg PO QAM 03/19/23 07/20/24 release 24 hr rimegepant 75 mg disintegrating 75 mg PO PRN PRN Migraine Headache 07/07/23 07/20/24 tablet (Nurtec ODT) dulaglutide 3 mg/0.5 mL 3 mg SUBCUT Q7D 11/25/23 07/20/24 [facility] Previous Rx's ?Medication ?Instructions ?Recorded ASO to right ankle #1 ea 12/28/21 Spectrum AFO to the left #1 ea 08/06/22 AFO to right #1 ea 11/02/22 Cam Boot to the Right #1 ea 12/30/22 ASO to left #2 ea 01/14/23 Hinged Knee Brace #1 ea 12/06/23 Bone Growth Stimulator #1 ea 12/09/23 ondansetron 8 mg disintegrating 8 mg PO Q8H PRN nausea and 01/21/24 tablet vomiting 5 days #15 tabs tizanidine 4 mg tablet 4 mg PO Q8H PRN muscle spasticity 06/12/24 14 days #42 tabs hydrocodone 5 mg-acetaminophen 325 1 tab PO Q4H PRN pain 30 days #180 07/17/24 mg tablet tabs Allergies Allergy/AdvReac Type Severity Reaction Status Date / Time adhesive tape Allergy ALGY-Rash Verified 08/14/24 11:35 aspirin Allergy ALGY-Anaphy Verified 08/14/24 11:35 laxis carbamazepine Allergy ADR-Dizzine Verified 08/14/24 11:35 ss gabapentin Allergy ALGY-Hives Verified 08/14/24 11:35 ibuprofen Allergy Unknown Verified 08/14/24 11:35 linaclotide (From Linzess) Allergy Unknown Verified 08/14/24 11:35 metformin Allergy Verified 08/14/24 11:35 naproxen Allergy Verified 08/14/24 11:35 Review of Systems Const: Denies: fever(s), chills, body aches, fatigue or malaise Card: Denies: chest pain Resp: Denies: dyspnea Musc: Denies: neck pain, back pain, extremity pain, joint swelling or joint redness Neuro: Reports: headache(s); Denies: numbness in extremities, weakness in extremities, sensory changes or dizziness PFSH ED PFSH: Medical History Cavernous angioma Urinary hesitancy Stress incontinence Gross hematuria Functional neurological symptom disorder with attacks or seizures Surgical History History of hysterectomy Social History Smoking and tobacco/nicotine status: current every day tobacco/nicotine user (1/2-1 pack a day) Alcohol intake: never Substance/Drug Use: never Marital status: Current occupational status: unemployed and disabled Physical Exam Const: COMMON NORMALS: no acute distress, patient oriented x3, no limitations, alert and well nourished GENERAL APPEARANCE: cooperative ORIENTATION/CONSCIOUSNESS: Yes awake, Yes oriented to person, Yes oriented to place and Yes oriented to time HENMT: COMMON NORMALS: normocephalic and atraumatic HEAD & SCALP: normal to inspection, normocephalic and atraumatic Neck/C-Spine: COMMON NORMALS: full ROM, no lymphadenopathy and no meningeal signs GENERAL: Yes normal visual inspection Neuro: THUY COMA SCALE: document GCS findings Thuy coma scale eye opening: Spontaneous Thuy coma scale verbal response: Orientated Thuy coma scale motor response: Obey commands Thuy coma scale total score: 15 COMMON NORMALS: patient oriented x3, CN's II-XII intact bilaterally, moves all extremities, no focal motor deficits, no sensory deficits noted and gait normal SENSORIUM/ORIENTATION: Yes alert, Yes oriented to person, Yes oriented to place and Yes oriented to time MENINGEAL SIGNS: Yes no meningeal signs Course Vital Signs: Vital signs: Vital Signs Temperature 97.9 F 08/14/24 11:31 Pulse Rate 79 08/14/24 13:24 Blood Pressure 138/107 08/14/24 13:24 Pulse Oximetry 94 08/14/24 13:24 Oxygen Delivery Me thod Room Air 08/14/24 13:24 MDM - Headache Medical Decision Making Patient here for typical migraine headache. She normally takes Botox, Nurtec, and Sumatriptan. She has ran out of her Nurtec and Sumatriptan hand but does have refills scheduled for . She was given Sumatriptan here with good relief of her headache. She is now rating it a 4/10 and feels comfortable going home. Return precautions given. Medical Records I reviewed the patient's medical records. No radiology studies performed this visit Discharge Plan Discharge Patient Disposition: Home Clinical Impression: Migraine Qualifiers: Migraine type: unspecified Status migrainosus presence: without status migrainosus Intractability: not intractable Qualified Code(s): G43.909 - Migraine, unspecified, not intractable, without status migrainosus Condition: Stable Prescriptions: No Action isosorbide mononitrate 60 mg tablet extended release 24 hr 120 mg PO QAM@0600 loratadine 10 mg tablet 10 mg PO DAILY@0600 albuterol sulfate 90 mcg/actuation aerosol powdr breath activated 2 inh INHALATION Q6H PRN (Reason: Shortness Of Breath) (DME) AFO to right See Rx Instructions .Route .MEDSUPPLY Qty: 1 0RF Rx Instructions: As directed JOANN&Mindy Nurtec ODT 75 mg tablet,disintegrating 75 mg PO PRN PRN (Reason: Migraine Headache) (DME) Hinged Knee Brace See Rx Instructions .Route .MEDSUPPLY Qty: 1 0RF Rx Instructions: As directed ondansetron 8 mg tablet,disintegrating 8 mg PO Q8H PRN (Reason: nausea and vomiting) 5 Days Qty: 15 0RF (DME) ASO to right ankle See Rx Instructions .Route .MEDSUPPLY Qty: 1 0RF Rx Instructions: As directed (DME) Spectrum AFO to the left See Rx Instructions .Route .MEDSUPPLY Qty: 1 0RF Rx Instructions: As directed by JOANN&O (DME) ASO to left See Rx Instructions .Route .MEDSUPPLY Qty: 2 0RF Rx Instructions: As directed Trulicity 3 mg/0.5 mL pen injector 3 mg SUBCUT Q7D (DME) Cam Boot to the Right See Rx Instructions .Route .MEDSUPPLY Qty: 1 0RF Rx Instructions: As directed (DME) Bone Growth Stimulator See Rx Instructions .Route .MEDSUPPLY Qty: 1 0RF Rx Instructions: As directed tizanidine 4 mg tablet 4 mg PO Q8H PRN (Reason: muscle spasticity) 14 Days Qty: 42 0RF hydrocodone-acetaminophen 5-325 mg tablet 1 tab PO Q4H MDD 6 PRN (Reason: pain) 30 Days Qty: 180 0RF aripiprazole [Abilify] 2 mg Tablet 4 mg PO BEDTIME@2200 omeprazole 40 mg capsule,delayed release(DR/EC) 40 mg PO DAILY@0600 acetaminophen 500 mg tablet 500 mg PO BID PRN (Reason: Pain) fluticasone propionate 50 mcg/actuation spray,suspension 2 spray INTRANASAL BID@0600,2200 venlafaxine 75 mg capsule,extended release 24hr 75 mg PO QAM atorvastatin 20 mg tablet 20 mg PO QPM trazodone 50 mg tablet 50 mg PO BEDTIME nitroglycerin [Nitrostat] 0.4 mg Tablet, Sublingual 0.4 mg SUBLINGUAL Q5M PRN (Reason: Chest Pain) Rx Instructions: do not exceed 3 doses per episode metoprolol succinate 25 mg tablet extended release 24 hr 25 mg PO DAILY epinephrine 0.3 mg/0.3 mL auto-injector See Rx Instructions .ROUTE .COMPLEX Rx Instructions: INJECT 0.3MG IN THE MUSCLE 1 TIME DIRECTED topiramate 100 mg tablet 100 mg PO DAILY@06 levothyroxine 75 mcg tablet 75 mcg PO DAILY Botox 100 unit recon soln 155 unit SUBCUT .EVERY 3 MONTHS venlafaxine 150 mg capsule,extended release 24hr 150 mg PO QAM Discharge Orders: Discharge ED (Routine); Ordered 08/14/24 Ordered By: Roberta Rahman Referrals: Joseline Thompson MD [Primary Care Provider] - Patient Instructions: Migraine Headache (ED) Print Language: Algerian Coding Level of Care Code ED [employer]or [employer] for [employer]
[2024-08-14] MEDS: SUMAtriptan 6 mg/0.5 mL SDV SUBCUT (12:57)
[2024-08-14 12:58] VITALS: BP 130/86; PULSE 81; O2SAT 97
[2024-08-14 13:24] VITALS: BP 138/107; PULSE 79; O2SAT 94
[2024-08-14] MEDS: SUMAtriptan 25 mg Tablet 50 MG PO (14:16)
[2024-08-14 14:18] VITALS: BP 127/94; PULSE 78; O2SAT 95
== END 2024-08-14 14:19 | disposition home or self-care (01) ==
PROVIDERS: Emergency Provider Physician Assistant; PCP Family Medicine
DX: G43.909 Migraine, unspecified, not intractable, without status migrainosus (principal); Z72.0 Tobacco use
CPT/HCPCS: 96372; 99284; J3030

== ENCOUNTER 2024-08-18 22:40 | Emergency (ER) | payer MEDICAID, SELFPAY ==
[2024-08-18 22:43] VITALS: BP 132/68; PULSE 107; RESP 20; TEMP 36.9; O2SAT 97; BMI 43.4
--- NOTE | 2024-08-18 23:07 | XRR_ITS ---
PROCEDURE INFORMATION: Exam: XR Chest Exam date and time: 08/18/2024 11:11 PM Age: 44 years old Clinical indication: C/O cough with congestion; Additional info: Cough congestion TECHNIQUE: Imaging protocol: Radiologic exam of the chest. Views: 1 view. COMPARISON: CR (CHEST, ) 08/11/2024 1:27 AM FINDINGS: Lungs: Unremarkable. No consolidation. Pleural spaces: Unremarkable. No pleural effusion. No pneumothorax. Heart/Mediastinum: Unremarkable. No cardiomegaly. Bones/joints: Unremarkable. XR/XR chest 1V portable [id number] IMPRESSION: No acute findings.
[2024-08-18] MEDS: predniSONE 20 mg Tablet 60 MG PO (23:34)
[2024-08-18] MEDS: benzonatate 100 mg Capsule 200 MG PO (23:34)
[2024-08-18] MEDS: albuterol 2.5 mg/3 mL Neb INHALATION (23:47)
[2024-08-18 23:49] VITALS: PULSE 100; RESP 22; O2SAT 98
[2024-08-18 23:59] LABS: Influenza A POSITIVE (Negative); Influenza B NEGATIVE (Negative); Respiratory Syncytial Virus Ce NEGATIVE (Negative); SARS-CoV-2 PCR NEGATIVE (Negative)
--- NOTE | 2024-08-19 00:04 | ED_ITS ---
HPI - SOB/Dyspnea General: Chief Complaint: Shortness of Breath/Dyspnea Stated Complaint: hard time breathing Time Seen by Provider: 08/18/24 23:07 History of Present Illness: HPI Narrative: Ms Whatley is a 44-year-old female that presents to the emergency department with cough, congestion, fevers for the last 3 days. Patient significant other is at bedside with her and reports that he developed fever and cough approximately 4 days ago. They report temperature of 102 Patient is an everyday tobacco smoker. She does use albuterol at home. This has not offered any relief Associated symptoms: Reports fever(s); Deny abdominal pain, chest congestion, chest pain, dizziness, extremity pain, nausea, orthopnea, palpitations, polydipsia, polyuria or vomiting Related Data Home Medications ?Medication ?Instructions ?Recorded ?Confirmed albuterol sulfate 90 mcg/actuation 2 inh inhalation Q6 H PRN Shortness 07/19/19 07/20/24 breath activated powder inhaler Of Breath isosorbide mononitrate 60 mg 120 mg PO QAM@0600 07/20/24 tablet,extended release 24 hr loratadine 10 mg tablet 10 mg PO DAILY@0600 07/19/19 07/20/24 aripiprazole 2 mg tablet (Abilify) 4 mg PO BEDTIME@220 0 04/17/20 07/20/24 acetaminophen 500 mg tablet 500 mg PO BID PRN Pain 03/2307/20/24 fluticasone propionate 50 2 spray intranasal BID@0600, 2200 06/11/20 07/20/24 mcg/actuation nasal spray,suspension omeprazole 40 mg capsule,delayed 40 mg PO DAILY@0600 1 08/12/19 07/20/24 release atorvastatin 20 mg tablet 20 mg PO QPM 03/19/23 epinephrine 0.3 mg/0.3 mL See Rx Instructions .Route . COMPLEX 03/19/23 07/20/24 injection, auto-injector levothyroxine 75 mcg tablet 75 mcg PO DAILY 03/19/23 0 07/20/24 metoprolol succinate 25 mg 25 mg PO DAILY 03/19/23 tablet,extended release 24 hr nitroglycerin 0.4 mg sublingual 0.4 mg sublingual Q5M PRN Chest 03/19/23 07/20/24 tablet (Nitrostat) Pain onabotulinumtoxinA 100 unit 155 unit SUBCUT .EVERY 3 M ONTHS 03/19/23 07/20/24 solution for injection (Botox) topiramate 100 mg tablet 100 mg PO DAILY@06 03/19/23 07/20/24 trazodone 50 mg tablet 50 mg PO BEDTIME 03/19/23 venlafaxine 150 mg 150 mg PO QAM 03/19/2307/20 capsule,extended release 24 hr venlafaxine 75 mg capsule,extended 75 mg PO QAM 07/20/24 release 24 hr rimegepant 75 mg disintegrating 75 mg PO PRN PRN Migra ine Headache 07/07/23 07/20/24 tablet (Nurtec ODT) dulaglutide 3 mg/0.5 mL 3 mg SUBCUT Q7D 11/25/23 subcutaneous pen injector (Trulicity) Previous Rx's ?Medication ?Instructions ?Recorded ASO to right ankle #1 ea 12/28/21 Spectrum AFO to the left #1 ea 08/06/22 AFO to right #1 ea 11/02/22 Cam Boot to the Right #1 ea 12/30/22 ASO to left #2 ea 01/14/23 Hinged Knee Brace #1 ea 12/06/23 Bone Growth Stimulator #1 ea 12/09/23 ondansetron 8 mg disintegrating 8 mg PO Q8H PRN nausea and 01/21/24 tablet vomiting 5 days #15 tabs tizanidine 4 mg tablet 4 mg PO Q8H PRN muscle spast icity 06/12/24 14 days #42 tabs hydrocodone 5 mg-acetaminophen 325 1 tab PO Q4H PRN pa in 30 days #180 07/17/24 mg tablet tabs benzonatate 100 mg capsule 100 mg PO QID PRN cough #14 caps 08/19/24 Allergies Allergy/AdvReac Type Severity Reaction Status Date / Time adhesive tape Allergy ALGY-Rash Verified 08/14/24 11:35 aspirin Allergy ALGY-Anaphy Verified 08/14/24 11:35 laxis carbamazepine Allergy ADR-Dizzine Verified 08/14/24 11:35 ss gabapentin Allergy ALGY-Hives Verified 08/14/24 11:35 ibuprofen Allergy Unknown Verified 08/14/24 11:35 linaclotide (From Linzess) Allergy Unknown Verified 08/14/24 11:35 metformin Allergy Verified 08/14/24 11:35 naproxen Allergy Verified 08/14/24 11:35 Review of Systems General: Reports: 10 or more systems reviewed and unremarkable except in HPI and below Const: Reports: fever(s), chills, body aches and fatigue; Denies: change in appetite, change in weight or malaise Eyes: Denies: change in vision, eye discomfort, eye discharge or eye redness ENMT: Denies: throat pain, enlarged tonsils, odynophagia, hoarseness, ear or mastoid pain, ear discharge, change in hearing, tinnitus, nasal discharge, nasal congestion, post nasal drip or sinus pain Card: Denies: chest pain, palpitations, irregular heart rhythm, edema, dyspnea on exertion, orthopnea or leg pain with exertion Resp: Reports: dyspnea, non-productive cough, wheezing and pain on inspiration; Denies: productive cough, stridor or chest congestion GI: Denies: abdominal pain, nausea, vomiting, dysphagia, diarrhea, constipation, bloating, GI cramping or hematochezia : Denies: flank pain, difficulty voiding, dysuria, urinary frequency, urinary urgency, urinary hesitancy, oliguria or hematuria Musc: Denies: neck pain, back pain, extremity pain, joint pain, joint swelling, joint redness, joint warmth or muscle weakness Skin/Breast: Denies: rash, pruritus, erythema, photosensitivity or new lesions Neuro: Denies: headache(s), numbness in extremities, weakness in extremities, sensory changes, lack of coordination, difficulty walking, frequent falls, dizziness, confusion, Slurred speech present, difficulty communicating thoughts, seizure-like activity or involuntary movements Endo: Denies: polyuria, polydipsia or tired all the time Rick/Lymph: Denies: easy bruising or easy bleeding PFSH ED PFSH: Medical History Cavernous angioma Urinary hesitancy Stress incontinence Gross hematuria Functional neurological symptom disorder with attacks or seizures Surgical History History of hysterectomy Social History Smoking and tobacco/nicotine status: current every day tobacco/nicotine user (1/2-1 pack a day) Alcohol intake: never Substance/Drug Use: never Marital status: Current occupational status: unemployed and disabled Physical Exam Const: COMMON NORMALS: no acute distress, patient oriented x3 and alert GENERAL APPEARANCE: cooperative ORIENTATION/CONSCIOUSNESS: Yes awake, Yes oriented to person, Yes oriented to place and Yes oriented to time HENMT: COMMON NORMALS: normocephalic and atraumatic HEAD & SCALP: normocephalic and atraumatic FACE & SINUS: normal facial exam MOUTH: Norm al oral and palatal mucosa present THROAT: posterior oropharynx normal Eye: COMMON NORMALS: Equal, round and reactive pupils present, EOMs intact bilaterally, conjunctivae normal and no scleral icterus GENERAL EYE: appearance normal, both eyes and all related structures ALIGNMENT: Yes alignment normal PERIORBITAL: periorbital findings normal CONJUNCTIVA: Yes conjunctivae normal PUPIL: Yes Equal, round and reactive pupils present Neck/C-Spine: COMMON NORMALS: full ROM GENERAL: Yes normal visual insp ection Lymph: LYMPHATIC: no lymphadenopathy noted Chest: COMMONS NORMALS: normal inspection of the chest Breast/axilla inspection: Yes no chest deformity, asymmetry, normal contours, no nodules, masses, tenderness Resp: COMMON NORMALS: normal respiratory effort, No retractions, No use of accessory muscles and clear to auscultation bilaterally EFFORT & INSPECTION: Yes able to speak in complete sentences and Yes symmetric chest movement AUSCULTATION: clear to auscultation bilaterally Cardio: COMMON NORMALS: regular rate, regular rhythm and Peripheral pulses 2+ throughout RATE: regular rate RHYTHM: regular rhythm PERIPHERAL PULSES: Peripheral pulses 2+ throughout GI: COMMON NORMALS: Normal to inspection, nondistended, normoactive bowel sounds present, Soft to palpation, non-tender and No hepatosplenomegaly present INSPECTION: Yes normal to inspection AUSCULTATION: Yes normoactive bowel sounds PALPATION: Yes Soft to palpation and Yes No hepatosplenomegaly present RECTAL EXAM: deferred Extremity: COMMON NORMALS: normal to inspection GENERAL: Yes normal exam except as noted Neuro: COMMON NORMALS: patient oriented x3 SENSORIUM/ORIENTATION: Yes alert, Yes oriented to person, Yes oriented to place and Yes oriented to time CRANIAL NERVES: Yes CN normal except as noted Psych: COMMON NORMALS: mental status grossly normal, Normal thought process present, cooperative, activity/motor behavior normal, denies homicidal ideation and denies suicidal ideation THOUGHT PROCESS: Normal thought process present Skin: COMMON NORMALS: no rashes or lesions noted, no wounds and turgor normal GENERAL SKIN EXAM: no rashes or lesions noted and turgor normal Course Vital Signs: Vital signs: Vital Signs Temperature 98.5 F 08/18/24 22:43 Pulse Rate 100 08/18/24 23:49 Respiratory Rate 22 H 08/18/24 23:49 Blood Pressure 132/68 08/18/24 22:43 Pulse Oximetry 98 08/18/24 23:49 Oxygen Delivery Me thod Room Air 08/18/24 23:49 MDM - SOB/Dyspnea Medical Decision Making Patient evaluated in the emergency department for complaints of cough, congest ion and fever. Onset of symptoms 3 days ago. Here in the emergency department patient underwent chest x-ray as well as COVID flu and RSV testing. Chest x-ray reveals no acute cardiopulmonary abnormality. She is positive for influenza A. Unfortunately she is past the point of starting Tamiflu. I have advised her that she needs to increase her fluids and rest and discontinue use of tobacco products at this time. He was given Tessalon Perles here in the emergency department and will be discharged on similar medications. All questions answered Lab Data Labs/Radiology: Radiology Impressions Chest X-Ray 08/18/24 23:07 IMPRESSION: No acute findings. Laboratory Results Coronavirus (PCR) Negative (Negative) 08/18/24 23:07 Influenza A (PCR) Positive (Negative) 08/18/24 23:07 Influenza Type B (PCR) Negative (Negative) 08/18/24 23:07 RSV (PCR) Negative (Negative) 08/18/24 23:07 All radiology interpretation(s) finalized by discharge Discharge Plan Discharge Patient Disposition: Home Clinical Impression: Influenza A Condition: Stable Prescriptions: New benzonatate 100 mg capsule 100 mg PO QID PRN (Reason: cough) Qty: 14 0RF No Action isosorbide mononitrate 60 mg tablet extended release 24 hr 120 mg PO QAM@0600 loratadine 10 mg tablet 10 mg PO DAILY@0600 albuterol sulfate 90 mcg/actuation aerosol powdr breath activated 2 inh INHALATION Q6H PRN (Reason: Shortness Of Breath) (DME) AFO to right See Rx Instructions .Route .MEDSUPPLY Qty: 1 0RF Rx Instructions: As directed [facility]ANN&O Nurtec ODT 75 mg tablet,disintegrating 75 mg PO PRN PRN (Reason: Migraine Headache) (DME) Hinged Knee Brace See Rx Instructions .Route .MEDSUPPLY Qty: 1 0RF Rx Instructions: As directed ondansetron 8 mg tablet,disintegrating 8 mg PO Q8H PRN (Reason: nausea and vomiting) 5 Days Qty: 15 0RF (DME) ASO to right ankle See Rx Instructions .Route .MEDSUPPLY Qty: 1 0RF Rx Instructions: [place] [place] Spectrum AFO to the left See Rx Instructions .Route .MEDSUPPLY Qty: 1 0RF Rx Instructions: As directed by JOANN&Mindy (DME) ASO to left See Rx Instructions .Route .MEDSUPPLY Qty: 2 0RF Rx Instructions: As directed Trulicity 3 mg/0.5 mL pen injector 3 mg SUBCUT Q7D (DME) Cam Boot to the Right See Rx Instructions .Route .MEDSUPPLY Qty: 1 0RF Rx Instructions: [place] [place] Bone Growth Stimulator See Rx Instructions .Route .MEDSUPPLY Qty: 1 0RF Rx Instructions: As directed tizanidine 4 mg tablet 4 mg PO Q8H PRN (Reason: muscle spasticity) 14 Days Qty: 42 0RF hydrocodone-acetaminophen 5-325 mg tablet 1 tab PO Q4H MDD 6 PRN (Reason: pain) 30 Days Qty: 180 0RF aripiprazole [Abilify] 2 mg Tablet 4 mg PO BEDTIME@2200 omeprazole 40 mg capsule,delayed release(DR/EC) 40 mg PO DAILY@0600 acetaminophen 500 mg tablet 500 mg PO BID PRN (Reason: Pain) fluticasone propionate 50 mcg/actuation spray,suspension 2 spray INTRANASAL BID@0600,2200 venlafaxine 75 mg capsule,extended release 24hr 75 mg PO QAM atorvastatin 20 mg tablet 20 mg PO QPM trazodone 50 mg tablet 50 mg PO BEDTIME nitroglycerin [Nitrostat] 0.4 mg Tablet, Sublingual 0.4 mg SUBLINGUAL Q5M PRN (Reason: Chest Pain) Rx Instructions: do not exceed 3 doses per episode metoprolol succinate 25 mg tablet extended release 24 hr 25 mg PO DAILY epinephrine 0.3 mg/0.3 mL auto-injector See Rx Instructions .ROUTE .COMPLEX Rx Instructions: INJECT 0.3MG IN THE MUSCLE 1 TIME DIRECTED topiramate 100 mg tablet 100 mg PO DAILY@06 levothyroxine 75 mcg tablet 75 mcg PO DAILY Botox 100 unit recon soln 155 unit SUBCUT .EVERY 3 MONTHS venlafaxine 150 mg capsule,extended release 24hr 150 mg PO QAM Discharge Orders: Discharge ED (Routine); Ordered 08/19/24 [facility] Referrals: Joseline Thompson MD [Primary Care Provider] - Discharge Diet: Advance as tolerated Discharge Activity: Resume usual activity Patient Instructions: Influenza (ED), Pain Management Activity Restrictions/Additional Instructions: Please return to the emergency department for new, concerning, worsening symptoms Increase your water intake and rest. Discontinue tobacco use at this time. Do not return to work or school until you are fever free for 24 hours without the use of Tylenol or Motrin. 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
[2024-08-19] MEDS: acetaminophen 500 mg Tablet 1000 MG PO (00:30)
[2024-08-19 00:53] VITALS: BP 111/78; PULSE 109; O2SAT 97
== END 2024-08-19 00:30 | disposition home or self-care (01) ==
PROVIDERS: Emergency Provider Nurse Practitioner; PCP Family Medicine
DX: J10.1 Influenza due to other identified influenza virus with other respiratory manifestations (principal); Z11.52 Encounter for screening for COVID-19; F17.210 Nicotine dependence, cigarettes, uncomplicated
CPT/HCPCS: 71045; 87637; 94640; 99284; J7512; J7613

== ENCOUNTER → 2024-09-02 16:53 | Outpatient (BNVA) | payer MEDICAID, SELFPAY | PROVIDERS: PCP Family Medicine; Visit Provider Registered Nurse Neonatal Intensive Care | DX: M25.531 Pain in right wrist (principal) | CPT/HCPCS: 73110 ==

== ENCOUNTER 2024-09-05 16:37 | Emergency (ER) | payer MEDICAID, SELFPAY ==
[2024-09-05 16:55] VITALS: BP 179/94; PULSE 101; RESP 18; TEMP 36.8; O2SAT 95
--- NOTE | 2024-09-05 16:57 | XRR_ITS ---
PROCEDURE INFORMATION: Exam: XR Right Wrist Exam date and time: 09/05/2024 5:00 PM Age: 44 years old Clinical indication: Injury or trauma; Fall; Blunt trauma (contusions or hematomas); Wrist; Right; Additional info: Fall, wrist pain TECHNIQUE: Imaging protocol: Radiologic exam of the right wrist. Views: 3 or more views. COMPARISON: CR XR wrist RT min 3V* [id number] 09/02/2024 4:58 PM reporting no acute findings FINDINGS: Bones/joints: Multiple views all appear to demonstrate hyperextension of the wrist which particularly challenges resolution of the lateral carpometacarpal region. The greater and lesser multangular carpal bones and articulations are not well visualized. This is similar in appearance though and unchanged in comparison to the study from 3 days ago. Soft tissues: Mild generalized soft tissue swelling about the hand and wrist noted. XR/XR wrist RT min 3V* [id number] IMPRESSION: 1. No acute osseous plain-film findings or significant interval changes in comparison to the study from 3 days ago; however, there is a slightly greater degree of soft tissue swelling seen along the lateral aspect of the wrist question ligamentous injury. 2. Less than optimal positioning due to the hyperextension and further clinical correlation as well as consideration of repeating plain films in a neutral position are suggested.
--- NOTE | 2024-09-05 17:14 | W.ED.EXTPRO ---
HPI - Extremity Problem General: Chief complaint: Extremity Injury, Upper Stated complaint: right wrist pain Time Seen by Provider: 09/05/24 16:55 Source: patient Mode of arrival: ambulatory Limitations: no limitations History of Present Illness: 44-year-old female presents to the ER complaining of right wrist pain. Patient states she tripped over her puppy and fell on concrete this past Tuesday. Patient states she went to urgent care on Tuesday and her x-ray showed no abnormalities and was told to keep it elevated, ice, take ibuprofen/Tylenol interchangeably for pain. Patient returns to the ER complaining of increased in pain and numbness on her right hand. She describes the pain in her wrist as burning and stabbing and rates it at 8/10. Patient reports the pain is now radiating to her right shoulder. She is currently taking hydrocodone prescribed for her back surgery and states it does not help with her right wrist pain. Patient denies chest pain, palpitations, abdominal pain, shortness of breath. MD Complaint: extremity pain Onset (ago): day(s) Pain Consistency: constant Location: right (R. shoulder, wrist, and hand) Severity scale (1-10): 8 Quality: burning and stabbing Radiation: proximal (R. shoulder) Exacerbating factors: range of motion and palpation Associated symptoms: Reports no associated symptoms; Deny chest pain or fever(s) Related Data Home Medications ?Medication ?Instructions ?Recorded ?Confirmed albuterol sulfate 90 mcg/actuation 2 inh inhalation Q6H PRN Shortness 07/19/19 09/02/24 breath activated powder inhaler Of Breath isosorbide mononitrate 60 mg 120 mg PO QAM@0600 07/19/19 09/02/24 tablet,extended release 24 hr loratadine 10 mg tablet 10 mg PO DAILY@0600 07/19/19 09/02/24 aripiprazole 2 mg tablet (Abilify) 4 mg PO BEDTIME@0 04/17/20 09/02/24 acetaminophen 500 mg tablet 500 mg PO BID PRN Pain 06/11/20 09/02/24 fluticasone propionate 50 2 spray intranasal BID@0600,2200 06/11/20 09/02/24 mcg/actuation nasal spray,suspension omeprazole 40 mg capsule,delayed 40 mg PO DAILY@0600 06/11/20 09/02/24 release atorvastatin 20 mg tablet 20 mg PO QPM 03/19/23 09/02/24 epinephrine 0.3 mg/0.3 mL See Rx Instructions .Route .COMPLEX 03/19/23 09/02/24 injection, auto-injector levothyroxine 75 mcg tablet 75 mcg PO DAILY 03/19/23 09/02/24 metoprolol succinate 25 mg 25 mg PO DAILY 03/19/23 09/02/24 tablet,extended release 24 hr nitroglycerin 0.4 mg sublingual 0.4 mg sublingual Q5M PRN Chest 03/19/23 09/02/24 tablet (Nitrostat) Pain onabotulinumtoxinA 100 unit 155 unit SUBCUT .EVERY 3 MONTHS 03/19/23 09/02/24 solution for injection (Botox) topiramate 100 mg tablet 100 mg PO DAILY@06 03/19/23 09/02/24 trazodone 50 mg tablet 50 mg PO BEDTIME 03/19/23 09/02/24 venlafaxine 150 mg 150 mg PO QAM 03/19/23 09/02/24 capsule,extended release 24 hr venlafaxine 75 mg capsule,extended 75 mg PO QAM 03/19/23 09/02/24 release 24 hr rimegepant 75 mg disintegrating 75 mg PO PRN PRN Migraine Headache 07/07/23 09/02/24 tablet (Nurtec ODT) dulaglutide 3 mg/0.5 mL 3 mg SUBCUT Q7D 11/25/23 09/02/24 subcutaneous pen injector (Trkate) Previous Rx's ?Medication ?Instructions ?Recorded ASO to right ankle #1 ea 12/28/21 Spectrum AFO to the left #1 ea 08/06/22 AFO to right #1 ea 11/02/22 Cam Boot to the Right #1 ea 12/30/22 ASO to left #2 ea 01/14/23 Hinged Knee Brace #1 ea 12/06/23 Bone Growth Stimulator #1 ea 12/09/23 ondansetron 8 mg disintegrating 8 mg PO Q8H PRN nausea and 01/21/24 tablet vomiting 5 days #15 tabs tizanidine 4 mg tablet 4 mg PO Q8H PRN muscle spasticity 06/12/24 14 days #42 tabs benzonatate 100 mg capsule 100 mg PO QID PRN cough #14 caps 08/19/24 hydrocodone 5 mg-acetaminophen 325 1 tab PO Q8H PRN pain 30 days #90 08/23/24 mg tablet tabs Allergies Allergy/AdvReac Type Severity Reaction Status Date / Time adhesive tape Allergy ALGY-Rash Verified 09/02/24 16:46 aspirin Allergy ALGY-Anaphy Verified 09/02/24 16:46 laxis carbamazepine Allergy ADR-Dizzine Verified 09/02/24 16:46 ss gabapentin Allergy ALGY-Hives Verified 09/02/24 16:46 ibuprofen Allergy Unknown Verified 09/02/24 16:46 linaclotide (From Linzess) Allergy Unknown Verified 09/02/24 16:46 metformin Allergy Verified 09/02/24 16:46 naproxen Allergy Verified 09/02/24 16:46 Review of Systems General: Reports: 10 or more systems reviewed and unremarkable except in HPI and below Const: Denies: fever(s), chills or body aches Card: Denies: chest pain or palpitations Resp: Denies: dyspnea or productive cough GI: Denies: abdominal pain, nausea or vomiting Musc: Reports: extremity pain (Right upper extremity), joint pain (Right elbow/wrist) and limited range of motion; Denies: neck pain, back pain, joint redness or joint warmth PFSH ED PFSH: Medical History Cavernous angioma Urinary hesitancy Stress incontinence Gross hematuria Functional neurological symptom disorder with attacks or seizures Surgical History History of hysterectomy Social History Smoking and tobacco/nicotine status: current every day tobacco/nicotine user (1/2-1 pack a day) Alcohol intake: never Substance/Drug Use: never Marital status: Current occupational status: unemployed and disabled Physical Exam Const: COMMON NORMALS: no acute distress, patient oriented x3 and alert GENERAL APPEARANCE: cooperative ORIENTATION/CONSCIOUSNESS: Yes awake, Yes oriented to person, Yes oriented to place and Yes oriented to time Chest: COMMONS NORMALS: normal inspection of the chest Resp: COMMON NORMALS: normal respiratory effort and clear to auscultation bilaterally EFFORT & INSPECTION: Yes able to speak in complete sentences AUSCULTATION: clear to auscultation bilaterally Cardio: COMMON NORMALS: regular rate and regular rhythm RATE: regular rate RHYTHM: regular rhythm Extremity: COMMON NORMALS: capillary refill normal, no joint enlargement and no clubbing, cyanosis or edema RIGHT UPPER EXTREMITY: Yes elbow joint Right elbow: Yes palpation (TTP) and Yes ROM (intact) and Yes wrist (Pain with palpation. Pain/weakness with flexion/extension) Neuro: COMMON NORMALS: patient oriented x3, no focal motor deficits and no sensory deficits noted SENSORIUM/ORIENTATION: Yes alert, Yes oriented to person, Yes oriented to place and Yes oriented to time Course Vital Signs: Vital signs: Vital Signs Temperature 98.2 F 09/05/24 16:55 Pulse Rate 101 H 09/05/24 16:55 Respiratory Rate 18 09/05/24 16:55 Blood Pressure 179/94 09/05/24 16:55 Pulse Oximetry 95 09/05/24 16:55 Oxygen Delivery Me thod Room Air 09/05/24 16:55 MDM - Extremity (Nontraumatic) Medical Decision Making Patient here for the second time for evaluation of her right wrist pain after a fall that occurred late last week. Was reporting weakness with range of motion, and reproducible pain with any range of motion at the right wrist. Tenderness to dorsum of right wrist extending proximally, she was also reporting some right elbow pain. X-ray of the right wrist repeated did not show any acute changes other than some mild increase in swelling. X-ray of the right elbow was normal. Questionable signs of ligament injury with the x-ray however, will have the patient follow-up for MRI with orthopedics and she is requesting sling for comfort at this time. Given shot of Toradol here for pain, she already has hydrocodone at home that she takes chronically. Questions and concerns addressed at this time, she agrees with discharge plan and return precautions given. Lab Data Radiology Impressions Wrist X-Ray 09/05/24 16:57 IMPRESSION: 1. No acute osseous plain-film findings or significant interval changes in comparison to the study from 3 days ago; however, there is a slightly greater degree of soft tissue swelling seen along the lateral aspect of the wrist question ligamentous injury. 2. Less than optimal positioning due to the hyperextension and further clinical correlation as well as consideration of repeating plain films in a neutral position are suggested. Elbow X-Ray 09/05/24 17:22 IMPRESSION: No acute findings. All radiology interpretation(s) finalized by discharge Discharge Plan Discharge Patient Disposition: Home Clinical Impression: Right wrist sprain Qualifiers: Encounter type: initial encounter Qualified Code(s): S63.501A - Unspecified sprain of right wrist, initial encounter Condition: Stable Prescriptions: No Action isosorbide mononitrate 60 mg tablet extended release 24 hr 120 mg PO QAM@0600 loratadine 10 mg tablet 10 mg PO DAILY@0600 albuterol sulfate 90 mcg/actuation aerosol powdr breath activated 2 inh INHALATION Q6H PRN (Reason: Shortness Of Breath) (DME) AFO to right See Rx Instructions .Route .MEDSUPPLY Qty: 1 0RF Rx Instructions: As directed JOANN&O Nurtec ODT 75 mg tablet,disintegrating 75 mg PO PRN PRN (Reason: Migraine Headache) (DME) Hinged Knee Brace See Rx Instructions .Route .MEDSUPPLY Qty: 1 0RF Rx Instructions: As directed ondansetron 8 mg tablet,disintegrating 8 mg PO Q8H PRN (Reason: nausea and vomiting) 5 Days Qty: 15 0RF (DME) ASO to right ankle See Rx Instructions .Route .MEDSUPPLY Qty: 1 0RF Rx Instructions: As directed (DME) Spectrum AFO to the left See Rx Instructions .Route .MEDSUPPLY Qty: 1 0RF Rx Instructions: As directed by JOANN&O (DME) ASO to left See Rx Instructions .Route .MEDSUPPLY Qty: 2 0RF Rx Instructions: As directed Trulicity 3 mg/0.5 mL pen injector 3 mg SUBCUT Q7D (DME) Cam Boot to the Right See Rx Instructions .Route .MEDSUPPLY Qty: 1 0RF Rx Instructions: As directed (DME) Bone Growth Stimulator See Rx Instructions .Route .MEDSUPPLY Qty: 1 0RF Rx Instructions: As directed tizanidine 4 mg tablet 4 mg PO Q8H PRN (Reason: muscle spasticity) 14 Days Qty: 42 0RF hydrocodone-acetaminophen 5-325 mg tablet 1 tab PO Q8H MDD 6 PRN (Reason: pain) 30 Days Qty: 90 0RF aripiprazole [Abilify] 2 mg Tablet 4 mg PO BEDTIME@2200 omeprazole 40 mg capsule,delayed release(DR/EC) 40 mg PO DAILY@0600 acetaminophen 500 mg tablet 500 mg PO BID PRN (Reason: Pain) fluticasone propionate 50 mcg/actuation spray,suspension 2 spray INTRANASAL BID@0600,2200 venlafaxine 75 mg capsule,extended release 24hr 75 mg PO QAM atorvastatin 20 mg tablet 20 mg PO QPM trazodone 50 mg tablet 50 mg PO BEDTIME nitroglycerin [Nitrostat] 0.4 mg Tablet, Sublingual 0.4 mg SUBLINGUAL Q5M PRN (Reason: Chest Pain) Rx Instructions: do not exceed 3 doses per episode metoprolol succinate 25 mg tablet extended release 24 hr 25 mg PO DAILY epinephrine 0.3 mg/0.3 mL auto-injector See Rx Instructions .ROUTE .COMPLEX Rx Instructions: INJECT 0.3MG IN THE MUSCLE 1 TIME DIRECTED topiramate 100 mg tablet 100 mg PO DAILY@06 levothyroxine 75 mcg tablet 75 mcg PO DAILY Botox 100 unit recon soln 155 unit SUBCUT .EVERY 3 MONTHS venlafaxine 150 mg capsule,extended release 24hr 150 mg PO QAM benzonatate 100 mg capsule 100 mg PO QID PRN (Reason: cough) Qty: 14 0RF Discharge Orders: Discharge ED (Routine); Ordered 09/05/24 Ordered By: Raman Gonzalez Referrals: Joseline Thompson MD [Primary Care Provider] - Patient Instructions: Wrist Sprain (ED) Activity Restrictions/Additional Instructions: Follow-up with orthopedics for further evaluation. Rest, ice, compression, and elevation. Continue taking your pain medications at home. Range of motion exercises as tolerated. Return with any new or worsening. Print Language: Luxembourger Coding Level of Care Code ED Youth Worker for Anju Stinson
--- NOTE | 2024-09-05 17:22 | XRR_ITS ---
PROCEDURE INFORMATION: Exam: XR Right Elbow Exam date and time: 09/05/2024 5:35 PM Age: 44 years old Clinical indication: Pain; Elbow; Right; Additional info: Pain, fall Tuesday TECHNIQUE: Imaging protocol: Radiologic exam of the right elbow. Views: 3 or more views. COMPARISON: CR XR wrist RT min 3V* [id number] 09/05/2024 5:00 PM FINDINGS: Bones/joints: Normal. Soft tissues: Normal. XR/XR elbow RT min 3V* [id number] IMPRESSION: No acute findings.
--- NOTE | 2024-09-05 18:41 | DCPLANNER ---
messaged ortho for er f/u
[2024-09-05] MEDS: ketorolac 60 mg/2 mL INJ IM (19:18)
[2024-09-05 19:47] VITALS: PULSE 89; RESP 16; O2SAT 96
== END 2024-09-05 19:40 | disposition home or self-care (01) ==
PROVIDERS: Emergency Provider Physician Assistant; PCP Family Medicine
DX: S63.501A Unspecified sprain of right wrist, initial encounter (principal); Z79.85 Long-term (current) use of injectable non-insulin antidiabetic drugs; F17.210 Nicotine dependence, cigarettes, uncomplicated; W01.0XXA Fall on same level from slipping, tripping and stumbling without subsequent striking against object, initial encounter
CPT/HCPCS: 73080; 73110; 96372; 99284; J1885

== ENCOUNTER → 2024-09-10 10:57 | Outpatient (BNVA) | payer MEDICAID, SELFPAY | PROVIDERS: PCP Family Medicine; Visit Provider Orthopaedic Surgery | DX: S63.501A Unspecified sprain of right wrist, initial encounter (principal); W01.0XXA Fall on same level from slipping, tripping and stumbling without subsequent striking against object, initial encounter | CPT/HCPCS: 73100; 73130; 99204 ==

== ENCOUNTER → 2024-09-24 07:58 | Outpatient (BNVA) | payer MEDICAID, SELFPAY | PROVIDERS: PCP Family Medicine; Visit Provider Orthopaedic Surgery | DX: S52.521D Torus fracture of lower end of right radius, subsequent encounter for fracture with routine healing (principal); X58.XXXD Exposure to other specified factors, subsequent encounter | CPT/HCPCS: 99213 ==

== ENCOUNTER 2024-10-21 16:30 | Emergency (ER) | payer MEDICAID, SELFPAY ==
--- NOTE | 2024-10-21 16:30 | XRR_ITS ---
PROCEDURE INFORMATION: Exam: XR Left Ankle Exam date and time: 10/21/2024 4:47 PM Age: 44 years old Clinical indication: Injury or trauma; Other: Fall/twisted ankle TECHNIQUE: Imaging protocol: Radiologic exam of the left ankle. Views: 3 or more views. COMPARISON: CR XR knees AP WB w LT lmt ORTH 06/05/2024 9:17 AM FINDINGS: Bones/joints: Normal. Soft tissues: Normal. XR/XR ankle LT min 3V* [id number] IMPRESSION: No acute findings.
[2024-10-21 16:36] VITALS: BP 115/74; PULSE 72; TEMP 36.4; O2SAT 97; BMI 43.4
--- NOTE | 2024-10-21 17:01 | W.ED.EXTPRO ---
Documented by User: KELLE Kumar 10/21/24 17:22 HPI - Extremity Problem General: Chief complaint: Extremity Injury, Lower Stated complaint: fell, twisted lft ankle Time Seen by Provider: 10/21/24 16:43 Source: patient Mode of arrival: ambulatory Limitations: no limitations History of Present Illness: Patient is a 44-year-old female with multiple prior visits to the ED presenting for left ankle pain minutes prior to arrival. States that she fell twisted her left ankle, has fractured the ankle multiple times in the past. Noting that she cannot feel her toes or wiggle them, and that the pain is radiating proximally. Has not taken any medications, she requests pain medication at this time. Vitals unremarkable. MD Complaint: joint pain Onset (ago): minute(s) Pain Consistency: constant Location: left and lower extremity (ankle) Radiation: proximal Exacerbating factors: weight bearing and walking Associated symptoms: Reports no associated symptoms; Deny chest pain, fever(s) or rash Related Data Home Medications ?Medication ?Instructions ?Recorded ?Confirmed albuterol sulfate 90 mcg/actuation 2 inh inhalation Q6H PRN Shortness 07/19/19 09/24/24 breath activated powder inhaler Of Breath isosorbide mononitrate 60 mg 120 mg PO QAM@0600 07/19/19 09/24/24 tablet,extended release 24 hr loratadine 10 mg tablet 10 mg PO DAILY@0600 07/19/19 09/24/24 aripiprazole 2 mg tablet (Abilify) 4 mg PO BEDTIME@2200 04/17/20 09/24/24 acetaminophen 500 mg tablet 500 mg PO BID PRN Pain 06/11/20 09/24/24 fluticasone propionate 50 2 spray intranasal BID@0600,2200 06/11/20 09/24/24 mcg/actuation nasal spray,suspension omeprazole 40 mg capsule,delayed 40 mg PO DAILY@0600 06/11/20 09/24/24 release atorvastatin 20 mg tablet 20 mg PO QPM 03/19/23 09/24/24 epinephrine 0.3 mg/0.3 mL See Rx Instructions .Route .COMPLEX 03/19/23 09/24/24 injection, auto-injector levothyroxine 75 mcg tablet 75 mcg PO DAILY 03/19/23 09/24/24 metoprolol succinate 25 mg 25 mg PO DAILY 03/19/23 09/24/24 tablet,extended release 24 hr nitroglycerin 0.4 mg sublingual 0.4 mg sublingual Q5M PRN Chest 03/19/23 09/24/24 tablet (Nitrostat) Pain onabotulinumtoxinA 100 unit 155 unit SUBCUT .EVERY 3 MONTHS 03/19/23 09/24/24 solution for injection (Botox) topiramate 100 mg tablet 100 mg PO DAILY@06 03/19/23 09/24/24 trazodone 50 mg tablet 50 mg PO BEDTIME 03/19/23 09/24/24 venlafaxine 150 mg 150 mg PO QAM 03/19/23 09/24/24 capsule,extended release 24 hr venlafaxine 75 mg capsule,extended 75 mg PO QAM 03/19/23 09/24/24 release 24 hr rimegepant 75 mg disintegrating 75 mg PO PRN PRN Migraine Headache 07/07/23 09/24/24 tablet (Nurtec ODT) dulaglutide 3 mg/0.5 mL 3 mg SUBCUT Q7D 11/25/23 09/24/24 [facility] Previous Rx's ?Medication ?Instructions ?Recorded ASO to right ankle #1 ea 12/28/21 Spectrum AFO to the left #1 ea 08/06/22 AFO to right #1 ea 11/02/22 Cam Boot to the Right #1 ea 12/30/22 ASO to left #2 ea 01/14/23 Hinged Knee Brace #1 ea 12/06/23 Bone Growth Stimulator #1 ea 12/09/23 ondansetron 8 mg disintegrating 8 mg PO Q8H PRN nausea and 01/21/24 tablet vomiting 5 days #15 tabs benzonatate 100 mg capsule 100 mg PO QID PRN cough #14 caps 08/19/24 right cock up wrist brace #1 ea 09/10/24 hydrocodone 5 mg-acetaminophen 325 1 tab PO Q8H PRN pain 30 days #90 09/18/24 mg tablet tabs tizanidine 4 mg tablet 4 mg PO Q8H PRN muscle spasticity 10/12/24 14 days #42 tabs Allergies Allergy/AdvReac Type Severity Reaction Status Date / Time adhesive tape Allergy ALGY-Rash Verified 10/21/24 16:43 aspirin Allergy ALGY-Anaphy Verified 10/21/24 16:43 laxis carbamazepine Allergy ADR-Dizzine Verified 10/21/24 16:43 ss gabapentin Allergy ALGY-Hives Verified 10/21/24 16:43 ibuprofen Allergy Unknown Verified 10/21/24 16:43 linaclotide (From Linzess) Allergy Unknown Verified 10/21/24 16:43 metformin Allergy Verified 10/21/24 16:43 naproxen Allergy Verified 10/21/24 16:43 Review of Systems General: Reports: 10 or more systems reviewed and unremarkable except in HPI and below Const: Denies: fever(s) or chills Card: Denies: chest pain Resp: Denies: dyspnea or productive cough GI: Denies: abdominal pain, nausea, vomiting or diarrhea : Denies: flank pain Musc: Reports: extremity pain (Left ankle); Denies: neck pain, back pain, extremity swelling, joint pain, joint swelling, joint redness, joint warmth, limited range of motion or muscle weakness Skin/Breast: Denies: rash Neuro: Denies: headache(s), numbness in extremities or weakness in extremities PFSH ED PFSH: Medical History Cavernous angioma Urinary hesitancy Stress incontinence Gross hematuria Functional neurological symptom disorder with attacks or seizures Surgical History History of hysterectomy Social History Smoking and tobacco/nicotine status: current every day tobacco/nicotine user (1/2-1 pack a day) Alcohol intake: never Substance/Drug Use: never Marital status: Current occupational status: unemployed and disabled Physical Exam Const: COMMON NORMALS: no acute distress, patient oriented x3, no limitations, healthy appearing, alert and well nourished HENMT: COMMON NORMALS: normocephalic and atraumatic HEAD & SCALP: normocephalic and atraumatic Neck/C-Spine: COMMON NORMALS: full ROM, supple and no meningeal signs Resp: COMMON NORMALS: normal respiratory effort, No use of accessory muscles and clear to auscultation bilaterally AUSCULTATION: clear to auscultation bilaterally Cardio: COMMON NORMALS: regular rate and regular rhythm RATE: regular rate RHYTHM: regular rhythm Extremity: COMMON NORMALS: normal to inspection, full ROM, capillary refill normal, no joint enlargement and no clubbing, cyanosis or edema NARRATIVE EXTREMITY EXAM: Tender to palpation to left lateral ankle, no obvious swelling or bruising. No deformity. Is not participating in movement of the left lower extremity, stating there are diminished sensations distally. Neuro: COMMON NORMALS: patient oriented x3 SENSORIUM/ORIENTATION: Yes alert MENINGEAL SIGNS: Yes no meningeal signs Skin: COMMON NORMALS: no rashes or lesions noted GENERAL SKIN EXAM: no rashes or lesions noted Course Vital Signs: Vital signs: Vital Signs Temperature 97.5 F L 10/21/24 16:36 Pulse Rate 85 10/21/24 17:26 Blood Pressure 109/69 10/21/24 17:26 Pulse Oximetry 95 10/21/24 17:26 Oxygen Delivery Me thod Room Air 10/21/24 16:36 MDM - Extremity (Nontraumatic) Medical Decision Making Patient presenting for injury to left ankle evaluation. The exam was unremarkable, she was endorsing diminished sensation and saying it was hard to move, I suspect that this is more behavioral at this point due to lack of outward physical exam findings of injury. In addition of this her x-ray was normal. Given pain medication here and discharged in stable condition at this time. Lab Data Radiology Impressions Ankle X-Ray 10/21/24 16:30 IMPRESSION: No acute findings. All radiology interpretation(s) finalized by discharge Discharge Plan Discharge Patient Disposition: Home Clinical Impression: Left ankle sprain Qualifiers: Encounter type: initial encounter Involved ligament of ankle: unspecified ligament Qualified Code(s): S93.402A - Sprain of unspecified ligament of left ankle, initial encounter Condition: Stable Prescriptions: No Action isosorbide mononitrate 60 mg tablet extended release 24 hr 120 mg PO QAM@0600 loratadine 10 mg tablet 10 mg PO DAILY@0600 albuterol sulfate 90 mcg/actuation aerosol powdr breath activated 2 inh INHALATION Q6H PRN (Reason: Shortness Of Breath) (DME) AFO to right See Rx Instructions .Route .MEDSUPPLY Qty: 1 0RF Rx Instructions: As directed JOANN&O Nurtec ODT 75 mg tablet,disintegrating 75 mg PO PRN PRN (Reason: Migraine Headache) (DME) Hinged Knee Brace See Rx Instructions .Route .MEDSUPPLY Qty: 1 0RF Rx Instructions: As directed ondansetron 8 mg tablet,disintegrating 8 mg PO Q8H PRN (Reason: nausea and vomiting) 5 Days Qty: 15 0RF (DME) ASO to right ankle See Rx Instructions .Route .MEDSUPPLY Qty: 1 0RF Rx Instructions: [place] [place] Spectrum AFO to the left See Rx Instructions .Route .MEDSUPPLY Qty: 1 0RF Rx Instructions: As directed by JOANN&O [place] [place]O to left See Rx Instructions .Route .MEDSUPPLY Qty: 2 0RF Rx Instructions: As directed Trulicity 3 mg/0.5 mL pen injector 3 mg SUBCUT Q7D (DME) right cock up wrist brace See Rx Instructions .Route .MEDSUPPLY Qty: 1 0RF Rx Instructions: [place] [place] Cam Boot to the Right See Rx Instructions .Route .MEDSUPPLY Qty: 1 0RF Rx Instructions: As directed [place] [place] Bone Growth Stimulator See Rx Instructions .Route .MEDSUPPLY Qty: 1 0RF Rx Instructions: As directed hydrocodone-acetaminophen 5-325 mg tablet 1 tab PO Q8H MDD 6 PRN (Reason: pain) 30 Days Qty: 90 0RF tizanidine 4 mg tablet 4 mg PO Q8H PRN (Reason: muscle spasticity) 14 Days Qty: 42 0RF aripiprazole [Abilify] 2 mg Tablet 4 mg PO BEDTIME@0 omeprazole 40 mg capsule,delayed release(DR/EC) 40 mg PO DAILY@0600 acetaminophen 500 mg tablet 500 mg PO BID PRN (Reason: Pain) fluticasone propionate 50 mcg/actuation spray,suspension 2 spray INTRANASAL BID@0600,2200 venlafaxine 75 mg capsule,extended release 24hr 75 mg PO QAM atorvastatin 20 mg tablet 20 mg PO QPM trazodone 50 mg tablet 50 mg PO BEDTIME nitroglycerin [Nitrostat] 0.4 mg Tablet, Sublingual 0.4 mg SUBLINGUAL Q5M PRN (Reason: Chest Pain) Rx Instructions: do not exceed 3 doses per episode metoprolol succinate 25 mg tablet extended release 24 hr 25 mg PO DAILY epinephrine 0.3 mg/0.3 mL auto-injector See Rx Instructions .ROUTE .COMPLEX Rx Instructions: INJECT 0.3MG IN THE MUSCLE 1 TIME DIRECTED topiramate 100 mg tablet 100 mg PO DAILY@06 levothyroxine 75 mcg tablet 75 mcg PO DAILY Botox 100 unit recon soln 155 unit SUBCUT .EVERY 3 MONTHS venlafaxine 150 mg capsule,extended release 24hr 150 mg PO QAM benzonatate 100 mg capsule 100 mg PO QID PRN (Reason: cough) Qty: 14 0RF Discharge Orders: Discharge ED (Routine); Ordered 10/21/24 Ordered By: Raman Gonzalez Referrals: Joseline Thompson MD [Primary Care Provider] - Patient Instructions: Ankle Sprain (ED) Activity Restrictions/Additional Instructions: Rest, ice, compression, and elevation. Ibuprofen and Tylenol. Range of motion and weightbearing as tolerated. Follow-up with your regular doctor. Print Language: Singaporean Coding Level of Care Code ED [employer] Documented by User: Santy Edwards DO 10/21/24 17:58 HPI - Extremity Problem General: Chief complaint: Extremity Injury, Lower Stated complaint: fell, twisted lft ankle Time Seen by Provider: 10/21/24 16:43 Related Data Home Medications ?Medication ?Instructions ?Recorded ?Confirmed albuterol sulfate 90 mcg/actuation 2 inh inhalation Q6H PRN Shortness 07/19/19 09/24/24 breath activated powder inhaler Of Breath isosorbide mononitrate 60 mg 120 mg PO QAM@0600 07/19/19 09/24/24 tablet,extended release 24 hr loratadine 10 mg tablet 10 mg PO DAILY@0600 07/19/19 09/24/24 aripiprazole 2 mg tablet (Abilify) 4 mg PO BEDTIME@2200 04/17/20 09/24/24 acetaminophen 500 mg tablet 500 mg PO BID PRN Pain 06/11/20 09/24/24 fluticasone propionate 50 2 spray intranasal BID@0600,2200 06/11/20 09/24/24 mcg/actuation nasal spray,suspension omeprazole 40 mg capsule,delayed 40 mg PO DAILY@0600 06/11/20 09/24/24 release atorvastatin 20 mg tablet 20 mg PO QPM 03/19/23 09/24/24 epinephrine 0.3 mg/0.3 mL See Rx Instructions .Route .COMPLEX 03/19/23 09/24/24 injection, auto-injector levothyroxine 75 mcg tablet 75 mcg PO DAILY 03/19/23 09/24/24 metoprolol succinate 25 mg 25 mg PO DAILY 03/19/23 09/24/24 tablet,extended release 24 hr nitroglycerin 0.4 mg sublingual 0.4 mg sublingual Q5M PRN Chest 03/19/23 09/24/24 tablet (Nitrostat) Pain onabotulinumtoxinA 100 unit 155 unit SUBCUT .EVERY 3 MONTHS 03/19/23 09/24/24 solution for injection (Botox) topiramate 100 mg tablet 100 mg PO DAILY@06 03/19/23 09/24/24 trazodone 50 mg tablet 50 mg PO BEDTIME 03/19/23 09/24/24 venlafaxine 150 mg 150 mg PO QAM 03/19/23 09/24/24 capsule,extended release 24 hr venlafaxine 75 mg capsule,extended 75 mg PO QAM 03/19/23 09/24/24 release 24 hr rimegepant 75 mg disintegrating 75 mg PO PRN PRN Migraine Headache 07/07/23 09/24/24 tablet (Nurtec ODT) dulaglutide 3 mg/0.5 mL 3 mg SUBCUT Q7D 11/25/23 09/24/24 subcutaneous pen injector ([facility]) Previous Rx's ?Medication ?Instructions ?Recorded ASO to right ankle #1 ea 12/28/21 Spectrum AFO to the left #1 ea 08/06/22 AFO to right #1 ea 11/02/22 Cam Boot to the Right #1 ea 12/30/22 ASO to left #2 ea 01/14/23 Hinged Knee Brace #1 ea 12/06/23 Bone Growth Stimulator #1 ea 12/09/23 ondansetron 8 mg disintegrating 8 mg PO Q8H PRN nausea and 01/21/24 tablet vomiting 5 days #15 tabs benzonatate 100 mg capsule 100 mg PO QID PRN cough #14 caps 08/19/24 right cock up wrist brace #1 ea 09/10/24 hydrocodone 5 mg-acetaminophen 325 1 tab PO Q8H PRN pain 30 days #90 09/18/24 mg tablet tabs tizanidine 4 mg tablet 4 mg PO Q8H PRN muscle spasticity 10/12/24 14 days #42 tabs Allergies Allergy/AdvReac Type Severity Reaction Status Date / Time adhesive tape Allergy ALGY-Rash Verified 10/21/24 16:43 aspirin Allergy ALGY-Anaphy Verified 10/21/24 16:43 laxis carbamazepine Allergy ADR-Dizzine Verified 10/21/24 16:43 ss gabapentin Allergy ALGY-Hives Verified 10/21/24 16:43 ibuprofen Allergy Unknown Verified 10/21/24 16:43 linaclotide (From Linzess) Allergy Unknown Verified 10/21/24 16:43 metformin Allergy Verified 10/21/24 16:43 naproxen Allergy Verified 10/21/24 16:43 [facility] ED PFSH: Medical History Cavernous angioma Urinary hesitancy Stress incontinence Gross hematuria Functional neurological symptom disorder with attacks or seizures Surgical History History of hysterectomy Social History Smoking and tobacco/nicotine status: current every day tobacco/nicotine user (1/2-1 pack a day) Alcohol intake: never Substance/Drug Use: never Marital status: Current occupational status: unemployed and disabled Course Vital Signs: Vital signs: Vital Signs Temperature 97.5 F L 10/21/24 16:36 Pulse Rate 85 10/21/24 17:26 Blood Pressure 109/69 10/21/24 17:26 Pulse Oximetry 95 10/21/24 17:26 Oxygen Delivery Me thod Room Air 10/21/24 16:36 MDM - Extremity (Nontraumatic) Medical Decision Making Patient presenting for injury to left ankle evaluation. The exam was unremarkable, she was endorsing diminished sensation and saying it was hard to move, I suspect that this is more behavioral at this point due to lack of outward physical exam findings of injury. In addition of this her x-ray was normal. Given pain medication here and discharged in stable condition at this time. Chart reviewed and patient discussed with midlevel. Agree with assessment and plan. Lab Data Radiology Impressions Ankle X-Ray 10/21/24 16:30 IMPRESSION: No acute findings. Discharge Plan Discharge Patient Disposition: Home Clinical Impression: Left ankle sprain Qualifiers: Encounter type: initial encounter Involved ligament of ankle: unspecified ligament Qualified Code(s): S93.402A - Sprain of unspecified ligament of left ankle, initial encounter Condition: Stable Prescriptions: No Action isosorbide mononitrate 60 mg tablet extended release 24 hr 120 mg PO QAM@0600 loratadine 10 mg tablet 10 mg PO DAILY@0600 albuterol sulfate 90 mcg/actuation aerosol powdr breath activated 2 inh INHALATION Q6H PRN (Reason: Shortness Of Breath) (DME) AFO to right See Rx Instructions .Route .MEDSUPPLY Qty: 1 0RF Rx Instructions: As directed JOANN&O Nurtec ODT 75 mg tablet,disintegrating 75 mg PO PRN PRN (Reason: Migraine Headache) (DME) Hinged Knee Brace See Rx Instructions .Route .MEDSUPPLY Qty: 1 0RF Rx Instructions: As directed ondansetron 8 mg tablet,disintegrating 8 mg PO Q8H PRN (Reason: nausea and vomiting) 5 Days Qty: 15 0RF (DME) ASO to right ankle See Rx Instructions .Route .MEDSUPPLY Qty: 1 0RF Rx Instructions: As directed (DME) Spectrum AFO to the left See Rx Instructions .Route .MEDSUPPLY Qty: 1 0RF Rx Instructions: As directed by JOANN&O (DME) ASO to left See Rx Instructions .Route .MEDSUPPLY Qty: 2 0RF Rx Instructions: As directed Trulicity 3 mg/0.5 mL pen injector 3 mg SUBCUT Q7D (DME) right cock up wrist brace See Rx Instructions .Route .MEDSUPPLY Qty: 1 0RF Rx Instructions: As directed (DME) Cam Boot to the Right See Rx Instructions .Route .MEDSUPPLY Qty: 1 0RF Rx Instructions: As directed (DME) Bone Growth Stimulator See Rx Instructions .Route .MEDSUPPLY Qty: 1 0RF Rx Instructions: As directed hydrocodone-acetaminophen 5-325 mg tablet 1 tab PO Q8H MDD 6 PRN (Reason: pain) 30 Days Qty: 90 0RF tizanidine 4 mg tablet 4 mg PO Q8H PRN (Reason: muscle spasticity) 14 Days Qty: 42 0RF aripiprazole [Abilify] 2 mg Tablet 4 mg PO BEDTIME@2200 omeprazole 40 mg capsule,delayed release(DR/EC) 40 mg PO DAILY@0600 acetaminophen 500 mg tablet 500 mg PO BID PRN (Reason: Pain) fluticasone propionate 50 mcg/actuation spray,suspension 2 spray INTRANASAL BID@0600,2200 venlafaxine 75 mg capsule,extended release 24hr 75 mg PO QAM atorvastatin 20 mg tablet 20 mg PO QPM trazodone 50 mg tablet 50 mg PO BEDTIME nitroglycerin [Nitrostat] 0.4 mg Tablet, Sublingual 0.4 mg SUBLINGUAL Q5M PRN (Reason: Chest Pain) Rx Instructions: do not exceed 3 doses per episode metoprolol succinate 25 mg tablet extended release 24 hr 25 mg PO DAILY epinephrine 0.3 mg/0.3 mL auto-injector See Rx Instructions .ROUTE .COMPLEX Rx Instructions: INJECT 0.3MG IN THE MUSCLE 1 TIME DIRECTED topiramate 100 mg tablet 100 mg PO DAILY@06 levothyroxine 75 mcg tablet 75 mcg PO DAILY Botox 100 unit recon soln 155 unit SUBCUT .EVERY 3 MONTHS venlafaxine 150 mg capsule,extended release 24hr 150 mg PO QAM benzonatate 100 mg capsule 100 mg PO QID PRN (Reason: cough) Qty: 14 0RF Discharge Orders: Discharge ED (Routine); Ordered 10/21/24 Ordered By: Raman Gonzalez Referrals: Joseline Thompson MD [Primary Care Provider] - Patient Instructions: Ankle Sprain (ED) Activity Restrictions/Additional Instructions: Rest, ice, compression, and elevation. Ibuprofen and Tylenol. Range of motion and weightbearing as tolerated. Follow-up with your regular doctor. Print Language: Singaporean Coding Level of Care Code ED [employer]
[2024-10-21] MEDS: HYDROcodone-acetaminophen 5-325 mg Tablet 1 TAB PO (17:14)
[2024-10-21 17:26] VITALS: BP 109/69; PULSE 85; O2SAT 95
== END 2024-10-21 17:49 | disposition home or self-care (01) ==
PROVIDERS: Emergency Provider Physician Assistant; PCP Family Medicine
DX: S93.402A Sprain of unspecified ligament of left ankle, initial encounter (principal); F17.210 Nicotine dependence, cigarettes, uncomplicated; W19.XXXA Unspecified fall, initial encounter
CPT/HCPCS: 73610; 99283; J9999

== ENCOUNTER → 2024-10-23 13:09 | Outpatient (BNVA) | payer MEDICAID, SELFPAY | PROVIDERS: PCP Family Medicine; Visit Provider Physician Assistant | DX: M25.561 Pain in right knee (principal); M25.562 Pain in left knee; M17.0 Bilateral primary osteoarthritis of knee | CPT/HCPCS: 20610; 73560; 73565; 99213; J3301; J9999 ==

== ENCOUNTER → 2024-10-26 15:32 | Outpatient (BNVA) | payer MEDICAID, SELFPAY | PROVIDERS: PCP Family Medicine; Visit Provider Specialist | DX: G43.711 Chronic migraine without aura, intractable, with status migrainosus (principal); F44.5 Conversion disorder with seizures or convulsions; D18.00 Hemangioma unspecified site; R03.0 Elevated blood-pressure reading, without diagnosis of hypertension | CPT/HCPCS: 64615; J0585; J9999 ==

== ENCOUNTER → 2024-11-01 14:15 | Outpatient (BNVA) | payer MEDICAID, SELFPAY | PROVIDERS: PCP Family Medicine; Visit Provider Orthopaedic Surgery | DX: S52.521D Torus fracture of lower end of right radius, subsequent encounter for fracture with routine healing (principal); X58.XXXD Exposure to other specified factors, subsequent encounter | CPT/HCPCS: 99213 ==

== ENCOUNTER 2024-12-02 20:19 | Emergency (ER) | payer SELFPAY ==
[2024-12-02 20:39] VITALS: BP 123/71; PULSE 84; RESP 16; TEMP 36.7; O2SAT 94
[2024-12-02 22:22] LABS: Bacteria Urine None Seen /hpf; Hyaline Casts Urine 0-4 /lpf; RBC Urine 0-2 /hpf (0-2); Squamous Epithelial Cell Urine 0-5 /hpf (0-5); WBC Urine 0-5 /hpf (0-5)
[2024-12-02 22:54] LABS: Bilirubin Urine Negative (Negative); Blood Urine Negative (Negative); Glucose Urine UA Negative (Normal); Ketones Urine Negative (Negative); Leukocyte Esterase Urine Negative (Negative); Nitrate Urine Negative (Negative); Protein Urine Negative (Negative); Specific Gravity, Urine 1.004 (1.005-1.030); Urine Appearance Clear (CLEAR); Urine Color Yellow (Yellow); Urobilinogen Urine 0.2 mg/dL (Negative)
== END 2024-12-02 22:30 | disposition left against medical advice (07) ==
LOC: ER 20:34
PROVIDERS: Emergency Medicine; Emergency Provider Family Medicine; PCP Family Medicine
DX: Z01.89 Encounter for other specified special examinations (principal); Z53.21 Procedure and treatment not carried out due to patient leaving prior to being seen by health care provider
CPT/HCPCS: 81001; 99283

== ENCOUNTER 2024-12-10 17:04 | Emergency (ER) | payer SELFPAY ==
[2024-12-10 17:23] VITALS: BP 128/84; PULSE 86; RESP 16; TEMP 36.6; O2SAT 97
--- NOTE | 2024-12-10 18:17 | XRR_ITS ---
PROCEDURE INFORMATION: Exam: XR Right Knee Exam date and time: 12/10/2024 6:24 PM Age: 44 years old Clinical indication: Injury or trauma; Fall; Blunt trauma; Knee; Right TECHNIQUE: Imaging protocol: Radiologic exam of the right knee. Views: 3 views. COMPARISON: CR XR knees AP WB w BI lmt ORTH 10/23/2024 1:16 PM FINDINGS: Bones/joints: Negative exam for fracture and dislocation. Tricompartmental joint space narrowing present with marginal osteophyte formation. No definitive joint effusion. Soft tissues: Normal. XR/XR knee RT 3V* [id number] IMPRESSION: No acute abnormality. Degenerative changes.
--- NOTE | 2024-12-10 18:17 | XRR_ITS ---
PROCEDURE INFORMATION: Exam: XR Right Ankle Exam date and time: 12/10/2024 6:22 PM Age: 44 years old Clinical indication: Injury or trauma; Fall; Blunt trauma; Ankle; Right TECHNIQUE: Imaging protocol: Radiologic exam of the right ankle. Views: 3 or more views. COMPARISON: CR XR knees AP WB w BI lmt ORTH 10/23/2024 1:16 PM FINDINGS: Bones/joints: No fracture or dislocation. Mild calcaneal spurring. Soft tissues: Mild diffuse soft tissue swelling. XR/XR ankle RT min 3V* [id number] IMPRESSION: No acute bony abnormality.
--- NOTE | 2024-12-10 19:20 | W.ED.LOWEXIN ---
HPI - Extremity Injury (Lower) General: Chief Complaint: Extremity Injury, Lower Stated Complaint: KNEE PAIN Time Seen by Provider: 12/10/24 19:12 Source: patient Mode of arrival: wheelchair Limitations: no limitations History of Present Illness: Patient is a 44-year-old female presents to ED today with complaint of right knee pain that started today after she accidentally stepped in a hole and twisted the knee. No fall/direct injury or trauma. 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 Edwards for this. She states she cannot walk on the knee secondary to discomfort. She feels like pain radiates down into her lower leg. She has not noticed any deformity or significant swelling. MD complaint: knee injury Onset (ago): hour(s) Injury: Right: knee Place: home Severity: moderate Relieving factors: immobilization Exacerbating factors: weight bearing, movement and palpation Context: fall Associated symptoms: Reports inability to bear weight Other symptoms: none Related Data Home Medications ?Medication ?Instructions ?Recorded ?Confirmed albuterol sulfate 90 mcg/actuation 2 inh inhalation Q6H PRN Shortness 07/19/19 10/29/24 breath activated powder inhaler Of Breath isosorbide mononitrate 60 mg 120 mg PO QAM@0600 07/19/19 10/29/24 tablet,extended release 24 hr loratadine 10 mg tablet 10 mg PO DAILY@0600 07/19/19 10/29/24 aripiprazole 2 mg tablet (Abilify) 4 mg PO BEDTIME@2200 04/17/20 10/29/24 acetaminophen 500 mg tablet 500 mg PO BID PRN Pain 06/11/20 10/29/24 fluticasone propionate 50 2 spray intranasal BID@0600,2200 06/11/20 10/29/24 mcg/actuation nasal spray,suspension omeprazole 40 mg capsule,delayed 40 mg PO DAILY@0600 06/11/20 10/29/24 release atorvastatin 20 mg tablet 20 mg PO QPM 03/19/23 10/29/24 epinephrine 0.3 mg/0.3 mL See Rx Instructions .Route .COMPLEX 03/19/23 10/29/24 injection, auto-injector levothyroxine 75 mcg tablet 75 mcg PO DAILY 03/19/23 10/29/24 metoprolol succinate 25 mg 25 mg PO DAILY 03/19/23 10/29/24 tablet,extended release 24 hr nitroglycerin 0.4 mg sublingual 0.4 mg sublingual Q5M PRN Chest 03/19/23 10/29/24 tablet (Nitrostat) Pain onabotulinumtoxinA 100 unit 155 unit SUBCUT .EVERY 3 MONTHS 03/19/23 10/29/24 solution for injection (Botox) topiramate 100 mg tablet 100 mg PO DAILY@06 03/19/23 10/29/24 trazodone 50 mg tablet 50 mg PO BEDTIME 03/19/23 10/29/24 venlafaxine 150 mg 150 mg PO QAM 03/19/23 10/29/24 capsule,extended release 24 hr venlafaxine 75 mg capsule,extended 75 mg PO QAM 03/19/23 10/29/24 release 24 hr rimegepant 75 mg disintegrating 75 mg PO PRN PRN Migraine Headache 07/07/23 10/29/24 tablet (Nurtec ODT) dulaglutide 3 mg/0.5 mL 3 mg SUBCUT Q7D 11/25/23 10/29/24 [facility] Previous Rx's ?Medication ?Instructions ?Recorded ASO to right ankle #1 ea 12/28/21 Spectrum AFO to the left #1 ea 08/06/22 AFO to right #1 ea 11/02/22 Cam Boot to the Right #1 ea 12/30/22 ASO to left #2 ea 01/14/23 Hinged Knee Brace #1 ea 12/06/23 Bone Growth Stimulator #1 ea 12/09/23 ondansetron 8 mg disintegrating 8 mg PO Q8H PRN nausea and 01/21/24 tablet vomiting 5 days #15 tabs benzonatate 100 mg capsule 100 mg PO QID PRN cough #14 caps 08/19/24 right cock up wrist brace #1 ea 09/10/24 hydrocodone 5 mg-acetaminophen 325 1 tab PO Q12H PRN pain 30 days #60 11/22/24 mg tablet tabs tizanidine 4 mg tablet 4 mg PO Q8H PRN muscle spasticity 11/27/24 14 days #42 tabs Allergies Allergy/AdvReac Type Severity Reaction Status Date / Time adhesive tape Allergy ALGY-Rash Verified 12/02/24 20:43 aspirin Allergy ALGY-Anaphy Verified 12/02/24 20:43 laxis carbamazepine Allergy ADR-Dizzine Verified 12/02/24 20:43 ss gabapentin Allergy ALGY-Hives Verified 12/02/24 20:43 ibuprofen Allergy Unknown Verified 12/02/24 20:43 linaclotide (From Linzess) Allergy Unknown Verified 12/02/24 20:43 metformin Allergy Verified 12/02/24 20:43 naproxen Allergy Verified 12/02/24 20:43 Review of Systems Card: Denies: chest pain Resp: Denies: dyspnea Musc: Reports: joint pain (R knee); Denies: neck pain, back pain, joint swelling, joint redness, joint warmth, joint stiffness, muscle cramps or muscle weakness Neuro: Reports: difficulty walking (secondary to R knee pain); Denies: numbness in extremities, weakness in extremities or sensory changes PFSH ED PFSH: Medical History Cavernous angioma Urinary hesitancy Stress incontinence Gross hematuria Functional neurological symptom disorder with attacks or seizures Surgical History History of hysterectomy Social History Smoking and tobacco/nicotine status: current every day tobacco/nicotine user (1/2-1 pack a day) Alcohol intake: never Substance/Drug Use: never Marital status: Current occupational status: unemployed and disabled Physical Exam Const: COMMON NORMALS: no acute distress, patient oriented x3, no limitations, alert and well nourished GENERAL APPEARANCE: cooperative NUTRITIONAL APPEARANCE: obese morbidly obese (BMI 43.5) ORIENTATION/CONSCIOUSNESS: Yes awake, Yes oriented to person, Yes oriented to place and Yes oriented to time Resp: COMMON NORMALS: normal respiratory effort Back/Pelvis: COMMON NORMALS: thoracic and lumbar spine normal to inspection and no thoracic nor lumbar tenderness Extremity: COMMON NORMALS: capillary refill normal, no joint enlargement, no clubbing, cyanosis or edema, no calf tenderness and no pedal edema GENERAL: Yes normal exam except as noted RIGHT LOWER EXTREMITY: Yes knee joint (TTP anteriolateral R knee) Right knee: Yes inspection (normal gross inspection), Yes ROM (fairly normal passive ROM although this does elicit discomfort) and Yes neurovascular exam (normal), Yes lower leg (no deformity or significant discomfort) Right lower leg: Yes neurovascular exam (normal) and Yes foot & digits (normal painless ROM R ankle) Right ankle: Yes neurovascular exam (normal) Neuro: COMMON NORMALS: patient oriented x3, moves all extremities, no focal motor deficits and no sensory deficits noted SENSORIUM/ORIENTATION: Yes alert, Yes oriented to person, Yes oriented to place and Yes oriented to time Course Vital Signs: Vital signs: Vital Signs Temperature 97.9 F 12/10/24 17:23 Pulse Rate 86 12/10/24 17:23 Respiratory Rate 16 12/10/24 17:23 Blood Pressure 128/84 12/10/24 17:23 Pulse Oximetry 97 12/10/24 17:23 Oxygen Delivery Me thod Room Air 12/10/24 17:23 MDM - Extremity Injury (Lower) Medical Decision Making XRs of her R knee/ankle obtained from triage and unremarkable. Will provide LACIE wrap/crutches to help with ambulation. RICE therapy discussed. She can follow-up with primary care or her data review specialist for further evaluation if symptoms do not improve. Medical Records I reviewed the patient's medical records. Lab Data Radiology Impressions Ankle X-Ray 12/10/24 18:17 IMPRESSION: No acute bony abnormality. Knee X-Ray 12/10/24 18:17 IMPRESSION: No acute abnormality. Degenerative changes. All radiology interpretation(s) finalized by discharge Discharge Plan Discharge Patient Disposition: Home Clinical Impression: Injury of knee, right Qualifiers: Encounter type: initial encounter Qualified Code(s): S89.91XA - Unspecified injury of right lower leg, initial encounter Condition: Stable Prescriptions: No Action isosorbide mononitrate 60 mg tablet extended release 24 hr 120 mg PO QAM@0600 loratadine 10 mg tablet 10 mg PO DAILY@0600 albuterol sulfate 90 mcg/actuation aerosol powdr breath activated 2 inh INHALATION Q6H PRN (Reason: Shortness Of Breath) (DME) AFO to right See Rx Instructions .Route .MEDSUPPLY Qty: 1 0RF Rx Instructions: As directed JOANN&O Nurtec ODT 75 mg tablet,disintegrating 75 mg PO PRN PRN (Reason: Migraine Headache) (DME) Hinged Knee Brace See Rx Instructions .Route .MEDSUPPLY Qty: 1 0RF Rx Instructions: As directed ondansetron 8 mg tablet,disintegrating 8 mg PO Q8H PRN (Reason: nausea and vomiting) 5 Days Qty: 15 0RF ([facility]O to right ankle See Rx Instructions .Route .MEDSUPPLY Qty: 1 0RF Rx Instructions: As directed ([facility] [place]) Spectrum AFO to the left See Rx Instructions .Route .MEDSUPPLY Qty: 1 0RF Rx Instructions: As directed by JOANN&O ([facility]) ASO to left See Rx Instructions .Route .MEDSUPPLY Qty: 2 0RF Rx Instructions: As directed Trulicity 3 mg/0.5 mL pen injector 3 mg SUBCUT Q7D ([facility]) right cock up wrist brace See Rx Instructions .Route .MEDSUPPLY Qty: 1 0RF Rx Instructions: As directed ([facility]) Cam Boot to the Right See Rx Instructions .Route .MEDSUPPLY Qty: 1 0RF Rx Instructions: As directed ([facility]) Bone Growth Stimulator See Rx Instructions .Route .MEDSUPPLY Qty: 1 0RF Rx Instructions: As directed hydrocodone-acetaminophen 5-325 mg tablet 1 tab PO Q12H MDD 6 PRN (Reason: pain) 30 Days Qty: 60 0RF tizanidine 4 mg tablet 4 mg PO Q8H PRN (Reason: muscle spasticity) 14 Days Qty: 42 0RF aripiprazole [Abilify] 2 mg Tablet 4 mg PO BEDTIME@2200 omeprazole 40 mg capsule,delayed release(DR/EC) 40 mg PO DAILY@0600 acetaminophen 500 mg tablet 500 mg PO BID PRN (Reason: Pain) fluticasone propionate 50 mcg/actuation spray,suspension 2 spray INTRANASAL BID@0600,2200 venlafaxine 75 mg capsule,extended release 24hr 75 mg PO QAM atorvastatin 20 mg tablet 20 mg PO QPM trazodone 50 mg tablet 50 mg PO BEDTIME nitroglycerin [Nitrostat] 0.4 mg Tablet, Sublingual 0.4 mg SUBLINGUAL Q5M PRN (Reason: Chest Pain) Rx Instructions: do not exceed 3 doses per episode metoprolol succinate 25 mg tablet extended release 24 hr 25 mg PO DAILY epinephrine 0.3 mg/0.3 mL auto-injector See Rx Instructions .ROUTE .COMPLEX Rx Instructions: INJECT 0.3MG IN THE MUSCLE 1 TIME DIRECTED topiramate 100 mg tablet 100 mg PO DAILY@06 levothyroxine 75 mcg tablet 75 mcg PO DAILY Botox 100 unit recon soln 155 unit SUBCUT .EVERY 3 MONTHS venlafaxine 150 mg capsule,extended release 24hr 150 mg PO QAM benzonatate 100 mg capsule 100 mg PO QID PRN (Reason: cough) Qty: 14 0RF Discharge Orders: Discharge ED (Routine); Ordered 12/10/24 Ordered By: Roberta Rahman Referrals: Zohaib,Felisa, [employer] [Primary Care Provider, Nurse Practitioner] Activity Restrictions/Additional Instructions: As discussed, radiology did not see any acute fractures to your right knee or ankle. We discussed icing and elevating the extremity. You may use crutches as needed for ambulation. You may also use your LACIE wrap that you are provided today. You may follow-up with your data review specialist or your primary care provider for further evaluation in case symptoms are not improving. Print Language: Burkinan Coding Level of Care Code ED General Intern for Anju Stinson
[2024-12-10 19:36] VITALS: BP 126/76; PULSE 88; RESP 16; O2SAT 99
== END 2024-12-10 19:37 | disposition home or self-care (01) ==
PROVIDERS: Emergency Provider Physician Assistant; PCP Nurse Practitioner Family
DX: S89.91XA Unspecified injury of right lower leg, initial encounter (principal); G89.29 Other chronic pain; W17.2XXA Fall into hole, initial encounter; F17.200 Nicotine dependence, unspecified, uncomplicated; Z79.899 Other long term (current) drug therapy; Z79.85 Long-term (current) use of injectable non-insulin antidiabetic drugs; Z79.890 Hormone replacement therapy
CPT/HCPCS: 73562; 73610; 99284

== ENCOUNTER 2024-12-14 21:10 | Emergency (ER) | payer MEDICAID, SELFPAY ==
[2024-12-14 21:11] VITALS: BP 112/74; PULSE 67; RESP 16; TEMP 36.6; O2SAT 98; BMI 42.0
--- NOTE | 2024-12-14 21:26 | ED_ITS ---
HPI - General Adult 2 General: Chief complaint: General Medical Stated complaint: AMS Time Seen by Provider: 12/14/24 21:11 History of Present Illness: Patient complains of 1 day of nausea and some emesis. She did not define this further. She is passing gas. Normal bowel movement today. No dysuria, no fever, no chills, no abdominal pain. No chest discomfort. This has occurred in the past. Patient states she just feels weak, malaise. No sputum production. No sick contact Associated symptoms: Reports malaise, nausea and vomiting; Deny chest pain, dyspnea, headache(s) or palpitations Related Data Home Medications ?Medication ?Instructions ?Recorded ?Confirmed albuterol sulfate 90 mcg/actuation 2 inh inhalation Q6 H PRN Shortness 07/19/19 10/29/24 breath activated powder inhaler Of Breath isosorbide mononitrate 60 mg 120 mg PO QAM@0600 10/29/24 tablet,extended release 24 hr loratadine 10 mg tablet 10 mg PO DAILY@0600 07/19/19 10/29/24 aripiprazole 2 mg tablet (Abilify) 4 mg PO BEDTIME@220 0 04/17/20 10/29/24 acetaminophen 500 mg tablet 500 mg PO BID PRN Pain 03/2310/29/24 fluticasone propionate 50 2 spray intranasal BID@0600, 2200 06/11/20 10/29/24 mcg/actuation nasal spray,suspension omeprazole 40 mg capsule,delayed 40 mg PO DAILY@0600 1 08/12/19 10/29/24 release atorvastatin 20 mg tablet 20 mg PO QPM 03/19/23 epinephrine 0.3 mg/0.3 mL See Rx Instructions .Route . COMPLEX 03/19/23 10/29/24 injection, auto-injector levothyroxine 75 mcg tablet 75 mcg PO DAILY 03/19/23 0 10/29/24 metoprolol succinate 25 mg 25 mg PO DAILY 03/19/23 tablet,extended release 24 hr nitroglycerin 0.4 mg sublingual 0.4 mg sublingual Q5M PRN Chest 03/19/23 10/29/24 tablet (Nitrostat) Pain onabotulinumtoxinA 100 unit 155 unit SUBCUT .EVERY 3 M ONTHS 03/19/23 10/29/24 solution for injection (Botox) topiramate 100 mg tablet 100 mg PO DAILY@06 03/19/23 10/29/24 trazodone 50 mg tablet 50 mg PO BEDTIME 03/19/23 venlafaxine 150 mg 150 mg PO QAM 03/19/2310/29 capsule,extended release 24 hr venlafaxine 75 mg capsule,extended 75 mg PO QAM 10/29/24 release 24 hr rimegepant 75 mg disintegrating 75 mg PO PRN PRN Migra ine Headache 07/07/23 10/29/24 tablet (Nurtec ODT) dulaglutide 3 mg/0.5 mL 3 mg SUBCUT Q7D 11/25/23 [facility] Previous Rx's ?Medication ?Instructions ?Recorded ASO to right ankle #1 ea 12/28/21 Spectrum AFO to the left #1 ea 08/06/22 AFO to right #1 ea 11/02/22 Cam Boot to the Right #1 ea 12/30/22 ASO to left #2 ea 01/14/23 Hinged Knee Brace #1 ea 12/06/23 Bone Growth Stimulator #1 ea 12/09/23 ondansetron 8 mg disintegrating 8 mg PO Q8H PRN nausea and 01/21/24 tablet vomiting 5 days #15 tabs benzonatate 100 mg capsule 100 mg PO QID PRN cough #14 caps 08/19/24 right cock up wrist brace #1 ea 09/10/24 hydrocodone 5 mg-acetaminophen 325 1 tab PO Q12H PRN p ain 30 days #60 11/22/24 mg tablet tabs tizanidine 4 mg tablet 4 mg PO Q8H PRN muscle spast icity 11/27/24 14 days #42 tabs ondansetron 4 mg disintegrating 4 mg PO Q8H PRN nausea and 12/14/24 tablet vomiting 3 days #9 tabs Allergies Allergy/AdvReac Type Severity Reaction Status Date / Time adhesive tape Allergy ALGY-Rash Verified 12/14/24 21:26 aspirin Allergy ALGY-Anaphy Verified 12/14/24 21:26 laxis carbamazepine Allergy ADR-Dizzine Verified 12/14/24 21:26 ss gabapentin Allergy ALGY-Hives Verified 12/14/24 21:26 ibuprofen Allergy Unknown Verified 12/14/24 21:26 linaclotide (From Linzess) Allergy Unknown Verified 12/14/24 21:26 metformin Allergy Verified 12/14/24 21:26 naproxen Allergy Verified 12/14/24 21:26 Review of Systems 2 General: Reports: 10 or more systems reviewed and unremarkable except in HPI and below Const: Reports: malaise; Denies: fever(s) or chills ENMT: Denies: mouth pain Card: Denies: chest pain or palpitations Resp: Denies: dyspnea, productive cough or non-productive cough GI: Reports: nausea and vomiting; Denies: abdominal pain : Denies: flank pain Musc: Denies: neck pain or back pain Neuro: Denies: headache(s) or numbness in extremities Psych: Denies: anxiety or depression PFSH ED 2 PFSH: Medical History Cavernous angioma Urinary hesitancy Stress incontinence Gross hematuria Functional neurological symptom disorder with attacks or seizures Surgical History History of hysterectomy Social History Smoking and tobacco/nicotine status: current every day tobacco/nicotine user (1/2-1 pack a day) Alcohol intake: never Substance/Drug Use: never Marital status: Current occupational status: unemployed and disabled Physical Exam 2 Const: COMMON NORMALS: no acute distress, average body habitus and patient oriented x3 GENERAL APPEARANCE: cooperative and disheveled O RIENTATION/CONSCIOUSNESS: Yes awake, Yes oriented to person, Yes oriented to place and Yes oriented to time Neck/C-Spine: COMMON NORMALS: full ROM; negative for no lymphadenopathy Lymph: LYMPHATIC: no lymphadenopathy noted Chest: COMMONS NORMALS: normal palpation of entire chest wall Resp: COMMON NORMALS: normal respiratory effort, No retractions and clear to auscultation bilaterally AUSCULTATION: clear to auscultation bilaterally Cardio: COMMON NORMALS: regular rate and regular rhythm RATE: regular rate RHYTHM: regular rhythm Neuro: COMMON NORMALS: patient oriented x3 SENSORIUM/ORIENTATION: Yes oriented to person, Yes oriented to place and Yes oriented to time Course 2 Vital Signs: Vital signs: Vital Signs Temperature 97.9 F 12/14/24 21:11 Pulse Rate 67 12/14/24 21:11 Respiratory Rate 16 12/14/24 21:11 Blood Pressure 112/74 12/14/24 21:11 Pulse Oximetry 98 12/14/24 21:11 Oxygen Delivery Me thod Room Air 12/14/24 21:11 MDM - General Adult Medical Decision Making Patient is a 44-year-old female with 1 day of malaise, nausea, and minimal emesis or spit. She is improved after Zofran, oral trial. She will receive low dosage of Zofran for home use, with thoughts of viral illness versus gastroenteritis, however patient did not have bowel changes, or abdominal pain. Since this is just 1 day, could be as well not further delineated. Discussed all of this with patient and answered her questions to her satisfaction. Lab Data 12/14/24 22:00 12/14/24 22:00 Laboratory Results WBC 11.88 10^3/uL (3.29-11.43) H 12/14/24 22:00 RBC 4.60 10^6/uL (3.85-5.65) 12/14/24 22:00 Hgb 13.80 g/dL (11.27-16.99) 12/14/24 22:00 Hct 41.9 % (36-47) 12/14/24 22:00 MCV 91.1 fl (85-98) 12/14/24 22:00 MCH 30.0 pg (27-33) 12/14/24 22:00 MCHC 32.9 g/dL (30-55) 12/14/24 22:00 RDW 14.6 % (12.1-15.1) 12/14/24 22:00 Plt Count 158 10^3/cmm (157-399) 12/14/24 22:00 MPV 11.9 fL (7.4-10.4) H 12/14/24 22:00 Neut % (Auto) 67.7 % 12/14/24 22:00 Lymph % (Auto) 21.8 % 12/14/24 22:00 [place] % (Auto) 5.6 % 12/14/24 22:00 Eos % (Auto) 4.0 % 12/14/24 22:00 Baso % (Auto) 0.6 % 12/14/24 22:00 Neut # (Auto) 8.04 10^3/uL (1.8-7.7) H 12/14/24 22:00 Lymph # (Auto) 2.6 10^3/uL (0.8-4.8) 12/14/24 22:00 [place] # (Auto) 0.7 10^3/uL (0.2-0.9) 12/14/24 22:00 Eos # (Auto) 0.5 10^3/uL (0.0-0.8) 12/14/24 22:00 Baso # (Auto) 0.1 10^3/uL (0.0-0.1) 12/14/24 22:00 Nucleated RBC % (auto) 0 % 12/14/24 22:00 Nucleated RBCs # 0.0 /100WBC 12/14/24 22:00 Sodium 141 mmol/L (136-145) 12/14/24 22:00 Potassium 3.4 mmol/L (3.5-5.1) L 12/14/24 22:00 Chloride 105 mmol/L (98-107) 12/14/24 22:00 Carbon Dioxide 23 mmol/L (22-29) 12/14/24 22:00 Anion Gap 16.4 (5-19) 12/14/24 22:00 BUN 8 mg/dL (6-20) 12/14/24 22:00 Creatinine 0.6 mg/dL (0.5-0.9) 12/14/24 22:00 GFR Calculation 107.6 mL/min (90-130) 12/14/24 22:00 Glucose 97 mg/dL (65-115) 12/14/24 22:00 POC Glucose 110 mg/dL (70-110) 12/14/24 22:00 Calculated Osmolality 290 mOsm/kg (285-295) 12/14/24 22:00 Calcium 9.4 mg/dL (8.5-10.5) 12/14/24 22:00 Total Bilirubin 0.2 mg/dL (0.15-1.2) 12/14/24 22:00 AST 9 U/L (0-32) 12/14/24 22:00 ALT 8 U/L (0-33) 12/14/24 22:00 Alkaline Phosphatase 100 U/L (35-105) 12/14/24 22:00 Total Protein 6.7 g/dL (6.6-8.7) 12/14/24 22:00 Albumin 4.5 g/dL (3.5-5.2) 12/14/24 22:00 Globulin 2.2 g/dL (1.3-4.6) 12/14/24 22:00 Influenza A (PCR) Negative (Negative) 12/14/24 21:47 Influenza Type B (PCR) Negative (Negative) 12/14/24 21:47 RSV (PCR) Negative (Negative) 12/14/24 21:47 SARS-CoV-2 (PCR) Negative (Negative) 12/14/24 21:47 Group A Strep Rapid Negative (Negative) 12/14/24 21:47 No radiology studies performed this visit Discharge Plan Discharge Patient Disposition: Home Clinical Impression: Viral illness Nausea & vomiting Qualifiers: Vomiting type: unspecified Qualified Code(s): R11.2 - Nausea with vomiting, unspecified Condition: Stable Prescriptions: New ondansetron 4 mg tablet,disintegrating 4 mg PO Q8H PRN (Reason: nausea and vomiting) 3 Days Qty: 9 0RF No Action isosorbide mononitrate 60 mg tablet extended release 24 hr 120 mg PO QAM@0600 loratadine 10 mg tablet 10 mg PO DAILY@0600 albuterol sulfate 90 mcg/actuation aerosol powdr breath activated 2 inh INHALATION Q6H PRN (Reason: Shortness Of Breath) (DME) AFO to right See Rx Instructions .Route .MEDSUPPLY Qty: 1 0RF Rx Instructions: As directed JOANN&O Nurtec ODT 75 mg tablet,disintegrating 75 mg PO PRN PRN (Reason: Migraine Headache) (DME) Hinged Knee Brace See Rx Instructions .Route .MEDSUPPLY Qty: 1 0RF Rx Instructions: As directed ondansetron 8 mg tablet,disintegrating 8 mg PO Q8H PRN (Reason: nausea and vomiting) 5 Days Qty: 15 0RF (DME) ASO to right ankle See Rx Instructions .Route .MEDSUPPLY Qty: 1 0RF Rx Instructions: As directed (DME) Spectrum AFO to the left See Rx Instructions .Route .MEDSUPPLY Qty: 1 0RF Rx Instructions: As directed by JOANN&O (DME) ASO to left See Rx Instructions .Route .MEDSUPPLY Qty: 2 0RF Rx Instructions: As directed Trulicity 3 mg/0.5 mL pen injector 3 mg SUBCUT Q7D (DME) right cock up wrist brace See Rx Instructions .Route .MEDSUPPLY Qty: 1 0RF Rx Instructions: [place] directed [place] to the Right See Rx Instructions .Route .MEDSUPPLY Qty: 1 0RF Rx Instructions: As directed ([facility] Bone Growth Stimulator See Rx Instructions .Route .MEDSUPPLY Qty: 1 0RF Rx Instructions: As directed hydrocodone-acetaminophen 5-325 mg tablet 1 tab PO Q12H MDD 6 PRN (Reason: pain) 30 Days Qty: 60 0RF tizanidine 4 mg tablet 4 mg PO Q8H PRN (Reason: muscle spasticity) 14 Days Qty: 42 0RF aripiprazole [Abilify] 2 mg Tablet 4 mg PO BEDTIME@2200 omeprazole 40 mg capsule,delayed release(DR/EC) 40 mg PO DAILY@0600 acetaminophen 500 mg tablet 500 mg PO BID PRN (Reason: Pain) fluticasone propionate 50 mcg/actuation spray,suspension 2 spray INTRANASAL BID@0600,2200 venlafaxine 75 mg capsule,extended release 24hr 75 mg PO QAM atorvastatin 20 mg tablet 20 mg PO QPM trazodone 50 mg tablet 50 mg PO BEDTIME nitroglycerin [Nitrostat] 0.4 mg Tablet, Sublingual 0.4 mg SUBLINGUAL Q5M PRN (Reason: Chest Pain) Rx Instructions: do not exceed 3 doses per episode metoprolol succinate 25 mg tablet extended release 24 hr 25 mg PO DAILY epinephrine 0.3 mg/0.3 mL auto-injector See Rx Instructions .ROUTE .COMPLEX Rx Instructions: INJECT 0.3MG IN THE MUSCLE 1 TIME DIRECTED topiramate 100 mg tablet 100 mg PO DAILY@06 levothyroxine 75 mcg tablet 75 mcg PO DAILY Botox 100 unit recon soln 155 unit SUBCUT .EVERY 3 MONTHS venlafaxine 150 mg capsule,extended release 24hr 150 mg PO QAM benzonatate 100 mg capsule 100 mg PO QID PRN (Reason: cough) Qty: 14 0RF Discharge Orders: Discharge ED (Routine); Ordered 12/14/24 Ordered By: Claire Carter Referrals: Penny,LYNDSEY RobertoP [Primary Care Provider, Nurse Practitioner] Discharge Diet: Clear Liquid and Full LIquid Discharge Activity: Resume usual activity Patient Instructions: Acute Nausea and Vomiting (ED), Viral Syndrome (ED) Activity Restrictions/Additional Instructions: Return to ED for further issues Start Zofran every 8-12 hours as needed for 3 days. Clear/full liquids only until nausea/vomiting improves. Print Language: Polish Coding Level of Care Code ED Plater [employer] Panels for Anju Stinson
[2024-12-14 22:03] LABS: Glucose Point of Care 110 mg/dL (70-110)
[2024-12-14 22:06] LABS: Rapid Strep A Test Negative (Negative)
[2024-12-14 22:08] LABS: Basophils # 0.1 10^3/uL (0.0-0.1); Basophils % 0.6 %; Eosinophils # 0.5 10^3/uL (0.0-0.8); Hematocrit 41.9 % (36-47); Lymphocytes # 2.6 10^3/uL (0.8-4.8); Lymphocytes % 21.8 %; Mean Corpuscular HGB Conc 32.9 g/dL (30-55); Mean Corpuscular Volume 91.1 fl (85-98); Mean Platelet Volume 11.9 fL (7.4-10.4); Monocytes # 0.7 10^3/uL (0.2-0.9); Monocytes % 5.6 %; Neutrophils # 8.04 10^3/uL (1.8-7.7); Neutrophils % 67.7 %; Nucleated Red Blood Cells % 0 %; Platelet Count 158 10^3/cmm (157-399); Red Cell Distribution Width 14.6 % (12.1-15.1); White Blood Count 11.88 10^3/uL (3.29-11.43)
[2024-12-14 22:22] LABS: Alanine Aminotransferase 8 U/L (0-33); Albumin Level 4.5 g/dL (3.5-5.2); Alkaline Phosphatase 100 U/L (35-105); Anion Gap 16.4 (5-19); Aspartate Amino Transferase 9 U/L (0-32); Blood Urea Nitrogen 8 mg/dL (6-20); Calcium 9.4 mg/dL (8.5-10.5); Carbon Dioxide 23 mmol/L (22-29); Chloride 105 mmol/L (98-107); Globulin 2.2 g/dL (1.3-4.6); Glomerular Filtration Rate 107.6 mL/min (90-130); Glucose 97 mg/dL (65-115); Osmolality Calculated 290 mOsm/kg (285-295); Potassium 3.4 mmol/L (3.5-5.1); Sodium 141 mmol/L (136-145); Total Bilirubin 0.2 mg/dL (0.15-1.2); Total Protein 6.7 g/dL (6.6-8.7)
[2024-12-14 22:29] LABS: Influenza A NEGATIVE (Negative); Influenza B NEGATIVE (Negative); Respiratory Syncytial Virus Ce NEGATIVE (Negative); SARS-CoV-2 PCR NEGATIVE (Negative)
[2024-12-14 23:08] VITALS: BP 132/88; PULSE 78; RESP 16; O2SAT 98
== END 2024-12-14 23:11 | disposition home or self-care (01) ==
PROVIDERS: Emergency Provider Physician Assistant; PCP Nurse Practitioner Family
DX: B34.9 Viral infection, unspecified (principal); R11.2 Nausea with vomiting, unspecified; Z11.52 Encounter for screening for COVID-19; Z72.0 Tobacco use
CPT/HCPCS: 36415; 36416; 80053; 82962; 85025; 87081; 87637; 87880; 99283

== ENCOUNTER → 2024-12-25 12:46 | Outpatient (BNVA) | payer MEDICAID, SELFPAY | PROVIDERS: PCP Nurse Practitioner Family; Visit Provider Orthopaedic Surgery | DX: Z98.1 Arthrodesis status (principal); M48.062 Spinal stenosis, lumbar region with neurogenic claudication; M51.16 Intervertebral disc disorders with radiculopathy, lumbar region | CPT/HCPCS: 72100; 99213 ==

== ENCOUNTER 2025-01-02 09:57 | Outpatient (CLI) | payer MEDICAID, SELFPAY ==
--- NOTE | 2025-01-02 10:30 | CT_ITS ---
WS: [email or web address] CT lumbar spine wo con* [id number] REASON FOR EXAM: lumbar pain IV CONTRAST ADMINISTERED: None. TECHNIQUE: Multiple thin section axial images with sagittal and coronal reconstruction. TOTAL EXAM DLP: 1062.[address] scans at [facility] use at least one of these dose optimization techniques: automated exposure control; mA and/or kV adjustment per patient size (includes targeted exams where dose is matched to clinical indication); or iterative reconstruction. FINDINGS: No compression deformity or occult vertebral body fracture is identified. No significant listhesis is noted. There is been posterior decompression with pedicle screws and interconnecting rods from L4-S1. There is an interbody fusion device at L4-L5. The surgical appliances are intact and in proper position and alignment. Significant narrowing of the L5-S1 disc space with degenerative gas. No change from the CT examination of 04/22/2019. No pedicle or facet fracture is identified. The portions of the sacrum that are visualized demonstrate no fracture. Portions of the iliac wings that are visualized demonstrate no fracture. There are mild degenerative arthropathic change in the sacroiliac joints. CT/CT lumbar spine wo con* [id number] IMPRESSION: Posterior lumbar fusion as above. No fracture in the lumbar spine, sacrum, arianna c wings as above.
== END 2025-01-02 09:58 | disposition home or self-care (01) ==
LOC: RAD 09:57
PROVIDERS: PCP Nurse Practitioner Family; Visit Provider Orthopaedic Surgery
DX: M48.062 Spinal stenosis, lumbar region with neurogenic claudication (principal); M51.16 Intervertebral disc disorders with radiculopathy, lumbar region; Z98.1 Arthrodesis status
CPT/HCPCS: 72131

== ENCOUNTER 2025-01-03 16:03 | Emergency (ER) | payer MEDICAID, SELFPAY ==
--- OUTSIDE RECORDS SUMMARY | 2017-10-26 05:00 | XMS_ITS | Continuity of Care Document ---
Author Organization [facility] Address [id number] [address] Phone Care Team Providers Care Master Machinist Name Role Phone Pfannenstiel DDS, Rendi Unavailable Unavaila ble Allergies, Adverse Reactions, Alerts Substance Reaction Status Criticality liraglutide Active No Information ibuprofen Active No Information naproxen Active No Information aspirin Active No Information Medications Medication Instructions Dosage Effective Dates (start - stop) Status Comments venlafaxine 25 mg tablet take 1 tablet by oral route 3 times every day with food 25 MG - Active topiramate 15 mg sprinkle capsule take 1 capsule by oral route 2 times every day in the morning and evening 15 MG - Active promethazine 12.5 mg tablet take 1 tablet by oral route 4 times every day before meals and at bedtime 12.5 MG - Active omeprazole 20 mg capsule,delayed release take 1 capsule by oral route every day before a meal 20 MG - Active omega 3-kdl-ucz-fish oil 1,000 mg (120 mg-180 mg) capsule - Active methocarbamol 500 mg tablet take 2 tablet by oral route 4 times every day 1000 MG - Active levothyroxine 25 mcg tablet take 1 tablet by oral route every day 25 MCG - Active loratadine 10 mg capsule - Active Flonase Allergy Relief 50 mcg/actuation nasal spray,suspension inhale 2 spray by intranasal route every day in each nostril 100 MCG - Active hydrocortisone 2.5 % topical cream with perineal applicator apply by topical route 2- 4 times every day a thin layer to the affected area(s) 0.00 - Active Trulicity 1.5 mg/0.5 mL subcutaneous pen injector inject 0.5 milliliter by subcutaneous route every week in the abdomen, thigh, or upper arm rotating injection sites - Active albuterol sulfate concentrate 2.5 mg/0.5 mL solution for nebulization inhale 0.5 milliliter by nebulization route 3 times every day 2.5 MG - Active hydrocodone 10 mg-acetaminophen 325 mg tablet take 1 tablet by oral route every 4 - 6 hours as needed for pain 1.00 tablet - Active Botox 100 unit injection - Active Procedures Procedure Date Resin-Based Composite Two Surfaces, Anterior Resin-Based Composite One Surface, Posterior EDR Approval Note EDR Approval Note EDR Approval Note Resin-Based Composite Two Surfaces, Posterior Resin-Based Composite One Surface, Posterior EDR Approval Note EDR Approval Note Intraoral Periapical First Film Intraoral Periapical Each Additional Film Intraoral Periapical Each Additional Film Intraoral Periapical Each Additional Film Intraoral Periapical Each Additional Film Panoramic Film Comprehensive Oral Evaluatio n New Or Established EDR Approval Note Advance Directives Directive Yes / No Effective Date File Name No Information Encounters Encounter Description Practice Location Reason(s) For Visit Diagnoses Date Provider Providers Copied on Encounter [facility], [id number] [place], [place], [id number], [place] tel:[phone] [facility] Encounter for dental exam and cleaning w/o abnormal findings [address] Fuentes. [address] [place], [address], [place]. tel:[phone] Referring Provider: Gina Arvizu, [address] [place], [address]. tel:[phone] [facility], [id number], [place], [id number], [place] tel:[phone] [facility] Encounter for dental exam and cleaning w/o abnormal findings 8 Rubin Fuentes. [address] [place], [address], [place]. tel:[phone] Referring Provider: Gina Arvizu, [address] [place], [address]. tel:[phone] [facility], [id number] [place], [id number], [place] tel:[phone] [facility] Encounter for dental exam and cleaning w/o abnormal findings 8 Ashvin Narayanan. [address] [place], [address], [place]. tel:[phone] Referring Provider: Oracio Real, [address] [place], [address]. tel:[phone] Family History Family Member Type Diagnosis Age At Onset Father Problem (finding) Mother Problem (finding) Alive and well Sister Problem (finding) Payers Payer name Insurance type Covered alliance party ID Authoriza tion(s) No Information Social History Type Description Quantity Date Captured Comments Alcohol Use Details No Caffeine Use Details Unknown Tobacco Use Status Smoking Status No Information Sex Female Vital Signs Date / Time: Height Weight BMI Pulse Rate Blood Pressure Temperature Respiratory Rate Body Surface Area Head Circumference Head Circ. Percentile Wt./Skyler. Percentile BMI percentile Pulse Ox Inhaled Ox 10:27 AM 126/73 mm[Hg] Chief Complaint And Reason For Visit No Information Reason For Referral Reason For Referral No Information Plan Of Treatment Date Type Action Status Goal Tobacco cessation counseling completed Goal Tobacco cessation counseling completed History Of Present Illness Encounter Date Complaint History Of Prese nt Illness No Information Functional Status Date Functional Assessmen t No Information Instructions Date Instruction Additional Infor mation Lifestyle education Related to D ental Examination Lifestyle education Related to D ental Examination Assessments Type Assessment Date No Information Patient Care Teams Name Effective Dates (start - stop) Status Members No Information
[2025-01-03 16:03] VITALS: BP 125/78; PULSE 81; RESP 17; TEMP 36.7; O2SAT 99; BMI 41.7
--- OUTSIDE RECORDS SUMMARY | 2025-01-03 16:06 | XMS_ITS | Clinical Summary ---
Author Organization [facility] Address [address] [place] [address] Care Team Providers Care Lending Manager Name Role Phone Joseline Thompson MD Primary Care Provider +1- [phone] Allergies Active Allergy Reactions Criticality Noted Date Comments Adhesive Tape-Silicones Hives High 2015 Aspirin Nausea and Vomiting,Fever High 07/01/2008 Ibuprofen Hives High 12/14/2012 Metformin Hives High 10/14/2011 Naproxen Hives High 12/08/2012 Medications ALBUTEROL 90 mcg/Actuation Inhalation Aero Take 2 Puffs by inhalation every 6 hours as needed for Other (See Comment). Active acetaminophen (TYLENOL) 500 mg tablet Take 1,000 mg by mouth daily . Active ranitidine (ZANTAC) 150 mg tablet Take 150 mg by mouth daily. Active loratadine (CLARITIN) 10 mg tablet Take 10 mg by mouth daily. Active EPINEPHrine (EPIPEN) 0.3 mg/0.3 mL Auto-Injector Inject 0.3 mg by intramuscular injection one time only NEEDED. . Active lidocaine (L.M.X.4) 4 % Cream Apply to affected area Apply to affected area every 12 hours PRN. . Active dulaglutide (TRULICITY) 0.75 mg/0.5 mL Pen Injector Inject by subcutaneous injection. Active OTHER Hormone pill that starts with vent that is a little orange pill . Active venlafaxine HCl (VENLAFAXINE ORAL) Take 150 mg by mouth daily . Active acyclovir (ZOVIRAX) 200 mg capsule Take 400 mg by mouth 3 times daily. Active albuterol HFA 90 mcg inhaler Take 2 Puffs by inhalation every 6 hours as needed for Shortness of Breath. Active fluticasone (FLONASE) 50 mcg/spray [place], Suspension Administer 1 [place] in each nostril daily. 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 Active omega-3 acid ethyl esters (OMACOR,LOVAZA ) 1 gram Capsule Take 2 Grams by mouth daily. Active ondansetron (ZOFRAN) 4 mg Tablet Take 4 mg by mouth every 4 hours as needed for Nausea/Emesis. Active pregabalin (LYRICA) 100 mg Capsule Take 100 mg by mouth 3 times daily. Active sucralfate (CARAFATE) 1 gram tablet Take 1 Gram by mouth 3 times daily before meals. Active SUMAtriptan (IMITREX) 50 mg tablet Take 50 mg by mouth every 2 hours as needed for Headaches may repeat in 2 hours; max dose 200mg in 24 hours . Active terbinafine HCl (LAMISIL AT) 1 % Cream Apply to affected area 2 times daily. Active venlafaxine 75 mg Extended Release 24 hour tablet Take 75 mg by mouth daily with breakfast. Active levETIRAcetam (KEPPRA) 500 mg tablet Take 1 Tablet (500 mg) by mouth 2 times daily. 60 Tablet 8 Active HYDROcodone-ac etaminophen (NORCO) 10-325 mg Tablet Take 1 Tablet by mouth every 4 hours as needed for Pain, Moderate. 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 013 Childhood absence epilepsy, resolved 12/08/2012 Bipolar affective disorder, mixed 05/14/2009 Asthma Immunizations Immunization Administration Dates Next Due Influenza Seasonal Unspecified Formulation IM Pneumococcal conjugate, unspecified formulation 02/01/2014 Family History Medical History Relation Name Comments Diabetes Father Heart Disease Father Diabetes Maternal Grandmother Diabetes Mother Relation Name Status Comments Father Alive Maternal Grandmother Mother Alive Social History Tobacco Use Types Packs/Day Years Used Date Smoking Tobacco: Every Day Cigarettes 1.5 17 Smokeless Tobacco: Never Alcohol Use Standard Drinks/Week Comments No 0 (1 standard drink = 0.6 oz pur e alcohol) Comments No Sex and Gender Information Value Date Recorded Sex Assigned at Not on file Legal Sex Female 2:54 AM MISSILEMAN Gender Identity Not on file Sexual Orientation Not on file Occupation Industry Job Start Date Job End Date Not on file Not on file Not on file Not on file Last Filed Vital Signs Vital Sign Reading Time Taken Comments Blood Pressure 112/68 11/14/2017 10:00 PM CDT Pulse 70 10/31/2017 10:25 PM CDT Temperature 36.6 C (97.9 F) 11/14/2017 10:21 PM CDT Respiratory Rate 18 11/14/2017 10:21 PM CDT Oxygen Saturation 98% 11/14/2017 10:21 PM CDT Inhaled Oxygen Concentration - - Weight 100.7 kg (222 lb) 11/14/2017 7:51 PM CDT Height 157.5 cm (5' 2 ) 11/14/2017 7:51 PM CDT Body Mass Index 40.6 11/14/2017 7:51 PM CDT Plan of Treatment Health Maintenance Due Date Last Done Comments DTAP/TDAP/TD VACCINES (1 - Tdap) 1997 HEPATITIS B VACCINES (1 of 3 - 19+ 3-dose series) 1997 HPV/Cotest (21-29) 1999 CERVICAL CANCER SCREENING 02/11/2008 HPV/Cotest (30-65) 02/11/2008 PAP SMEAR 02/11/2008 BREAST CANCER SCREENING 2018 COLORECTAL SCREENING 2023 Colorectal Cancer Screening 2023 FIT-DNA Q 3 years 2023 FIT/FOBT Q 1 year 2023 Flex Sig/CT Colonography Q 5 years 2023 INFLUENZA VACCINE (#1) 2025 07/04/2014 HPV VACCINES Aged Out No longer eligi ble based on patient's age to complete this topic Insurance [id number] [place] [address] [place] Member Subscriber Plan / Payer (Ef fective 2011-Present) Name:Marry Whatley Relation to Subscriber:Self Name:Marry Whatley Payer ID:[id number] Group ID:Not on file Type:Medicaid Address: [address] Advance Directives For more information, please contact: [phone] Documents on File Type Date Recorded 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
--- OUTSIDE RECORDS SUMMARY | 2025-01-03 16:07 | XMS_ITS | Encounter Summary ---
Author Organization [facility] Address [address] [place] [address] Care Team Providers Care Blower Insulator Name Role Phone Joseline Thompson MD Primary Care Provider +1- [phone] Encounter Details Date Type Department Care Team (Latest Contact Info) Description 03/04/2004 [facility] [address] [place] [address] Ronen Mcfarland MD [address] [place] [address] INT DERANGEMENT KNEE NOS (Primary Dx) Social History Tobacco Use Types Packs/Day Years Used Date Smoking Tobacco: Never Assessed Comments Unknown Sex and Gender Information Value Date Recorded Sex Assigned at Not on file Legal Sex Female 2:54 AM INCLUSION SPECIAL EDUCATOR Gender Identity Not on file Sexual Orientation Not on file documented as of this encounter Plan of Treatment Not on file documented as of this encounter Visit Diagnoses Diagnosis Unspecified internal derangement of knee- Primary documented in this encounter Care Teams Blower Insulator Relationship Specialty Start Date End Date Joseline Thompson MD [address] [place] [phone] PCP - General Family Practice 12/08/12 documented as of this encounter
--- OUTSIDE RECORDS SUMMARY | 2025-01-03 16:07 | XMS_ITS | Encounter Summary ---
Author Organization [facility] Address [address] [place] [address] Attn: [place] [address] Care Team Providers Care Statistical Modeler Name Role Phone Joseline Thompson MD Primary Care Provider +1- [phone] Encounter Details Date Type Department Care Team (Late st Contact Info) Description 09/24/1999 Outpatient Historical Dameon Rome MD NO ADDRESS ON FILE Social History Tobacco Use Types Packs/Day Years Used Date Smoking Tobacco: Never Assessed Comments Unknown Sex and Gender Information Value Date Recorded Sex Assigned at Not on file Legal Sex Female 2:54 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
--- OUTSIDE RECORDS SUMMARY | 2025-01-03 16:07 | XMS_ITS | Clinical Summary ---
Author Organization [facility] Address [address] Shahidn: [place] [address] Care Team Providers Care Display Maker Name Role Phone Joseline Thompson MD Primary Care Provider +1- [phone] Allergies Active Allergy Reactions Criticality Noted Date Comments Adhesive Tape-Silicones Hives High 2015 Aspirin Nausea and Vomiting,Fever High 07/01/2008 Ibuprofen Hives High 12/14/2012 Metformin Hives High 10/14/2011 Naproxen Hives High 12/08/2012 Medications venlafaxine 75 mg Extended Release 24 hour tablet Take 75 mg by mouth daily with breakfast. Active buprenorphine-n alOXone (SUBOXONE) 8-2 mg Tablet, Sublingual Place 3 Tablets under tongue daily. Active docusate sodium (COLACE) 100 mg capsule Take 100 mg by mouth 2 times daily. Active tamsulosin (FLOMAX) 0.4 mg capsule Take 0.4 mg by mouth daily. Active carBAMazepine (TEGretol XR) 400 mg Extended Release 12 hour tablet Take 400 mg by mouth 2 times daily. Active fluticasone propionate (FLONASE) 50 mcg/spray [place], Suspension nasal inhaler Administer 2 Sprays in each nostril daily. Active EPINEPHrine (EPIPEN) 0.3 mg/0.3 mL Auto-Injector Inject 0.3 mg by intramuscular injection 1 time daily as needed for Anaphylaxis. Active topiramate (TOPAMAX) 100 mg tablet Take 100 mg by mouth 2 times daily. Active ARIPiprazole (ABILIFY) 2 mg tablet Take 2 mg by mouth daily. Active liraglutide (Victoza 3-Clarke) 0.6 mg/0.1 mL (18 mg/3 mL) Inject by subcutaneous injection daily. Active busPIRone (BUSPAR) 10 mg tablet Take 10 mg by mouth 3 times daily. Active isosorbide mononitrate (IMDUR) 60 mg Extended Release 24 hour tablet Take 60 mg by mouth daily in the morning. Active cetirizine (ZyrTEC) 10 mg tablet Take 10 mg by mouth daily. Active metoprolol succinate (TOPROL XL) 25 mg Extended Release 24 hour tablet Take 25 mg by mouth daily. Active levothyroxine 75 mcg tablet Take 75 mcg by mouth daily in the morning. Active atorvastatin (LIPITOR) 10 mg tablet Take 10 mg by mouth daily. Active furosemide (LASIX) 20 mg tablet Take 20 mg by mouth daily. Active hydrOXYzine HCL (ATARAX) 50 mg tablet Take 50 mg by mouth 3 times daily as needed for Itching. Active famotidine (PEPCID) 20 mg tablet Take 20 mg by mouth 2 times daily. Active albuterol sulfate 90 mcg/Actuation inhaler Take 2 Puffs by inhalation every 6 hours as needed for Shortness of Breath. Active SUMAtriptan (IMITREX) 50 mg tablet Take 50 mg by mouth every 2 hours as needed for Headaches may repeat in 2 hours; max dose 200mg in 24 hours . 8 Active albuterol sulfate 90 mcg/Actuation inhaler Take 2 Puffs by inhalation every 6 hours as needed for Shortness of Breath. 8 Active acyclovir (ZOVIRAX) 200 mg capsule Take 400 mg by mouth 3 times daily. 8 Active levETIRAcetam (KEPPRA) 500 mg tablet Take 1 Tablet (500 mg) by mouth 2 times daily. 60 Tablet 0 8 Active terbinafine HCL (LAMISIL AT) 1 % Cream Apply to affected area 2 times daily. 8 Active omega-3 acid ethyl esters (LOVAZA) 1 gram Capsule Take 2 Grams by mouth daily. 8 Active venlafaxine HCl (VENLAFAXINE ORAL) Take 150 mg by mouth daily . 8 Active pregabalin (LYRICA) 100 mg Capsule Take 100 mg by mouth 3 times daily. 8 Active venlafaxine 75 mg Extended Release 24 hour tablet Take 75 mg by mouth daily with breakfast. 8 Active fluticasone propionate (FLONASE) 50 mcg/spray [place], Suspension nasal inhaler Administer 1 [place] in each nostril daily. 8 Active HYDROcodone-ann marie taminophen (NORCO) 10-325 mg Tablet Take 1 Tablet by mouth every 4 hours as needed for Pain, Moderate. 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 8 Active sucralfate (CARAFATE) 1 gram tablet Take 1 Gram by mouth 3 times daily before meals. 8 Active ondansetron (ZOFRAN) 4 mg Tablet Take 4 mg by mouth every 4 hours as needed for Nausea/Emesis. 8 Active lidocaine (L.M.X.4) 4 % Cream Apply to affected area Apply to affected area every 12 hours PRN. . 5 Active EPINEPHrine (EPIPEN) 0.3 mg/0.3 mL Auto-Injector Inject 0.3 mg by intramuscular injection one time only NEEDED. . 5 Active loratadine (CLARITIN) 10 mg tablet Take 10 mg by mouth daily. 5 Active OTHER Hormone pill that starts with vent that is a little orange pill . 7 Active dulaglutide (TRULICITY) 0.75 mg/0.5 mL injection Inject by subcutaneous injection. 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, resolved 12/08/2012 Intracranial cavernous or venous angioma 013 Bipolar affective disorder, mixed 05/14/2009 Asthma Immunizations Immunization Administration Dates Next Due Influenza Seasonal Unspecified Formulation IM Pneumococcal conjugate, unspecified formulation 02/01/2014 Family History Medical History Relation Name Comments Diabetes Father Heart Disease Father Diabetes Maternal Grandmother Diabetes Mother Relation Name Status Comments Father Alive Maternal Grandmother Mother Alive Social History Tobacco Use Types Packs/Day Years Used Date Smoking Tobacco: Every Day Cigarettes Smokeless Tobacco: Never Alcohol Use Standard Drinks/Week Comments No 0 (1 standard drink = 0.6 oz pur e alcohol) Comments No Sex and Gender Information Value Date Recorded Sex Assigned at Not on file Legal Sex Female 5:04 AM DIRECTOR MEDICAL SCIENCE Gender Identity Not on file Sexual Orientation Not on file Last Filed Vital Signs Vital Sign Reading Time Taken Comments Blood Pressure 104/72 06/23/2021 12:30 AM DIRECTOR MEDICAL SCIENCE Pulse 86 06/23/2021 12:30 AM DIRECTOR MEDICAL SCIENCE Temperature 36.2 C (97.2 F) 06/22/2021 9:46 PM DIRECTOR MEDICAL SCIENCE Respiratory Rate 24 06/23/2021 12:30 AM DIRECTOR MEDICAL SCIENCE Oxygen Saturation 100% 06/23/2021 12:30 AM DIRECTOR MEDICAL SCIENCE Inhaled Oxygen Concentration - - Weight 95 kg (209 lb 6.4 oz) 06/22/2021 9:46 PM DIRECTOR MEDICAL SCIENCE Height 152.4 cm (5') 06/22/2021 9:46 PM DIRECTOR MEDICAL SCIENCE Body Mass Index 40.9 06/22/2021 9:46 PM DIRECTOR MEDICAL SCIENCE Plan of Treatment Health Maintenance Due Date [...] patient's age to complete this topic Insurance [id number] [place] [address] [place] Care Teams Display Maker Relationship Specialty Start Date End Date Joesline Thompson MD [address] [place] [address] PCP - General Family Practice 12/08/12
--- OUTSIDE RECORDS SUMMARY | 2025-01-03 16:07 | XMS_ITS | Encounter Summary ---
Author Organization [facility] Address [address] [place] [address] Care Team Providers Care Assembler Latches And Springs Name Role Phone Joseline Thompson MD Primary Care Provider +1- [phone] Encounter Details Date Type Department Care Team (Late st Contact Info) Description 03/29/2006 Emergency [facility] Emergency Department [address] [place] [phone] Evonne Julian MD [address] [place] [address] Unspecified Migraine without Mention of Intractable Migraine (Primary Dx) Social History Tobacco Use Types Packs/Day Years Used Date Smoking Tobacco: Never Assessed Comments Unknown Sex and Gender Information Value Date Recorded Sex Assigned at Not on file Legal Sex Female 2:54 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 Gender Identity Not on file Sexual Orientation Not on file documented as of this encounter Plan of Treatment Not on file documented as of this encounter Procedures Procedure Name Priority Date/Time Associated Diagnosis Comments BASIC METABOLIC PANEL Routine 03/29/2006 2:42 AM CDT PT AND APTT Routine 03/29/2006 2:41 AM CDT CBC WITH DIFFERENTIAL Routine 03/29/2006 2:[address] HEAD WO CONTRAST Routine 03/29/2006 1 :37 AM CDT documented in this encounter Results * (ABNORMAL) BASIC METABOLIC PANEL (03/29/2006 2:42 AM CDT) GLUCOSE 131(H) 70 - 110 mg/dL INTERFACE SYSTEM BUN 6(L) 7 - 17 mg/dL INTERFACE SYSTEM CREATININE 0.7 0.7 - 1.2 mg/dL INTERFACE SYSTEM SODIUM 142 136 - 145 mEq/L INTERFACE SYSTEM POTASSIUM 3.9 3.5 - 5.0 mEq/L INTERFACE SYSTEM CHLORIDE 108 95 - 110 mEq/L INTERFACE SYSTEM CO2 25 22 - 32 mmol/l INTERFACE SYSTEM ANION GAP 13 9 - 20 mEq/L INTERFACE SYSTEM OSMOLALITY, CALCULATED 291 275 - 295 mOsm/Kg INTERFACE SYSTEM CALCIUM 9.4 8.4 - 10.5 mg/dL INTERFACE SYSTEM 03/29/2006 2:42 AM CDT Evonne Julian MD CHEMISTRY ORDERABLES Final Result INTERFACE SYSTEM Refer to clinic/hospital department * PT AND APTT (03/29/2006 2:41 AM CDT) PROTIME 14.3 12.6 - 14.9 Secs INTERFACE SYSTEM Comment: As of 05 note change in normal range. INR 1.1 INTERFACE SYSTEM Comment: Expected Values for INR: DVT/PE Goal INR 2.5; range 2.0 - 3.0 Valve Replacement Tissue Goal INR 2.5; range 2.0 - 3.0 Mechanical Goal INR 3.0; range 2.5 - 3.5 POST-[place] Goal INR 2.5; range 2.0 - 3.0 or Goal 3.0; range 2.5 - 3.5 Atrial Fibrillation Goal INR 2.5; range 2.0 - 3.0 Ischemic Stroke Goal INR 2.5; range 2.0 - 3.0 For additional information see Guidelines for Anticoagulation available from the pharmacy [facility]. PTT 33.2 21.5 - 34.4 Secs INTERFACE SYSTEM Comment: Therapeutic Range: Hi-level PE/DVT heparin protocol 90.1 -110 sec Lo-level PE/DVT heparin protocol 75.1 - 95 sec Cardiac Heparin Protocol 85.1 - 100 sec Neuro Heparin Protocol 70.1 - 85 sec As of 07/28/05 note change in APTT Normal Range. 03/29/2006 2:41 AM CDT Evonne Julian MD HEMATOLOGY ORDERABLES Key mendez Result INTERFACE SYSTEM Refer to clinic/hospital department * (ABNORMAL) CBC WITH DIFFERENTIAL (03/29/2006 2:41 AM CDT) WBC 6.7 4.5 - 11.0 K/ul INTERFACE SYSTEM RBC 4.64 4.20 - 5.40 Mil/ul INTERFACE SYSTEM HEMOGLOBIN 13.7 12.0 - 16.0 g/dL INTERFACE SYSTEM HEMATOCRIT 40.2 36.0 - 46.0 % INTERFACE SYSTEM MCV 86.6 84.0 - 103.0 Fl INTERFACE SYSTEM MCH 29.5 27.0 - 34.0 pg INTERFACE SYSTEM MCHC 34.1 30.0 - 35.0 g/dL INTERFACE SYSTEM RDW 12.8 11.0 - 14.5 % INTERFACE SYSTEM PLATELETS 149 140 - 440 K/ul INTERFACE SYSTEM MPV 11.7 8.9 - 12.8 Fl INTERFACE SYSTEM NEUTROPHILS 79.4(H) 42.2 - 75.2 % INTERFACE SYSTEM LYMPHOCYTES 14.2(L) 24.0 - 44.0 % INTERFACE SYSTEM MONOCYTES 5.6 2.0 - 10.0 % INTERFACE SYSTEM EOSINOPHILS 0.4 0.0 - 7.0 % INTERFACE SYSTEM BASOPHILS 0.4 0.0 - 1.0 % INTERFACE SYSTEM NEUTROPHIL ABSOLUTE 5.3 2.0 - 8.0 K/uL INTERFACE SYSTEM LYMPHOCYTE ABSOLUTE 1.0(L) 1.2 - 4.0 K/ul INTERFACE SYSTEM MONOCYTE ABSOLUTE 0.4 0.1 - 0.6 K/ul INTERFACE SYSTEM EOSINOPHIL ABSOLUTE 0.0 0.0 - 0.7 K/ul INTERFACE SYSTEM BASOPHILS ABSOLUTE 0.0 0.0 - 0.2 K/ul INTERFACE SYSTEM 03/29/2006 2:41 AM CDT Evonne Julian MD HEMATOLOGY ORDERABLES Key mendez Result INTERFACE SYSTEM Refer to clinic/hospital department * CT HEAD WO CONTRAST (03/29/2006 1:37 AM CDT) Anatomical Region Laterality Modality Head Other 03/29/2006 1:37 AM CDT Narrative 03/29/2006 1:37 AM CDT Noncontrast axial images were obtained through the brain. No comparison studies available. History: Intracranial bleed. The ventricles are normal in size. There is a small, subcentimeter hyperdense lesion in the leftfrontal opercular region. This could represent a small hemorrhage or cavernous malformation. Theremainder of the brain is unremarkable. Impression: Subcentimeter hyperdense lesion in left frontal lobe which could represent a smallhemorrhage or cavernous malformation. An MRI is recommended to further evaluate. Clinicalcorrelation needed. - Dictated By: Jorge Alberto Barnes M.D. Electronically Signed By: Jorge Alberto Barnes M.D. Date Signed: 03/29/06 Procedure Note 05/23/2009 Noncontrast axial images were obtained through the brain. No comparisonstudies available. History: Intracranial bleed. The ventricles are normal in size. There is a small, subcentimeterhyperdense lesion in the leftfrontal opercular region. This could represent a small hemorrhage or cavernousmalformation. Theremainder of the brain is unremarkable. Impression: Subcentimeter hyperdense lesion in left frontal lobe which could representa smallhemorrhage or cavernous malformation. An MRI is recommended to further evaluate.Clinicalcorrelation needed. - Dictated By: Jorge Alberto Barnes M.D. Electronically Signed By: Jorge Alberto Barnes M.D. Date Signed: 03/29/[address] ORDERABLES Final Result documented in this encounter Visit Diagnoses Diagnosis Migraine, unspecified, without mention of intractable migraine without mention of status migrainosus- Primary documented in this encounter Care Teams Assembler Latches And Springs Relationship Specialty Start Date End Date Joseline Thompson MD [address] [place] [address] PCP - General Family Practice 12/08/12 documented as of this encounter
--- OUTSIDE RECORDS SUMMARY | 2025-01-03 16:07 | XMS_ITS | Encounter Summary ---
Author Organization [facility] Address [address] [place] [address] Care Team Providers Care Grinding Operator Name Role Phone Joseline Thompson MD Primary Care Provider +1- [phone] Encounter Details Date Type Department Care Team (Latest Contact Info) Description 01/28/2005 Outpatient Historical [facility] [address] [place] [address] Ronen Mcfarland MD [address] [place] [phone] Toxic effect venom (Primary Dx) Social History Tobacco Use Types Packs/Day Years Used Date Smoking Tobacco: Never Assessed Comments Unknown Sex and Gender Information Value Date Recorded Sex Assigned at Not on file Legal Sex Female 2:54 AM 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
--- OUTSIDE RECORDS SUMMARY | 2025-01-03 16:07 | XMS_ITS | Encounter Summary ---
Author Organization [facility] Address [address] [place] [address] Care Team Providers Care Supervisor Plate Pasting Name Role Phone Joseline Thompson MD Primary Care Provider +1- [phone] Encounter Details Date Type Department Care Team (Latest Contact Info) Description 05/06/2004 Outpatient Historical [facility] [address] [place] [address] Ronen Mcfarland MD [address] [place] [phone] CHRONIC SINUSITIS NOS (Primary Dx) Social History Tobacco Use Types Packs/Day Years Used Date Smoking Tobacco: Never Assessed Comments Unknown Sex and Gender Information Value Date Recorded Sex Assigned at Not on file Legal Sex Female 2:54 AM INTENSIVE CARE ANAESTHETIST Gender Identity Not on file Sexual Orientation Not on file documented as of this encounter Plan of Treatment Not on file documented as of this encounter Visit Diagnoses Diagnosis Unspecified sinusitis (chronic)- Primary documented in this encounter Care Teams Supervisor Plate Pasting Relationship Specialty Start Date End Date Joseline Thompson MD [address] [place] [phone] PCP - General Family Practice 12/08/12 documented as of this encounter
--- OUTSIDE RECORDS SUMMARY | 2025-01-03 16:07 | XMS_ITS | Encounter Summary ---
Author Organization [facility] Address [address] [place] [address] Care Team Providers Care Felt Hat Steamer Name Role Phone Joseline Thompson MD Primary Care Provider +1- [phone] Encounter Details Date Type Department Care Team (Latest Contact Info) Description 03/28/2006 Outpatient Historical [facility] [address] [place] [address] AMBULANCE, [facility] Unspecified Intracranial Hemorrhage (CMS/HCC) (Primary Dx) Social History Tobacco Use Types Packs/Day Years Used Date Smoking Tobacco: Never Assessed Comments Unknown Sex and Gender Information Value Date Recorded Sex Assigned at Not on file Legal Sex Female 2:54 AM RAG BALER Gender Identity Not on file Sexual Orientation Not on file documented as of this encounter Plan of Treatment Not on file documented as of this encounter Visit Diagnoses Diagnosis Unspecified intracranial hemorrhage (CMS/HCC)- Primary Unspecified intracranial hemorrhage documented in this encounter Care Teams Felt Hat Steamer Relationship Specialty Start Date End Date Joseline Thompson MD [address] [place] [address] PCP - General Family Practice 12/08/12 documented as of this encounter
--- OUTSIDE RECORDS SUMMARY | 2025-01-03 16:07 | XMS_ITS | Encounter Summary ---
Author Organization [facility] Address [address] [place] [address] Care Team Providers Care Senior Underwriter Name Role Phone Joseline Thompson MD Primary Care Provider +1- [phone] Encounter Details Date Type Department Care Team (Latest Contact Info) Description 03/11/2004 Outpatient Historical [facility] [address] [place] [phone] Ronen Mcfarland MD [address] [place] [phone] JOINT PAIN-L/LEG (Primary Dx) Social History Tobacco Use Types Packs/Day Years Used Date Smoking Tobacco: Never Assessed Comments Unknown Sex and Gender Information Value Date Recorded Sex Assigned at Not on file 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
--- OUTSIDE RECORDS SUMMARY | 2025-01-03 16:07 | XMS_ITS | Encounter Summary ---
Author Organization [facility] Address [address] [place] [address] Care Team Providers Care Chef Concierge Name Role Phone Joseline Thompson MD Primary Care Provider +1- [phone] Encounter Details Date Type Department Care Team (Latest Contact Info) Description 02/14/2004 Outpatient [facility] [address] [place] [address] Ronen Mcfarland MD [address] [place] [phone] DERMATITIS NOS (Primary Dx) Social History Tobacco Use Types Packs/Day Years Used Date Smoking Tobacco: Never Assessed Comments Unknown Sex and Gender Information Value Date Recorded Sex Assigned at Not on file 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
--- OUTSIDE RECORDS SUMMARY | 2025-01-03 16:07 | XMS_ITS | Encounter Summary ---
Author Organization [facility] Address [address] [place] [address] Attn: [place] [address] Care Team Providers Care Gear Hobber Operator Name Role Phone Joseline Thompson MD Primary Care Provider +1- [phone] Encounter Details Date Type Department Care Team (Late st Contact Info) Description 09/04/1999 Outpatient Historical Lorenzo Perez MD NO ADDRESS ON FILE Social History Tobacco Use Types Packs/Day Years Used Date Smoking Tobacco: Never Assessed Comments Unknown Sex and Gender Information Value Date Recorded Sex Assigned at Not on file 

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
[2025-01-03] MEDS: tetanus-dipt-pertussis 0.5 mL SDV IM (17:10)
== END 2025-01-03 17:53 | disposition home or self-care (01) ==
PROVIDERS: Emergency Provider Emergency Medicine; PCP Nurse Practitioner Family
DX: S80.12XA Contusion of left lower leg, initial encounter (principal); S81.811A Laceration without foreign body, right lower leg, initial encounter; S09.8XXA Other specified injuries of head, initial encounter; Z72.0 Tobacco use; V28.09XA Other motorcycle driver injured in noncollision transport accident in nontraffic accident, initial encounter
CPT/HCPCS: 70450; 72125; 73590; 90471; 90715; 99284

== ENCOUNTER → 2025-01-15 08:33 | Outpatient (BNVA) | payer MEDICAID, SELFPAY | PROVIDERS: PCP Nurse Practitioner Family; Visit Provider Orthopaedic Surgery | DX: M54.9 Dorsalgia, unspecified (principal); Z09 Encounter for follow-up examination after completed treatment for conditions other than malignant neoplasm | CPT/HCPCS: 99213 ==

== ENCOUNTER → 2025-01-30 10:48 | Outpatient (BNVA) | payer MEDICAID, SELFPAY | PROVIDERS: PCP Nurse Practitioner Family; Visit Provider Physician Assistant | DX: M17.0 Bilateral primary osteoarthritis of knee (principal) | CPT/HCPCS: 20610; 73560; 73565; 99213; J3301; J9999 ==

== ENCOUNTER → 2025-02-04 09:48 | Outpatient (BNVA) | payer MEDICAID, SELFPAY | PROVIDERS: PCP Nurse Practitioner Family; Visit Provider Specialist | DX: G43.711 Chronic migraine without aura, intractable, with status migrainosus (principal); F44.5 Conversion disorder with seizures or convulsions; D18.00 Hemangioma unspecified site; R03.0 Elevated blood-pressure reading, without diagnosis of hypertension | CPT/HCPCS: 64615; J0585; J9999 ==

== ENCOUNTER 2025-03-26 11:25 | Emergency (ER) | payer MEDICAID, SELFPAY ==
--- OUTSIDE RECORDS SUMMARY | 2017-10-26 05:00 | XMS_ITS | Continuity of Care Document ---
Author Organization [facility] Address [id number] [address] Phone Care Team Providers Care Relationship Associate Name Role Phone Pfannenstiel DDS, Rendi Unavailable [...] a meal 20 MG - Active omega 9-ybl-oko-fish oil 1,000 mg (120 mg-180 mg) capsule [...] Diagnoses Date Provider Providers Copied on Encounter [facility], [id number] [place], [id number], [place] tel:[phone] [facility] Encounter for dental exam and cleaning w/o abnormal findings [address] Fuentes. [address] [place], [address], [place]. tel:[phone] Referring Provider: Gina Arvizu, [address] [place], [address]. tel:[phone] [facility], [id number] [place], [id number], [place] tel:[phone] [facility] Encounter for dental exam and cleaning w/o abnormal findings 8 Rubin Fuentes. [address] [place], [address], [place]. tel:[phone] Referring Provider: Gina Arvizu, [address] [place], [address]. tel:[phone] [facility], [id number] [place], [id number], [place] tel:[phone] [facility] Encounter for dental exam and cleaning w/o abnormal findings 8 Ashvin Narayanan. [address] [place], [address], [place]. tel:[phone] Referring Provider: Oracio Real, [address] [place], [address]. tel:[phone] Family History Family Member Type Diagnosis Age At Onset Father Problem (finding) Mother Problem (finding) Alive and well Sister Problem (finding) Payers Payer name Insurance type Covered green party ID Authoriza tion(s) No Information Social [...]
--- OUTSIDE RECORDS SUMMARY | 2025-03-26 11:31 | XMS_ITS | Encounter Summary ---
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
--- OUTSIDE RECORDS SUMMARY | 2025-03-26 11:31 | XMS_ITS | Encounter Summary ---
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
--- OUTSIDE RECORDS SUMMARY | 2025-03-26 11:31 | XMS_ITS | Encounter Summary ---
Author Organization [facility] Address [address] [place] [address] Care Team Providers Care Lunchroom Attendant Name Role Phone Joseline Thompson MD Primary Care Provider +1- [phone] Encounter Details Date Type Department Care Team (Latest Contact Info) Description 02/14/2004 Outpatient [facility] [address] [place] [phone] Ronen Mcfarland MD [address] [place] [address] DERMATITIS NOS (Primary Dx) Social History Tobacco Use Types Packs/Day Years Used Date Smoking Tobacco: Never Assessed Comments Unknown Sex and Gender Information Value Date Recorded Sex Assigned at Not on file 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
--- OUTSIDE RECORDS SUMMARY | 2025-03-26 11:31 | XMS_ITS | Clinical Summary ---
Author Organization [facility] Address [address] [place] [address] Care Team Providers Care Sack Cleaning Hand Name Role Phone Joseline Thompson MD Primary Care Provider +1- [phone] Allergies Active Allergy Reactions Criticality Noted Date [...] of Breath. Active fluticasone (FLONASE) 50 mcg/spray [place], Suspension Administer 1 [place] in each nostril daily. Active levothyroxine 75 mcg tablet Take 75 mcg by mouth daily impregnator operator. 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 Gender Identity Not on file Sexual Orientation [...] (1 of 3 - 19+ 3-dose series) 02/01 HPV/Cotest (21-29) 1999 CERVICAL CANCER SCREENING 02/11/2008 HPV/Cotest (30-65) 02/11/2008 PAP SMEAR 02/11/2008 BREAST CANCER SCREENING 2018 COLORECTAL SCREENING 2023 Colorectal Cancer Screening 2023 FIT-DNA Q 3 years 2023 FIT/FOBT Q 1 year 2023 Flex Sig/CT Colonography Q 5 years 2023 INFLUENZA VACCINE (#1) 2025 07/04/[address] [place], [place] [id number] [place] Member Subscriber Plan / Payer (Ef fective 2011-Present) Name:Marry Whatley Relation to Subscriber:Self Name:Stephen Whatleyannjuli Lin Payer ID:[id number] Group ID:Not on file Type:Medicaid Address: [address] Advance Directives For more information, please contact: [phone] Documents on File Type Date Recorded Patient Kelp Or Seagrass Gatherer Expl anation Advance Directive Living Will 2015 8:05 AM * Full Code (Latest Code Status on File) Date Activated Date Inactivated Comments 2015 10:44 AM 02/16/2015 4:08 PM * Full Code Date Activated Date Inactivated Comments 12/08/2012 4:10 AM 12/11/2012 6:57 PM Care Teams Sack Cleaning Hand Relationship Specialty Start Date End Date Joseline Thompson MD [address] [place] [address] PCP - General Family Practice 12/08/12
--- OUTSIDE RECORDS SUMMARY | 2025-03-26 11:31 | XMS_ITS | Encounter Summary ---
Author Organization [facility] Address [address] [place] [address] Care Team Providers Care Support Analyst Name Role Phone Joseline Thompson MD Primary Care Provider +1- [phone] Encounter Details Date Type Department Care Team (Late st Contact Info) Description 03/19/2025 External Device Data [facility] Provider, Abstract NO ADDRESS ON FILE Social History Tobacco Use Types Packs/Day Years Used Date Smoking Tobacco: Every Day Cigarettes Smokeless Tobacco: Never Alcohol Use Standard Drinks/Week Comments Not Currently 0 (1 standard drink = 0.6 oz pur e alcohol) Feeling Safe Answer Date Recorded Are you in a relationship wi th someone who hurts you emotionally and/or physically? 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
--- OUTSIDE RECORDS SUMMARY | 2025-03-26 11:31 | XMS_ITS | Encounter Summary ---
Author Organization [facility] Address [address] [place] [address] Care Team Providers Care Wild Life Manager Name Role Phone Joseline Thompson MD Primary Care Provider +1- [phone] Encounter Details Date Type Department Care Team (Latest Contact Info) Description 03/11/2004 Outpatient Historical [facility] [address] [place] [phone] oRnen Mcfarland MD [address] [place] [address] JOINT PAIN-L/LEG (Primary Dx) Social History Tobacco Use Types Packs/Day Years Used Date Smoking Tobacco: Never Assessed Comments Unknown Sex and Gender Information Value Date Recorded Sex Assigned at Not on file 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
--- OUTSIDE RECORDS SUMMARY | 2025-03-26 11:31 | XMS_ITS | Encounter Summary ---
Author Organization [facility] Address [address] [place] [address] Care Team Providers Care Manager Business Banking Name Role Phone Joseline Thompson MD Primary Care Provider +1- [phone] Encounter Details Date Type Department Care Team (Latest Contact Info) Description 01/28/[address] 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
--- OUTSIDE RECORDS SUMMARY | 2025-03-26 11:31 | XMS_ITS | Clinical Summary ---
Author Organization [employer] Address [address] Shahidn: [place] [address] Care Team Providers Care Matrix Drier Tender Name Role Phone Joseline Thompson MD Primary Care Provider +1- [phone] Allergies Active Allergy Reactions Criticality Noted Date Comments Adhesive Tape-Silicones Hives High 2015 Aspirin Nausea and Vomiting,Fever High 07/01/2008 Dulaglutide Hives High 01/11/2025 Ibuprofen Hives High 12/14/2012 Liraglutide Hives,Nausea and Vomiting High Metformin Hives High 10/14/2011 Naproxen Hives High 12/08/2012 Medications EPINEPHrine (EPIPEN) 0.3 mg/0.3 mL Auto-Injector Inject 0.3 mg by intramuscular injection 1 time daily as needed for Anaphylaxis. Active ARIPiprazole (ABILIFY) 2 mg tablet Take 2 mg by mouth daily. Active isosorbide mononitrate (IMDUR) 60 mg Extended Release 24 hour tablet Take 60 mg by mouth daily in the morning. Active cetirizine (ZyrTEC) 10 mg tablet Take 10 mg by mouth daily. Active metoprolol succinate (TOPROL XL) 25 mg Extended Release 24 hour tablet Take 25 mg by mouth daily. Active atorvastatin (LIPITOR) 10 mg tablet Take 10 mg by mouth daily. Active furosemide (LASIX) 20 mg tablet Take 20 mg by mouth daily. Active famotidine (PEPCID) 20 mg tablet Take [...] 200mg in 24 hours . 8 Active levETIRAcetam (KEPPRA) 500 mg tablet Take 1 Tablet (500 mg) by mouth 2 times daily. 60 Tablet 0 8 Active venlafaxine HCl (VENLAFAXINE ORAL) Take 150 mg by mouth daily . 8 Active EPINEPHrine (EPIPEN) 0.3 mg/0.3 mL Auto-Injector Inject 0.3 mg by intramuscular injection one time only NEEDED. . 5 Active loratadine (CLARITIN) 10 mg tablet Take 10 mg by mouth daily. 5 Active OTHER Hormone pill that starts with vent that is a little orange pill . 7 Active dulaglutide (TRULICITY) 0.75 mg/0.5 mL injection Inject by subcutaneous injection. 7 Active semaglutide (Ozempic) 0.25 mg or 0.5 mg (2 mg/3 mL) Pen Injector Inject 0.5 mg by subcutaneous injection every 7 days. Wednesdays Active QUEtiapine (SEROquel) 25 mg tablet Take 25 mg by mouth daily at bedtime. Active oxyCODONE-aceta minophen (PERCOCET) 5-325 mg tabletIndicatio ns:Chronic left-sided low back pain with left-sided sciatica Take 1 Tablet by mouth every 8 hours as needed for Pain, Moderate. Max Daily Amount: 3 Tablets 5 Tablet 5 Active lidocaine (LIDODERM) 5 % Adhesive Patch, Medicated Apply 1 Patch to affected area every 24 hours. 30 Patch 5 Active naloxone (NARCAN) 4 mg/spray Omega, Non-Aerosol EMERGENCY USE ONLY: Administer 1 spray (4 mg) in one nostril one time. May repeat in alternating nostrils every 2-3 min until responsive or EMS arrives. 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 013 Bipolar affective disorder, mixed 05/14/2009 Asthma Encounters Date Type Department Care Team Description 03/19/2025 External Device Data [facility] ABSTRACTION Provider, Abstract 03/12/2025 External Device Data [facility] ABSTRACTION Provider, Abstract 02/20/2025 External Device Data [facility] ABSTRACTION Provider, Abstract 02/12/2025 External Device Data [facility] ABSTRACTION Provider, Abstract 02/12/2025 External Device Data [facility] ABSTRACTION Provider, Abstract 02/12/2025 External Device Data [facility] ABSTRACTION Provider, Abstract 02/06/2025 External Device Data [facility] ABSTRACTION Provider, Abstract 01/16/2025 External Device Data [facility] ABSTRACTION Provider, Abstract 01/16/2025 External Device Data [facility] ABSTRACTION Provider, Abstract 01/16/2025 External Device Data [facility] ABSTRACTION Provider, Abstract 01/16/2025 External Device Data [facility] ABSTRACTION Provider, Abstract 01/11/2025 3:34 PM CDT - 01/11/2025 6:00 PM CDT Emergency [facility] Emergency Medicine [address] [place] [address] Sushil Santiago, DO Chronic left-sided low back pain with left-sided sciatica (Primary Dx); Strain of left knee, initial encounter Discharge Disposition: Home or Self Care 01/11/2025 Travel from Last 3 Months Immunizations Immunization Administration Dates Next Due Influenza Seasonal Unspecified Formulation IM Pneumococcal conjugate, unspecified formulation 02/01/2014 Family History Medical History Relation Name Comments Diabetes Father Heart Disease Father Diabetes Maternal Grandmother Diabetes Mother Relation Name Status Comments Father Alive Maternal Grandmother Mother Alive Social History Tobacco Use Types Packs/Day Years Used Date Smoking Tobacco: Every Day Cigarettes Smokeless Tobacco: Never Tobacco Cessation:Ready to Q uit: Not Asked; Counseling Given: Not Answered Alcohol Use Standard Drinks/Week Comments Not Currently 0 (1 standard drink = 0.6 oz pur e alcohol) Feeling Safe Answer Date Recorded Are you in a relationship wi th someone who hurts you emotionally and/or physically? 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 Gender Identity Not on file Sexual Orientation Not on file Last Filed Vital Signs Vital Sign Reading Time Taken Comments Blood Pressure 122/82 01/11/2025 5:58 PM CDT Pulse 104 01/11/2025 5:58 PM CDT Temperature 36.6 C (97.9 F) 01/11/2025 3:40 PM CDT Respiratory Rate 18 01/11/2025 5:58 PM CDT Oxygen Saturation 96% 01/11/2025 5:58 PM CDT Inhaled Oxygen Concentration - - Weight 101.4 kg (223 lb 8 oz) 01/11/2025 3:40 PM CDT Height 157.5 cm (5' 2 ) 01/11/2025 3:40 PM CDT Body Mass Index 40.88 01/11/2025 3:40 PM CDT Plan of Treatment Health Maintenance Due Date Last Done Comments DTAP/TDAP/TD VACCINES (1 - Tdap) 1997 HEPATITIS B VACCINES (1 of 3 - 19+ 3-dose series) 1997 HPV/Cotest (21-29) 1999 CERVICAL CANCER SCREENING 02/11/2008 HPV/Cotest (30-65) 02/11/2008 PAP SMEAR 02/11/2008 BREAST CANCER SCREENING 2018 Pre-Diabetes and Diabetes Screening 02/10/201802/10 COLORECTAL SCREENING 2023 Colorectal Cancer Screening 2023 FIT-DNA Q 3 years 2023 FIT/FOBT Q 1 year 2023 Flex Sig/CT Colonography Q 5 years 2023 INFLUENZA VACCINE (#1) 2025 07/29/2022, 2014 COVID-19 Vaccine ( season) 2025 07/29/2022, 07/10/2021, 10/09/2020 Procedures Procedure Name Priority Date/Time Associated Diagnosis Comments XR KNEE 3 VW LEFT Stat 01/11/2025 4:4 3 PM CDT XR LUMBAR SPINE 2 OR 3 VW Stat 01/11/2025 4:43 PM CDT HEMOGLOBIN A1C Routine 2015 12:00 PM CDT from Last 3 Months or Most Recently Relevant to Health Maintenance Results * XR KNEE 3 VW LEFT (01/11/2025 4:43 PM CDT) Anatomical Region Laterality Modality Lower Extremity Computed Radiogr aphy 01/11/2025 4:43 PM CDT Impressions 01/11/2025 4:48 PM CDT IMPRESSION: Suspected joint effusion without evidence of an acute osseous abnormality. Narrative 01/11/2025 4:48 PM CDT Exam: XR KNEE 3 VW LEFT Date/Time of Exam: 01/11/2025 4:43 PM Reason For Exam: Injury. Diagnosis: See Reason for Exam. Comparison: None. Findings: There is a small suspected joint effusion. There is no evidence of an acute fracture or dislocation. There are mild degenerative changes. The soft tissues appear grossly unremarkable. Procedure Note Francisco Boyd, DO - 01/11/2025 Exam: XR KNEE 3 VW LEFT Date/Time of Exam: 01/11/2025 4:43 PM Reason For Exam: Injury. Diagnosis: See Reason for Exam. Comparison: None. Findings: There is a small suspected joint effusion. There is no evidence of an acute fracture or dislocation. There are mild degenerative changes. The soft tissues appear grossly unremarkable. IMPRESSION: Suspected joint effusion without evidence of an acute osseous abnormality. Sushil Santiago DO DIAGNOSTIC IMAGING ORDERABLES Final Result * XR LUMBAR SPINE 2 OR 3 VW (01/11/2025 4:43 PM CDT) Anatomical Region Laterality Modality Spine Computed Radiogr aphy 01/11/2025 4:43 PM CDT Impressions 01/11/2025 4:51 PM CDT IMPRESSION: No acute osseous abnormality. Suspected pedicle screw fracture at the S1 level. Narrative 01/11/2025 4:51 PM CDT Exam: XR LUMBAR SPINE 2 OR 3 VW Date/Time of Exam: 01/11/2025 4:43 PM Reason For Exam: Low Back Pain. Diagnosis: See Reason for Exam. Comparison: None. Findings: There are multilevel postsurgical changes with hardware extending from the L4-S1 levels. There is a subtle suspected fracture involving one of the pedicle screws at the S1 level which is only identified on the lateral projection and difficult to lateralize. The vertebral body alignment appears anatomic. There is no evidence of an acute fracture or compression deformity. There are multilevel facet predominant degenerative changes. The soft tissues appear grossly unremarkable. Procedure Note Francisco Boyd, DO - 01/11/2025 Exam: XR LUMBAR SPINE 2 OR 3 VW Date/Time of Exam: 01/11/2025 4:43 PM Reason For Exam: Low Back Pain. Diagnosis: See Reason for Exam. Comparison: None. Findings: There are multilevel postsurgical changes with hardware extending from the L4-S1 levels. There is a subtle suspected fracture involving one of the pedicle screws at the S1 level which is only identified on the lateral projection and difficult to lateralize. The vertebral body alignment appears anatomic. There is no evidence of an acute fracture or compression deformity. There are multilevel facet predominant degenerative changes. The soft tissues appear grossly unremarkable. IMPRESSION: No acute osseous abnormality. Suspected pedicle screw fracture at the S1 level. us Sushil Santiago DO DIAGNOSTIC IMAGING ORDERABLES Final Result * HEMOGLOBIN A1C (2015 12:00 PM CDT) HEMOGLOBIN A1C 5.5 4.0 - 6.0 %A1C 02/11/2015 12:35 PM CDT [facility] [employer] [facility] Comment: This test was performed on a Prylos II Instrument using HPLC methodology. Blood 2015 12:0 0 PM CDT Narrative [facility] [employer] [facility] - 02/11/2015 12:35 PM CDT If not available from last three months If not available from last three months us Kevin Vazquez MD CHEMISTRY ORDERA BLES Final Result [facility] [employer] [facility] CLIA# [id number] [address] [place] [address] [facility] CLIA # [id number] [address] [facility] [place] [address] from Last 3 Months or Most Recently Relevant to Health Maintenance Insurance [address] [place] [id number] [place] Care Teams Matrix Drier Tender Relationship Specialty Start Date End Date Joseline Thompson MD [address] [place] [address] PCP - General Family Practice 12/08/12
--- OUTSIDE RECORDS SUMMARY | 2025-03-26 11:31 | XMS_ITS | Encounter Summary ---
Author Organization [facility] Address [address] [place] [address] Care Team Providers Care Meter/Relay Craftsman Name Role Phone Joseline Thompson MD Primary Care Provider +1- [phone] Encounter Details Date Type Department Care Team (Latest Contact Info) Description 05/06/2004 Outpatient Historical [facility] [address] [place] [address] Ronen Mcfarland MD [address] [place] [address] CHRONIC SINUSITIS NOS (Primary Dx) Social History Tobacco Use Types Packs/Day Years Used Date Smoking Tobacco: Never Assessed Comments Unknown Sex and Gender Information Value Date Recorded Sex Assigned at Not on file 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
--- OUTSIDE RECORDS SUMMARY | 2025-03-26 11:31 | XMS_ITS | Encounter Summary ---
Author Organization [facility] Address [address] [place] [address] Care Team Providers Care Feed Weigher Name Role Phone Joseline Thompson MD Primary Care Provider +1- [phone] Encounter Details Date Type Department Care Team (Late st Contact Info) Description 03/29/2006 Emergency [facility] Emergency Department [address] [place] [phone] Evonne Julian MD [address] [place] [address] Unspecified Migraine without Mention of Intractable Migraine (Primary Dx) Social History Tobacco Use Types Packs/Day Years Used Date Smoking Tobacco: Never Assessed Comments Unknown Sex and Gender Information Value Date Recorded Sex Assigned at Not on file 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
--- OUTSIDE RECORDS SUMMARY | 2025-03-26 11:31 | XMS_ITS | Encounter Summary ---
Author Organization [facility] Address [address] [place] [address] Care Team Providers Care Field Return Repairer Name Role Phone Joseline Thompson MD Primary Care Provider +1- [phone] Encounter Details Date Type Department Care Team (Latest Contact Info) Description 03/04/2004 Outpatient Historical [facility] [address] [place] [phone] Ronen Mcfarland MD [address] [place] [address] INT DERANGEMENT KNEE NOS (Primary Dx) Social History Tobacco Use Types Packs/Day Years Used Date Smoking Tobacco: Never Assessed Comments Unknown Sex and Gender Information Value Date Recorded Sex Assigned at Not on file Legal Sex Female 2:54 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
--- OUTSIDE RECORDS SUMMARY | 2025-03-26 11:31 | XMS_ITS | Encounter Summary ---
Author Organization [facility] Address [address] [place] [address] Care Team Providers Care Concrete Finisher Apprentice Name Role Phone Joseline Thompson MD Primary Care Provider +1- [phone] Encounter Details Date Type Department Care Team (Latest Contact Info) Description 03/28/2006 Outpatient Historical 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
--- NOTE | 2025-03-26 11:32 | XR_ITS ---
WS: [id number] Exam: XR chest 1V portable [id number] Date/Time of Exam: 03/26/2025 11:32 AM Reason For Exam: chest pain Comparison 08/18/2024. Lungs are fully expanded and clear. Normal cardiomediastinal silhouette and regional bony elements. XR/XR chest 1V portable [id number] IMPRESSION: 1. Negative chest.
--- NOTE | 2025-03-26 11:32 | ECG_ITS ---
[facility] Test Date: 2025-03-26 Pat Name: Marry Whatley Department: Room: Gender: Female Professor Of Early Childhood Education: : 1980 Requested By: Antonia Arvizu Order Number: [id number] Barnett MD: Jesús Flanagan M.D. Measurements Intervals Hull Rate: 91 P: 46 MS: 151 QRS: 73 QRSD: 94 T: 54 QT: 359 QTc: 443 Interpretive Statements SINUS RHYTHM INCOMPLETE RIGHT BUNDLE BRANCH BLOCK [90+ ms QRS DURATION, TERMINAL R IN V1/V2, 40+ ms S IN I/aVL/V4/V5/V6] MODERATE T-WAVE ABNORMALITY, CONSIDER ANTERIOR ISCHEMIA [-0.1+ mV T-WAVE IN V3/V4] INTERPRETATION BASED ON A DEFAULT AGE OF 40 YEARS Compared to ECG 08/11/2024 01:49:35 Incomplete right bundle-branch block now present Possible ischemia now present Sinus arrhythmia no longer present INCOMPLETE RIGHT BUNDLE BRANCH BLOCK IS NEW Electronically Signed On 03-27-2025 20:42:41 CDT by Jesús Flanagan M.D. [email or web address]
[2025-03-26 11:44] VITALS: BP 107/69; PULSE 91; RESP 17; TEMP 37.1; O2SAT 98; BMI 37.6
--- NOTE | 2025-03-26 11:53 | W.ED.CHESTPA ---
HPI - Chest Pain General: Chief Complaint: Chest Pain Stated Complaint: Chest pain Time Seen by Provider: 03/26/25 11:52 History of Present Illness: 45-year-old female who presents emergency room with chest pain. She says she has a cardiac history. She says she has congestive heart failure. She has not had a heart attack or stents. She also states she has seizure disorder. Obesity. She says she started having chest pain a couple of days ago. Left chest pain. She says it is both sharp and dull. Says it radiates to her left shoulder. She had some right arm tingling. Related Data Home Medications ?Medication ?Instructions ?Recorded ?Confirmed albuterol sulfate 90 mcg/actuation 2 inh inhalation Q6H PRN Shortness 07/19/19 02/04/25 breath activated powder inhaler Of Breath loratadine 10 mg tablet 10 mg PO DAILY@0600 07/19/19 02/04/25 acetaminophen 500 mg tablet 500 mg PO BID PRN Pain 06/11/20 02/04/25 fluticasone propionate 50 2 spray intranasal BID@0600,2200 06/11/20 02/04/25 mcg/actuation nasal spray,suspension atorvastatin 20 mg tablet 20 mg PO QPM 03/19/23 02/04/25 epinephrine 0.3 mg/0.3 mL See Rx Instructions .Route .COMPLEX 03/19/23 02/04/25 injection, auto-injector levothyroxine 75 mcg tablet 75 mcg PO DAILY 03/19/23 02/04/25 nitroglycerin 0.4 mg sublingual 0.4 mg sublingual Q5M PRN Chest 03/19/23 02/04/25 tablet (Nitrostat) Pain onabotulinumtoxinA 100 unit 155 unit SUBCUT .EVERY 3 MONTHS 03/19/23 02/04/25 solution for injection (Botox) rimegepant 75 mg disintegrating 75 mg PO PRN PRN Migraine Headache 07/07/23 02/04/25 tablet (Nurtec ODT) Previous Rx's ?Medication ?Instructions ?Recorded ASO to right ankle #1 ea 12/28/21 Spectrum AFO to the left #1 ea 08/06/22 AFO to right #1 ea 11/02/22 Cam Boot to the Right #1 ea 12/30/22 ASO to left #2 ea 01/14/23 Hinged Knee Brace #1 ea 12/06/23 Bone Growth Stimulator #1 ea 12/09/23 right cock up wrist brace #1 ea 09/10/24 tizanidine 4 mg tablet 4 mg PO Q8H PRN muscle spasticity 03/06/25 14 days #42 tabs hydrocodone 5 mg-acetaminophen 325 1 tab PO Q12H PRN pain 7 days #14 03/26/25 mg tablet tabs Allergies Allergy/AdvReac Type Severity Reaction Status Date / Time adhesive tape Allergy ALGY-Rash Verified 02/04/25 09:54 aspirin Allergy ALGY-Anaphy Verified 02/04/25 09:54 laxis carbamazepine Allergy ADR-Dizzine Verified 02/04/25 09:54 ss gabapentin Allergy ALGY-Hives Verified 02/04/25 09:54 ibuprofen Allergy Unknown Verified 02/04/25 09:54 linaclotide (From Linzess) Allergy Unknown Verified 02/04/25 09:54 metformin Allergy Verified 02/04/25 09:54 naproxen Allergy Verified 02/04/25 09:54 Review of Systems Narrative: Constitutional symptoms: Negative except as documented in HPI. Skin symptoms: Negative except as documented in HPI. Eye symptoms: Negative except as documented in HPI. ENMT symptoms: Negative except as documented in HPI. Respiratory symptoms: Negative except as documented in HPI. Cardiovascular symptoms: Negative except as documented in HPI. Gastrointestinal symptoms: Negative except as documented in HPI. Genitourinary symptoms: Negative except as documented in HPI. Musculoskeletal symptoms: Negative except as documented in HPI. Neurologic symptoms: Negative except as documented in HPI. Psychiatric symptoms: Negative except as documented in HPI. Endocrine symptoms: Negative except as documented in HPI. PFSH ED PFSH: Medical History (Updated 03/26/25 @ 13:46 by Antonia Roper MD) Cavernous angioma Urinary hesitancy Stress incontinence Gross hematuria Functional neurological symptom disorder with attacks or seizures Surgical History History of hysterectomy Social History Smoking and tobacco/nicotine status: former use of tobacco/nicotine Alcohol intake: never Substance/Drug Use: never Marital status: Current occupational status: unemployed and disabled Physical Exam Narrative: EXAM NARRATIVE: General: Alert, no acute distress. Skin: Warm, dry. Head: Normocephalic, atraumatic. Neck: Supple, trachea midline. Eye: Extraocular movements are intact. Ears, nose, mouth and throat: mucosa moist. Cardiovascular: Regular, Normal peripheral perfusion. Respiratory: Lungs are clear to auscultation, respirations are non-labored, breath sounds are equal, Symmetrical chest wall expansion. Gastrointestinal: Soft, Nontender, Non distended Musculoskeletal: Normal ROM, no deformity. Neurological: Alert and oriented, No focal neurological deficit observed. Psychiatric: Cooperative, appropriate mood & affect. Course Vital Signs: Vital signs: Vital Signs Temperature 98.8 F 03/26/25 11:44 Pulse Rate 78 03/26/25 14:00 Respiratory Rate 18 03/26/25 13:43 Blood Pressure 108/75 03/26/25 14:00 Pulse Oximetry 95 03/26/25 14:00 Oxygen Delivery Me thod Room Air 03/26/25 14:00 MDM - Chest Pain Medical Decision Making Differential diagnosis for patient with chest pain includes but is not limited to and based on the above HPI, review of systems and physical exam: Pneumonia. unstable angina. angina. Acute coronary syndrome / [place]. Pulmonary embolism. Costochondritis / musculoskeletal. Pleurisy. Pericarditis. Esophageal spasm. Pancreatis. Cholecystitis. Orders placed to evaluate differential diagnosis based on the above differential, HPI and physical exam EKG: Time 11:36 AM. Rate 91. Normal sinus rhythm, nonspecific ST-T changes, no ectopy, normal [place] & QRS intervals, This was reviewed and interpreted by myself the ER physician at 11:40 AM Chest x-ray: No acute process. No infiltrate. No pneumothorax. This was reviewed and interpreted by myself the emergency room physician. I also reviewed the radiology report. Lab Review: Laboratory results were reviewed and interpreted by myself the emergency room physician. No leukocytosis. No anemia. No renal failure. Liver enzymes are normal. Troponin and proBNP are negative. I reviewed the patient's medical record. Reexamination: Patient remained stable. No increased work of breathing. No altered mental status. No focal motor deficits. Assessment and plan: Noncardiac chest pain ?Morphine and Zofran in the emergency room - Discharged home - Discussed plan with patient. Answered any questions. - Evaluation and treatment of this problem were appropriate in the emergency setting. Lab Data 03/26/25 12:26 03/26/25 12:26 Radiology Impressions Chest X-Ray 03/26/25 11:32 IMPRESSION: 1. Negative chest. Laboratory Results WBC 7.74 10^3/uL (3.29-11.43) 03/26/25 12: RBC 4.70 10^6/uL (3.85-5.65) 03/26/25 12: Hgb 13.40 g/dL (11.27-16.99) 03/26/25 12: Hct 42.0 % (36-47) 03/26/25 12: MCV 89.4 fl (85-98) 03/26/25 12: MCH 28.5 pg (27-33) 03/26/25 12: MCHC 31.9 g/dL (30-55) 03/26/25 12: RDW 15.0 % (12.1-15.1) 03/26/25 12: Plt Count 129 10^3/cmm (157-399) L 03/26/25 12: MPV 12.3 fL (7.4-10.4) H 03/26/25 12: Neut % (Auto) 66.0 % 03/26/25 12: Lymph % (Auto) 22.6 % 03/26/25 12: Howard % (Auto) 4.9 % 03/26/25 12: Eos % (Auto) 5.6 % 03/26/25 12: Baso % (Auto) 0.6 % 03/26/25 12: Neut # (Auto) 5.11 10^3/uL (1.8-7.7) 03/26/25 12: Lymph # (Auto) 1.8 10^3/uL (0.8-4.8) 03/26/25 12: Howard # (Auto) 0.4 10^3/uL (0.2-0.9) 03/26/25 12: Eos # (Auto) 0.4 10^3/uL (0.0-0.8) 03/26/25 12: Baso # (Auto) 0.1 10^3/uL (0.0-0.1) 03/26/25 12:26 Nucleated RBC % (auto) 0 % 03/26/25 12:26 Nucleated RBCs # 0.0 /100WBC 03/26/25 12:26 Sodium 142 mmol/L (136-145) 03/26/25 12:26 Potassium 4.4 mmol/L (3.5-5.1) 03/26/25 12: Chloride 106 mmol/L (98-107) 03/26/25 12:26 Carbon Dioxide 25 mmol/L (22-29) 03/26/25 12:26 Anion Gap 15.4 (5-19) 03/26/25 12:26 BUN 11 mg/dL (6-20) 03/26/25 12:26 Creatinine 0.6 mg/dL (0.5-0.9) 03/26/25 12:26 GFR Calculation 107.2 mL/min (90-130) 03/26/25 12:26 Glucose 98 mg/dL (65-115) 03/26/25 12:26 Calculated Osmolality 293 mOsm/kg (285-295) 03/26/25 12:26 Calcium 9.2 mg/dL (8.5-10.5) 03/26/25 12:26 Total Bilirubin 0.4 mg/dL (0.15-1.2) 03/26/25 12:26 AST 7 U/L (0-32) 03/26/25 12:26 ALT 7 U/L (0-33) 03/26/25 12:26 Alkaline Phosphatase 96 U/L (35-105) 03/26/25 12:26 Troponin T Baseline 9 ng/L (0-10) 03/26/25 12:26 Troponin T 120 Minute 8.03 ng/L (0-10) 03/26/25 13:50 Delta Troponin T -0.97 ABS# (0-10) L 03/26/25 13:50 NT-Pro-B Natriuret Pep < 36 pg/mL (0-125) 03/26/25 12:26 Total Protein 6.1 g/dL (6.6-8.7) L 03/26/25 12:26 Albumin 4.4 g/dL (3.5-5.2) 03/26/25 12:26 Globulin 1.7 g/dL (1.3-4.6) 03/26/25 12:26 All radiology interpretation(s) finalized by discharge Discharge Plan Discharge Patient Disposition: Home Clinical Impression: Non-cardiac chest pain Condition: Stable Prescriptions: No Action loratadine 10 mg tablet 10 mg PO DAILY@0600 albuterol sulfate 90 mcg/actuation aerosol powdr breath activated 2 inh INHALATION Q6H PRN (Reason: Shortness Of Breath) (DME) AFO to right See Rx Instructions .Route .MEDSUPPLY Qty: 1 0RF Rx Instructions: As directed JOANN&O Nurtec ODT 75 mg tablet,disintegrating 75 mg PO PRN PRN (Reason: Migraine Headache) (DME) Hinged Knee Brace See Rx Instructions .Route .MEDSUPPLY Qty: 1 0RF Rx Instructions: As directed (DME) ASO to right ankle See Rx Instructions .Route .MEDSUPPLY Qty: 1 0RF Rx Instructions: As directed (DME) Spectrum AFO to the left See Rx Instructions .Route .MEDSUPPLY Qty: 1 0RF Rx Instructions: As directed by JOANN&Mindy (DME) ASO to left See Rx Instructions .Route .MEDSUPPLY Qty: 2 0RF Rx Instructions: As directed (DME) right cock up wrist brace See Rx Instructions .Route .MEDSUPPLY Qty: 1 0RF Rx Instructions: As directed (DME) Cam Boot to the Right See Rx Instructions .Route .MEDSUPPLY Qty: 1 0RF Rx Instructions: As directed (DME) Bone Growth Stimulator See Rx Instructions .Route .MEDSUPPLY Qty: 1 0RF Rx Instructions: As directed tizanidine 4 mg tablet 4 mg PO Q8H PRN (Reason: muscle spasticity) 14 Days Qty: 42 0RF hydrocodone-acetaminophen 5-325 mg tablet 1 tab PO Q12H MDD 6 PRN (Reason: pain) 7 Days Qty: 14 0RF acetaminophen 500 mg tablet 500 mg PO BID PRN (Reason: Pain) fluticasone propionate 50 mcg/actuation spray,suspension 2 spray INTRANASAL BID@0600,2200 atorvastatin 20 mg tablet 20 mg PO QPM nitroglycerin [Nitrostat] 0.4 mg Tablet, Sublingual 0.4 mg SUBLINGUAL Q5M PRN (Reason: Chest Pain) Rx Instructions: do not exceed 3 doses per episode epinephrine 0.3 mg/0.3 mL auto-injector See Rx Instructions .ROUTE .COMPLEX Rx Instructions: INJECT 0.3MG IN THE MUSCLE 1 TIME DIRECTED levothyroxine 75 mcg tablet 75 mcg PO DAILY Botox 100 unit recon soln 155 unit SUBCUT .EVERY 3 MONTHS Discharge Orders: Discharge ED (Routine); Ordered 03/26/25 Ordered By: Antonia Roper Referrals: Penny,Felisa, NET DEVEL[employer] SOFTWARE ENGINEER C [Primary Care Provider, Nurse Practitioner] Discharge Diet: Usual diet Discharge Activity: Increase activity as tolerated Patient Instructions: Noncardiac Chest Pain (ED), Opioid Safety, Pain Management, Patient Portal & Eliana Instructions Activity Restrictions/Additional Instructions: Thank you for choosing [facility] for your healthcare needs today. You have been screened and evaluated and felt safe for discharge. Health conditions do change or evolve sometimes and as such it is important that you follow up with your Primary Doctor to be re checked, 3-5 days is a general good time frame for follow up. You are always welcome to return to the ED for re assessment if your symptoms are worsening or you have new concerns Print Language: Citizen Of [place] Coding Level of Care Code ED Stock Receiver for Anju Stinson
[2025-03-26 12:30] VITALS: BP 124/80; BP 133/93; PULSE 78; PULSE 89; RESP 16; O2SAT 97
[2025-03-26 13:04] LABS: Hematocrit 42.0 % (36-47); Hemoglobin 13.40 g/dL (11.27-16.99); Mean Corpuscular HGB Conc 31.9 g/dL (30-55); Mean Corpuscular Hemoglobin 28.5 pg (27-33); Mean Corpuscular Volume 89.4 fl (85-98); Nucleated Red Blood Cells % 0 %; Platelet Count 129 10^3/cmm (157-399); Red Blood Count 4.70 10^6/uL (3.85-5.65); White Blood Count 7.74 10^3/uL (3.29-11.43)
[2025-03-26 13:26] LABS: Troponin(5th) Baseline 9 ng/L (0-10)
--- NOTE | 2025-03-26 13:32 | ECG_ITS ---
[facility] Test Date: 2025-03-26 Pat Name: Marry Whatley Department: Room: Gender: Female Speech Language Therapist: : 1980 Requested By: Antonia Arvizu Order Number: [id number] Anibal MD: Jesús Flanagan M.D. Measurements Intervals [place] Rate: 66 P: 21 [place]: 175 QRS: 35 QRSD: 109 T: 15 QT: 408 QTc: 428 Interpretive Statements SINUS RHYTHM LOW QRS VOLTAGE IN PRECORDIAL LEADS [QRS DEFLECTION < 1.0 mV IN CHEST LEADS] Compared to ECG 03/26/2025 11:36:11 NO SIGNIFICANT CHANGE Electronically Signed On 03-27-2025 22:06:41 CDT by Jesús Flanagan M.D. [email or web address]
[2025-03-26 13:39] LABS: Alanine Aminotransferase 7 U/L (0-33); Albumin Level 4.4 g/dL (3.5-5.2); Alkaline Phosphatase 96 U/L (35-105); Anion Gap 15.4 (5-19); Aspartate Amino Transferase 7 U/L (0-32); Blood Urea Nitrogen 11 mg/dL (6-20); Calcium 9.2 mg/dL (8.5-10.5); Carbon Dioxide 25 mmol/L (22-29); Chloride 106 mmol/L (98-107); Creatinine Clr Calc Pharmacy 123.3985; Globulin 1.7 g/dL (1.3-4.6); Glucose 98 mg/dL (65-115); NT Pro B Type Natriuretic Pept < 36 pg/mL (0-125); Osmolality Calculated 293 mOsm/kg (285-295); Potassium 4.4 mmol/L (3.5-5.1); Sodium 142 mmol/L (136-145); Total Protein 6.1 g/dL (6.6-8.7)
[2025-03-26 13:43] VITALS: RESP 18; O2SAT 99
[2025-03-26] MEDS: ondansetron 2 mg/ML SDV 2 mL 4 MG IVP (13:43)
[2025-03-26] MEDS: morphine 4 mg/mL SDV 1 mL IVP (13:43)
[2025-03-26 14:00] VITALS: BP 108/75; PULSE 78; O2SAT 95
--- NOTE | 2025-03-26 14:02 | PC.NURSE ---
pt requesting sandwich and sprite, Dr. Jacquelin pereira, pt given sprite and sandwich.
[2025-03-26 14:23] LABS: Troponin 5 2HR 8.03 ng/L (0-10); Troponin 5 2HR Delta -0.97 ABS# (0-10)
[2025-03-26 14:39] VITALS: BP 100/68; PULSE 70; O2SAT 98
== END 2025-03-26 14:40 | disposition home or self-care (01) ==
PROVIDERS: Emergency Provider Emergency Medicine; PCP Nurse Practitioner Family
DX: R07.89 Other chest pain (principal); Z87.891 Personal history of nicotine dependence; I50.9 Heart failure, unspecified
CPT/HCPCS: 36415; 71045; 80053; 83880; 84484; 85025; 93005; 96374; 96375; 99285; J2270; J2405

== ENCOUNTER → 2025-05-09 09:34 | Outpatient (BNVA) | payer MEDICAID, SELFPAY | PROVIDERS: PCP Nurse Practitioner Family; Visit Provider Specialist | DX: G43.711 Chronic migraine without aura, intractable, with status migrainosus (principal); F44.5 Conversion disorder with seizures or convulsions; D18.00 Hemangioma unspecified site; R03.0 Elevated blood-pressure reading, without diagnosis of hypertension | CPT/HCPCS: 64615; J0585; J9999 ==